=== PATIENT | female | born 1935 | race Hispanic/Latino ===

== ENCOUNTER 2016-12-30 18:22 | Inpatient (IN) | payer MEDICARE, OTHER ==
[2016-12-30 18:22] VITALS: BMI 26.0
--- NOTE | 2016-12-30 19:22 | ED PDOC ---
Arrival/HPI - General Chief Complaint: Psychiatric Evaluation Time Seen by Provider: 12/30/16 19:08 Historian: Patient - History of Present Illness Narrative History of Present Illness (Text): 12/30/16 19:17 81 year old female presents to the emergency department complaining of depression today. Son states that she has not been eating and has not been taking her medications. He states her property supervisor reported she was getting ready to get dressed and go somewhere which she is not supposed to do. He reports she had a similar episode last year where she was later found in the street after falling and is concerned for her safety. Son states Dr. Mcdaniels instructed the patient to come to the emergency room. Patient denies chest pain, shortness of breath, suicidal ideation, homicidal ideation, or hallucinations. Time/Duration: 24 hours Symptom Onset: Gradual Symptom Course: Unchanged Modifying Factors (Text): None Associated Symptoms (Text): None Past Medical History - Provider Review Nursing Documentation Reviewed: Yes - Infectious Disease Hx of Infectious Diseases: None - Tetanus Immunization Tetanus Immunization: Unknown - Reproductive Menopause: Yes - Cardiac Hx Hypertension: Yes - Neurological Hx Transient Ischemic Attacks (TIA): Yes - HEENT Hx Glaucoma: Yes - Renal Other/Comment: Kidney Disease - Hematological/Oncological Hx Anemia: Yes Hx Cancer: Yes (Breast) - Musculoskeletal/Rheumatological Hx Falls: Yes (past) Hx Unsteady Gait: Yes - Gastrointestinal Hx Gastroesophageal Reflux: Yes - Psychiatric Hx Anxiety: Yes Hx Depression: Yes Hx Substance Use: No - Surgical History Hx Cardiac Catheterization: Yes Hx Cholecystectomy: Yes Hx Coronary Stent: Yes (x3) Other/Comment: carotid endarectomy - Anesthesia Hx Anesthesia: Yes Hx Anesthesia Reactions: No Hx Malignant Hyperthermia: No Family/Social History - Physician Review Nursing Documentation Reviewed: Yes Family/Social History: Unknown Family HX Smoking Status: Never Smoked Hx Alcohol Use: No Hx Substance Use: No Allergies/Home Meds Allergies/Adverse Reactions: Allergies No Known Allergies Allergy (Verified 12/31/16 01:16) Home Medications: Home Meds Medication Instructions Recorded Confirmed [place]-3 Acid Ethyl Esters [Lovaza] 2 gm PO BID 02/09/16 12/31/16 Esomeprazole Magnesium [Nexium] 40 mg PO DAILY 07/13/16 12/31/16 Magnesium Oxide [Mag-Ox] 400 mg PO BID 07/13/16 12/31/16 Review of Systems - Physician Review All systems were reviewed & negative as marked: Yes - Review of Systems Respiratory: absent: SOB Cardiovascular: absent: Chest Pain Psychiatric: Depression. absent: Suicidal Ideation Physical Exam - Physical Exam Narrative Physical Exam (Text): Constitutional: No acute distress. Head: Normocephalic. Atraumatic. Eyes: PERRL. ENT: Moist mucous membranes. Neck: Supple. Cardiovascular: Regular rate. Chest: No tenderness. Respiratory: Clear to auscultation bilaterally. GI: Soft. Nontender. Nondistended. Back: No CVA tenderness. Musculoskeletal: No tenderness or swelling of extremities. Skin: No rash. Neurologic: Alert, no focal deficit. No suicidal or homicidal ideation. Vital Signs Reviewed: Yes Vital Signs Temp Pulse Resp BP Pulse Ox 12/30/16 23:36 65 18 188/88 H 96 12/30/16 21:45 76 18 193/81 H 96 12/30/16 19:12 97.4 F L 62 22 180/90 H 100 12/30/16 18:37 98.2 F 78 19 162/64 H 98 Temperature: Afebrile Blood Pressure: Normal Pulse: Regular Respiratory Rate: Normal Appearance: Positive for: Well-Appearing, Non-Toxic, Comfortable Pain Distress: None Mental Status: Positive for: Alert and Oriented X 3 Medical Decision Making ED Course and Treatment: Impression: 81 year old female presents to the emergency department with depression for the past few days. Plan: -- EKG, CXR -- Labs -- Reassess and disposition EKG: Ordered, reviewed, and independently interpreted the EKG. Rate : 69 BPM Rhythm : NSR Interpretation : Approximately [address] elevations in II, III, and AVF. ST depressions in I, AVL, V5, and V6, interpreted by me. Comparison : Previous EKG's from 07/13/16 and 08/29/16 have similar morphologies in all these leads. I reviewed the EKG before seeing the patient which showed the above findings. I compared two previous EKG's which showed similar morphologies as stated above. Patient denies chest pain and shortness of breath in the emergency room. Progress Notes: Medically cleared and accepted for admission by Dr. Mcdaniels. - Lab Interpretations Lab Results: 12/30/16 19:44 12/30/16 19:44 Lab Results 12/30/16 19:55: Urine Color Yellow, Urine Appearance Clear, Urine pH 6.0, Ur Specific [place] >= 1.030, Urine Protein 2+ H, Urine Glucose (UA) Negative, Urine Ketones Negative, Urine Blood Negative, Urine Nitrate Negative, Urine Bilirubin Negative, Urine Urobilinogen 0.2, Ur Leukocyte Esterase Negative, Urine RBC Negative, Urine WBC 2 - 5, Ur Epithelial Cells 3 - 4, Urine Bacteria Few, Urine Opiates Screen Negative, Urine Methadone Screen Negative, Ur Barbiturates Screen Negative, Ur Phencyclidine Scrn Negative, Ur Amphetamines Screen Negative, U Benzodiazepines Scrn Negative, U Oth Cocaine Metabols Negative, U Cannabinoids Screen Negative 12/30/16 19:44: WBC 5.7 D, RBC 4.63, Hgb 14.3, Hct 41.6, MCV 89.8, MCH 30.9, MCHC 34.4, RDW 13.1, Plt Count 192, MPV 9.8, Gran % 64.2, Lymph % (Auto) 24.4, [place] % (Auto) 10.1 H, Eos % (Auto) 1.1 L, Baso % (Auto) 0.2, Gran # 3.63, Lymph # 1.4, [place] # 0.6, Eos # 0.1, Baso # 0.01, Sodium 136, Potassium 3.9, Chloride 101, Carbon Dioxide 32, Anion Gap 7 L, BUN 27 H, Creatinine 0.8, Est GFR ( Amer) > 60, Est GFR (Non-Af Amer) > 60, Random Glucose 82, Calcium 9.5, Total Bilirubin 0.6, AST 27, ALT 26, Alkaline Phosphatase 119, Total Protein 6.2 , Albumin 3.5, Globulin 2.8, Albumin/Globulin Ratio 1.3, Salicylates < 1 L, Acetaminophen < 10.0 L, Alcohol, Quantitative < 10 - RAD Interpretation Radiology Orders: 12/30/16 19:22 CHEST PORTABLE [RAD] Stat - EKG Interpretation Interpreted by ED Physician: Yes Type: 12 lead EKG - Medication Orders Current Medication Orders: Acetaminophen (Tylenol 325mg Tab) 650 mg PO Q4H PRN PRN Reason: Pain, Mild (1-3) Al Hydrox/Mg Hydrox/Simethicone (Maalox Plus 30 Ml) 30 ml PO DAILY PRN PRN Reason: Upset Stomach Anastrozole (Arimidex 1 Mg Tab) 1 mg PO DAILY [facility] Aspirin (Ecotrin) 81 mg PO DAILY [facility] Last Admin: 12/31/16 07:55 Dose: 81 MG Atorvastatin Calcium (Lipitor) 40 mg PO DAILY [facility] Last Admin: 12/31/16 07:55 Dose: 40 MG Carvedilol (Coreg) 25 mg PO BID [facility] Last Admin: 12/31/16 07:55 Dose: 25 MG Clopidogrel Bisulfate (Plavix) 75 mg PO DAILY [facility] Last Admin: 12/31/16 07:55 Dose: 75 MG Furosemide (Lasix) 40 mg PO BID [facility] Last Admin: 12/31/16 07:55 Dose: 40 MG MAR Blood Pressure Document 12/31/16 07:55 TW (Rec: 12/31/16 07:55 [id number] Blood Pressure Blood Pressure (100/60-150/90) 174/103 Lorazepam (Ativan) 0.[address] [facility] PRN Reason: Protocol Last Admin: 12/31/16 00:27 Dose: 0.5 MG Behavioural Document 12/31/16 00:27 DCP (Rec: 12/31/16 00:27 DCP [id number]) Maintenance Maintenance Dose Yes Re-Assess: Reassess Psych Meds Document 12/31/16 01:27 DCP (Rec: 12/31/16 06:59 [id number] Reassess Psych Med Effective Lorazepam (Ativan) 0.5 mg PO DAILY [facility] PRN Reason: Protocol Last Admin: 12/31/16 10:47 Dose: 0.5 MG Behavioural Document 12/31/16 10:47 TW (Rec: 12/31/16 10:47 [id number]) Maintenance Maintenance Dose Yes Magnesium Hydroxide (Milk Of Magnesia) 30 ml PO DAILY PRN PRN Reason: Constipation Magnesium Oxide (Mag-Ox) 400 mg PO BID [facility] Last Admin: 12/31/16 07:55 Dose: 400 MG Pantoprazole Sodium (Protonix Ec Tab) 40 mg PO ACB [facility] Last Admin: 12/31/16 07:55 Dose: 40 MG Quetiapine Fumarate (Seroquel) 50 mg PO HS [facility] PRN Reason: Protocol Last Admin: 12/31/16 00:28 Dose: 50 MG Re-Assess: Reassess Psych Meds Document 12/31/16 01:28 DCP (Rec: 12/31/16 06:59 DCP [id number]) Reassess Psych Med Effective Zaleplon (Sonata) 10 mg PO HS PRN PRN Reason: Insomnia Last Admin: 12/31/16 00:28 Dose: 10 MG - Scribe Statement The provider has reviewed the documentation as recorded by the Leena Kidd Provider Scribe Attestation: All medical record entries made by the Leena were at my direction and personally dictated by me. I have reviewed the chart and agree that the record accurately reflects my personal performance of the history, physical exam, medical decision making, and the department course for this patient. I have also personally directed, reviewed, and agree with the discharge instructions and disposition. Disposition/Present on Arrival - Present on Arrival Any Indicators Present on Arrival: No History of DVT/PE: No History of Uncontrolled Diabetes: No Urinary Catheter: No History of Decub. Ulcer: No History Surgical Site Infection Following: None - Disposition Have Diagnosis and Disposition been Completed?: Yes Diagnosis: Depression Disposition: HOSPITALIZED Disposition Time: 23:00 Patient Plan: Admission Condition: STABLE
[2016-12-30 19:52] LABS: ADD MANUAL DIFF? NO
[2016-12-30 20:06] LABS: BASO # 0.01 K/mm3 (0.0-2.0); BASO % 0.2 % (0.0-3.0); EOS # 0.1 (0.0-0.7); EOS % 1.1 % (1.5-5.0); GRAN # 3.63 (1.4-6.5); GRAN % 64.2 % (50.0-68.0); HEMATOCRIT 41.6 % (36.0-48.0); LYMPH # 1.4 (1.2-3.4); LYMPH % 24.4 % (22.0-35.0); MEAN CELL VOLUME 89.8 fL (80.0-105.0); MEAN CORPUSCULAR HEMOGLOBIN 30.9 pg (25.0-35.0); MEAN CORPUSCULAR HGB CONC 34.4 g/dl (31.0-37.0); MEAN PLATELET VOLUME 9.8 fl (7.0-11.0); MONO # 0.6 (0.1-0.6); MONO % 10.1 % (1.0-6.0); PLATELET COUNT 192 10^3/uL (120.0-450.0); RED CELL DISTRIBUTION WIDTH 13.1 % (11.5-14.5); WHITE BLOOD COUNT 5.7 10^3/ul (4.5-11.0)
[2016-12-30 20:11] LABS: URINE BILIRUBIN NEGATIVE (NEGATIVE); URINE BLOOD NEGATIVE (NEGATIVE); URINE GLUCOSE (UA) NEGATIVE (NEGATIVE); URINE KETONE NEGATIVE (NEGATIVE); URINE LEUKOCYTE ESTERASE NEGATIVE Leu/uL (NEGATIVE); URINE PROTEIN 2+ mg/dL (<30 mg/dL); URINE UROBILINOGEN 0.2 E.U./dL (<1 E.U./dL)
[2016-12-30 20:12] LABS: URINE APPEARANCE CLEAR (CLEAR); URINE COLOR YELLOW (YELLOW)
[2016-12-30 20:17] LABS: ALB/GLOB RATIO 1.3 (1.1-1.8); ALKALINE PHOSPHATASE 119 U/L (38-133); ALT/SGPT 26 U/L (7-56); AST/SGOT 27 U/L (15-39); BILIRUBIN,TOTAL 0.6 mg/dL (0.2-1.3); BLOOD UREA NITROGEN 27 mg/dL (7-21); CALCIUM 9.5 mg/dL (8.4-10.5); CARBON DIOXIDE 32 mmol/L (21-33); CHLORIDE 101 mmol/L (98-107); GFR AFRICAN-AMERICAN > 60; GLUCOSE,RANDOM 82 mg/dL (70-110); POTASSIUM 3.9 mmol/L (3.6-5.0); SODIUM 136 mmol/L (132-148); TOTAL PROTEIN 6.2 g/dL (5.8-8.3)
[2016-12-30 20:42] LABS: URINE BACTERIA FEW (NEG); URINE RBC NEGATIVE /hpf (0-2)
[2016-12-30 21:46] VITALS: O2SAT 96
[2016-12-31] MEDS ORDERED: Alum-Mag Hydrox-Simethicone Susp (30 mL) PO PRN (01:18)
[2016-12-31] MEDS ORDERED: Magnesium Hydroxide Susp 30 ml UD PO PRN (01:18)
[2016-12-31] MEDS: Magnesium Oxide 400 mg Tab UD PO SCH ×2 (07:55→16:04)
[2016-12-31] MEDS: Pantoprazole 40 mg EC Tab PO SCH (07:55)
--- NOTE | 2016-12-31 08:57 | RAD ---
HISTORY: r/o PNA COMPARISON: 10/04/2016 FINDINGS: LUNGS: No active pulmonary disease. PLEURA: No significant pleural effusion identified, no pneumothorax apparent. CARDIOVASCULAR: Normal. OSSEOUS STRUCTURES: No significant abnormalities. VISUALIZED UPPER ABDOMEN: Normal. OTHER FINDINGS: None. IMPRESSION: No active disease.
--- NOTE | 2016-12-31 09:00 | CARD ---
APPROVED REPORT EKG Measurement Heart [id number] <Conclusion> Normal sinus rhythm Left ventricular hypertrophy with repolarization abnormality Inferior infarct, possibly acute Anterior infarct, age undetermined Inferior wall Mi of undetermine age no change from 08/29/2016 Abnormal ECG
[2016-12-31 09:03] LABS: CHOLESTEROL 129 mg/dL (130-200); GLUCOSE,FASTING 101 mg/dL (65-110)
[2016-12-31 09:52] LABS: FREE T4 1.66 ng/dL (0.78-2.19)
[2016-12-31 10:05] LABS: THYROID STIMULATING HORMONE 1.48 mIU/mL (0.46-4.68)
--- NOTE | 2016-12-31 12:15 | PCM.PSYCH ---
Initial Psychiatric Evaluation - Initial Psychiatric Evaluation Type of Admission: Voluntary Legal Status: Capacity (pt has capacity to sign consent for treatment) Chief Complaint (in patient's own words): "I don't want to talk now" Patient's Reaction to Hospitalization: pt was referred by for psychiatric admission for worsening of depression, confusion, inability to function, poor appetite and sleep. History of Present Illness and Precipitating Events: shortly pt is 81yo female with reported bipolar disorder as per h/o, one previous psychiatric admission to the [facility] (long time ago), was referred by her private psychiatrist for evaluation and stabilization of worsening of depression symptoms, inability to function, poor appetite and sleep, as well as some psychomotor retardation. pt presented with fair ADLS, seems to be careless about her appearance. pt was seen and examined, discussed with RNs, pt presented with psychomotor retardation, difficulties to express herself, low volume voice, underproductive speech, pt was guarded did not want to give this communications writer details of the admission , "I don't want to talk right now". Pt also presented with signs of catatonia, slow movements, difficulties to express herself. As per PCP, it took about 15min to fill menu for lunch. pt was giving yes-no answers only. denied v/a/t hallucinations, denied paranoid ideation. Pt reported to feel anxious. pt said she was not able to sleep but slept kind of better last night because "they gave me medications". pt denied using drugs or smoking. Past psychiatric h/o: as pr report by 07/17/2016 pt has h/o bipolar disorder, h/o mood swings, paranoia, agitation, restlessness and insomnia., some memory problems. two psychotic episodes in the past, two admissions into the psychiatric unit (long time ago). Family h/o: unknown Medical h/o: CHF, HTN, high cholesterol, Cardiac stents, CVA, TIA, h/o breast Ca , will be seen by . pt denied being abused 12/30/16 19:44 12/30/16 19:44 Lab Results 12/31/16 08:48: Fasting Glucose 101, Triglycerides 115, Cholesterol 129 L, LDL Cholesterol Direct 59, HDL Cholesterol 43 12/31/16 08:00: Free T4 1.66, Thyroxine (T4) 11.0, TSH 3rd Generation 1.48, Valproic Acid < 10 L 12/30/16 19:55: Urine Color Yellow, Urine Appearance Clear, Urine pH 6.0, Ur Specific [place] >= 1.030, Urine Protein 2+ H, Urine Glucose (UA) Negative, Urine Ketones Negative, Urine Blood Negative, Urine Nitrate Negative, Urine Bilirubin Negative, Urine Urobilinogen 0.2, Ur Leukocyte Esterase Negative, Urine RBC Negative, Urine WBC 2 - 5, Ur Epithelial Cells 3 - 4, Urine Bacteria Few, Urine Opiates Screen Negative, Urine Methadone Screen Negative, Ur Barbiturates Screen Negative, Ur Phencyclidine Scrn Negative, Ur Amphetamines Screen Negative, U Benzodiazepines Scrn Negative, U Oth Cocaine Metabols Negative, U Cannabinoids Screen Negative 12/30/16 19:44: WBC 5.7 D, RBC 4.63, Hgb 14.3, Hct 41.6, MCV 89.8, MCH 30.9, MCHC 34.4, RDW 13.1, Plt Count 192, MPV 9.8, Gran % 64.2, Lymph % (Auto) 24.4, [place] % (Auto) 10.1 H, Eos % (Auto) 1.1 L, Baso % (Auto) 0.2, Gran # 3.63, Lymph # 1.4, [place] # 0.6, Eos # 0.1, Baso # 0.01, Sodium 136, Potassium 3.9, Chloride 101, Carbon Dioxide 32, Anion Gap 7 L, BUN 27 H, Creatinine 0.8, Est GFR ( Amer) > 60, Est GFR (Non-Af Amer) > 60, Random Glucose 82, Calcium 9.5, Total Bilirubin 0.6, AST 27, ALT 26, Alkaline Phosphatase 119, Total Protein 6.2 , Albumin 3.5, Globulin 2.8, Albumin/Globulin Ratio 1.3, Salicylates < 1 L, Acetaminophen < 10.0 L, Alcohol, Quantitative < 10 Vital Signs Temp Pulse Pulse Resp BP Pulse Ox 12/31/16 10:30 112/69 12/31/16 07:55 174/103 H 12/31/16 01:03 62 20 12/30/16 23:36 65 18 188/88 H 96 12/30/16 21:45 76 18 193/81 H 96 12/30/16 19:12 97.4 F L 62 22 180/90 H 100 12/30/16 18:37 98.2 F 78 19 162/64 H 98 Current Medications: Active Medications Generic Name Dose Route Start Last Admin Trade Name Freq PRN Reason Stop Dose Admin Acetaminophen 650 mg 12/31/16 01:18 Tylenol 325mg Tab PO Q4H PRN Pain, Mild (1-3) Al Hydrox/Mg Hydrox/Simethicone 30 ml 12/31/16 01:18 Maalox Plus 30 Ml PO DAILY PRN Upset Stomach Anastrozole 1 mg 12/31/16 08:00 Arimidex 1 Mg Tab PO DAILY [facility] Aspirin 81 mg 12/31/16 08:00 12/31/16 07:55 Ecotrin PO 81 mg DAILY [facility] Administration Atorvastatin Calcium 40 mg 12/31/16 08:00 12/31/16 07:55 Lipitor PO 40 mg DAILY [facility] Administration Carvedilol 25 mg 12/31/16 08:00 12/31/16 07:55 Coreg PO 25 mg BID LOAN Administration Clopidogrel Bisulfate 75 mg 12/31/16 08:00 12/31/16 07:55 Plavix PO 75 mg DAILY [facility] Administration Furosemide 40 mg 12/31/16 08:00 12/31/16 07:55 Lasix PO 40 mg BID LOAN Administration Lorazepam 0.5 mg 12/31/16 00:17 12/31/16 00:27 Ativan PO 0.5 mg HS LOAN Administration Protocol Lorazepam 0.5 mg 12/31/16 10:00 12/31/16 10:47 Ativan PO 0.5 mg DAILY [facility] Administration Protocol Magnesium Hydroxide 30 ml 12/31/16 01:18 Milk Of Magnesia PO DAILY PRN Constipation Magnesium Oxide 400 mg 12/31/16 08:00 12/31/16 07:55 Mag-Ox PO 400 mg BID [facility] Administration Pantoprazole Sodium 40 mg 12/31/16 07:30 12/31/16 07:55 Protonix Ec Tab PO 40 mg ACB LOAN Administration Quetiapine Fumarate 50 mg 12/31/16 00:15 12/31/16 00:28 Seroquel PO 50 mg HS LOAN Administration Protocol Zaleplon 10 mg 12/31/16 00:19 12/31/16 00:28 Sonata PO 10 mg HS PRN Administration Insomnia Past Psychiatric History - Past Psychiatric History Previous Treatment History: Inpatient Prior Professional Help: see HPI Prior Psychiatric Treatment: see HPI At what hospital: see HPI Duration: see HPI Nature of Treatment: see HPI Explanation of prior treatment: see HPI History of Abuse: see HPI History of ETOH/Drug Use: see HPI History of Family Illness: see HPI Pertinent Medical Hx (Current Medical&Sleep Prob, Allergies): Allergies Allergy/AdvReac Type Severity Reaction Status Date / Time No Known Allergies Allergy Verified 12/31/16 01:16 [place]-3 Acid Ethyl Esters [Lovaza] 2 gm PO BID 02/09/16 Esomeprazole Magnesium [Nexium] 40 mg PO DAILY 07/13/16 Magnesium Oxide [Mag-Ox] 400 mg PO BID 07/13/16 Anastrozole [Arimidex 1 mg Tab] 1 mg PO DAILY #0 tab 07/17/16 Aspirin [Ecotrin] 81 mg PO DAILY #0 tabec 07/17/16 Atorvastatin [Lipitor] 40 mg PO DAILY #0 tab 07/17/16 Benztropine [Cogentin] 0.5 mg PO BID #0 tab 07/17/16 Carvedilol [Coreg] 25 mg PO BID #0 tab 07/17/16 Clopidogrel [Plavix] 75 mg PO DAILY #0 tab 07/17/16 Divalproex [Depakote ER(ONCE DAILY)] 500 mg PO HS #0 ter 07/17/16 Isosorbide Mononitrate [Imdur] 120 mg PO DAILY #0 tab 07/17/16 OLANZapine [Zyprexa] 10 mg PO HS #0 tab 07/17/16 Pantoprazole [Protonix EC Tab] 40 mg PO ACB #0 ect 07/17/16 Spironolactone [Aldactone] 50 mg PO BID #0 tab 07/17/16 Review of Systems - Review of Systems Systems not reviewed;Unavailable: Acuity of Condition - EENT Eyes: As Per HPI Ears: As Per HPI Nose/Mouth/Throat: As Per HPI - Breasts Breasts: As Per HPI - Cardiovascular Cardiovascular: As Per HPI - Respiratory Respiratory: As Per HPI - Gastrointestinal Gastrointestinal: As Per HPI - Genitourinary Genitourinary: As Per HPI - Reproductive: Female Reproductive:Female: As Per HPI - Menstruation Menstruation: As Per HPI - Musculoskeletal Musculoskeletal: As Par HPI - Integumentary Integumentary: As Per HPI - Neurological Neurological: As Per HPI - Psychiatric Psychiatric: As Per HPI - Endocrine Endocrine: As Per HPI - Hematologic/Lymphatic Hematologic: As Per HPI Mental Status Examination - Personal Presentation Personal Presentation: Looks stated age - Affect Affect: Constricted, Flat - Motor Activity Motor Activity: Psychomotor Retardation - Reliability in Providing Information Reliability in Providing Information: Poor, due to alteration in thoughts, Poor , due to altered mood, Poor, due to cognitve impairment - Speech Speech: Disorganized - Mood Mood: Depressed, Anxious - Formal Thought Process Formal Thought Process: No Impairment, Other (guarded) - Obsessions/Compulsions Obsessions: None Compulsions: None - Cognitive Functions Orientation: Person, Place Sensorium: Alert Attention/Concentration: Easily distracted Abstract Thinking: Spicer Estimate of Intelligence: Average Judgement: Intact, as evidence by: Insight regarding need for hospitalization - Risk Risk: Suicidal, Self-mutilation, Diminished functioning - Strength & Assets Inventory Strength & Assets Inventory: Cooperative - Limitations Limitations: Other (multiple medical issues, noncompliance with meds) DSM 5 DX - DSM 5 DSM 5 Diagnosis: as per h/o bipolar disorder, most recent episode depressed with catatonia - Recommended/Plan of Treatment Treatment Recommendations and Plan of Treatment: milieu/structure/supportive therapy will increase ativan 0.5mg amsh for catatonia will continue seroquel as it is for mood stabilization medical eval called pt will be seen by tomorrow will monitor closely Projected ELOS: 10days Prognosis: guarded Discharge Plan and Discharge Criteria: Pt will be not depressed or manic, will be more hopeful, will be not psychotic or anxious, will be tolerating medications well, will not have major side effects, will be able to function, will not pose threat to self or others. - Smoking Cessation Smoking Cessation Initiated: No Reason for not providing: pt deneid smoking
[2016-12-31 16:40] LABS: FOLATE 10.4 ng/mL
--- NOTE | 2016-12-31 21:11 | CON ---
DATE: 12/31/2016 The patient is a 81-year-old female seen on psychiatry floor, 508, bed 1. The patient presented to [facility] Emergency Room yesterday. According to the ER notes and the triage note, patient was unhappy, dep ressed, not eating, not taking meds. According to the patient's detailed history taken, patient got upset that the patient's son was diagnosed with a basal cell carcinoma of the face. The patient also reports being depressed because of the son's medical condition. Not been eating, not taking medicat ions. REVIEW OF SYSTEMS: A 13-system review was done. Pertinent positive and negative dictated above. CODE STATUS: Full code. LIVING WILL AND ADVANCED DIRECTIVE: None. ALLERGIES: None. HEIGHT: 5 foot 1 inch. WEIGHT: 130 pounds. BMI: 25.1. HOME MEDICATIONS: Home medications which were listed are incorrect. According to my recollection, glenn mendez is not on Aldactone 50 twice a day. The patient is on Lasix 40 mg twice a day, Arimidex 1 mg daily. The patient is on Coreg 25 twice a day, Depakote 500 at bedtime, Ecotrin 81 daily. Imdur is probably stopped. The patient is on Lipitor 40 mg daily, Welchol 3 grams twice a day probably, magne sium oxide 400 twice a day, Nexium or Protonix 40 mg daily, Plavix 75 mg daily. Psychiatric medicati ons as per Dr. Mcdaniels. SOCIAL HISTORY: The patient denies substance abuse, alcohol use, smoking. MENSTRUAL HISTORY: Postmenopausal. OCCUPATIONAL HISTORY: Disabled female. FAMILY HISTORY: Not available. PAST MEDICAL AND SURGICAL HISTORY: History of breast carcinoma, history of ischemic cardiomyopathy, history of cerebrovascular accident, history of carotid artery stenosis, status post right carotid en darterectomy; history of subdural hematoma, history of congestive heart failure, history of myocardia l infarction, history of syncope, history of coronary artery disease, history of coronary angioplasty , history of cardiomyopathy, history of congestive heart failure, history of systolic congestive hear t failure, history of non-ST elevation myocardial infarction, history of mid right coronary artery an gioplasty and stent placement, history of 80% stenosis of the proximal RCA and ostial RCA and 40% rissa nosis of the mid RCA, history of successful angioplasty of the ostial and proximal RCA lesion with dr licea-eluting stent placement. The patient's past medical history is significant for syncope, history of coronary artery disease, history of dyslipidemia, history of transaminitis, history of acute non-S T elevation myocardial infarction, history of ischemic cardiomyopathy, history of bilateral venous st asis, history of dementia, history of noncompliance, history of hypovitaminosis D, history of carotid stenosis, history of fatty liver, history of cholecystectomy, history of fatty pancreatitis. The kareen dobbins's past medical history is significant for deconditioning, history of dementia, history of nonco mpliance, history of dyslipidemia, history of hypovitaminosis D, history of hypomagnesemia, history o f non-ST elevation myocardial infarction, history of transaminitis, history of iron deficiency, histo ry of iron deficiency anemia, history of non-ST elevation myocardial infarction, history of dyslipide forrest, hypercholesterolemia, history of hypovitaminosis D, history of proteinuria, history of questiona ble urinary tract infection. The patient's past medical history is significant for right carotid end arterectomy with external jugular vein patch angioplasty, history of right hemispheric stroke with bi lateral carotid stenosis, history of right carotid endarterectomy, history of carotid and vertebral a ngiogram. The patient's past medical history is also significant for left ventricular ejection fract ion of 34% with ischemic cardiomyopathy and global hypokinesis, history of trace aortic regurgitation , history of moderate mitral regurgitation, history of cardiomyopathy, history of coronary artery dis ease, history of coronary angioplasty, history of non-ST elevation myocardial infarction, history of hypertensive cardiovascular disease, history of age indeterminate inferior infarct, history of subcen timeter multiple thyroid nodules. The patient's past medical history is significant for bilateral pl eural effusion, history of cardiomegaly, history of cholecystectomy, history of pneumobilia, history of adrenal hypertrophy. The patient's past medical history is significant for history of right parie martin lobe encephalomalacia secondary to acute infarct, history of carotid artery stenosis. The patien t's past medical history is significant for history of osteopenia, early osteoporosis, history of rig ht breast carcinoma status post radiation and chemotherapy. Past medical history is significant for history of pneumobilia, history of cholecystectomy, history of acute right parietal occipital lobe no nhemorrhagic infarct in 01/2016, history of deconditioning, history of kyphosis, history of fatty live r and hepatic steatosis. Past medical history is significant for history of cardiomegaly. The patie nt's past medical history is significant for psychosis. Past medical history is also significant for history of noncompliance. Past medical history significant for [id number] systolic congestive heart failure, history of poor compliance, history of hypoxemia, history of hypomagnesemia, history of subcentimeter bilateral thyroid nodule, history of ____, history of psychosis, depression, cogniti ve impairment, history of probable bipolar disorder. Past medical history is also significant for pr obable bipolar disorder. Past medical history is significant for ischemic cardiomyopathy, history of syncope, history of left carotid 60% to 80% stenosis with post-stenotic dilatation, history of 70% p roximal right internal carotid artery stenosis, history of right carotid endarterectomy, history of d elirium, history of dementia, history of hypertensive cardiovascular disease, history of ____ breast carcinoma. The patient's past medical history is significant for possible Alzheimer's type dementia, hepatic steatosis, history of cholecystectomy, history of severe encephalopathy, delirium. Past med ical history is also significant for ____ angina, gastritis, breast carcinoma. Past medical history is also significant for non-ST elevation myocardial infarction, history of systolic congestive heart failure. The patient seen in room 508. The patient sitting up in the bed. PHYSICAL EXAMINATION: VITAL SIGNS: T-max 98.2. Heart rate 62-78. Blood pressure initially in the ER 162/64, 180/90, 193/ 81, 188/88, 174/101, down to 114/72 after resumption of patient's antihypertensive. Respiration 18-2 0. O2 saturation 96% to 100%. GENERAL: The patient is seen sitting up in the bed. HEENT: Normocephalic, atraumatic. Shows pink conjunctivae, anicteric sclerae, positive right caroti d endarterectomy surgical scar. Positive bilateral carotid bruit. CHEST: Kyphosis. LUNGS: Shows decreased breath sounds at the bases, left more than the right. CARDIOVASCULAR: S1, S2, regular rhythm. Positive systolic murmur left sternal border, right second intercostal space, left second intercostal space. ABDOMEN: Soft. Positive surgical scar of the cholecystectomy. GENITALIA: Female. RECTAL: Deferred. EXTREMITIES: Shows positive swelling of the lower extremity. VASCULAR: Palpable pulses. MUSCULOSKELETAL: Shows a body mass index of 25.1. NEUROLOGIC: The patient is alert, awake, oriented to person, place, oriented x 2. Is able to move u pper and lower extremity without assistance. Follows simple commands. Is able to ambulate independe ntly. PSYCHIATRIC: As per psychiatrist consultation. DIAGNOSTICS: CBC: WBC 5.7, hemoglobin and hematocrit 14.3 and 41.6, platelets 192. Sodium 136, pot assium 3.9, chloride 101, CO2 of 32, anion gap 7, BUN 27, creatinine 0.8, GFR greater than 60, glucos e 82, calcium 9.5. LFTs are normal. Cholesterol 129, LDL 59, HDL 43. Vitamin B12 at 955. Vitamin D 25-hydroxy 43.4. Folate 10.4. TSH 1.48. T4 is high normal at 11.0. Urinalysis shows 2+ protein, bacteria few. Salicylate urine drug screen, acetaminophen level, alcohol level negative, Depakote l evel less than 10. Chest x-ray shows cardiomegaly. EKG done in the Emergency Room shows baseline ar tifact, Q-wave in III and aVF, T-wave inversion in I, aVL, V4-V6. The patient seen and evaluated in the Emergency Room last night. The patient was evaluated and medic ally cleared for admission to psychiatry for depression. The patient was later on evaluated by the p sychiatrist, Dr. Stoner. Her impression and plan was noted. IMPRESSION AND PLAN: 1. Acute exacerbation of possible bipolar disorder with acute exacerbation of depression and anxiety with poor appetite and insomnia. 2. History of anxiety and depression. 3. Hypertension, probably secondary to noncompliance with medication. 4. Mild prerenal kidney injury. 5. High normal thyroxine level. 6. Proteinuria and bacteriuria. 7. Hypertensive cardiovascular disease. 8. Age indeterminate inferior infarct and age indeterminate anterior inferior infarct as per EKG. 9. Anorexia. 10. Noncompliance. 11. History of poor compliance and noncompliance. 12. History of hyperlipidemia, history of hypomagnesemia, history of hypovitaminosis D, history of d yslipidemia, history of breast carcinoma. PLAN: At this time, patient has been ordered resumption of patient's home medications, which are as follows: 1. Arimidex 1 mg daily. The patient is also started on Ativan 0.5 mg at bedtime and Ativan 0.5 mg a t 10:00 a.m. 2. Coreg 25 mg twice a day. 3. Ecotrin 81 mg daily. 4. Lasix 40 mg twice a day. 5. Lipitor 40 mg daily. 6. Magnesium oxide 400 mg twice a day. 7. Plavix 75 mg daily. 8. Protonix 40 mg daily. In addition, patient is started on Seroquel 50 mg at bedtime, Sonata 10 mg at bedtime p.r.n. The pat ient is on heart healthy diet. ABAD stockmaximo ordered. Serial chemistries ordered. The patient will be continued on the psychiatric intervention. The patient will be monitored medically on a regular basis, therapeutic interventions. Diagnostic therapeutic intervention will be ordered depending upon patient's clinical and hemodynamic status and subjective and objective finding. Dictated and electronically signed, not read. Mohan Hidalgo MD cc: [id number] TT: 12/31/2016 21:11:34 Confirmation # [id number] Dictation # [id number] sn
[2017-01-01 08:16] LABS: ALB/GLOB RATIO 1.1 (1.1-1.8); ALKALINE PHOSPHATASE 109 U/L (38-133); ALT/SGPT 22 U/L (7-56); AST/SGOT 28 U/L (15-39); BILIRUBIN,TOTAL 0.8 mg/dL (0.2-1.3); BLOOD UREA NITROGEN 24 mg/dL (7-21); CALCIUM 9.4 mg/dL (8.4-10.5); CARBON DIOXIDE 32 mmol/L (21-33); CHLORIDE 101 mmol/L (98-107); GFR AFRICAN-AMERICAN > 60; GLUCOSE,RANDOM 90 mg/dL (70-110); POTASSIUM 4.1 mmol/L (3.6-5.0); SODIUM 136 mmol/L (132-148); TOTAL PROTEIN 5.8 g/dL (5.8-8.3)
[2017-01-01] MEDS: Pantoprazole 40 mg EC Tab PO SCH (08:25)
[2017-01-01] MEDS: Magnesium Oxide 400 mg Tab UD PO SCH ×2 (08:25→16:43)
[2017-01-01 12:18] LABS: MAGNESIUM 2.1 mg/dL (1.7-2.2); PHOSPHOROUS 4.3 mg/dL (2.5-4.5); URIC ACID 6.1 mg/dL (2.5-6.2)
--- NOTE | 2017-01-01 12:30 | PN ---
DATE: 01/01/2017 HISTORY OF PRESENT ILLNESS: The patient is a 81-year-old female who was brought to the [facility] 2 nights ago on a Sunday night by her daughter at my suggestion. The patient had increased sympt oms of severe confusion, attempting to walk out of her house by herself incoherently. 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 The patient has been seen as an outpatient intermittently on multiple occasions in my office. PAST MEDICAL HISTORY: The patient has a past history of several psychotic episodes as a younger woma n. She has had 2 psychiatric hospitalizations in the distant past at the [facility]. She had an acute CVA in 2015 for which she had a right-sided posterior parietal occipital stroke with lacuna r infarcts. The patient had become psychotic after her stroke. The patient also has history of hyperlipidemia, gastroesophageal reflux, CA of the breast, coronary a rtery disease, mild cognitive impairment, recurrent depression. She was also left with encephalomala naila of the right parietal occipital area of the brain. She also has a history of carotid artery sten osis. She has had a right carotid endarterectomy. She has had coronary angioplasty. She has a hist ory of ischemic cardiomyopathy, hypertension, history of episode of congestive heart failure, history of non-ST wave elevation myocardial infarction. She has a history of hypovitaminosis vitamin D, hyp erlipidemia. The patient has a history of fatty liver. PERSONAL HISTORY: She is , and she is a . She has a son and a daughter. The patient h as no history of alcohol or substance abuse. 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 As noted, s he has had past psychotic episodes, and psychiatric hospitalizations in the past. The patient's daug hter is power of compliance attorney if the patient becomes incompetent. CURRENT LABORATORY DATA: Her CBC is totally within normal range. Her metabolic profile - her sodium , potassium, chloride, CO2 are all within normal range. Anion gap 7. BUN 24, creatinine 0.9. Estim ated GFR is greater than 60. Liver function studies are within normal range as well as thyroid funct ions, vitamin D, folate levels. CURRENT MEDICATIONS: Include Arimidex, Ativan 0.5 mg daily and at bedtime, Coreg, Ecotrin, Lasix, Li pitor, Plavix, Protonix, Seroquel 50 mg at bedtime, Sonata 10 mg at bedtime p.r.n.. REVIEW OF SYSTEMS: Generally noncontributory, although the patient is slightly confused. VITAL SIGNS: Her blood pressure is 180/93, pulse 80, respirations 18 per minute and afebrile. MENTAL STATUS: Psychiatrically, her mental status: She is awake. He is alert. She has depressed f acies, some psychomotor retardation, despondent, had an episode through the night, which is confirmed by nurse's notes. Denies hallucinations or paranoia although she feels very depressed. At times, s he feels life is not worth living. At times, she feels she does not need to be in a psychiatric hosp ital, although after being informed that she did sign against medical advice, she refused to do so, a nd will agree to stay for further treatment. 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 The patient has a history of encep halomalacia from an old cerebrovascular accident in the right parietal occipital lobes of the brain. She has hypertension, history of coronary artery stents. She has a history of ischemic cardiomyopat hy, history of hypertension. PLAN: I discussed the case with her rotary shear worker helper. She is felt to be medically stable. I will discuss with treatment team, and will review psychotropic medications. Luis Mcdaniels MD cc: [id number] TT: 01/01/2017 12:01:10 Confirmation # [id number] Dictation # [id number] jeremy
--- NOTE | 2017-01-01 12:57 | PN ---
DATE: 01/01/2017 The patient is seen in room 508, bed 1. SUBJECTIVE: The patient is sitting up in the bed. The patient appears to be calm and quiet. The patient appears to be depressed. According to the nurses note, patient refusing Arimidex. Overnight, patient slept well. Denied auditory or visual hallucinations. Denied homicidal, suicidal ideation. The patient was found to be alert, awake, oriented x 3. PHYSICAL EXAMINATION: VITAL SIGNS: T-max 97.8, pulse 80, blood pressure ranging from 114/72-180/93, respirations 20, O2 sat is 96%-100%. HEAD: Normocephalic, atraumatic. HEENT: Shows pink conjunctivae, anicteric sclerae. No oropharyngeal lesion. NECK: No neck rigidity. CHEST: Kyphosis. Positive right carotid endarterectomy surgical scar. LUNGS: Shows decreased breath sounds at the bases. CARDIOVASCULAR: Shows S1, S2, regular rhythm, positive systolic murmur left sternal border, right second intercostal space. ABDOMEN: Soft, positive bowel sounds. GENITALIA: Female. RECTAL: Deferred. EXTREMITIES: Shows positive trace swelling of the lower extremity, no pitting edema. VASCULAR: Palpable pulses. MUSCULOSKELETAL: Shows a body mass index of 25.1. NEUROLOGIC: The patient is alert, awake, oriented x 3. Cranial nerves II-XII intact, limited. GAIT: Independent. PSYCHIATRIC: Negative for anxiety, depression. Negative for suicidal or homicidal ideation. Negative for auditory or visual hallucinations. DIAGNOSTICS: Today from 01/01: Sodium 136, potassium 4.1, chloride 101, CO2 32, anion gap 7, BUN 24, creatinine 0.9, GFR greater than 60, glucose 90, calcium 9.4. LFTs are normal. Cholesterol 129, triglycerides 115, LDL 59, HDL 43, vitamin B12 955, vitamin D 43.6. Thyroid panel is within normal limits with TSH 1.48. T4 is high normal 11, which needs to be monitored. IMPRESSION AND PLAN: 1. Acute exacerbation of bipolar disorder with acute exacerbation of depression and anxiety with poor appetite, insomnia. 2. Questionable uncontrolled hypertension. 3. History of anxiety, depression and bipolar disorder. 4. Probable noncompliance with medication. 5. Mild prerenal kidney injury. 6. High normal thyroxine level. 7. Proteinuria and bacteriuria. 8. Hypertensive cardiovascular disease. 9. Age indeterminate inferior infarct and age indeterminate anterior, inferior infarct as per EKG. 10. Anorexia. 11. Noncompliance. 12. History of hyperlipidemia, hypomagnesemia, hypovitaminosis D, history of breast carcinoma. . Acute exacerbation of possible bipolar disorder with acute exacerbation of depression and anxiety with poor appetite and insomnia. 2. History of anxiety and depression. 3. Hypertension, probably secondary to noncompliance with medication. 4. Mild prerenal kidney injury. 5. High normal thyroxine level. 6. Proteinuria and bacteriuria. 7. Hypertensive cardiovascular disease. 8. Age indeterminate inferior infarct and age indeterminate anterior inferior infarct as per EKG. 9. Anorexia. 10. Noncompliance. 11. History of poor compliance and noncompliance. 12. History of hyperlipidemia, history of hypomagnesemia, history of hypovitaminosis D, history of dyslipidemia, history of breast carcinoma. PLAN: At this time, patient has been ordered serial CMP. MEDICATIONS: The patient is currently on: 1. Arimidex 1 mg daily. 2. Ativan 0.5 mg at bedtime and Ativan 0.5 mg daily. 3. Coreg 25 mg twice a day. 4. Ecotrin 81 mg daily. 5. Lasix 40 mg twice a day. 6. Lipitor 40 mg daily. 7. Magnesium oxide 400 mg twice a day. 8. Plavix 75 mg daily. 9. Protonix 40 mg daily. 10. Seroquel 50 mg at bedtime. 11. Sonata 10 mg at bedtime p.r.n. 12. Tylenol 650 q. 6 p.r.n. The patient's magnesium level has to be ordered, which will be monitored and checked today. At present, overall medically, patient is stable and patient is compensated regarding her medical issues. We would recommend continuation of the medications as prescribed. We will update the patient's medications from the office medication list if needed. The patient needs to continue with the above therapeutic intervention and further recommendations to follow as per psychiatry. Dictated and electronically signed, not read. Mohan Hidalgo MD cc: [id number] TT: 01/01/2017 12:56:34 Confirmation # [id number] Dictation # [id number] nilam ISBELL
[2017-01-02 07:41] LABS: ALB/GLOB RATIO 1.2 (1.1-1.8); ALKALINE PHOSPHATASE 129 U/L (38-133); ALT/SGPT 33 U/L (7-56); AST/SGOT 37 U/L (15-39); BILIRUBIN,TOTAL 0.9 mg/dL (0.2-1.3); BLOOD UREA NITROGEN 21 mg/dL (7-21); CALCIUM 9.5 mg/dL (8.4-10.5); CARBON DIOXIDE 35 mmol/L (21-33); CHLORIDE 98 mmol/L (95-110); GFR AFRICAN-AMERICAN > 60; GLUCOSE,RANDOM 89 mg/dL (70-110); POTASSIUM 3.5 mmol/L (3.6-5.0); SODIUM 140 mmol/L (132-148); TOTAL PROTEIN 6.5 g/dL (5.8-8.3)
[2017-01-02] MEDS ORDERED: Potassium Chloride 40 mEq/30 ml LIQ UD PO STA (08:26)
[2017-01-02 11:08] LABS: PHOSPHOROUS 4.4 mg/dL (2.5-4.5)
--- NOTE | 2017-01-02 11:29 | PN ---
DATE: 01/02/2017 The patient is seen in the dayroom. The patient is sitting up at the dining table having breakfast. The patient is alert, awake, responsive. The patient appears to be depressed. The patient was found to be depressed. Refused breakfast earlier this morning. The patient is refusing medications. The patient is refusing potassium supplementation. The patient was found to be depressed. PHYSICAL EXAMINATION: VITAL SIGNS: T-max 98.4, heart rate 68, blood pressure 169/75, 164/85, 1____/93 , respirations 20, O2 sat 96-100%. HEAD: Normocephalic, atraumatic. HEENT: Shows pink conjunctivae, anicteric sclerae. No oropharyngeal lesion. NECK: No neck rigidity. CHEST: Kyphosis. LUNGS: No rales, crackles, or wheezing. CARDIOVASCULAR: S1, S2, regular rhythm. Questionable soft systolic murmur, left sternal border, left second intercostal space, right second intercostal space. ABDOMEN: Soft. Positive bowel sounds. GENITALIA: Female. RECTAL: Deferred. EXTREMITIES: Show trace swelling of the lower extremity. No pitting edema, no calf tenderness, no Homans' signs. VASCULAR: Palpable pulses. MUSCULOSKELETAL: Shows a body mass index of 25.1. NEUROLOGIC: Cranial nerves II-XII limited. GAIT: Independent. NEURO: Grossly without deficit. PSYCHIATRIC: Positive for increasing depression. DIAGNOSTICS: 01/02 - sodium 140, potassium 3.5, chloride 98, CO2 of 35, anion gap 11, BUN 21, creatinine 0.8. GFR greater than 60. Calcium is 9.5. Uric acid is high-normal at 6.1. Magnesium and phosphorus pending. LFTs are normal. Triglyceride is 115. MICROBIOLOGY: No reports. IMPRESSION AND PLAN: 1. Increasing depression with acute exacerbation of anxiety and depression. 2. Acute exacerbation of bipolar disorder with acute exacerbation of depression and anxiety, poor appetite, insomnia. 3. Noncompliance and poor compliance with medication. 4. Hypertension. 5. Hypokalemia. 6. History of dyslipidemia, history of hypovitaminosis D. 7. Proteinuria. 8. Asymptomatic bacteriuria. 9. Ischemic cardiomyopathy. 10. History of dementia, history of noncompliance with medication. 11. History of right cerebral infarct with right internal carotid artery stenosis and right carotid endarterectomy. 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 13. Psychosis and cognitive impairment. 1. Acute exacerbation of bipolar disorder with acute exacerbation of depression and anxiety with poor appetite, insomnia. 2. Questionable uncontrolled hypertension. 3. History of anxiety, depression and bipolar disorder. 4. Probable noncompliance with medication. 5. Mild prerenal kidney injury. 6. High normal thyroxine level. 7. Proteinuria and bacteriuria. 8. Hypertensive cardiovascular disease. 9. Age indeterminate inferior infarct and age indeterminate anterior, inferior infarct as per EKG. 10. Anorexia. 11. Noncompliance. 12. History of hyperlipidemia, hypomagnesemia, hypovitaminosis D, history of breast carcinoma. . Acute exacerbation of possible bipolar disorder with acute exacerbation of depression and anxiety with poor appetite and insomnia. 2. History of anxiety and depression. 3. Hypertension, probably secondary to noncompliance with medication. 4. Mild prerenal kidney injury. 5. High normal thyroxine level. 6. Proteinuria and bacteriuria. 7. Hypertensive cardiovascular disease. 8. Age indeterminate inferior infarct and age indeterminate anterior inferior infarct as per EKG. 9. Anorexia. 10. Noncompliance. 11. History of poor compliance and noncompliance. 12. History of hyperlipidemia, history of hypomagnesemia, history of hypovitaminosis D, history of dyslipidemia, history of breast carcinoma. PLAN: At this time, the patient has been ordered serial labs. The patient has been ordered potassium supplementation 40 mEq stat. The patient's current medication has been revised as mentioned. MEDICATIONS: According to the office medication record, the patient is currently on: 1. Aricept 5 mg daily, Arimidex 1 mg daily, Ativan 0.5 mg at bedtime, and Ativan 0.5 mg at 10:00 a.m. 2. Coreg 25 mg twice a day. 3. Ecotrin 81 mg daily. 4. Imdur 120 mg daily. 5. Lasix 40 mg twice a day. 6. Lexapro 5 mg daily, Lipitor 40 mg daily, magnesium oxide 400 mg twice a day. 7. Plavix 75 mg daily. 8. Potassium 40 mEq ordered stat x 1 dose. 9. Protonix 40 mg daily for GI prophylaxis. 10. Seroquel 50 mg at bedtime. 11. Sonata 10 mg at bedtime p.r.n. 12. Tylenol 650 q. 4 p.r.n. 13. The patient is started on allopurinol 100 mg daily instead of Uloric 40 mg daily, which the patient is supposed to be taking. The patient has been ordered ABAD stockings. At present, the patient's further management is as per the psychiatric recommendation. Overall medically, the patient is stable. The patient's blood pressure is probably fluctuating secondary to the patient's refusal to take medication, which can be addressed with the patient's psychiatrist in psychotherapy groups and group sessions, and acute care nursing assistant. The patient needs to comply with the medication. Dictated and electronically signed, not read. Mohan Hidalgo MD cc: [id number] TT: 01/02/2017 11:29:04 Confirmation # [id number] Dictation # [id number] MTDD
[2017-01-02] MEDS: Pantoprazole 40 mg EC Tab PO SCH (11:52)
[2017-01-02] MEDS: Magnesium Oxide 400 mg Tab UD PO SCH ×2 (11:52→17:22)
--- NOTE | 2017-01-02 12:35 | PN ---
DATE: 01/02/2017 HISTORY OF PRESENT ILLNESS: The patient is a 81-year-old female admitted to the hospital due to diso rganized thinking, depressed mood, failing to take her prescribed psychotropic and medical medication s, attempting to wander out of the house in an incoherent manner. MENTAL STATUS: Today, although she is awake, alert, oriented x 3, her eye contact is poor. Her thin gilma is somewhat disorganized. She is extremely despondent about various personal matters built out of proportion. Claims she has not filed a certain form with her tax return and there is nothing she can do about it. When given a rational solution, she refused to accept it. Today, she refused to ta ke all her medications in the morning. The patient is very hopeless, helpless and feels she is never going to get better. The patient is oriented x 3 as noted above. The patient feels life is not wor th living. CURRENT LABORATORY DATA: Her sodium 140, potassium 3.5, chloride 98, CO2 35, anion gap 11, BUN 21, c reatinine is 0.8. The rest of parameters were all normal. CURRENT MEDICATIONS: Include Aricept 5 mg at bedtime, Arimidex, lorazepam 0.5 mg daily and at bedtim e, Coreg, Ecotrin, Imdur, Lasix, Lexapro 5 mg q.a.m. started today, Lipitor, mag ox, Plavix, p.r.n. Sonata and Seroquel 50 mg p.o. at bedtime. VITAL SIGNS: Her blood pressure is 169/75, pulse 68, respirations 18 per minute and afebrile. 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 PLAN: Will continue the Lexapro, continue lorazepam. Will discontinue Seroquel and start Zyprexa 2. 5 mg b.i.d. and 0.5 mg p.o. at bedtime. Keep under close observation for suicidal ideation and errat ic behavior. I will continue discussing with nursing staff and rest of team. Luis Mcdaniels MD cc: [id number] TT: 01/02/2017 12:34:02 Confirmation # [id number] Dictation # [id number] mn
[2017-01-03 07:33] LABS: ALB/GLOB RATIO 1.2 (1.1-1.8); CALCIUM 9.7 mg/dL (8.4-10.5); PHOSPHOROUS 4.1 mg/dL (2.5-4.5); POTASSIUM 4.1 mmol/L (3.6-5.0); TOTAL PROTEIN 6.6 g/dL (5.8-8.3)
[2017-01-03] MEDS: Pantoprazole 40 mg EC Tab PO SCH (10:00)
[2017-01-03] MEDS: Magnesium Oxide 400 mg Tab UD PO SCH ×2 (10:01→18:04)
--- NOTE | 2017-01-03 15:42 | PN ---
DATE: 01/03/2017 HISTORY OF PRESENT ILLNESS: The patient is a 81-year-old female who was admitted to the psychiatric unit due to severe depression, racing thoughts, suicidal ideation, poor concentration and noncomplian ce with medication at home. The patient today mental status reveals her thought processes are a bit more integrated, somewhat less anxious, reportedly slept well through the night, still very fearful a bout minor matters which she blows up out of proportion, allows herself to get very agitated. The pa shilpi is oriented x 3. She has intermittent impairment in recent memory. Judgment is still impaired , but improving. I spoke with patient at length regarding problem solving, how to cope with stressor s. I also reviewed with the patient each medication that she is taking and the rationale for each Th e patient currently denies any suicidal plan, but at times, feels that life is not worth living. LABORATORY DATA: The patient's metabolic profile: Sodium 136, potassium 4.1, chloride 96, CO2 31, a nion gap 13, BUN is 25, creatinine 1.1, estimated GFR of 58. Rest of the profile is within normal ra nge. CURRENT MEDICATIONS: Include Ecotrin, Aricept 5 mg at bedtime, Coreg, Imdur, Lasix, Lexapro, Lipitor , Mag-Ox, p.r.n. Sonata which she did not have last night, Protonix, Zyloprim, Zyprexa which was star shoaib yesterday at 2.5 mg b.i.d. and 5 mg at bedtime. The patient does not appear to be having any adv erse effects from any of her psychotropic medicines. VITAL SIGNS: Her blood pressure is 170/80, pulse 65, respirations 18 per minute, and afebrile. IMPRESSION: Recurrent major depression with psychotic features. The patient has a history of hypert ension, history of coronary artery disease with stents, history of hyperlipidemia, history of gout, h istory of cancer of the breast, history of mild cognitive impairment. PLAN: Continue above psychotropic medicines and to continue to observe every 15 minutes for suicidal thinking. Also continue to closely monitor her mental status and discuss ongoing with the staff. Luis Mcdaniels MD cc: [id number] TT: 01/03/2017 15:34:03 Confirmation # [id number] Dictation # [id number] tn
--- NOTE | 2017-01-04 00:01 | PN ---
DATE: 01/03/2017 SUBJECTIVE: The patient is seen in day room. The patient is sitting up doing crossword puzzle and activity. The patient up, is alert, awake, responsive. The patient does not appear to be in any distress. The patient has been refusing medication. I had a long talk with the patient today. The patient promises to comply with medication, I have explained to the patient that patient 's stay may be prolonged, if the patient does not comply with the medication, which patient understood and promised to comply. The patient's appetite appears to be okay, according to the nurses' note, the patient was found to be depressed, isolated, withdrawal, refused to attend groups PHYSICAL EXAMINATION: VITAL SIGNS: T-max, patient is afebrile. Heart rate 73-65, blood pressure ranging from 170/80-95/56, asymptomatic. The accuracy of that blood pressure I am unable to verify. HEENT: Head: Normocephalic, atraumatic. Shows pink conjunctivae, anicteric sclerae. No oropharyngeal lesion. No neck rigidity. Head: Normocephalic, atraumatic. Shows pink conjunctivae, anicteric sclerae. No oropharyngeal lesion. NECK: No neck rigidity. Positive right carotid endarterectomy surgical scar. Positive carotid bruit. CHEST: Kyphosis, positive mastectomy. LUNGS: No rales, crackles, or wheezing. CARDIOVASCULAR: S1, S2, regular rhythm, positive systolic murmur right second intercostal space, left sternal border, left second intercostal space. ABDOMEN: Soft, positive bowel sounds. GENITALIA: Female. RECTAL: Deferred. EXTREMITIES: Shows trace swelling of the lower extremity, no calf tenderness, no Homans sign. No Homans sign, no clubbing, no cyanosis. VASCULAR: Palpable pulses. MUSCULOSKELETAL: Plantars are downward. DTRs are 2+. NEUROLOGIC: The patient is alert, awake, oriented x 3. Cranial nerves II-XII intact, and limited. GAIT: Independent. PSYCHIATRIC: As per psychiatrist's evaluation. DIAGNOSTICS: On 01/03, sodium 136, potassium 4.1, chloride 96, CO2 of 31, anion gap 13, BUN 25, creatinine 1.1, GFR greater than 58, glucose 92, calcium 9.7, phosphorus 4.1, magnesium 2.0. LFTs are normal. IMPRESSION AND PLAN: 1. Questionable poor compliance versus noncompliance. 2. Recurrent major depression and psychosis and psychotic features. 3. Cognitive impairment with dementia. 4. Uncontrolled hypertension with episodic hypotension. 5. Acute exacerbation of depression and anxiety and acute exacerbation of bipolar disorder with acute exacerbation of anxiety, depression with poor appetite and insomnia. 6. Hypokalemia. 7. Dyslipidemia. 8. Hypovitaminosis D. 9. Asymptomatic bacteriuria and proteinuria. 10. Dilated ischemic cardiomyopathy. 11. History of dementia. 12. History of right cerebral infarct with right internal carotid artery stenosis and right carotid endarterectomy. 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 14. Psychosis and cognitive impairment. 15. History of right occipital, right parietal nonhemorrhagic acute infarct with right internal carotid artery stenosis, status post right carotid endarterectomy. 1. Increasing depression with acute exacerbation of anxiety and depression. 2. Acute exacerbation of bipolar disorder with acute exacerbation of depression and anxiety, poor appetite, insomnia. 3. Noncompliance and poor compliance with medication. 4. Hypertension. 5. Hypokalemia. 6. History of dyslipidemia, history of hypovitaminosis D. 7. Proteinuria. 8. Asymptomatic bacteriuria. 9. Ischemic cardiomyopathy. 10. History of dementia, history of noncompliance with medication. 11. History of right cerebral infarct with right internal carotid artery stenosis and right carotid endarterectomy. 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 13. Psychosis and cognitive impairment. 1. Acute exacerbation of bipolar disorder with acute exacerbation of depression and anxiety with poor appetite, insomnia. 2. Questionable uncontrolled hypertension. 3. History of anxiety, depression and bipolar disorder. 4. Probable noncompliance with medication. 5. Mild prerenal kidney injury. 6. High normal thyroxine level. 7. Proteinuria and bacteriuria. 8. Hypertensive cardiovascular disease. 9. Age indeterminate inferior infarct and age indeterminate anterior, inferior infarct as per EKG. 10. Anorexia. 11. Noncompliance. 12. History of hyperlipidemia, hypomagnesemia, hypovitaminosis D, history of breast carcinoma. . Acute exacerbation of possible bipolar disorder with acute exacerbation of depression and anxiety with poor appetite and insomnia. 2. History of anxiety and depression. 3. Hypertension, probably secondary to noncompliance with medication. 4. Mild prerenal kidney injury. 5. High normal thyroxine level. 6. Proteinuria and bacteriuria. 7. Hypertensive cardiovascular disease. 8. Age indeterminate inferior infarct and age indeterminate anterior inferior infarct as per EKG. 9. Anorexia. 10. Noncompliance. 11. History of poor compliance and noncompliance. 12. History of hyperlipidemia, history of hypomagnesemia, history of hypovitaminosis D, history of dyslipidemia, history of breast carcinoma. PLAN: At this time, the patient seen by psychiatrist. The patient's psychotropic medications are adjusted by Dr. Mcdaniels. The patient is on continuous observation every 15 minutes for suicidal ideation. The patient's medications has been and are as follows: 1. Aricept 5 mg at bedtime. 2. Arimidex 1 mg daily. 3. Ativan 0.5 mg at bedtime, and Ativan 0.5 mg 10:00 a.m. 4. Coreg 25 mg twice a day. 5. Ecotrin 81 mg daily. 6. Imdur 120 mg daily. 7. Lasix 40 mg twice a day. 8. Lexapro 5 mg daily. 9. Lipitor 40 mg daily. 10. Magnesium oxide 400 twice a day. 11. Plavix 75 mg daily. 12. Protonix 40 mg daily for GI prophylaxis. 13. Sonata 10 mg at bedtime p.r.n. 14. Tylenol 650 q. 4 hours p.r.n. 15. The patient is started on Zyprexa 5 mg at bedtime and Zyprexa 2.5 mg 10:00 a.m. and 4:00 p.m. 16. Allopurinol 100 mg daily. The patient's blood pressure will be monitored very closely. The patient's Imdur, isosorbide will be decreased to 60 mg with close monitoring of blood pressure, as patient is having episodes of asymptomatic hypotension and also intermittently patient's blood pressure is elevated, it is a possibility that the patient's blood pressure fluctuation could be because of patient's compliance and refusal with medication. But will be monitored closely while the patient is on the psychiatry floor. At present, patient has been participating in the treatment plan as per psychiatry. The patient's further management will be dependent upon the patient's clinical condition, hemodynamic status, and as per patient's response to therapeutic intervention, and as per patient's diagnostic test results and as per recommendation by psychiatry. Dictated, and electronically signed, not read. Mohan Hidalgo MD cc: [id number] TT: 01/04/2017 00:01:07 Confirmation # [id number] Dictation # [id number] tn MTDD
[2017-01-04 07:49] LABS: ALB/GLOB RATIO 1.3 (1.1-1.8); BILIRUBIN,TOTAL 0.9 mg/dL (0.2-1.3); CALCIUM 9.5 mg/dL (8.4-10.5); PHOSPHOROUS 3.7 mg/dL (2.5-4.5); POTASSIUM 4.2 mmol/L (3.6-5.0); TOTAL PROTEIN 6.1 g/dL (5.8-8.3)
[2017-01-04] MEDS: Magnesium Oxide 400 mg Tab UD PO SCH ×2 (09:27→17:34)
[2017-01-04] MEDS: Pantoprazole 40 mg EC Tab PO SCH (09:29)
--- NOTE | 2017-01-04 13:36 | PN ---
DATE: 01/04/2017 SUBJECTIVE: A 81-year-old female who was admitted for grossly deteriorating mental status. She was depressed,paranoid, and exhibited disorganized thinking. PHYSICAL EXAMINATION: MENTAL STATUS: The patient is oriented x 3. Recognized me; very anxious; She has difficulty carrying on a rational conversation. She admits not taking medications last night. has thoughts that life is not worth living. Judgement and insight are impaired MEDICATIONS: Include Aricept, Arimidex, Ativan 0.5 mg daily and at bedtime, Coreg, Ecotrin, Imdur, Lasix, Lexapro 5 mg q.a.m., Lipitor, Plavix, Protonix, p.r.n. Sonata, Zyloprim and Zyprexa 2.5 bid and 5 mg at bedtime. VITAL SIGNS: BP is 109/68; pulse is 78; respirations 18 per minute. IMPRESSION: Severe recurrent major depression with psychotic features. She has a history of an occipitoparietal cerebrovascular accident in 2016, hypertension , coronary artery disease with stents. She has history of gout, history of cancer of the breast. PLAN: Continue above psychotropic medicines. Continue to observe q. 15 minutes for suicidal thinking or behavior. Continue to closely monitor mental status and continue discussing with treatment team. Luis Mcdaniels MD cc: [id number] TT: 01/04/2017 12:53:00 Confirmation # [id number] Dictation # [id number] mn 01/04/2017 12:35:11 SUKHI
--- NOTE | 2017-01-04 21:02 | PN ---
DATE: 01/04/2017 The patient is actually seen in group therapy. The patient is involved in group therapy with group therapy session. According to the nurse's notes, the patient is still refusing medications. The patient's case was extensively discussed with the nursing staff. Overnight nurse's notes were reviewed. The patient appeared to be anxious, irritable. The patient does not appear to be compliant with medication. The patient slept overnight without any adverse events. The patient was found to be mostly nonsocializing and seclusive. The patient was seen in psychiatry floor. The patient was seen during the participation of the group therapy. The patient appears to be alert, awake, responsive. Overnight nurse's notes were reviewed. According to the nurse's notes and according to the nurses' direct communication, the patient is still noncompliant with medications and refusing to take certain medicines, refuses to interact socially and tries to be seclusive. The patient's appetite appears to be intact. PHYSICAL EXAMINATION: VITAL SIGNS: T-max afebrile, heart rate 64, blood pressure 164/74, 167/74, 101/ 54. HEAD: Normocephalic, atraumatic. HEENT: Shows pink conjunctivae, anicteric sclerae. No oropharyngeal lesion. NECK: Positive right carotid endarterectomy surgical scar, positive soft carotid bruit. CHEST: Positive kyphosis, positive mastectomy. CARDIOVASCULAR: Shows S1, S2, regular rhythm, positive systolic murmur left sternal border, right second intercostal space. ABDOMEN: Soft. Positive bowel sounds. GENITALIA: Female. RECTAL: Deferred. EXTREMITIES: Shows trace swelling of the lower extremity. VASCULAR: Palpable pulses of the lower extremity, motor strength is 5/5 in upper and lower extremity. Positive kyphoscoliosis noted. GAIT: Independent. VASCULAR: Palpable pulses. Body mass index is 25. PSYCHIATRIC: As per psychiatrist evaluation. DIAGNOSTIC STUDIES: Sodium 136, potassium 4.2, chloride 95, CO2 35, anion gap 10, BUN 36, creatinine 1.3, GFR 48, glucose 114, calcium 9.5, phosphorus 3.7, magnesium 2.0. IMPRESSION AND PLAN: 1. Acute exacerbation of depression and anxiety and acute exacerbation of bipolar disorder with poor appetite and insomnia. 2. Poor compliance and noncompliance. 3. Recurrent major depression with psychotic features. 4. Cognitive impairment, dementia. 5. Episodic hypertension and hypotension, probably secondary to noncompliance with medication. 6. Hypokalemia. 7. Mild prerenal kidney injury. 8. Mild metabolic alkalosis. 9. Dyslipidemia. 10. Hypovitaminosis D. 11. Asymptomatic bacteriuria, proteinuria. 12. Dilated ischemic cardiomyopathy. 13. History of dementia. 14. History of right parietooccipital nonhemorrhagic acute infarct with right internal carotid artery stenosis and status post right carotid endarterectomy. 15. Multi-infarct dementia. 16. Psychosis with cognitive impairment. 1. Questionable poor compliance versus noncompliance. 2. Recurrent major depression and psychosis and psychotic features. 3. Cognitive impairment with dementia. 4. Uncontrolled hypertension with episodic hypotension. 5. Acute exacerbation of depression and anxiety and acute exacerbation of bipolar disorder with acute exacerbation of anxiety, depression with poor appetite and insomnia. 6. Hypokalemia. 7. Dyslipidemia. 8. Hypovitaminosis D. 9. Asymptomatic bacteriuria and proteinuria. 10. Dilated ischemic cardiomyopathy. 11. History of dementia. 12. History of right cerebral infarct with right internal carotid artery stenosis and right carotid endarterectomy. 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 14. Psychosis and cognitive impairment. 15. History of right occipital, right parietal nonhemorrhagic acute infarct with right internal carotid artery stenosis, status post right carotid endarterectomy. 1. Increasing depression with acute exacerbation of anxiety and depression. 2. Acute exacerbation of bipolar disorder with acute exacerbation of depression and anxiety, poor appetite, insomnia. 3. Noncompliance and poor compliance with medication. 4. Hypertension. 5. Hypokalemia. 6. History of dyslipidemia, history of hypovitaminosis D. 7. Proteinuria. 8. Asymptomatic bacteriuria. 9. Ischemic cardiomyopathy. 10. History of dementia, history of noncompliance with medication. 11. History of right cerebral infarct with right internal carotid artery stenosis and right carotid endarterectomy. 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 13. Psychosis and cognitive impairment. 1. Acute exacerbation of bipolar disorder with acute exacerbation of depression and anxiety with poor appetite, insomnia. 2. Questionable uncontrolled hypertension. 3. History of anxiety, depression and bipolar disorder. 4. Probable noncompliance with medication. 5. Mild prerenal kidney injury. 6. High normal thyroxine level. 7. Proteinuria and bacteriuria. 8. Hypertensive cardiovascular disease. 9. Age indeterminate inferior infarct and age indeterminate anterior, inferior infarct as per EKG. 10. Anorexia. 11. Noncompliance. 12. History of hyperlipidemia, hypomagnesemia, hypovitaminosis D, history of breast carcinoma. . Acute exacerbation of possible bipolar disorder with acute exacerbation of depression and anxiety with poor appetite and insomnia. 2. History of anxiety and depression. 3. Hypertension, probably secondary to noncompliance with medication. 4. Mild prerenal kidney injury. 5. High normal thyroxine level. 6. Proteinuria and bacteriuria. 7. Hypertensive cardiovascular disease. 8. Age indeterminate inferior infarct and age indeterminate anterior inferior infarct as per EKG. 9. Anorexia. 10. Noncompliance. 11. History of poor compliance and noncompliance. 12. History of hyperlipidemia, history of hypomagnesemia, history of hypovitaminosis D, history of dyslipidemia, history of breast carcinoma. PLAN: At this time, the patient is to be continued on therapeutic interventions as per MAR today. The patient is to be followed by psychiatry. The patient's repeat lab work will be ordered for the morning. If patient's lab work still shows some prerenal kidney injury, the patient's furosemide will be decreased to once a day. The patient's discharge planning as per psychiatry clearance. Dictated and electronically singed, not read. Mohan Hidalgo MD cc: [id number] TT: 01/04/2017 21:01:54 Confirmation # [id number] Dictation # [id number] hn MTDD
[2017-01-05 08:07] LABS: ALB/GLOB RATIO 1.2 (1.1-1.8); ALKALINE PHOSPHATASE 116 U/L (38-133); ALT/SGPT 25 U/L (7-56); AST/SGOT 35 U/L (15-39); BILIRUBIN,TOTAL 0.5 mg/dL (0.2-1.3); BLOOD UREA NITROGEN 33 mg/dL (7-21); CALCIUM 9.5 mg/dL (8.4-10.5); CARBON DIOXIDE 39 mmol/L (21-33); CHLORIDE 95 mmol/L (95-110); GFR AFRICAN-AMERICAN > 60; GLUCOSE,RANDOM 100 mg/dL (70-110); PHOSPHOROUS 3.5 mg/dL (2.5-4.5); POTASSIUM 3.7 mmol/L (3.6-5.0); SODIUM 138 mmol/L (132-148); TOTAL PROTEIN 5.9 g/dL (5.8-8.3)
--- NOTE | 2017-01-05 08:14 | PN ---
DATE: 01/04/2017 The patient is actually seen in group therapy. The patient is involved in group therapy with group t herapy session. According to the nurse's notes, the patient is still refusing medications. The patient's case was ex tensively discussed with the nursing staff. Overnight nurse's notes were reviewed. The patient appe ared to be anxious, irritable. The patient does not appear to be compliant with medication. The pat ient slept overnight without any adverse events. The patient was found to be mostly nonsocializing a nd seclusive. Mohan Hidalgo MD cc: [id number] TT: 01/04/2017 21:07:07 Confirmation # [id number] Dictation # [id number]
[2017-01-05] MEDS: Magnesium Oxide 400 mg Tab UD PO SCH ×2 (10:30→16:22)
[2017-01-05] MEDS: Pantoprazole 40 mg EC Tab PO SCH (10:31)
--- NOTE | 2017-01-05 10:48 | PN ---
DATE: 01/05/2017 The patient is seen in room 508, bed 1. The patient is seen sitting up in the bed. The patient refuses to come out of the bed. The patient is alert, awake, responsive. The patient's overnight nurse's notes were reviewed. The patient stayed depressed, seclusive, anxious, flat affect, hesitant taking medications, needed encouragement, felt depressed. The patient seen by psychiatrist. The patient again this morning was found to be withdrawn and seclusive. The patient refuses to socialize with peers. Mood was depressed. The patient is delusional and grandiose with some visual hallucinations. The patient is having visual hallucinations, which were documented in the nurse's notes. PHYSICAL EXAMINATION: VITAL SIGNS: T-max 97.8, heart rate 64-66, blood pressure ranging from 169/84- 109/68, respirations 16, O2 sat is 96%. HEAD: Normocephalic, atraumatic. HEENT: Shows pinkish conjunctivae, anicteric sclerae, no oropharyngeal lesion. NECK: Positive carotid bruit. Positive right carotid endarterectomy surgical scar. CHEST: Kyphosis. LUNGS: Shows no rales, crackles, or wheezing. Questionable decreased breath sounds at the bases. CARDIOVASCULAR: Shows S1, S2. Regular rhythm. Positive systolic murmur left sternal border, right second intercostal space, left second intercostal space. ABDOMEN: Soft, positive bowel sounds. GENITALIA: Female. RECTAL: Deferred. EXTREMITIES: Shows positive trace swelling of the lower extremities. The patient refuses to put ABAD stockings on. MUSCULOSKELETAL: Shows a body mass index of 25. NEUROLOGIC: Cranial nerves II-XII limited. Gait examination is independent. VASCULAR: Palpable pulses. PSYCHIATRIC: As per the psychiatrist's note as per nurse's notes. DIAGNOSTICS: 01/05, sodium 138, potassium 3.7, chloride 95, CO2 39, anion gap 8 , BUN going up to 36 and 33, creatinine 0.9. GFR greater than 60, glucose 100, calcium 9.5, phosphorus 3.5, magnesium 2.0. LFTs are normal. IMPRESSION AND PLAN: 1. Acute exacerbation of anxiety and depression and acute exacerbation of bipolar disorder with poor appetite and insomnia. 2. Episodic hyper and hypotension, probably secondary to noncompliance with medication. 3. Hypokalemia. 4. Mild metabolic alkalosis and prerenal kidney injury. 5. Deconditioning. 6. Hypertensive cardiovascular disease. 7. 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 8. Poor compliance and noncompliance. 9. Depressed mood disorder. 10. Withdrawn and seclusive behavior with grandiosities. 11. Visual hallucinations. 1. Acute exacerbation of depression and anxiety and acute exacerbation of bipolar disorder with poor appetite and insomnia. 2. Poor compliance and noncompliance. 3. Recurrent major depression with psychotic features. 4. Cognitive impairment, dementia. 5. Episodic hypertension and hypotension, probably secondary to noncompliance with medication. 6. Hypokalemia. 7. Mild prerenal kidney injury. 8. Mild metabolic alkalosis. 9. Dyslipidemia. 10. Hypovitaminosis D. 11. Asymptomatic bacteriuria, proteinuria. 12. Dilated ischemic cardiomyopathy. 13. History of dementia. 14. History of right parietooccipital nonhemorrhagic acute infarct with right internal carotid artery stenosis and status post right carotid endarterectomy. 15. Multi-infarct dementia. 16. Psychosis with cognitive impairment. 1. Questionable poor compliance versus noncompliance. 2. Recurrent major depression and psychosis and psychotic features. 3. Cognitive impairment with dementia. 4. Uncontrolled hypertension with episodic hypotension. 5. Acute exacerbation of depression and anxiety and acute exacerbation of bipolar disorder with acute exacerbation of anxiety, depression with poor appetite and insomnia. 6. Hypokalemia. 7. Dyslipidemia. 8. Hypovitaminosis D. 9. Asymptomatic bacteriuria and proteinuria. 10. Dilated ischemic cardiomyopathy. 11. History of dementia. 12. History of right cerebral infarct with right internal carotid artery stenosis and right carotid endarterectomy. 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 14. Psychosis and cognitive impairment. 15. History of right occipital, right parietal nonhemorrhagic acute infarct with right internal carotid artery stenosis, status post right carotid endarterectomy. 1. Increasing depression with acute exacerbation of anxiety and depression. 2. Acute exacerbation of bipolar disorder with acute exacerbation of depression and anxiety, poor appetite, insomnia. 3. Noncompliance and poor compliance with medication. 4. Hypertension. 5. Hypokalemia. 6. History of dyslipidemia, history of hypovitaminosis D. 7. Proteinuria. 8. Asymptomatic bacteriuria. 9. Ischemic cardiomyopathy. 10. History of dementia, history of noncompliance with medication. 11. History of right cerebral infarct with right internal carotid artery stenosis and right carotid endarterectomy. 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 13. Psychosis and cognitive impairment. 1. Acute exacerbation of bipolar disorder with acute exacerbation of depression and anxiety with poor appetite, insomnia. 2. Questionable uncontrolled hypertension. 3. History of anxiety, depression and bipolar disorder. 4. Probable noncompliance with medication. 5. Mild prerenal kidney injury. 6. High normal thyroxine level. 7. Proteinuria and bacteriuria. 8. Hypertensive cardiovascular disease. 9. Age indeterminate inferior infarct and age indeterminate anterior, inferior infarct as per EKG. 10. Anorexia. 11. Noncompliance. 12. History of hyperlipidemia, hypomagnesemia, hypovitaminosis D, history of breast carcinoma. . Acute exacerbation of possible bipolar disorder with acute exacerbation of depression and anxiety with poor appetite and insomnia. 2. History of anxiety and depression. 3. Hypertension, probably secondary to noncompliance with medication. 4. Mild prerenal kidney injury. 5. High normal thyroxine level. 6. Proteinuria and bacteriuria. 7. Hypertensive cardiovascular disease. 8. Age indeterminate inferior infarct and age indeterminate anterior inferior infarct as per EKG. 9. Anorexia. 10. Noncompliance. 11. History of poor compliance and noncompliance. 12. History of hyperlipidemia, history of hypomagnesemia, history of hypovitaminosis D, history of dyslipidemia, history of breast carcinoma. PLAN: At this time, patient is to be continued on psychiatry floor. CURRENT MEDICATIONS: 1. Aricept 5 mg at bedtime. 2. Arimidex 1 mg daily. 3. Ativan 0.5 mg at bedtime. 4. Ativan 0.5 mg daily. 5. Coreg 25 mg twice a day. 6. Ecotrin 81 mg daily. 7. Imdur 60 mg daily. 8. Lasix decreased to 40 mg p.o. once day. 9. Lexapro 5 mg daily. 10. Lipitor 40 mg daily. 11. Magnesium oxide 400 mg twice a day. 12. Plavix 75 mg daily. 13. Protonix 40 mg daily. 14. Sonata 10 mg at bedtime p.r.n. 15. Tylenol 650 q. 4 p.r.n. 16. Zyprexa 5 mg at bedtime and Zyprexa 2.5 mg 10 a.m. and 4 p.m. 17. Allopurinol 100 mg daily. Heart healthy diet. ABAD stockings continuous. The patient is to be continued on the above therapeutic intervention as discussed. At present, patient was re- encouraged, reinforced about compliance with diet, medications, compliance with participation of the treatment plan on the psychiatric floor, which was extensively explained to the patient in layman's language. All questions and concerns answered. Dictated and electronically signed, not read. Mohan Hidalgo MD cc: [id number] TT: 01/05/2017 10:48:16 Confirmation # [id number] Dictation # [id number] en MTDD
--- NOTE | 2017-01-05 18:53 | PN ---
DATE: 01/05/2017 HISTORY OF PRESENT ILLNESS: The patient is a 81-year-old white female who was originally admitted to the psychiatric unit due to radical change in mental status. Her thinking became very disorganized, became very paranoid, vague and evasive. She had refused to cooperate with outpatient psychiatric c are including taking prescribed medication. Today, I met with the patient. I also spoke with her duyen leon and I also met with her son. The patient has been refusing intermittently doses of psychotrop ic and other medication. Today, her mental status reveals that although she is awake, she has poor e ye contact. She has trouble carrying on a rational conversation. She seems to be internally preoccu pied. Her reality awareness is poor. She has thought blocking and she refuses to answer many questi ons in a formal mental status examination. CURRENT LABORATORY DATA: Her metabolic profile reveals sodium of 138, potassium 3.7, chloride 95, CO 2 of 39, anion gap 8, BUN 33, creatinine 0.1. The rest of parameters were all within normal range. CURRENT MEDICATIONS: Have included Aricept 5 mg at bedtime, Arimidex, lorazepam 0.5 mg in a.m. and a t bedtime, Coreg 25 mg twice a day, Ecotrin 81 mg daily, Imdur 60 mg daily, Lexapro 5 mg q.a.m., Lipi tor, mag ox, Plavix and Protonix. She has an order for p.r.n. Sonata, which she had last night for s donny. She also is taking Zyloprim and Zyprexa 2.5 mg b.i.d. and 5 mg at bedtime. CURRENT VITAL SIGNS: Her blood pressure is 167/92, pulse 64, respirations 18 per minute and she is a febrile. IMPRESSION: She has a major depressive disorder with psychotic features, recurrent type, severe. Wen ames has a history of a right parietal lobe infarct with encephalomalacia from in 01/2016. She has a his tory of coronary artery disease with stents. She has a history of a myocardial infarction. She has a history of hypertension. She has a history of hyperlipidemia. She has a history of cancer of the breast. She has history of gout. She has a history of poor compliance. PLAN: I will increase Zyprexa to 5 mg daily and 10 mg at bedtime. Continue Lexapro at 5 mg q.a.m. Continue lorazepam 0.5 mg daily and at bedtime and will continue to closely monitor her mental status . I will be away on vacation. Dr. Wan and Dr. Renee will be covering for me while I am away; I w ill return on Monday 01/15. I discussed this with both the patient's son and daughter. Luis Mcdaniels MD cc: [id number] TT: 01/05/2017 18:52:56 Confirmation # [id number] Dictation # [id number] dn
[2017-01-06 08:11] LABS: ALB/GLOB RATIO 1.2 (1.1-1.8); ALKALINE PHOSPHATASE 120 U/L (38-133); ALT/SGPT 30 U/L (7-56); AST/SGOT 33 U/L (15-39); BILIRUBIN,TOTAL 0.7 mg/dL (0.2-1.3); BLOOD UREA NITROGEN 32 mg/dL (7-21); CALCIUM 9.6 mg/dL (8.4-10.5); CARBON DIOXIDE 38 mmol/L (21-33); CHLORIDE 94 mmol/L (95-110); GFR AFRICAN-AMERICAN > 60; GLUCOSE,RANDOM 99 mg/dL (70-110); MAGNESIUM 2.3 mg/dL (1.7-2.2); PHOSPHOROUS 4.3 mg/dL (2.5-4.5); POTASSIUM 3.9 mmol/L (3.6-5.0); SODIUM 137 mmol/L (132-148)
--- NOTE | 2017-01-06 08:57 | PCM.PYCHPN ---
Psychiatric Progress Note - Psychiatric Progress Note Patient seen today, length of contact: 25 min Problems Identified/Issues Discussed: I reviewed assessment and recent notes. I met with patient at bedside. Patient is calm with a notably flat and withdrawn affect during our interview. She barely opens her eyes however she is responsive to questioning. Appears disengaged and disoriented nonetheless her responses are relevant to questioning and she is aware of location and current date. Patient's thought process is demonstrating notable blocking and latency. She reports depression and denies SI. She cannot reliably respond to questions about hallucinations. She does report that she feels safe and that she is hopeful. Presently patient denies any new concerns, discomfort or pain. Thus far tolerating medications. There were no behavioral issues overnight. Diagnostic Results: Major Depression, Severe, recurrent with psychotic features Medication Change: No Medical Record Reviewed: Yes (reports, labs, vitals, notes) Mental Status Examination - Cognitive Function Orientation: Person, Place - Mood Mood: Depressed, Anxious - Affect Affect: Constricted, Flat - Formal Thought Process Formal Thought Process: No Impairment, Other (guarded) - Homicidal Ideation Homicidal Ideation: No Goal/Treatment Plan - Goal/Treatment Plan Need for Continued Stay: Remain at risks for inpatient hospitalization Progress Toward Problem(s) and Goals/Treatment Plan: * c/w current tx and plan * Vitals reviewed and noted below: Selected Entries 01/05/17 01/05/17 01/05/17 06:00 10:28 16:00 Temperature 97.8 F Pulse Rate 66 66 59 L Respiratory 16 Rate Blood Pressure 169/84 H 169/84 H 166/81 H 01/05/17 16:21 Temperature Pulse Rate 64 Respiratory Rate Blood Pressure 167/92 H * New weekend labs noted below: Laboratory Results - last 24 hr 01/06/17 07:30 Sodium 137 Potassium 3.9 Chloride 94 L Carbon Dioxide 38 H Anion Gap 9 L BUN 32 H Creatinine 0.8 Est GFR ( Amer) > 60 Est GFR (Non-Af Amer) > 60 Random Glucose 99 Calcium 9.6 Phosphorus 4.3 Magnesium 2.3 H Total Bilirubin 0.7 AST 33 ALT 30 Alkaline Phosphatase 120 Total Protein 6.0 Albumin 3.3 Globulin 2.8 Albumin/Globulin Ratio 1.2
[2017-01-06] MEDS: Pantoprazole 40 mg EC Tab PO SCH (09:21)
[2017-01-06] MEDS: Magnesium Oxide 400 mg Tab UD PO SCH ×2 (09:24→17:14)
--- NOTE | 2017-01-06 11:50 | MRI ---
PROCEDURE: MRI BRAIN WITHOUT CONTRAST HISTORY: R/O infarct; infarct Jun 2016. COMPARISON: Comparison made with CT scan brain 08/29/2016. TECHNIQUE: Multiplanar, multisequence MR images of the brain were obtained without intravenous contrast enhancement. Note the examination is limited by motion artifact. FINDINGS: HEMORRHAGE: No acute parenchymal, subarachnoid or extra-axial hemorrhage. No definitive evidence of hemosiderin deposition identified on gradient echo weighted sequence. DWI: No evidence of an acute or early subacute infarction. BRAIN PARENCHYMA: Chronic appearing right parietal infarct with mild chronic periventricular white matter ischemic changes. In addition, there are multiple tiny chronic appearing lacunar type infarcts scattered about the deep and subcortical white matter and basal nuclei both cerebral hemispheres. VENTRICLES: Moderate central volume loss evidenced by slight disproportionate enlargement of the ventricles as compared the sulci CRANIUM: Calvarium appears unremarkable so far as can be seen ORBITS: Bilateral cataract surgery. . PARANASAL SINUSES/MASTOIDS: Clear VASCULAR SYSTEM: Visualized major vascular flow voids at skull base are patent. OTHER FINDINGS: None. IMPRESSION: Limited motion degraded study. Chronic right parietal infarct with scattered small chronic infarcts within the deep and subcortical white matter and basal nuclei both cerebral hemispheres. Moderate central volume loss. Status post bilateral cataract surgery.
[2017-01-07 07:49] LABS: ALB/GLOB RATIO 1.2 (1.1-1.8); BILIRUBIN,TOTAL 0.7 mg/dL (0.2-1.3); CALCIUM 9.3 mg/dL (8.4-10.5); MAGNESIUM 2.4 mg/dL (1.7-2.2); PHOSPHOROUS 4.1 mg/dL (2.5-4.5)
--- NOTE | 2017-01-07 08:37 | PCM.PYCHPN ---
Psychiatric Progress Note - Psychiatric Progress Note Patient seen today, length of contact: 25 min Problems Identified/Issues Discussed: I reviewed recent notes and met with patient at bedside. Patient continues to present as calm with a notably flat and withdrawn affect. She barely opens her eyes however she is responsive to questioning. Appears disengaged and disoriented nonetheless her responses are relevant to questioning and she is aware of location and current date. Patient's thought process is demonstrating notable blocking and latency. I agree with staff notes which have reported psychomotor retardation. Today patient denies depression and indicates she feels "okay". Denies hopelessness, SI or hallucinations. Presently patient denies any new concerns, discomfort or pain. Thus far tolerating medications though staff notes patient has demonstrated inconsistent compliance. There were no behavioral issues over the weekend. Diagnostic Results: Major Depression, Severe, recurrent with psychotic features Medication Change: No Medical Record Reviewed: Yes (reports, labs, vitals, notes) Mental Status Examination - Cognitive Function Orientation: Person, Place - Mood Mood: Depressed, Anxious - Affect Affect: Constricted, Flat - Formal Thought Process Formal Thought Process: No Impairment, Other (guarded) - Homicidal Ideation Homicidal Ideation: No Goal/Treatment Plan - Goal/Treatment Plan Need for Continued Stay: Remain at risks for inpatient hospitalization Progress Toward Problem(s) and Goals/Treatment Plan: * c/w current tx and plan * Vitals reviewed and noted below: Selected Entries 01/06/17 10:02 Temperature 98.3 F Pulse Rate 60 Respiratory 20 Rate Blood Pressure 186/78 H * New weekend labs noted below: Laboratory Results - last 24 hr 01/07/17 07:29 Sodium 137 Potassium 4.0 Chloride 93 L Carbon Dioxide 38 H Anion Gap 10 BUN 39 H Creatinine 1.1 Est GFR ( Amer) 58 Est GFR (Non-Af Amer) 48 Random Glucose 95 Calcium 9.3 Phosphorus 4.1 Magnesium 2.4 H Total Bilirubin 0.7 AST 32 ALT 28 Alkaline Phosphatase 124 Total Protein 6.0 Albumin 3.3 Globulin 2.8 Albumin/Globulin Ratio 1.2 Laboratory Results - last 24 hr 01/06/17 07:30 Sodium 137 Potassium 3.9 Chloride 94 L Carbon Dioxide 38 H Anion Gap 9 L BUN 32 H Creatinine 0.8 Est GFR ( Amer) > 60 Est GFR (Non-Af Amer) > 60 Random Glucose 99 Calcium 9.6 Phosphorus 4.3 Magnesium 2.3 H Total Bilirubin 0.7 AST 33 ALT 30 Alkaline Phosphatase 120 Total Protein 6.0 Albumin 3.3 Globulin 2.8 Albumin/Globulin Ratio 1.2
[2017-01-07] MEDS: Pantoprazole 40 mg EC Tab PO SCH (09:03)
[2017-01-07] MEDS: Magnesium Oxide 400 mg Tab UD PO SCH ×2 (09:04→17:02)
--- NOTE | 2017-01-07 16:53 | PN ---
DATE: 01/07/2017 The patient is seen in the day room with the patient's daughter sitting next to her. The patient is alert, awake, responsive. According to the patient's nurses, the patient has been relatively more compliant with medications. The patient's overnight nurse's notes were reviewed. The patient slept well. Yesterday, patient showed some psychomotor retardation. Was reluctant to take medications initially, but later patient took the medications. Affect was flat. The patient slept well without any overnight. PHYSICAL EXAMINATION: VITAL SIGNS: T-max 98.6, heart rate 70, blood pressure today 118/60, yesterday 186/78, 167/92, respirations 16, O2 sat 100%. HEAD: Normocephalic, atraumatic. HEENT: Shows pink conjunctivae, anicteric sclerae. No oropharyngeal lesion. NECK: Positive right carotid endarterectomy surgical scar. Positive carotid bruit bilaterally. CHEST: Kyphosis. LUNGS: Shows decreased breath sounds at the bases. CARDIOVASCULAR: S1, S2, regular rhythm, positive systolic murmur right second intercostal space, left sternal border, left second intercostal space. ABDOMEN: Soft, positive bowel sounds. GENITALIA: Female. RECTAL: Deferred. EXTREMITIES: Shows no pitting edema, no calf tenderness, no Homans signs. Positive trace swelling of the lower extremity noted. GAIT: Independent. VASCULAR: Palpable pulses. Plantars are downward. DTRs are 2+. NEUROLOGIC: Cranial nerves II-XII intact. GAIT: Independent. PSYCHIATRIC: As per psychiatrist's notes. DIAGNOSTICS: 01/07: Sodium 137, potassium 4.0, chloride 93, CO2 38, anion gap 10, BUN 39, creatinine 1.1, GFR 58, glucose 48, glucose 95, GFR 58, magnesium 2.4. LFTs are normal. IMPRESSION AND PLAN: 1. Acute exacerbation of anxiety, depression and bipolar disorder with poor appetite and insomnia. 2. Poor compliance, noncompliance. 3. Episodic hyper and hypotension, probably secondary to noncompliance with medication. 4. Dementia. 5. Metabolic alkalosis with prerenal kidney injury. 6. Trace proteinuria. 7. Trace bacteriuria. 8. Chronic right parietal infarct with chronic white matter ischemic disease of the brain with chronic lacunar infarcts in the deep and subcortical white matter and basal nuclei in bilateral cerebral hemisphere. 9. Moderate central volume loss with disproportionate ventricular dilatation. 10. Bilateral cataract surgery. 11. Noncompliance and poor compliance. 12. Psychosis. 13. Hypertensive cardiovascular disease with left ventricular hypertrophy. 14. 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 15. 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 1. Acute exacerbation of anxiety and depression and acute exacerbation of bipolar disorder with poor appetite and insomnia. 2. Episodic hyper and hypotension, probably secondary to noncompliance with medication. 3. Hypokalemia. 4. Mild metabolic alkalosis and prerenal kidney injury. 5. Deconditioning. 6. Hypertensive cardiovascular disease. 7. 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 8. Poor compliance and noncompliance. 9. Depressed mood disorder. 10. Withdrawn and seclusive behavior with grandiosities. 11. Visual hallucinations. 1. Acute exacerbation of depression and anxiety and acute exacerbation of bipolar disorder with poor appetite and insomnia. 2. Poor compliance and noncompliance. 3. Recurrent major depression with psychotic features. 4. Cognitive impairment, dementia. 5. Episodic hypertension and hypotension, probably secondary to noncompliance with medication. 6. Hypokalemia. 7. Mild prerenal kidney injury. 8. Mild metabolic alkalosis. 9. Dyslipidemia. 10. Hypovitaminosis D. 11. Asymptomatic bacteriuria, proteinuria. 12. Dilated ischemic cardiomyopathy. 13. History of dementia. 14. History of right parietooccipital nonhemorrhagic acute infarct with right internal carotid artery stenosis and status post right carotid endarterectomy. 15. Multi-infarct dementia. 16. Psychosis with cognitive impairment. 1. Questionable poor compliance versus noncompliance. 2. Recurrent major depression and psychosis and psychotic features. 3. Cognitive impairment with dementia. 4. Uncontrolled hypertension with episodic hypotension. 5. Acute exacerbation of depression and anxiety and acute exacerbation of bipolar disorder with acute exacerbation of anxiety, depression with poor appetite and insomnia. 6. Hypokalemia. 7. Dyslipidemia. 8. Hypovitaminosis D. 9. Asymptomatic bacteriuria and proteinuria. 10. Dilated ischemic cardiomyopathy. 11. History of dementia. 12. History of right cerebral infarct with right internal carotid artery stenosis and right carotid endarterectomy. 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 14. Psychosis and cognitive impairment. 15. History of right occipital, right parietal nonhemorrhagic acute infarct with right internal carotid artery stenosis, status post right carotid endarterectomy. 1. Increasing depression with acute exacerbation of anxiety and depression. 2. Acute exacerbation of bipolar disorder with acute exacerbation of depression and anxiety, poor appetite, insomnia. 3. Noncompliance and poor compliance with medication. 4. Hypertension. 5. Hypokalemia. 6. History of dyslipidemia, history of hypovitaminosis D. 7. Proteinuria. 8. Asymptomatic bacteriuria. 9. Ischemic cardiomyopathy. 10. History of dementia, history of noncompliance with medication. 11. History of right cerebral infarct with right internal carotid artery stenosis and right carotid endarterectomy. 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 13. Psychosis and cognitive impairment. 1. Acute exacerbation of bipolar disorder with acute exacerbation of depression and anxiety with poor appetite, insomnia. 2. Questionable uncontrolled hypertension. 3. History of anxiety, depression and bipolar disorder. 4. Probable noncompliance with medication. 5. Mild prerenal kidney injury. 6. High normal thyroxine level. 7. Proteinuria and bacteriuria. 8. Hypertensive cardiovascular disease. 9. Age indeterminate inferior infarct and age indeterminate anterior, inferior infarct as per EKG. 10. Anorexia. 11. Noncompliance. 12. History of hyperlipidemia, hypomagnesemia, hypovitaminosis D, history of breast carcinoma. . Acute exacerbation of possible bipolar disorder with acute exacerbation of depression and anxiety with poor appetite and insomnia. 2. History of anxiety and depression. 3. Hypertension, probably secondary to noncompliance with medication. 4. Mild prerenal kidney injury. 5. High normal thyroxine level. 6. Proteinuria and bacteriuria. 7. Hypertensive cardiovascular disease. 8. Age indeterminate inferior infarct and age indeterminate anterior inferior infarct as per EKG. 9. Anorexia. 10. Noncompliance. 11. History of poor compliance and noncompliance. 12. History of hyperlipidemia, history of hypomagnesemia, history of hypovitaminosis D, history of dyslipidemia, history of breast carcinoma. PLAN: At this time, patient is to be continued on psychiatry floor. I have met with the patient and the patient's daughter together. Above plan was explained in length to the patient and the patient's daughter. CURRENT MEDICATIONS: 1. Aricept 5 mg at bedtime. 2. Arimidex 1 mg daily. 3. Ativan 0.5 mg at bedtime. 4. Ativan 0.5 mg 10 a.m. 5. Coreg 25 mg twice a day. 6. Ecotrin 81 mg daily. 7. Geodon 10 mg IM q. 6 p.r.n. 8. Imdur 60 mg daily. 9. Lasix 40 mg p.o. once a day. 10. Lexapro 5 mg in a.m. 11. Lipitor 40 mg daily. 12. Magnesium oxide 400 mg twice a day. 13. Plavix 75 mg daily. 14. Protonix 40 mg daily. 15. Sonata 10 mg at bedtime p.r.n. 16. Tylenol 650 q. 4 p.r.n. 17. The patient's Zyprexa is changed to 10 mg p.o. at bedtime and Zyprexa 5 mg at 1 p.m. 18. Allopurinol 100 mg daily. Heart healthy diet ordered. ABAD stockings ordered. At present, patient is to be continued on above therapeutic intervention. The patient's daughter was extensively explained. The patient is overall and medically stable from medical perspective, but needs close psychiatry followup and strict compliance with diet and medications. Dictated and electronically signed, not read. Mohan Hidalgo MD cc: [id number] TT: 01/07/2017 16:52:49 Confirmation # [id number] Dictation # [id number] en MTDD
--- NOTE | 2017-01-07 17:20 | PN ---
DATE: 01/06/2017 The patient is seen in room 508, bed 1. The patient is seen between the hours of 8:30 and 9 a.m. The patient was seen lying in the bed. According to the nurse's notes, the patient has been again noted to be seclusive and staying in room and intermittently refusing medication. The patient slept well in the last 24 hours. The patient was reluctant to take medications, refused to eat intermittently. Dr. Mcdaniels spoke to the patient and the patient's son about patient's compliance. PHYSICAL EXAMINATION: VITAL SIGNS: T-max 98.6, pulse 60, blood pressure 167/92, 186/78, respirations 20, O2 sat is 96%-100%. HEAD: Normocephalic, atraumatic. HEENT: Shows pink conjunctivae, anicteric sclerae. No oropharyngeal lesion. NECK: No neck rigidity. Soft positive carotid bruit, positive right carotid endarterectomy surgical scar. BACK: Positive kyphosis. LUNGS: Decreased breath sounds at the bases. CARDIOVASCULAR: Shows S1, S2, regular rhythm, positive systolic murmur right second intercostal space, left sternal border. ABDOMEN: Soft, positive bowel sounds. GENITALIA: Female. RECTAL: Deferred. EXTREMITIES: Shows trace swelling of the lower extremities. No pitting edema, no calf tenderness, no Homans' sign. NEUROLOGIC: The patient is alert, awake, oriented x 3. Cranial nerves II-XII intact and limited. GAIT: Independent. VASCULAR: Palpable pulses. DIAGNOSTICS: 01/06/2017, sodium 137, potassium 3.9, chloride 94, CO2 38, anion gap 9, BUN 32, creatinine 0.8, GFR greater than 60, glucose 99, calcium 9.6, phosphorus 4.3, magnesium 2.3. LFTs are normal. The patient was ordered an MRI of the brain by Dr. Mcdaniels yesterday for patient' s history of multiple cerebral infarcts. MRI of the brain shows chronic right parietal infarct and chronic periventricular small ischemic changes with chronic lacunar infarct in the deep subcortical white matter and basal nuclei bilaterally with moderate volume loss with disproportional enlargement of the ventricle. Status post bilateral cataract surgery. IMPRESSION AND PLAN: 1. Poor compliance and noncompliance. 2. Paranoid disorder with poor compliance and noncompliance. 3. Acute exacerbation of major depressive disorder with psychosis and psychotic features, recurrent type, severe. 4. Transient intermittent hypertension, secondary to poor compliance and noncompliance with medication. 5. Mild metabolic alkalosis and prerenal kidney injury. 6. Kyphosis. 7. Chronic right parietal infarct with chronic microvascular white matter ischemic changes of the brain. 8. Chronic lacunar infarct involving deep subcortical white matter and basal nuclei and bilateral cerebral hemisphere. 9. Moderate central volume loss with disproportionate ventricular enlargement. 10. History of bilateral cataract surgery. 11. Deconditioning. 1. Acute exacerbation of anxiety, depression and bipolar disorder with poor appetite and insomnia. 2. Poor compliance, noncompliance. 3. Episodic hyper and hypotension, probably secondary to noncompliance with medication. 4. Dementia. 5. Metabolic alkalosis with prerenal kidney injury. 6. Trace proteinuria. 7. Trace bacteriuria. 8. Chronic right parietal infarct with chronic white matter ischemic disease of the brain with chronic lacunar infarcts in the deep and subcortical white matter and basal nuclei in bilateral cerebral hemisphere. 9. Moderate central volume loss with disproportionate ventricular dilatation. 10. Bilateral cataract surgery. 11. Noncompliance and poor compliance. 12. Psychosis. 13. Hypertensive cardiovascular disease with left ventricular hypertrophy. 14. 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 15. 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 1. Acute exacerbation of anxiety and depression and acute exacerbation of bipolar disorder with poor appetite and insomnia. 2. Episodic hyper and hypotension, probably secondary to noncompliance with medication. 3. Hypokalemia. 4. Mild metabolic alkalosis and prerenal kidney injury. 5. Deconditioning. 6. Hypertensive cardiovascular disease. 7. 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 8. Poor compliance and noncompliance. 9. Depressed mood disorder. 10. Withdrawn and seclusive behavior with grandiosities. 11. Visual hallucinations. 1. Acute exacerbation of depression and anxiety and acute exacerbation of bipolar disorder with poor appetite and insomnia. 2. Poor compliance and noncompliance. 3. Recurrent major depression with psychotic features. 4. Cognitive impairment, dementia. 5. Episodic hypertension and hypotension, probably secondary to noncompliance with medication. 6. Hypokalemia. 7. Mild prerenal kidney injury. 8. Mild metabolic alkalosis. 9. Dyslipidemia. 10. Hypovitaminosis D. 11. Asymptomatic bacteriuria, proteinuria. 12. Dilated ischemic cardiomyopathy. 13. History of dementia. 14. History of right parietooccipital nonhemorrhagic acute infarct with right internal carotid artery stenosis and status post right carotid endarterectomy. 15. Multi-infarct dementia. 16. Psychosis with cognitive impairment. 1. Questionable poor compliance versus noncompliance. 2. Recurrent major depression and psychosis and psychotic features. 3. Cognitive impairment with dementia. 4. Uncontrolled hypertension with episodic hypotension. 5. Acute exacerbation of depression and anxiety and acute exacerbation of bipolar disorder with acute exacerbation of anxiety, depression with poor appetite and insomnia. 6. Hypokalemia. 7. Dyslipidemia. 8. Hypovitaminosis D. 9. Asymptomatic bacteriuria and proteinuria. 10. Dilated ischemic cardiomyopathy. 11. History of dementia. 12. History of right cerebral infarct with right internal carotid artery stenosis and right carotid endarterectomy. 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 14. Psychosis and cognitive impairment. 15. History of right occipital, right parietal nonhemorrhagic acute infarct with right internal carotid artery stenosis, status post right carotid endarterectomy. 1. Increasing depression with acute exacerbation of anxiety and depression. 2. Acute exacerbation of bipolar disorder with acute exacerbation of depression and anxiety, poor appetite, insomnia. 3. Noncompliance and poor compliance with medication. 4. Hypertension. 5. Hypokalemia. 6. History of dyslipidemia, history of hypovitaminosis D. 7. Proteinuria. 8. Asymptomatic bacteriuria. 9. Ischemic cardiomyopathy. 10. History of dementia, history of noncompliance with medication. 11. History of right cerebral infarct with right internal carotid artery stenosis and right carotid endarterectomy. 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 13. Psychosis and cognitive impairment. 1. Acute exacerbation of bipolar disorder with acute exacerbation of depression and anxiety with poor appetite, insomnia. 2. Questionable uncontrolled hypertension. 3. History of anxiety, depression and bipolar disorder. 4. Probable noncompliance with medication. 5. Mild prerenal kidney injury. 6. High normal thyroxine level. 7. Proteinuria and bacteriuria. 8. Hypertensive cardiovascular disease. 9. Age indeterminate inferior infarct and age indeterminate anterior, inferior infarct as per EKG. 10. Anorexia. 11. Noncompliance. 12. History of hyperlipidemia, hypomagnesemia, hypovitaminosis D, history of breast carcinoma. . Acute exacerbation of possible bipolar disorder with acute exacerbation of depression and anxiety with poor appetite and insomnia. 2. History of anxiety and depression. 3. Hypertension, probably secondary to noncompliance with medication. 4. Mild prerenal kidney injury. 5. High normal thyroxine level. 6. Proteinuria and bacteriuria. 7. Hypertensive cardiovascular disease. 8. Age indeterminate inferior infarct and age indeterminate anterior inferior infarct as per EKG. 9. Anorexia. 10. Noncompliance. 11. History of poor compliance and noncompliance. 12. History of hyperlipidemia, history of hypomagnesemia, history of hypovitaminosis D, history of dyslipidemia, history of breast carcinoma. PLAN: At this time, patient seen by Dr. Mcdaniels. CURRENT MEDICATIONS: 1. The patient is on Aricept 5 mg at bedtime. 2. Arimidex 1 mg daily. 3. Ativan 0.5 mg at bedtime. 4. Ativan 0.5 mg at 10 a.m. 5. Coreg 25 mg twice a day. 6. Ecotrin 81 mg daily. 7. The patient is started on Geodon 10 mg IM q. 6 hours p.r.n. 8. Imdur 60 mg daily. 9. Lasix decreased to 40 mg p.o. daily. 10. Lexapro 5 mg p.o. a.m. 11. Magnesium oxide 400 mg twice a day. 12. Plavix 75 mg daily. 13. Protonix 40 mg daily. 14. Sonata 10 mg at bedtime p.r.n. 15. Tylenol 650 q. 4 p.r.n. 16. Zyprexa 10 mg at bedtime. 17. Zyprexa 5 mg started at 1 p.m. 18. Allopurinol 100 mg daily. In addition, the patient is to be continued on the above therapeutic intervention. As per psychiatry. The patient's family, including the son and the daughter, were contacted by Dr. Mcdaniels and they were updated about the patient's condition, diagnosis, test results and all details. Dictated and electronically signed, not read. Mohan Hidalgo MD cc: [id number] TT: 01/06/2017 17:19:51 Confirmation # [id number] Dictation # [id number] en MTDD
[2017-01-08 07:22] LABS: ALB/GLOB RATIO 1.2 (1.1-1.8); ALKALINE PHOSPHATASE 126 U/L (38-133); ALT/SGPT 23 U/L (7-56); AST/SGOT 32 U/L (15-39); BILIRUBIN,TOTAL 0.8 mg/dL (0.2-1.3); BLOOD UREA NITROGEN 33 mg/dL (7-21); CALCIUM 9.7 mg/dL (8.4-10.5); CHLORIDE 92 mmol/L (95-110); GFR AFRICAN-AMERICAN > 60; GLUCOSE,RANDOM 109 mg/dL (70-110); MAGNESIUM 2.2 mg/dL (1.7-2.2); PHOSPHOROUS 3.6 mg/dL (2.5-4.5); POTASSIUM 3.5 mmol/L (3.6-5.0); SODIUM 140 mmol/L (132-148); TOTAL PROTEIN 6.4 g/dL (5.8-8.3)
[2017-01-08 07:37] LABS: CARBON DIOXIDE 42 mmol/L (21-33)
[2017-01-08] MEDS ORDERED: Potassium Chloride 40 mEq/30 ml LIQ UD PO STA (08:41)
[2017-01-08] MEDS: Magnesium Oxide 400 mg Tab UD PO SCH ×2 (09:15→17:30)
[2017-01-08] MEDS: Pantoprazole 40 mg EC Tab PO SCH (09:17)
--- NOTE | 2017-01-08 20:00 | PCM.PYCHPN ---
Psychiatric Progress Note - Psychiatric Progress Note Patient seen today, length of contact: 25 min Patient Chief Complaint: D depression Problems Identified/Issues Discussed: Chart reviewed and case reviewed with patient as well Patient reports some improvement in her mood but still complains of severe depression. Looks depressed. Of concern over her son's recurrence of what appears to be a basal cell carcinoma on his right cheek/scientologist area Patient spoke of the financial concerns Medical Problems: History of hyper and hypotension, anterior and inferior myocardial infarction. Has history of noncompliance. DSM 5 Symptoms Update: Patient's affect, while still constricted that appears improved from descriptions of yesterday. She is more interactive although she is still depressed and anxious. She is not suicidal nor is she psychotic at this juncture. Medication Change: No Medical Record Reviewed: Yes (reports, labs, vitals, notes) Consults ordered or reviewed: Chart reviewed. Covering for Dr. SHELTON. Mental Status Examination - Cognitive Function Orientation: Person, Place, Situation, Time Memory: Intact Attention: Poor Concentration: Poor Association: WNL Fund of Knowledge: WNL Decription of patient's judgement and insights: Patient aware that she is depressed. Is able to identify some specific psychosocial stressors contributing to her present state of depression. - Mood Mood: Depressed, Anxious - Affect Affect: Constricted, Flat - Speech Speech: Soft - Formal Thought Process Formal Thought Process: No Impairment, Other (guarded) - Suicidal Ideation Suicidal Ideation: No - Homicidal Ideation Homicidal Ideation: No Goal/Treatment Plan - Goal/Treatment Plan Need for Continued Stay: Remain at risks for inpatient hospitalization Progress Toward Problem(s) and Goals/Treatment Plan: Mood and affect appear improved compared to over this past weekend. Still however constricted, with a sense of a anergia and with a lack of motivation.
[2017-01-09 06:52] LABS: ALB/GLOB RATIO 1.3 (1.1-1.8); BILIRUBIN,TOTAL 0.8 mg/dL (0.2-1.3); CALCIUM 9.4 mg/dL (8.4-10.5); MAGNESIUM 2.2 mg/dL (1.7-2.2); PHOSPHOROUS 4.2 mg/dL (2.5-4.5); POTASSIUM 3.8 mmol/L (3.6-5.0); TOTAL PROTEIN 5.3 g/dL (5.8-8.3)
--- NOTE | 2017-01-09 09:37 | PN ---
DATE: 01/09/[address] Mohan Hidalgo. The patient is in the behavioral care unit, room 517, bed 1. The patient is seen this morning. I am covering for Dr. Hidalgo as mentioned. She is comfortable, confused, but sitting down eating her breakfast. She was admitted with depression. She also had clinical medical diagnoses of ischemic heart disease, congestive heart failure, hypertension. The patient has a history of hallucination. PHYSICAL EXAMINATION: VITAL SIGNS: This morning, pulse is 62, blood pressure 102/55. HEAD: Normocephalic. NECK: Thyroid is not enlarged clinically. Carotid pulses are present. HEART: Normal sinus rhythm. S1, S2 present. LUNGS: Trachea central. Breath sounds vesicular. No adventitious sounds are heard. ABDOMEN: Soft. Liver, spleen not palpable clinically. CENTRAL NERVOUS SYSTEM: She has no focal deficits. She is able to ambulate. MEDICATION LIST: She takes Aricept 5 mg at night. The patient is on Arimidex which is a hormonal treatment for prevention of breast cancer. The patient is on Ativan 0.5 mg at nighttime and 0.5 mg in the morning, Coreg 25 mg b.i.d. The patient is on Diamox 250 mg b.i.d., aspirin 81 mg daily. The patient is on Geodon p.r.n. for agitation. The patient is on isosorbide mononitrate 60 mg daily, Lasix 40 mg daily, Lexapro 5 mg daily, Lipitor 40 mg daily. The patient is on Maalox and magnesium oxide. The other medications the patient takes at this time are Plavix 75 mg daily, pantoprazole 40 mg daily, Sonata for sleep 10 mg daily, allopurinol 100 mg daily, and Zyprexa 10 mg at bedtime and 5 mg in the morning. LABORATORY DATA: Evaluated. The hemoglobin is 14.3, white count is normal. The patient's chemistry: The patient's BUN is 35, creatinine is 1.5. Liver enzymes are within normal limits. Total protein is 5.3. The patient appears to be improving, clinically stable. Will follow up. Dr. Hidalgo will see the patient tomorrow. Kem Vang MD cc: [id number] TT: 01/09/2017 09:36:11 Confirmation # [id number] Dictation # [id number] shellie ISBELL
[2017-01-09] MEDS: Magnesium Oxide 400 mg Tab UD PO SCH ×2 (09:41→17:34)
[2017-01-09] MEDS: Pantoprazole 40 mg EC Tab PO SCH (09:43)
[2017-01-09 10:09] VITALS: RESP 20
--- NOTE | 2017-01-09 13:34 | PN ---
DATE: 01/08/2017 The patient is seen lying in the room in 517. The patient overnight nurse's notes were reviewed. The patient found to have depressed and flat affect, withdrawn, isolated, not attending group, not socializing with peers. The patient was found to be depressed with flat affect. PHYSICAL EXAMINATION: VITAL SIGNS: T-max is 98.6. Pulse 62, blood pressure is 166/59-102/55, respirations 20, O2 sat is 96-100%. HEAD: Normocephalic, atraumatic. HEENT: Shows pink conjunctivae. Anicteric sclerae. No oropharyngeal lesion. NECK: Positive soft carotid bruit, positive right carotid endarterectomy surgical scar. CHEST: Kyphosis. LUNGS: Show decreased breath sounds at the bases. CARDIOVASCULAR: S1, S2, regular rhythm, positive systolic murmur right second intercostal space, left sternal border, left second intercostal space. ABDOMEN: Soft. Positive bowel sounds. GENITALIA: Female. RECTAL: Deferred. EXTREMITIES: Show trace swelling of the lower extremity, no pitting edema, no calf tenderness, no Homans' sign. NEUROLOGIC: The patient is alert, awake, responsive, oriented to person, place and time. Gait examination is not tested as patient is seen lying in the bed. Cranial nerves II-XII limited. PSYCHIATRIC: As per psychiatrist evaluation. DIAGNOSTICS: 01/08, sodium 140, potassium is down to 3.5, chloride 92, CO2 42 which has gone up, anion gap 10, BUN 33, creatinine 1.0, GFR greater than 60, glucose 109. LFTs are normal. Phosphorus 3.6, magnesium 2.2. IMPRESSION AND PLAN: 1. Acute exacerbation of anxiety, depression, and bipolar disorder with poor appetite, insomnia and depression. 2. Poor compliance and noncompliance. 3. Intermittent hyper and hypotension. 4. Hypokalemia. 5. Metabolic alkalosis. 6. Prerenal kidney injury. 7. Trace proteinuria. 8. Bacteriuria. 9. 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 10. Moderate cerebral central volume loss with disproportionate ventriculomegaly. 11. Bilateral cataract surgery. 12. Major depressive disorder with psychotic features, recurrent type, severe. 13. Poor compliance. 1. Poor compliance and noncompliance. 2. Paranoid disorder with poor compliance and noncompliance. 3. Acute exacerbation of major depressive disorder with psychosis and psychotic features, recurrent type, severe. 4. Transient intermittent hypertension, secondary to poor compliance and noncompliance with medication. 5. Mild metabolic alkalosis and prerenal kidney injury. 6. Kyphosis. 7. Chronic right parietal infarct with chronic microvascular white matter ischemic changes of the brain. 8. Chronic lacunar infarct involving deep subcortical white matter and basal nuclei and bilateral cerebral hemisphere. 9. Moderate central volume loss with disproportionate ventricular enlargement. 10. History of bilateral cataract surgery. 11. Deconditioning. 1. Acute exacerbation of anxiety, depression and bipolar disorder with poor appetite and insomnia. 2. Poor compliance, noncompliance. 3. Episodic hyper and hypotension, probably secondary to noncompliance with medication. 4. Dementia. 5. Metabolic alkalosis with prerenal kidney injury. 6. Trace proteinuria. 7. Trace bacteriuria. 8. Chronic right parietal infarct with chronic white matter ischemic disease of the brain with chronic lacunar infarcts in the deep and subcortical white matter and basal nuclei in bilateral cerebral hemisphere. 9. Moderate central volume loss with disproportionate ventricular dilatation. 10. Bilateral cataract surgery. 11. Noncompliance and poor compliance. 12. Psychosis. 13. Hypertensive cardiovascular disease with left ventricular hypertrophy. 14. 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 15. 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 1. Acute exacerbation of anxiety and depression and acute exacerbation of bipolar disorder with poor appetite and insomnia. 2. Episodic hyper and hypotension, probably secondary to noncompliance with medication. 3. Hypokalemia. 4. Mild metabolic alkalosis and prerenal kidney injury. 5. Deconditioning. 6. Hypertensive cardiovascular disease. 7. 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 8. Poor compliance and noncompliance. 9. Depressed mood disorder. 10. Withdrawn and seclusive behavior with grandiosities. 11. Visual hallucinations. 1. Acute exacerbation of depression and anxiety and acute exacerbation of bipolar disorder with poor appetite and insomnia. 2. Poor compliance and noncompliance. 3. Recurrent major depression with psychotic features. 4. Cognitive impairment, dementia. 5. Episodic hypertension and hypotension, probably secondary to noncompliance with medication. 6. Hypokalemia. 7. Mild prerenal kidney injury. 8. Mild metabolic alkalosis. 9. Dyslipidemia. 10. Hypovitaminosis D. 11. Asymptomatic bacteriuria, proteinuria. 12. Dilated ischemic cardiomyopathy. 13. History of dementia. 14. History of right parietooccipital nonhemorrhagic acute infarct with right internal carotid artery stenosis and status post right carotid endarterectomy. 15. Multi-infarct dementia. 16. Psychosis with cognitive impairment. 1. Questionable poor compliance versus noncompliance. 2. Recurrent major depression and psychosis and psychotic features. 3. Cognitive impairment with dementia. 4. Uncontrolled hypertension with episodic hypotension. 5. Acute exacerbation of depression and anxiety and acute exacerbation of bipolar disorder with acute exacerbation of anxiety, depression with poor appetite and insomnia. 6. Hypokalemia. 7. Dyslipidemia. 8. Hypovitaminosis D. 9. Asymptomatic bacteriuria and proteinuria. 10. Dilated ischemic cardiomyopathy. 11. History of dementia. 12. History of right cerebral infarct with right internal carotid artery stenosis and right carotid endarterectomy. 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 14. Psychosis and cognitive impairment. 15. History of right occipital, right parietal nonhemorrhagic acute infarct with right internal carotid artery stenosis, status post right carotid endarterectomy. 1. Increasing depression with acute exacerbation of anxiety and depression. 2. Acute exacerbation of bipolar disorder with acute exacerbation of depression and anxiety, poor appetite, insomnia. 3. Noncompliance and poor compliance with medication. 4. Hypertension. 5. Hypokalemia. 6. History of dyslipidemia, history of hypovitaminosis D. 7. Proteinuria. 8. Asymptomatic bacteriuria. 9. Ischemic cardiomyopathy. 10. History of dementia, history of noncompliance with medication. 11. History of right cerebral infarct with right internal carotid artery stenosis and right carotid endarterectomy. 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 13. Psychosis and cognitive impairment. 1. Acute exacerbation of bipolar disorder with acute exacerbation of depression and anxiety with poor appetite, insomnia. 2. Questionable uncontrolled hypertension. 3. History of anxiety, depression and bipolar disorder. 4. Probable noncompliance with medication. 5. Mild prerenal kidney injury. 6. High normal thyroxine level. 7. Proteinuria and bacteriuria. 8. Hypertensive cardiovascular disease. 9. Age indeterminate inferior infarct and age indeterminate anterior, inferior infarct as per EKG. 10. Anorexia. 11. Noncompliance. 12. History of hyperlipidemia, hypomagnesemia, hypovitaminosis D, history of breast carcinoma. . Acute exacerbation of possible bipolar disorder with acute exacerbation of depression and anxiety with poor appetite and insomnia. 2. History of anxiety and depression. 3. Hypertension, probably secondary to noncompliance with medication. 4. Mild prerenal kidney injury. 5. High normal thyroxine level. 6. Proteinuria and bacteriuria. 7. Hypertensive cardiovascular disease. 8. Age indeterminate inferior infarct and age indeterminate anterior inferior infarct as per EKG. 9. Anorexia. 10. Noncompliance. 11. History of poor compliance and noncompliance. 12. History of hyperlipidemia, history of hypomagnesemia, history of hypovitaminosis D, history of dyslipidemia, history of breast carcinoma. PLAN: At this time, potassium supplementation is ordered. The patient's Lasix has been decreased. Diamox has been ordered 250 twice a day. The patient has been ordered serial labs. CURRENT MEDICATIONS: 1. Aricept 5 mg at bedtime. 2. Arimidex 1 mg daily. 3. Ativan 0.5 mg at bedtime and Ativan 0.5 mg at 10:00 a.m. 4. Lasix decreased to 40 mg p.o. daily. 5. The patient started on Diamox 250 twice a day. 6. The patient is on Coreg 25 mg twice a day. 7. Ecotrin 81 mg daily. 8. Geodon 10 mg IM q. 6 hours p.r.n. 9. Imdur 60 mg daily. 10. Lexapro 5 mg a.m. 11. Lipitor 40 mg daily. 12. Magnesium oxide 400 mg twice a day. 13. Plavix 75 mg daily. 14. Protonix 40 mg daily. 15. Sonata 10 mg at bedtime p.r.n. 16. Tylenol 650 q. 4 p.r.n. 17. Zyprexa 10 mg at bedtime and Zyprexa 5 mg at 1:00 p.m. 18. Allopurinol 100 mg daily. ABAD stockings ordered. Heart healthy diet ordered. At present, patient's further management is dependent upon the patient's clinical condition, hemodynamic status, and as per patient's response to therapeutic intervention, as per patient's diagnostic test results. Dictated and electronically signed, not read. Mohan Hidalgo MD cc: [id number] TT: 01/08/2017 13:32:49 Confirmation # [id number] Dictation # [id number] tn SUKHI
[2017-01-10 07:38] LABS: ALB/GLOB RATIO 1.1 (1.1-1.8); ALKALINE PHOSPHATASE 107 U/L (38-133); ALT/SGPT 24 U/L (7-56); AST/SGOT 31 U/L (15-39); BILIRUBIN,TOTAL 0.6 mg/dL (0.2-1.3); BLOOD UREA NITROGEN 31 mg/dL (7-21); CALCIUM 9.4 mg/dL (8.4-10.5); CARBON DIOXIDE 35 mmol/L (21-33); CHLORIDE 98 mmol/L (98-107); GFR AFRICAN-AMERICAN > 60; GLUCOSE,RANDOM 97 mg/dL (70-110); MAGNESIUM 2.3 mg/dL (1.7-2.2); PHOSPHOROUS 4.1 mg/dL (2.5-4.5); POTASSIUM 3.2 mmol/L (3.6-5.0); SODIUM 138 mmol/L (132-148); TOTAL PROTEIN 5.9 g/dL (5.8-8.3)
[2017-01-10] MEDS: Magnesium Oxide 400 mg Tab UD PO SCH ×2 (09:33→17:35)
[2017-01-10] MEDS: Pantoprazole 40 mg EC Tab PO SCH (09:33)
[2017-01-10] MEDS: Potassium Chloride 40 mEq/30 ml LIQ UD PO SCH ×2 (09:36→12:18)
--- NOTE | 2017-01-10 14:22 | PN ---
DATE: 01/10/2017 SUBJECTIVE: The patient is seen in room 517, bed 1. The patient is seen lying in the bed. According to the nurse's notes, overnight patient slept well. The patient's affect was flat. The patient was also found to be withdrawn relatively compliant with medication. PHYSICAL EXAMINATION: VITAL SIGNS: T-max 98.6, heart rate 63-64, blood pressure 149/60, 157/64, 131/ 58, 149/60, respirations 20, O2 sat not documented. HEAD: Normocephalic, atraumatic. HEENT: Shows pink conjunctivae, anicteric sclerae. No oropharyngeal lesion. NECK: No neck rigidity. Positive right carotid endarterectomy surgical scar. Soft carotid bruit. CHEST: Kyphosis. LUNGS: Shows questionable decreased breath sounds at the bases. CARDIOVASCULAR: S1, S2, regular rhythm, positive systolic murmur right second intercostal space, left sternal border, left second intercostal space. ABDOMEN: Soft, positive bowel sounds. GENITALIA: Female. RECTAL: Deferred. EXTREMITIES: Shows no pitting edema, no calf tenderness, no Ricardo sign. NEUROLOGIC: The patient is alert, awake, oriented x 3, is able to move upper and lower extremities without assistance. GAIT: Independent. VASCULAR: Palpable pulses. PSYCHIATRIC: As per psychiatrist notes. DIAGNOSTICS: Sodium 138, potassium 3.2, chloride 98, CO2 35, down from 42, anion gap 8, BUN down to 31 from 39, creatinine 0.9, GFR greater than 60, glucose 97. LFTs are normal. IMPRESSION AND PLAN: 1. Acute exacerbation of anxiety, depression and bipolar disorder with poor appetite, insomnia, depression and noncompliance and poor compliance. 2. Intermittent hyper and hypotension. 3. Hypokalemia. 4. Metabolic alkalosis. 5. Prerenal kidney injury (resolving). 6. Trace proteinuria and bacteriuria. 7. Chronic right parietal infarct and chronic periventricular white matter ischemic disease of the brain with chronic lacunar infarcts of the deep and subcortical white matter and basal nuclei and bilateral cerebral hemisphere. 8. Moderate cerebral central volume loss with disproportionate ventriculomegaly. 9. Bilateral cataract surgery. 10. Major depressive disorder with psychotic features, recurrent type, severe. 11. Poor compliance. 12. Hypokalemia. 13. Resolving metabolic alkalosis. 14. Resolving prerenal kidney injury and acute kidney injury. 15. Trace proteinuria, trace bacteriuria. 16. History of dementia. 1. Acute exacerbation of anxiety, depression, and bipolar disorder with poor appetite, insomnia and depression. 2. Poor compliance and noncompliance. 3. Intermittent hyper and hypotension. 4. Hypokalemia. 5. Metabolic alkalosis. 6. Prerenal kidney injury. 7. Trace proteinuria. 8. Bacteriuria. 9. 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 10. Moderate cerebral central volume loss with disproportionate ventriculomegaly. 11. Bilateral cataract surgery. 12. Major depressive disorder with psychotic features, recurrent type, severe. 13. Poor compliance. 1. Poor compliance and noncompliance. 2. Paranoid disorder with poor compliance and noncompliance. 3. Acute exacerbation of major depressive disorder with psychosis and psychotic features, recurrent type, severe. 4. Transient intermittent hypertension, secondary to poor compliance and noncompliance with medication. 5. Mild metabolic alkalosis and prerenal kidney injury. 6. Kyphosis. 7. Chronic right parietal infarct with chronic microvascular white matter ischemic changes of the brain. 8. Chronic lacunar infarct involving deep subcortical white matter and basal nuclei and bilateral cerebral hemisphere. 9. Moderate central volume loss with disproportionate ventricular enlargement. 10. History of bilateral cataract surgery. 11. Deconditioning. 1. Acute exacerbation of anxiety, depression and bipolar disorder with poor appetite and insomnia. 2. Poor compliance, noncompliance. 3. Episodic hyper and hypotension, probably secondary to noncompliance with medication. 4. Dementia. 5. Metabolic alkalosis with prerenal kidney injury. 6. Trace proteinuria. 7. Trace bacteriuria. 8. Chronic right parietal infarct with chronic white matter ischemic disease of the brain with chronic lacunar infarcts in the deep and subcortical white matter and basal nuclei in bilateral cerebral hemisphere. 9. Moderate central volume loss with disproportionate ventricular dilatation. 10. Bilateral cataract surgery. 11. Noncompliance and poor compliance. 12. Psychosis. 13. Hypertensive cardiovascular disease with left ventricular hypertrophy. 14. 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 15. 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 1. Acute exacerbation of anxiety and depression and acute exacerbation of bipolar disorder with poor appetite and insomnia. 2. Episodic hyper and hypotension, probably secondary to noncompliance with medication. 3. Hypokalemia. 4. Mild metabolic alkalosis and prerenal kidney injury. 5. Deconditioning. 6. Hypertensive cardiovascular disease. 7. 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 8. Poor compliance and noncompliance. 9. Depressed mood disorder. 10. Withdrawn and seclusive behavior with grandiosities. 11. Visual hallucinations. 1. Acute exacerbation of depression and anxiety and acute exacerbation of bipolar disorder with poor appetite and insomnia. 2. Poor compliance and noncompliance. 3. Recurrent major depression with psychotic features. 4. Cognitive impairment, dementia. 5. Episodic hypertension and hypotension, probably secondary to noncompliance with medication. 6. Hypokalemia. 7. Mild prerenal kidney injury. 8. Mild metabolic alkalosis. 9. Dyslipidemia. 10. Hypovitaminosis D. 11. Asymptomatic bacteriuria, proteinuria. 12. Dilated ischemic cardiomyopathy. 13. History of dementia. 14. History of right parietooccipital nonhemorrhagic acute infarct with right internal carotid artery stenosis and status post right carotid endarterectomy. 15. Multi-infarct dementia. 16. Psychosis with cognitive impairment. 1. Questionable poor compliance versus noncompliance. 2. Recurrent major depression and psychosis and psychotic features. 3. Cognitive impairment with dementia. 4. Uncontrolled hypertension with episodic hypotension. 5. Acute exacerbation of depression and anxiety and acute exacerbation of bipolar disorder with acute exacerbation of anxiety, depression with poor appetite and insomnia. 6. Hypokalemia. 7. Dyslipidemia. 8. Hypovitaminosis D. 9. Asymptomatic bacteriuria and proteinuria. 10. Dilated ischemic cardiomyopathy. 11. History of dementia. 12. History of right cerebral infarct with right internal carotid artery stenosis and right carotid endarterectomy. 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 14. Psychosis and cognitive impairment. 15. History of right occipital, right parietal nonhemorrhagic acute infarct with right internal carotid artery stenosis, status post right carotid endarterectomy. 1. Increasing depression with acute exacerbation of anxiety and depression. 2. Acute exacerbation of bipolar disorder with acute exacerbation of depression and anxiety, poor appetite, insomnia. 3. Noncompliance and poor compliance with medication. 4. Hypertension. 5. Hypokalemia. 6. History of dyslipidemia, history of hypovitaminosis D. 7. Proteinuria. 8. Asymptomatic bacteriuria. 9. Ischemic cardiomyopathy. 10. History of dementia, history of noncompliance with medication. 11. History of right cerebral infarct with right internal carotid artery stenosis and right carotid endarterectomy. 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 13. Psychosis and cognitive impairment. 1. Acute exacerbation of bipolar disorder with acute exacerbation of depression and anxiety with poor appetite, insomnia. 2. Questionable uncontrolled hypertension. 3. History of anxiety, depression and bipolar disorder. 4. Probable noncompliance with medication. 5. Mild prerenal kidney injury. 6. High normal thyroxine level. 7. Proteinuria and bacteriuria. 8. Hypertensive cardiovascular disease. 9. Age indeterminate inferior infarct and age indeterminate anterior, inferior infarct as per EKG. 10. Anorexia. 11. Noncompliance. 12. History of hyperlipidemia, hypomagnesemia, hypovitaminosis D, history of breast carcinoma. . Acute exacerbation of possible bipolar disorder with acute exacerbation of depression and anxiety with poor appetite and insomnia. 2. History of anxiety and depression. 3. Hypertension, probably secondary to noncompliance with medication. 4. Mild prerenal kidney injury. 5. High normal thyroxine level. 6. Proteinuria and bacteriuria. 7. Hypertensive cardiovascular disease. 8. Age indeterminate inferior infarct and age indeterminate anterior inferior infarct as per EKG. 9. Anorexia. 10. Noncompliance. 11. History of poor compliance and noncompliance. 12. History of hyperlipidemia, history of hypomagnesemia, history of hypovitaminosis D, history of dyslipidemia, history of breast carcinoma. PLAN: At this time, the patient has been ordered serial labs. CURRENT MEDICATIONS: 1. Aricept 5 mg at bedtime. 2. Arimidex 1 mg daily. 3. Ativan 0.5 mg at bedtime. 4. Ativan 0.5 mg 10:00 a.m. 5. Coreg 25 mg twice a day. 6. Ecotrin 81 mg daily. 7. Geodon 10 mg IM q. 6 hours p.r.n. 8. Imdur 60 mg daily. 9. Lasix is to be resumed at 20 mg twice a day. 10. Lexapro 5 mg daily. 11. Lipitor 40 mg daily. 12. Magnesium oxide 400 mg twice a day. 13. Plavix 75 mg daily. 14. Protonix 40 mg daily. 15. Sonata 10 mg at bedtime p.r.n. 16. Tylenol 650 q. 4 p.r.n. 17. Zyprexa 10 mg at bedtime and Zyprexa 5 mg at 1:00 p.m. 18. Allopurinol 100 mg daily. Heart healthy diet. ABAD stockings. At present, the patient is to be continued on the above therapeutic intervention with close followup by psychiatry. The patient's discharge disposition is as per psychiatry. The patient will be followed closely from a medical perspective and diagnostic and therapeutic intervention will be modified depending upon the patient's needs and indications. Dictated and electronically signed, not read. Mohan Hidalgo MD cc: [id number] TT: 01/10/2017 14:21:45 Confirmation # [id number] Dictation # [id number] nilam ISBELL
--- NOTE | 2017-01-10 19:41 | PCM.PYCHPN ---
Psychiatric Progress Note - Psychiatric Progress Note Patient seen today, length of contact: 25 min Patient Chief Complaint: D depression Problems Identified/Issues Discussed: Chart reviewed and case reviewed with patient as well Patient reports some improvement in her mood but still complains of severe depression. Looks depressed. Of concern over her son's recurrence of what appears to be a basal cell carcinoma on his right cheek/rastafarian area Patient spoke of the financial concerns Medical Problems: History of hyper and hypotension, anterior and inferior myocardial infarction. Has history of noncompliance. Diagnostic Results: lowered potassium 3.2 DSM 5 Symptoms Update: remains withdrawn. intermittent disorientation Medication Change: No Medical Record Reviewed: Yes (reports, labs, vitals, notes) Consults ordered or reviewed: Chart reviewed. Covering for Dr. SHELTON. shane Major note reviewed 01/10 Mental Status Examination - Cognitive Function Orientation: Person, Place, Time Memory: Intact, Impaired Attention: Poor Concentration: Poor Association: WNL (orientation reportedly fluctuates) - Mood Mood: Depressed, Anxious - Affect Affect: Constricted, Flat - Speech Speech: Soft - Formal Thought Process Formal Thought Process: No Impairment, Other (guarded) - Suicidal Ideation Suicidal Ideation: No - Homicidal Ideation Homicidal Ideation: No Goal/Treatment Plan - Goal/Treatment Plan Need for Continued Stay: Remain at risks for inpatient hospitalization Progress Toward Problem(s) and Goals/Treatment Plan: Mood and affect appear improved compared to over this past weekend. Still however constricted, with a sense of a anergia and with a lack of motivation.
[2017-01-11 07:01] LABS: ADD MANUAL DIFF? NO
[2017-01-11 07:16] LABS: ALB/GLOB RATIO 1.2 (1.1-1.8); ALKALINE PHOSPHATASE 110 U/L (38-133); ALT/SGPT 24 U/L (7-56); AST/SGOT 21 U/L (15-39); BASO # 0.01 K/mm3 (0.0-2.0); BASO % 0.2 % (0.0-3.0); BILIRUBIN,TOTAL 0.5 mg/dL (0.2-1.3); BLOOD UREA NITROGEN 27 mg/dL (7-21); CALCIUM 9.2 mg/dL (8.4-10.5); CARBON DIOXIDE 32 mmol/L (21-33); CHLORIDE 99 mmol/L (95-110); EOS # 0.1 (0.0-0.7); EOS % 1.9 % (1.5-5.0); GFR AFRICAN-AMERICAN > 60; GLUCOSE,RANDOM 94 mg/dL (70-110); GRAN # 4.14 (1.4-6.5); GRAN % 63.8 % (50.0-68.0); HEMATOCRIT 38.9 % (36.0-48.0); LYMPH # 1.6 (1.2-3.4); LYMPH % 24.8 % (22.0-35.0); MAGNESIUM 2.2 mg/dL (1.7-2.2); MEAN CELL VOLUME 92.4 fL (80.0-105.0); MEAN CORPUSCULAR HEMOGLOBIN 30.6 pg (25.0-35.0); MEAN CORPUSCULAR HGB CONC 33.2 g/dl (31.0-37.0); MEAN PLATELET VOLUME 9.9 fl (7.0-11.0); MONO # 0.6 (0.1-0.6); MONO % 9.3 % (1.0-6.0); PHOSPHOROUS 3.7 mg/dL (2.5-4.5); PLATELET COUNT 179 10^3/uL (120.0-450.0); RED CELL DISTRIBUTION WIDTH 13.4 % (11.5-14.5); SODIUM 135 mmol/L (132-148); TOTAL PROTEIN 5.7 g/dL (5.8-8.3); WHITE BLOOD COUNT 6.5 10^3/ul (4.5-11.0)
[2017-01-11] MEDS: Magnesium Oxide 400 mg Tab UD PO SCH ×2 (09:49→17:44)
[2017-01-11] MEDS: Pantoprazole 40 mg EC Tab PO SCH (09:50)
--- NOTE | 2017-01-11 11:34 | PN ---
DATE: 01/11/2017 The patient is seen again lying in room 517, bed 1. The patient was made to sit up, stand up and walk in the room and come out of the room. Overnight nurse 's notes were reviewed. The patient was found to be episodically forgetful, confused and oriented x 1. Observation was done over the nurses' shift overnight. Overnight, patient also slept well. PHYSICAL EXAMINATION: VITAL SIGNS: T-max 97.7, pulse 69-64, blood pressure 121/71, 128/51, respirations 20, last documented O2 sat was 3/4 96%. HEAD: Normocephalic, atraumatic. HEENT: Shows pinkish conjunctivae, anicteric sclerae. No oropharyngeal lesion. NECK: No neck rigidity. Positive right carotid endarterectomy surgical scar. Positive soft carotid bruit. CHEST: Kyphosis. LUNGS: Show decreased breath sounds at the left base. No rales, crackles, or wheezing. CARDIOVASCULAR: S1, S2, regular rhythm, positive systolic murmur right second intercostal space, left sternal border, left second intercostal space. ABDOMEN: Soft, positive bowel sounds. GENITALIA: Female. RECTAL: Deferred. EXTREMITIES: Show complete resolution of the pitting edema and swelling of the lower extremity, no calf tenderness, no Homans signs. VASCULAR: Palpable pulses. MUSCULOSKELETAL: Shows a body mass index of 25.1. NEUROLOGIC: Cranial nerves II-XII limited. GAIT: Independent. PSYCHIATRIC: As per psychiatry evaluation. DIAGNOSTICS: 01/11/2017, WBC 6.5, hemoglobin/hematocrit 12.9 and 38.9, platelets 179. Sodium 135, potassium 4.0, chloride 99, CO2 32, anion gap 8, BUN 27, creatinine 0.9, GFR greater than 60, glucose 94, calcium 9.2, phosphorus 3.7, magnesium 2.2. LFTs are normal. IMPRESSION AND PLAN: 1. Acute exacerbation of anxiety, depression, and bipolar disorder with symptoms of poor appetite, insomnia, depression and noncompliance and poor compliance. 2. Intermittent hyper and hypotension. 3. Hypokalemia. 4. Metabolic alkalosis. 5. History of dementia. 6. Hypokalemia. 7. Metabolic alkalosis. 8. Acute kidney injury (resolved). 9. Mild prerenal kidney injury. 10. Trace proteinuria and trace bacteriuria 11. Dementia. 12. History of breast carcinoma. 13. Anxiety disorder. 14. History of ischemic dilated cardiomyopathy. 15. Dyslipidemia. 16. Hypomagnesemia. 17. 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 18. Hyperuricemia. 1. Acute exacerbation of anxiety, depression and bipolar disorder with poor appetite, insomnia, depression and noncompliance and poor compliance. 2. Intermittent hyper and hypotension. 3. Hypokalemia. 4. Metabolic alkalosis. 5. Prerenal kidney injury (resolving). 6. Trace proteinuria and bacteriuria. 7. Chronic right parietal infarct and chronic periventricular white matter ischemic disease of the brain with chronic lacunar infarcts of the deep and subcortical white matter and basal nuclei and bilateral cerebral hemisphere. 8. Moderate cerebral central volume loss with disproportionate ventriculomegaly. 9. Bilateral cataract surgery. 10. Major depressive disorder with psychotic features, recurrent type, severe. 11. Poor compliance. 12. Hypokalemia. 13. Resolving metabolic alkalosis. 14. Resolving prerenal kidney injury and acute kidney injury. 15. Trace proteinuria, trace bacteriuria. 16. History of dementia. 1. Acute exacerbation of anxiety, depression, and bipolar disorder with poor appetite, insomnia and depression. 2. Poor compliance and noncompliance. 3. Intermittent hyper and hypotension. 4. Hypokalemia. 5. Metabolic alkalosis. 6. Prerenal kidney injury. 7. Trace proteinuria. 8. Bacteriuria. 9. 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 10. Moderate cerebral central volume loss with disproportionate ventriculomegaly. 11. Bilateral cataract surgery. 12. Major depressive disorder with psychotic features, recurrent type, severe. 13. Poor compliance. 1. Poor compliance and noncompliance. 2. Paranoid disorder with poor compliance and noncompliance. 3. Acute exacerbation of major depressive disorder with psychosis and psychotic features, recurrent type, severe. 4. Transient intermittent hypertension, secondary to poor compliance and noncompliance with medication. 5. Mild metabolic alkalosis and prerenal kidney injury. 6. Kyphosis. 7. Chronic right parietal infarct with chronic microvascular white matter ischemic changes of the brain. 8. Chronic lacunar infarct involving deep subcortical white matter and basal nuclei and bilateral cerebral hemisphere. 9. Moderate central volume loss with disproportionate ventricular enlargement. 10. History of bilateral cataract surgery. 11. Deconditioning. 1. Acute exacerbation of anxiety, depression and bipolar disorder with poor appetite and insomnia. 2. Poor compliance, noncompliance. 3. Episodic hyper and hypotension, probably secondary to noncompliance with medication. 4. Dementia. 5. Metabolic alkalosis with prerenal kidney injury. 6. Trace proteinuria. 7. Trace bacteriuria. 8. Chronic right parietal infarct with chronic white matter ischemic disease of the brain with chronic lacunar infarcts in the deep and subcortical white matter and basal nuclei in bilateral cerebral hemisphere. 9. Moderate central volume loss with disproportionate ventricular dilatation. 10. Bilateral cataract surgery. 11. Noncompliance and poor compliance. 12. Psychosis. 13. Hypertensive cardiovascular disease with left ventricular hypertrophy. 14. 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 15. 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 1. Acute exacerbation of anxiety and depression and acute exacerbation of bipolar disorder with poor appetite and insomnia. 2. Episodic hyper and hypotension, probably secondary to noncompliance with medication. 3. Hypokalemia. 4. Mild metabolic alkalosis and prerenal kidney injury. 5. Deconditioning. 6. Hypertensive cardiovascular disease. 7. 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 8. Poor compliance and noncompliance. 9. Depressed mood disorder. 10. Withdrawn and seclusive behavior with grandiosities. 11. Visual hallucinations. 1. Acute exacerbation of depression and anxiety and acute exacerbation of bipolar disorder with poor appetite and insomnia. 2. Poor compliance and noncompliance. 3. Recurrent major depression with psychotic features. 4. Cognitive impairment, dementia. 5. Episodic hypertension and hypotension, probably secondary to noncompliance with medication. 6. Hypokalemia. 7. Mild prerenal kidney injury. 8. Mild metabolic alkalosis. 9. Dyslipidemia. 10. Hypovitaminosis D. 11. Asymptomatic bacteriuria, proteinuria. 12. Dilated ischemic cardiomyopathy. 13. History of dementia. 14. History of right parietooccipital nonhemorrhagic acute infarct with right internal carotid artery stenosis and status post right carotid endarterectomy. 15. Multi-infarct dementia. 16. Psychosis with cognitive impairment. 1. Questionable poor compliance versus noncompliance. 2. Recurrent major depression and psychosis and psychotic features. 3. Cognitive impairment with dementia. 4. Uncontrolled hypertension with episodic hypotension. 5. Acute exacerbation of depression and anxiety and acute exacerbation of bipolar disorder with acute exacerbation of anxiety, depression with poor appetite and insomnia. 6. Hypokalemia. 7. Dyslipidemia. 8. Hypovitaminosis D. 9. Asymptomatic bacteriuria and proteinuria. 10. Dilated ischemic cardiomyopathy. 11. History of dementia. 12. History of right cerebral infarct with right internal carotid artery stenosis and right carotid endarterectomy. 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 14. Psychosis and cognitive impairment. 15. History of right occipital, right parietal nonhemorrhagic acute infarct with right internal carotid artery stenosis, status post right carotid endarterectomy. 1. Increasing depression with acute exacerbation of anxiety and depression. 2. Acute exacerbation of bipolar disorder with acute exacerbation of depression and anxiety, poor appetite, insomnia. 3. Noncompliance and poor compliance with medication. 4. Hypertension. 5. Hypokalemia. 6. History of dyslipidemia, history of hypovitaminosis D. 7. Proteinuria. 8. Asymptomatic bacteriuria. 9. Ischemic cardiomyopathy. 10. History of dementia, history of noncompliance with medication. 11. History of right cerebral infarct with right internal carotid artery stenosis and right carotid endarterectomy. 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 13. Psychosis and cognitive impairment. 1. Acute exacerbation of bipolar disorder with acute exacerbation of depression and anxiety with poor appetite, insomnia. 2. Questionable uncontrolled hypertension. 3. History of anxiety, depression and bipolar disorder. 4. Probable noncompliance with medication. 5. Mild prerenal kidney injury. 6. High normal thyroxine level. 7. Proteinuria and bacteriuria. 8. Hypertensive cardiovascular disease. 9. Age indeterminate inferior infarct and age indeterminate anterior, inferior infarct as per EKG. 10. Anorexia. 11. Noncompliance. 12. History of hyperlipidemia, hypomagnesemia, hypovitaminosis D, history of breast carcinoma. . Acute exacerbation of possible bipolar disorder with acute exacerbation of depression and anxiety with poor appetite and insomnia. 2. History of anxiety and depression. 3. Hypertension, probably secondary to noncompliance with medication. 4. Mild prerenal kidney injury. 5. High normal thyroxine level. 6. Proteinuria and bacteriuria. 7. Hypertensive cardiovascular disease. 8. Age indeterminate inferior infarct and age indeterminate anterior inferior infarct as per EKG. 9. Anorexia. 10. Noncompliance. 11. History of poor compliance and noncompliance. 12. History of hyperlipidemia, history of hypomagnesemia, history of hypovitaminosis D, history of dyslipidemia, history of breast carcinoma. PLAN: At this time, the patient has been followed by the psychiatrist. CURRENT MEDICATIONS: 1. Aricept 5 mg at bedtime. 2. Arimidex 1 mg daily. 3. Ativan 0.5 mg at bedtime. 4. Ativan 0.5 mg at 10:00 a.m. 5. Coreg 25 mg twice a day. 6. Ecotrin 81 mg daily. 7. Geodon 10 mg IM q. 6 hours p.r.n. 8. Imdur 60 mg daily. 9. Lasix 20 mg twice a day. 10. Lexapro 5 mg a.m. 11. Lipitor 40 mg daily. 12. Magnesium oxide 400 mg twice a day. 13. Plavix 75 mg daily. 14. Protonix 40 mg daily. 15. Sonata 10 mg at bedtime p.r.n. 16. Tylenol 650 p.o. q. 4 hours p.r.n. 17. Zyprexa 10 mg at bedtime and Zyprexa 5 mg at 1:00 p.m. 18. Allopurinol 100 mg daily. ABAD tian. Heart healthy diet ordered. The patient's serial labs ordered. At present, the patient is to be continued on the above therapeutic intervention as per psychiatrist management. Overall medically, the patient is relatively stable. The patient will be closely followed while patient is on the psychiatric floor. Dictated and electronically signed, not read. Mohan Hidalgo MD cc: [id number] TT: 01/11/2017 11:33:56 Confirmation # [id number] Dictation # [id number] tn MTDD
--- NOTE | 2017-01-11 22:27 | PCM.PYCHPN ---
Psychiatric Progress Note - Psychiatric Progress Note Patient seen today, length of contact: 25 min Patient Chief Complaint: D depression Problems Identified/Issues Discussed: Chart reviewed and case reviewed with patient as well Patient reports some improvement in her mood but still complains of severe depression. Looks depressed. Of concern over her son's recurrence of what appears to be a basal cell carcinoma on his right cheek/jehovah's witness area Patient spoke of the financial concerns Medical Problems: History of hyper and hypotension, anterior and inferior myocardial infarction. Has history of noncompliance. Diagnostic Results: lowered potassium 3.2 DSM 5 Symptoms Update: Remains withdrawn and with a depressed affect. Rates himself as a 5 out of 10 out as opposed to 2 out of 10 previously needs encouragement with socialization. Does intermittently demonstrate cognitive impairment of some confusion Not psychotic Medication Change: No Medical Record Reviewed: Yes (reports, labs, vitals, notes) Consults ordered or reviewed: Dr. Barry's note reviewed Mental Status Examination - Cognitive Function Orientation: Person, Place, Time Memory: Intact, Impaired Attention: Poor Concentration: Poor Association: WNL (orientation reportedly fluctuates) Fund of Knowledge: Poor Decription of patient's judgement and insights: Marginal but does have some insight - Mood Mood: Depressed, Anxious - Affect Affect: Constricted, Flat - Speech Speech: Soft - Formal Thought Process Formal Thought Process: No Impairment, Other (guarded) - Suicidal Ideation Suicidal Ideation: No - Homicidal Ideation Homicidal Ideation: No Goal/Treatment Plan - Goal/Treatment Plan Need for Continued Stay: Remain at risks for inpatient hospitalization, Discharge may exacerbated symptoms Progress Toward Problem(s) and Goals/Treatment Plan: Mood and affect appear improved compared to over this past weekend. Still however constricted, with a sense of a anergia and with a lack of motivation.
[2017-01-12 07:35] LABS: ALB/GLOB RATIO 1.1 (1.1-1.8); ALKALINE PHOSPHATASE 110 U/L (38-133); ALT/SGPT 18 U/L (7-56); AST/SGOT 24 U/L (15-39); BILIRUBIN,DIRECT 0.3 mg/dL (0.0-0.4); BILIRUBIN,TOTAL 0.6 mg/dL (0.2-1.3); BLOOD UREA NITROGEN 24 mg/dL (7-21); CALCIUM 9.3 mg/dL (8.4-10.5); CARBON DIOXIDE 32 mmol/L (21-33); CHLORIDE 102 mmol/L (98-107); GFR AFRICAN-AMERICAN > 60; GLUCOSE,RANDOM 96 mg/dL (70-110); MAGNESIUM 2.2 mg/dL (1.7-2.2); SODIUM 139 mmol/L (132-148); TOTAL PROTEIN 5.7 g/dL (5.8-8.3)
[2017-01-12] MEDS: Magnesium Oxide 400 mg Tab UD PO SCH ×2 (09:16→18:14)
[2017-01-12] MEDS: Pantoprazole 40 mg EC Tab PO SCH (09:17)
--- NOTE | 2017-01-12 10:58 | PN ---
DATE: 01/12/2017 The patient is seen in the breakfast room on the psychiatry floor. The patient is sitting up in the chair having breakfast. The patient appears to be calm, appears to be cooperative. Overnight nurse's notes were reviewed. The patient was compliant with medications overnight, slept well. The patient was alert, awake, oriented x 2. The patient has episodic confusion, but patient was found to be calm. No suicidal or homicidal ideation. No auditory or visual hallucination was noted. The patient was overall compliant. The patient slept well. PHYSICAL EXAMINATION: VITAL SIGNS: T-max 98.2, heart rate 63-64, blood pressure 183/90 to 99/60 which appears to be confusing because the patient's average blood pressure in the last 24 hours has a systolic around 120s and 130s, diastolic around 50s. Respirations 20, O2 sat not documented. HEAD: Normocephalic, atraumatic. EENT: Shows positive right carotid endarterectomy surgical scar. Positive soft carotid bruit. Pinkish, pale conjunctivae. CHEST: Kyphosis. LUNGS: Show no rales, crackles, or wheezing. CARDIOVASCULAR: Shows S1, S2, regular rhythm. Questionable soft systolic murmur left sternal border, right second intercostal space. ABDOMEN: Soft, positive bowel sounds. GENITALIA: Female. RECTAL: Deferred. EXTREMITIES: Shows complete resolution of the pitting edema. No calf tenderness, no Homans signs. No swelling of the lower extremity. MUSCULOSKELETAL: Shows a body mass index of 25.1. NEUROLOGIC: The patient is alert, awake; oriented to person, place, year and date of . The patient follows commands. The patient is able to ambulate independently. DIAGNOSTICS: Hematology: None from today. Chemistry: Sodium 139, potassium 4.0, chloride 102, CO2 32, anion gap 9, BUN 24, creatinine 0.8, GFR greater than 60, glucose 96, calcium 9.3, magnesium 2.2. LFTs are normal. IMPRESSION AND PLAN: 1. Acute exacerbation of anxiety, depression and bipolar disorders, symptomatic with symptoms of poor appetite, insomnia, depression and noncompliance and poor compliance. 2. Questionable episodic hypotension with history of hypertension. 3. Dementia. 4. Episodic confusion secondary to dementia. 5. Hypokalemia. 6. Status post acute kidney injury with prerenal kidney injury. 7. Metabolic alkalosis. 8. Noncompliance and poor compliance. 9. Right parietal chronic infarct with chronic periventricular small vessel ischemic disease of the brain with chronic lacunar infarcts in bilateral cerebral hemispheres, into the deep and subcortical white matter. 10. Moderate central volume loss with disproportionate ventriculomegaly. 11. Status post bilateral cataract surgery. 12. Dementia. 13. Acute on chronic right systolic congestive heart failure. 14. Dyslipidemia. 15. Hypomagnesemia. 16. History of cerebral infarct. 1. Acute exacerbation of anxiety, depression, and bipolar disorder with symptoms of poor appetite, insomnia, depression and noncompliance and poor compliance. 2. Intermittent hyper and hypotension. 3. Hypokalemia. 4. Metabolic alkalosis. 5. History of dementia. 6. Hypokalemia. 7. Metabolic alkalosis. 8. Acute kidney injury (resolved). 9. Mild prerenal kidney injury. 10. Trace proteinuria and trace bacteriuria 11. Dementia. 12. History of breast carcinoma. 13. Anxiety disorder. 14. History of ischemic dilated cardiomyopathy. 15. Dyslipidemia. 16. Hypomagnesemia. 17. 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 18. Hyperuricemia. 1. Acute exacerbation of anxiety, depression and bipolar disorder with poor appetite, insomnia, depression and noncompliance and poor compliance. 2. Intermittent hyper and hypotension. 3. Hypokalemia. 4. Metabolic alkalosis. 5. Prerenal kidney injury (resolving). 6. Trace proteinuria and bacteriuria. 7. Chronic right parietal infarct and chronic periventricular white matter ischemic disease of the brain with chronic lacunar infarcts of the deep and subcortical white matter and basal nuclei and bilateral cerebral hemisphere. 8. Moderate cerebral central volume loss with disproportionate ventriculomegaly. 9. Bilateral cataract surgery. 10. Major depressive disorder with psychotic features, recurrent type, severe. 11. Poor compliance. 12. Hypokalemia. 13. Resolving metabolic alkalosis. 14. Resolving prerenal kidney injury and acute kidney injury. 15. Trace proteinuria, trace bacteriuria. 16. History of dementia. 1. Acute exacerbation of anxiety, depression, and bipolar disorder with poor appetite, insomnia and depression. 2. Poor compliance and noncompliance. 3. Intermittent hyper and hypotension. 4. Hypokalemia. 5. Metabolic alkalosis. 6. Prerenal kidney injury. 7. Trace proteinuria. 8. Bacteriuria. 9. 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 10. Moderate cerebral central volume loss with disproportionate ventriculomegaly. 11. Bilateral cataract surgery. 12. Major depressive disorder with psychotic features, recurrent type, severe. 13. Poor compliance. 1. Poor compliance and noncompliance. 2. Paranoid disorder with poor compliance and noncompliance. 3. Acute exacerbation of major depressive disorder with psychosis and psychotic features, recurrent type, severe. 4. Transient intermittent hypertension, secondary to poor compliance and noncompliance with medication. 5. Mild metabolic alkalosis and prerenal kidney injury. 6. Kyphosis. 7. Chronic right parietal infarct with chronic microvascular white matter ischemic changes of the brain. 8. Chronic lacunar infarct involving deep subcortical white matter and basal nuclei and bilateral cerebral hemisphere. 9. Moderate central volume loss with disproportionate ventricular enlargement. 10. History of bilateral cataract surgery. 11. Deconditioning. 1. Acute exacerbation of anxiety, depression and bipolar disorder with poor appetite and insomnia. 2. Poor compliance, noncompliance. 3. Episodic hyper and hypotension, probably secondary to noncompliance with medication. 4. Dementia. 5. Metabolic alkalosis with prerenal kidney injury. 6. Trace proteinuria. 7. Trace bacteriuria. 8. Chronic right parietal infarct with chronic white matter ischemic disease of the brain with chronic lacunar infarcts in the deep and subcortical white matter and basal nuclei in bilateral cerebral hemisphere. 9. Moderate central volume loss with disproportionate ventricular dilatation. 10. Bilateral cataract surgery. 11. Noncompliance and poor compliance. 12. Psychosis. 13. Hypertensive cardiovascular disease with left ventricular hypertrophy. 14. 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 15. 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 1. Acute exacerbation of anxiety and depression and acute exacerbation of bipolar disorder with poor appetite and insomnia. 2. Episodic hyper and hypotension, probably secondary to noncompliance with medication. 3. Hypokalemia. 4. Mild metabolic alkalosis and prerenal kidney injury. 5. Deconditioning. 6. Hypertensive cardiovascular disease. 7. 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 8. Poor compliance and noncompliance. 9. Depressed mood disorder. 10. Withdrawn and seclusive behavior with grandiosities. 11. Visual hallucinations. 1. Acute exacerbation of depression and anxiety and acute exacerbation of bipolar disorder with poor appetite and insomnia. 2. Poor compliance and noncompliance. 3. Recurrent major depression with psychotic features. 4. Cognitive impairment, dementia. 5. Episodic hypertension and hypotension, probably secondary to noncompliance with medication. 6. Hypokalemia. 7. Mild prerenal kidney injury. 8. Mild metabolic alkalosis. 9. Dyslipidemia. 10. Hypovitaminosis D. 11. Asymptomatic bacteriuria, proteinuria. 12. Dilated ischemic cardiomyopathy. 13. History of dementia. 14. History of right parietooccipital nonhemorrhagic acute infarct with right internal carotid artery stenosis and status post right carotid endarterectomy. 15. Multi-infarct dementia. 16. Psychosis with cognitive impairment. 1. Questionable poor compliance versus noncompliance. 2. Recurrent major depression and psychosis and psychotic features. 3. Cognitive impairment with dementia. 4. Uncontrolled hypertension with episodic hypotension. 5. Acute exacerbation of depression and anxiety and acute exacerbation of bipolar disorder with acute exacerbation of anxiety, depression with poor appetite and insomnia. 6. Hypokalemia. 7. Dyslipidemia. 8. Hypovitaminosis D. 9. Asymptomatic bacteriuria and proteinuria. 10. Dilated ischemic cardiomyopathy. 11. History of dementia. 12. History of right cerebral infarct with right internal carotid artery stenosis and right carotid endarterectomy. 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 14. Psychosis and cognitive impairment. 15. History of right occipital, right parietal nonhemorrhagic acute infarct with right internal carotid artery stenosis, status post right carotid endarterectomy. 1. Increasing depression with acute exacerbation of anxiety and depression. 2. Acute exacerbation of bipolar disorder with acute exacerbation of depression and anxiety, poor appetite, insomnia. 3. Noncompliance and poor compliance with medication. 4. Hypertension. 5. Hypokalemia. 6. History of dyslipidemia, history of hypovitaminosis D. 7. Proteinuria. 8. Asymptomatic bacteriuria. 9. Ischemic cardiomyopathy. 10. History of dementia, history of noncompliance with medication. 11. History of right cerebral infarct with right internal carotid artery stenosis and right carotid endarterectomy. 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 13. Psychosis and cognitive impairment. 1. Acute exacerbation of bipolar disorder with acute exacerbation of depression and anxiety with poor appetite, insomnia. 2. Questionable uncontrolled hypertension. 3. History of anxiety, depression and bipolar disorder. 4. Probable noncompliance with medication. 5. Mild prerenal kidney injury. 6. High normal thyroxine level. 7. Proteinuria and bacteriuria. 8. Hypertensive cardiovascular disease. 9. Age indeterminate inferior infarct and age indeterminate anterior, inferior infarct as per EKG. 10. Anorexia. 11. Noncompliance. 12. History of hyperlipidemia, hypomagnesemia, hypovitaminosis D, history of breast carcinoma. . Acute exacerbation of possible bipolar disorder with acute exacerbation of depression and anxiety with poor appetite and insomnia. 2. History of anxiety and depression. 3. Hypertension, probably secondary to noncompliance with medication. 4. Mild prerenal kidney injury. 5. High normal thyroxine level. 6. Proteinuria and bacteriuria. 7. Hypertensive cardiovascular disease. 8. Age indeterminate inferior infarct and age indeterminate anterior inferior infarct as per EKG. 9. Anorexia. 10. Noncompliance. 11. History of poor compliance and noncompliance. 12. History of hyperlipidemia, history of hypomagnesemia, history of hypovitaminosis D, history of dyslipidemia, history of breast carcinoma. PLAN: At this time, patient has been ordered serial labs 3 times a week. MEDICATIONS: The patient will be continued on therapeutic intervention, as per DEC, includin. Aricept 5 mg at bedtime. 2. Arimidex 1 mg daily. 3. Ativan 0.5 mg at bedtime. 4. Ativan 0.5 mg daily. 5. Coreg 25 mg twice a day. 6. Ecotrin 81 mg daily. 7. Geodon 10 mg IM q. 6 hours p.r.n. 8. Imdur 60 mg daily. 9. Lasix 20 mg twice a day. 10. Lexapro 5 mg a.m. 11. Lipitor 40 mg daily. 12. Magnesium oxide 400 mg twice a day. 13. Plavix 75 mg daily. 14. Protonix 40 mg daily. 15. Sonata 10 mg at bedtime p.r.n. 16. Tylenol 650 p.o. q. 4 p.r.n. 17. Zyprexa 10 mg at bedtime. 18. Zyprexa 5 mg a 1 p.m. 19. Allopurinol 100 mg daily. At present, patient will be continued on the above therapeutic intervention. The patient was seen by older adult social work specialist today. crisis worker has contacted the patient's family. At present, patient is otherwise medically stable. From medical point of view, the patient will need to be followed up in the office on a regular basis immediately after discharge from the psychiatric floor. Dictated and electronically signed; not read. Mohan Hidalgo MD cc: [id number] TT: 01/12/2017 10:58:00 Confirmation # [id number] Dictation # [id number] shellie ISBELL
--- NOTE | 2017-01-12 16:40 | PCM.PYCHPN ---
Psychiatric Progress Note - Psychiatric Progress Note Patient seen today, length of contact: 25 min Patient Chief Complaint: D depression Problems Identified/Issues Discussed: Chart reviewed and case reviewed with patient as well Patient reports some improvement in her mood but still complains of severe depression. Looks depressed. Of concern over her son's recurrence of what appears to be a basal cell carcinoma on his right cheek/hoahaoism area Patient spoke of the financial concerns Medical Problems: History of hyper and hypotension, anterior and inferior myocardial infarction. Has history of noncompliance. Diagnostic Results: lowered potassium 3.2 DSM 5 Symptoms Update: Maintenance constricted and withdrawn and quiet spoken. Not overtly psychotic. Rates himself as a 5 out of 10 (the same as yesterday) Medication Change: No Medical Record Reviewed: Yes (reports, labs, vitals, notes) Mental Status Examination - Cognitive Function Orientation: Person, Place, Situation, Time Memory: Impaired Attention: Poor Concentration: Poor Association: WNL (orientation reportedly fluctuates) Fund of Knowledge: Poor - Mood Mood: Depressed, Anxious - Affect Affect: Constricted, Flat - Speech Speech: Soft - Formal Thought Process Formal Thought Process: No Impairment, Other (guarded) Psychotic Thoughts and Behaviors: not now - Suicidal Ideation Suicidal Ideation: No - Homicidal Ideation Homicidal Ideation: No Goal/Treatment Plan - Goal/Treatment Plan Need for Continued Stay: Remain at risks for inpatient hospitalization, Discharge may exacerbated symptoms Progress Toward Problem(s) and Goals/Treatment Plan: Mood and affect appear improved compared to over this past weekend. Still however constricted, with a sense of a anergia and with a lack of motivation. Spoke with son. [place] patient not yet at baseline. He is less disorganized and less depressed but still withdrawn and poorly communicative
--- NOTE | 2017-01-13 09:06 | PCM.PYCHPN ---
Psychiatric Progress Note - Psychiatric Progress Note Patient seen today, length of contact: 25 min Patient Chief Complaint: "used to be depressed but not really depressed anymore". Problems Identified/Issues Discussed: I reviewed recent notes, patient is known to me from prior interviews during this admission. I interviewed patient at bedside Patient is calm and oriented x3 during my visit. Focus is improved and her speech is notably more spontaneous than last weekend. Latency is much improved. Thought process is coherent and responses are relevant to questioning. Patient reports that she used to be depressed but she is "not really depressed anymore" . Affect is still constricted and apathetic but reactivity is improved since last weekend consistent with her report of some improvement in her mood. Patient indicated that she is hopeful and that she does not have any wishes suicidal thoughts or thoughts of harm others. In general she feels "okay ". Patient denies having any new issues and she denies having any hallucinations. Overt delusions were not elicited during this interview. Regarding her medications, she feels that they "seem to be working" and denies having any side effects. Staff notes indicate that patient mostly stays in her room but does sometimes venture into the community. Appear shy and not very interactive, forgetful but not confused. There were no behavioral issues overnight Diagnostic Results: Major Depression, Severe, recurrent with psychotic features Medication Change: No Medical Record Reviewed: Yes (reports, labs, vitals, notes) Mental Status Examination - Cognitive Function Orientation: Person, Place, Situation, Time Memory: Impaired Attention: Poor Concentration: Poor Association: WNL (orientation reportedly fluctuates) Fund of Knowledge: Poor - Mood Mood: Depressed ("used to be depressed but not really depressed anymore"), Anxious - Affect Affect: Constricted (improvement in spontaneity and latency), Flat - Speech Speech: Soft - Formal Thought Process Formal Thought Process: No Impairment, Other ( ) - Suicidal Ideation Suicidal Ideation: No - Homicidal Ideation Homicidal Ideation: No Goal/Treatment Plan - Goal/Treatment Plan Need for Continued Stay: Remain at risks for inpatient hospitalization, Discharge may exacerbated symptoms Progress Toward Problem(s) and Goals/Treatment Plan: * c/w current tx and plan * Vitals reviewed and noted below {will watch carefully} Selected Entries 01/12/17 01/12/17 01/12/17 07:41 09:18 18:13 Temperature 98.2 F Pulse Rate 64 63 Respiratory 20 Rate Blood Pressure 183/90 H 183/90 H 114/60 01/12/17 18:14 Temperature Pulse Rate 60 Respiratory Rate Blood Pressure 114/60 * Prior weekend labs noted below: Laboratory Results - last 24 hr 01/07/17 07:29 Sodium 137 Potassium 4.0 Chloride 93 L Carbon Dioxide 38 H Anion Gap 10 BUN 39 H Creatinine 1.1 Est GFR ( Amer) 58 Est GFR (Non-Af Amer) 48 Random Glucose 95 Calcium 9.3 Phosphorus 4.1 Magnesium 2.4 H Total Bilirubin 0.7 AST 32 ALT 28 Alkaline Phosphatase 124 Total Protein 6.0 Albumin 3.3 Globulin 2.8 Albumin/Globulin Ratio 1.2 Laboratory Results - last 24 hr 01/06/17 07:30 Sodium 137 Potassium 3.9 Chloride 94 L Carbon Dioxide 38 H Anion Gap 9 L BUN 32 H Creatinine 0.8 Est GFR ( Amer) > 60 Est GFR (Non-Af Amer) > 60 Random Glucose 99 Calcium 9.6 Phosphorus 4.3 Magnesium 2.3 H Total Bilirubin 0.7 AST 33 ALT 30 Alkaline Phosphatase 120 Total Protein 6.0 Albumin 3.3 Globulin 2.8 Albumin/Globulin Ratio 1.2
[2017-01-13] MEDS: Magnesium Oxide 400 mg Tab UD PO SCH ×2 (09:49→16:32)
[2017-01-13] MEDS: Pantoprazole 40 mg EC Tab PO SCH (09:50)
--- NOTE | 2017-01-13 15:31 | PN ---
DATE: 01/13/2017 The patient is seen again lying in room 517, bed 1. The patient states that she is feeling tired so she went back to the bed after having breakfast. Overnight nurses' notes were reviewed. The patient has had no auditory or visual hallucinations, no suicidal or homicidal ideation. No auditory or vis ual hallucinations, no suicidal or homicidal ideation. No anxiety or depression noted at present. T he patient was seen more in the interaction with the other residents. The patient slept well without any adverse events. PHYSICAL EXAMINATION: VITAL SIGNS: T-max 97.9, heart rate 63-58, blood pressure 164/63, 114/60, 183/90, respirations 20, O 2 sat within normal limits. HEAD: Normocephalic, atraumatic. HEENT: Shows pink conjunctivae, anicteric sclerae. No oropharyngeal lesion. NECK: No neck rigidity. Positive right carotid endarterectomy surgical scar noted. Positive caroti d bruit bilaterally. CHEST: Kyphosis. Decreased breath sound at the bases. CARDIOVASCULAR: Shows S1, S2, rhythm, positive systolic murmur right second intercostal space, left sternal border, left second intercostal space. ABDOMEN: Soft, positive bowel sounds. GENITALIA: Female. RECTAL: Deferred. EXTREMITIES: Shows no pitting edema, no calf tenderness, no Ricardo' sign. Slight swelling of the low er extremity. No calf tenderness. MUSCULOSKELETAL: Shows a body mass index of 24. The patient was seen by the psychiatrist. IMPRESSION AND PLAN: 1. Acute exacerbation of anxiety, depression, bipolar disorder with symptoms of poor appetite, insom chuck, depression and noncompliance and poor compliance. 2. Episodic hypotension and hypertension. 3. Hypokalemia. 4. Metabolic alkalosis. 5. Acute kidney injury with prerenal kidney injury. 6. Trace proteinuria, trace bacteriuria. 7. History of dementia, history of breast carcinoma. 8. History of anxiety, depression. 9. History of congestive heart failure. 10. History of depression. 11. Dyslipidemia. 12. History of hypomagnesemia. 13. History of insomnia. 14. History of hyperuricemia. PLAN: At this time, the patient has been ordered serial labs. CURRENT MEDICATIONS: 1. Aricept 5 mg at bedtime. 2. 1 mg daily. 3. Ativan 0.5 mg at bedtime. 4. Ativan 0.5 mg at 10:00 a.m. 5. Coreg 25 mg twice a day. 6. Ecotrin 81 mg daily. 7. Geodon 10 mg IM q.6 p.r.n. 8. Imdur 60 mg daily. 9. Lasix decreased to 20 mg twice a day. 10. Lexapro 5 mg daily. 11. Lipitor 40 mg daily. 12. Magnesium oxide 400 mg p.o. twice a day. 13. Plavix 75 mg daily. 14. Protonix 40 mg daily. 15. Sonata 10 mg at bedtime p.r.n. 16. Tylenol 650 q.4 p.r.n. 17. Zyprexa 10 mg at bedtime. 18. Zyprexa 5 mg at 1:00 p.m. 19. Allopurinol 100 mg daily. At present, the patient is to be continued on the above therapeutic intervention. The patient's disc harge disposition and clearance is as per the psychiatrist. The patient otherwise medically is in pr chavo much compensated state. The patient will need to be followed up immediately within a week upon discharge for titration and adjustment of medications if needed and for therapeutic intervention or d iagnostic testing. Dictated and electronically signed, not read. Mohan Hidalgo MD cc: [id number] TT: 01/13/2017 15:30:54 Confirmation # [id number] Dictation # [id number] dn
[2017-01-14 07:50] LABS: ALB/GLOB RATIO 1.1 (1.1-1.8); ALKALINE PHOSPHATASE 109 U/L (38-133); ALT/SGPT 19 U/L (7-56); AST/SGOT 25 U/L (15-39); BILIRUBIN,DIRECT 0.3 mg/dL (0.0-0.4); BILIRUBIN,TOTAL 0.5 mg/dL (0.2-1.3); BLOOD UREA NITROGEN 32 mg/dL (7-21); CALCIUM 9.6 mg/dL (8.4-10.5); CARBON DIOXIDE 30 mmol/L (21-33); CHLORIDE 102 mmol/L (98-107); GFR AFRICAN-AMERICAN > 60; GLUCOSE,RANDOM 111 mg/dL (70-110); MAGNESIUM 1.9 mg/dL (1.7-2.2); POTASSIUM 3.7 mmol/L (3.6-5.0); SODIUM 139 mmol/L (132-148)
[2017-01-14] MEDS: Magnesium Oxide 400 mg Tab UD PO SCH ×2 (08:57→17:57)
[2017-01-14] MEDS: Pantoprazole 40 mg EC Tab PO SCH (08:58)
--- NOTE | 2017-01-14 09:34 | PCM.PYCHPN ---
Psychiatric Progress Note - Psychiatric Progress Note Patient seen today, length of contact: 25 min Patient Chief Complaint: "okay" Problems Identified/Issues Discussed: I reviewed recent notes and patient was interviewed at bedside. Patient remains calm and oriented x3. Focus is fair and her speech is notably more spontaneous than last weekend. Latency is improved. Patient reports that she is depressed but these symptoms are improving. Affect remains flat and constructed but reactivity is increasing. Patient indicated that she is hopeful and that she does not have any wishes suicidal thoughts or thoughts to harm others. In general she feels "okay". Patient denies having any new issues and she denies having any hallucinations. Overt delusions were not elicited during this interview. Regarding her medications, she still feels that they "seem to be working" and denies having any side effects. Staff notes indicate that patient mostly stays in her room but does sometimes venture into the community. She has been pleasant and appears shy and not very interactive. At times forgetful but not confused. There have been no wandering behaviors and there were no behavioral issues over the weekend. Diagnostic Results: Major Depression, Severe, recurrent with psychotic features Medication Change: No Medical Record Reviewed: Yes (reports, labs, vitals, notes) Mental Status Examination - Cognitive Function Orientation: Person, Place, Situation, Time Memory: Impaired Attention: Poor Concentration: Poor Association: WNL (orientation reportedly fluctuates) Fund of Knowledge: Poor - Mood Mood: Depressed ("okay"), Anxious - Affect Affect: Constricted (improvement in spontaneity and latency), Flat - Speech Speech: Soft - Formal Thought Process Formal Thought Process: No Impairment, Other ( ) - Suicidal Ideation Suicidal Ideation: No - Homicidal Ideation Homicidal Ideation: No Goal/Treatment Plan - Goal/Treatment Plan Need for Continued Stay: Remain at risks for inpatient hospitalization, Discharge may exacerbated symptoms Progress Toward Problem(s) and Goals/Treatment Plan: * c/w current tx and plan * Appreciate f/u by Dr. Hidalgo on 01/13/17 * Vitals reviewed and noted below {will watch carefully} Selected Entries 01/12/17 01/12/17 01/12/17 07:41 09:15 09:18 Temperature 98.2 F Pulse Rate 64 63 Respiratory 20 Rate Blood Pressure 183/90 H 183/90 H 183/90 H 01/12/17 01/12/17 01/13/17 18:13 18:14 07:00 Temperature 97.9 F Pulse Rate 60 58 L Respiratory 20 Rate Blood Pressure 114/60 114/60 164/61 H 01/13/17 01/13/17 01/13/17 09:50 16:00 16:32 Temperature Pulse Rate 63 Respiratory Rate Blood Pressure 164/63 H 158/81 H 158/81 H 01/14/17 01/14/17 07:00 08:58 Temperature 98.2 F Pulse Rate 62 62 Respiratory 20 Rate Blood Pressure 141/73 141/73 * Recent and prior weekend labs noted below: Laboratory Results - last 24 hr 01/14/17 07:19 Sodium 139 Potassium 3.7 Chloride 102 Carbon Dioxide 30 Anion Gap 11 BUN 32 H Creatinine 0.8 Est GFR ( Amer) > 60 Est GFR (Non-Af Amer) > 60 Random Glucose 111 H Calcium 9.6 Magnesium 1.9 Total Bilirubin 0.5 Direct Bilirubin 0.3 AST 25 ALT 19 Alkaline Phosphatase 109 Total Protein 6.0 Albumin 3.1 Globulin 2.9 Albumin/Globulin Ratio 1.1 Laboratory Results - last 24 hr 01/07/17 07:29 Sodium 137 Potassium 4.0 Chloride 93 L Carbon Dioxide 38 H Anion Gap 10 BUN 39 H Creatinine 1.1 Est GFR ( Amer) 58 Est GFR (Non-Af Amer) 48 Random Glucose 95 Calcium 9.3 Phosphorus 4.1 Magnesium 2.4 H Total Bilirubin 0.7 AST 32 ALT 28 Alkaline Phosphatase 124 Total Protein 6.0 Albumin 3.3 Globulin 2.8 Albumin/Globulin Ratio 1.2 Laboratory Results - last 24 hr 01/06/17 07:30 Sodium 137 Potassium 3.9 Chloride 94 L Carbon Dioxide 38 H Anion Gap 9 L BUN 32 H Creatinine 0.8 Est GFR ( Amer) > 60 Est GFR (Non-Af Amer) > 60 Random Glucose 99 Calcium 9.6 Phosphorus 4.3 Magnesium 2.3 H Total Bilirubin 0.7 AST 33 ALT 30 Alkaline Phosphatase 120 Total Protein 6.0 Albumin 3.3 Globulin 2.8 Albumin/Globulin Ratio 1.2
--- NOTE | 2017-01-14 09:50 | PN ---
DATE: 01/14/2017 The patient is a 81-year-old white female who is in the behavioral care unit. She was admitted with depression disorder, poor motivation and mood. The patient has a past medical history of breast canc er. She has history of coronary artery disease, also mild renal insufficiency and hypokalemia. The patient is seen this morning lying in bed in her room. She woke up when I went to talk to her, a nd she answered all the questions. She seems to be responding, but does not show mood of interest in activity. PHYSICAL EXAMINATION: VITAL SIGNS: The pulse is 63, blood pressure 158/81. Respirations are 20 per minute. HEART: Normal sinus rhythm. S1, S2 present. The EKG shows ischemic changes chronic. LUNGS: Trachea is central. Breath sounds are vesicular. No adventitious sounds are heard clinicall y. ABDOMEN: Soft. Liver and spleen not palpable. No ascites. No tenderness, no masses. CENTRAL NERVOUS SYSTEM: The patient is conscious, seems to be able to answer questions rational. No focal neurologic deficit. Cranial nerves are intact, II-XII. The patient's motor, sensory function s seem to be reasonably good. She is able to ambulate. LABORATORY DATA: The blood work does not show any changes. MEDICATIONS: The patient is on Aricept 5 mg daily. The patient is on Arimidex for prevention of dequan ast cancer. The patient is on Ativan 0.5 mg at night. The patient is on Coreg 25 mg twice a day, as pirin 81 mg daily. The patient is on Geodon p.r.n. for agitation. The patient is on Imdur 60 mg red ly, Lasix 20 mg b.i.d., Lexapro 5 mg daily, Lipitor 40 mg daily. The patient is on magnesium oxide 4 00 mg p.o. b.i.d. The patient's psychiatrist is Dr. Renee. He has seen the patient and feels that the patient's condi tion is still not stable enough for her to be discharged. The current management will continue. We will follow up. Kem Vang MD cc: [id number] TT: 01/14/2017 09:50:23 Confirmation # [id number] Dictation # [id number] jn
[2017-01-15] MEDS: Pantoprazole 40 mg EC Tab PO SCH (08:45)
[2017-01-15] MEDS: Magnesium Oxide 400 mg Tab UD PO SCH ×2 (08:46→16:22)
--- NOTE | 2017-01-15 12:00 | PN ---
DATE: 01/15/2017 The patient is a 81-year-old white female currently being treated on the psychiatric unit for major d epression with psychotic features and recent history of poor compliance and inability to care for her self. CURRENT MENTAL STATUS: Reveals that her thinking is somewhat more organized. Her thought processes are somewhat slow, but reasonably rational and coherent. She is oriented x 3. Her recent memory is mildly impaired. Able to understand the nature of her medical and psychiatric problems, however. Debi e patient is anxious to return home. I needed again to explain to patient need to have an aide at [facility] as it was felt the patient is not currently able to live independently. The patient did not know why that is so and I again explained it to her. The patient denies suicidal ideation or hallucinatio ns. The patient appears slightly guarded and reserved. RECENT LABORATORY DATA: She had a metabolic profile yesterday. All her electrolytes were within nor mal range. Her BUN was 32, creatinine 0.8, random glucose 111. Rest of all parameters are all withi n normal range. CURRENT MEDICATIONS: Include Ecotrin 81 mg daily, Imdur, Lasix, Lexapro 5 mg daily, Lipitor, mag ox, Plavix, Protonix, Zyloprim, Zyprexa 5 mg daily and 10 mg at bedtime. The patient denies any adverse effects from psychotropic medication. VITAL SIGNS: Her blood pressure is 176/70. Yesterday, it was 135/65. Pulse is 62, respirations 20 per minute and afebrile. REVIEW OF SYSTEMS: Noncontributory. IMPRESSION: Major depressive disorder with recent psychotic features which seem to be resolving. Debi e patient has a history of hypertension, coronary artery disease, past myocardial infarction. She la st year had a cerebrovascular accident with right parietal infarct. She also has chronic microvascul ar disease and slight cerebral atrophy. The patient has a history of gout. The patient has history of cancer of the breast and mild cognitive impairment. PLAN: We will decrease Zyprexa to 10 mg at bedtime, increase Lexapro to 10 mg q.a.m. Will give tria l of Ritalin 5 mg b.i.d. to improve mood and alertness. Will also order an electrocardiogram to [facility] QTc interval. Continue close observation q. 15 minutes. Will return call from patient's son, lamar o called me this morning, with patient's permission. Luis Mcdaniels MD cc: [id number] TT: 01/15/2017 11:59:48 Confirmation # [id number] Dictation # [id number] en
--- NOTE | 2017-01-15 12:38 | CARD ---
APPROVED REPORT EKG Measurement Heart [id number] ND [id number] <Conclusion> Sinus bradycardia Left ventricular hypertrophy with repolarization abnormality Inferior infarct, age undetermined Anterior infarct, age undetermined Abnormal ECG
--- NOTE | 2017-01-15 12:56 | PN ---
DATE: 01/15/2017 The patient is seen in room 572, bed 1, in the process of getting an EKG done. The patient states th at she has been compliant with medications. Overnight nurse's notes were reviewed. The patient's af fect was constricted. The patient slept well. The patient denies any auditory or visual hallucinati ons. Denies any suicidal or homicidal ideation. The patient was noted by the nurses to be depressed . The patient was found by the nurses to be isolative with blunted affect. PHYSICAL EXAMINATION: VITAL SIGNS: T-max ____. Heart rate 62-63-58-60. Blood pressure 176/70, 135/65, 141/73, 158/81. R espirations 20, O2 sat is not documented. HEAD: Normocephalic, atraumatic. HEENT: Shows pink conjunctivae, anicteric sclerae. No oropharyngeal lesion. NECK: No neck rigidity. Soft carotid bruit. Positive right carotid endarterectomy surgical scar. CHEST: Positive kyphosis. LUNGS: Questionable decreased breath sounds at the bases. CARDIOVASCULAR: Shows S1, S2, regular rhythm. Questionable soft systolic murmur right second interc ostal space, left sternal border, left second intercostal space. ABDOMEN: Soft, positive bowel sounds, no protuberance. No distention noted. GENITALIA: Female. RECTAL: Deferred. EXTREMITIES: Shows positive trace swelling of the lower extremity and trace pitting edema of the low er extremity. VASCULAR: Palpable pulses. MUSCULOSKELETAL: Shows a body mass index of 25. NEUROLOGIC: Cranial nerves II-XII limited. GAIT: Not tested. VASCULAR: Palpable pulses. LYMPHATICS: Negative for any lymphadenopathy. DIAGNOSTICS: From 01/14/2017 were reviewed. Sodium 139, potassium 3.7, chloride 102, CO2 30, anion gap 11, BUN 32, creatinine 0.8, GFR greater than 60, glucose 111, calcium 9.6. LFTs are normal. EKG from today shows sinus bradycardia, hypertensive cardiovascular disease, old inferior wall myocardia l infarction with Q-wave in II, III, aVF; and T-wave inversion in I, II, aVL and V4-V6, and left vent ricular hypertrophy. IMPRESSION AND PLAN: 1. Sinus bradycardia with left ventricular hypertrophy, age indeterminate inferior and anterior infa rct with electrocardiogram changes. 2. Acute exacerbation of major ____ disorder with psychotic feature (resolving). 3. Hypertension. 4. Bradycardia. 5. History of noncompliance and poor compliance. 6. Hypokalemia. 7. Status post acute kidney injury with prerenal kidney injury. 8. Dilated systolic congestive heart failure with dilated ischemic cardiomyopathy. 9. Proteinuria, trace bacteriuria. 10. Bilateral venous stasis of the lower extremity. 11. History of dementia. 12. History of breast carcinoma. 13. Anxiety disorder. 14. Recurrent systolic congestive heart failure. 15. Depression. 16. Dyslipidemia. 17. Hypomagnesemia. PLAN: At this time, patient has been ordered serial labs. CURRENT MEDICATIONS: 1. Aricept 5 mg at bedtime. 2. Arimidex 1 mg daily. 3. Ativan 0.5 mg daily. 4. Coreg is decreased to 3.125 mg twice a day. 5. Ecotrin 81 mg daily. 6. Imdur 60 mg daily. 7. Lasix 20 mg twice a day. 8. Lexapro 10 mg daily. 9. Lipitor 40 mg daily. 10. Magnesium oxide 400 mg twice a day. 11. Plavix 75 mg daily. 12. Protonix 40 mg daily. 13. The patient is started on Ritalin 5 mg 8 a.m. and 2 p.m. from tomorrow 01/16/2017. 14. The patient's Zyprexa is at 10 mg at bedtime now only. 15. Allopurinol 100 mg daily. The patient is on heart healthy diet. ABAD stockings have been ordered regularly, but the patient krueger s not have ABAD stockings on. Reinforced to the patient and the nursing staff. Dictated and electronically signed; not read. Mohan Hidalgo MD cc: [id number] TT: 01/15/2017 12:55:59 Confirmation # [id number] Dictation # [id number] shellie
[2017-01-16] MEDS: Magnesium Oxide 400 mg Tab UD PO SCH ×2 (08:52→17:51)
[2017-01-16] MEDS: Pantoprazole 40 mg EC Tab PO SCH (08:54)
[2017-01-16 09:00] LABS: ALB/GLOB RATIO 1.1 (1.1-1.8); ALKALINE PHOSPHATASE 103 U/L (38-133); ALT/SGPT 19 U/L (7-56); AST/SGOT 28 U/L (15-39); BILIRUBIN,DIRECT 0.4 mg/dL (0.0-0.4); BILIRUBIN,TOTAL 0.6 mg/dL (0.2-1.3); BLOOD UREA NITROGEN 32 mg/dL (7-21); CALCIUM 9.3 mg/dL (8.4-10.5); CARBON DIOXIDE 32 mmol/L (21-33); CHLORIDE 100 mmol/L (98-107); GFR AFRICAN-AMERICAN > 60; GLUCOSE,RANDOM 108 mg/dL (70-110); MAGNESIUM 2.1 mg/dL (1.7-2.2); POTASSIUM 3.9 mmol/L (3.6-5.0); SODIUM 139 mmol/L (132-148); TOTAL PROTEIN 5.6 g/dL (5.8-8.3)
--- NOTE | 2017-01-16 12:50 | PN ---
DATE: 01/16/2017 The patient is a 81-year-old female admitted originally to the hospital for severe psychosis, paranoi a, disorganized thinking and severe depression. MENTAL STATUS EXAMINATION: The patient's current mental status reveals that she is awake, she is donovan rt. She is lying in bed in late morning. She has depressed face. She has some psychomotor retardat ion. She is eager for discharge. She questions all her medications, is reticent about taking them b ut has been taking them ____ difficulty. Some difficulty sleeping last night. She is oriented x 3. Her recent and intermediate memory is mildly impaired. She has no suicidal plan, but occasionally f eels life is not worth living. She occasionally has thought blocking during conversation. I spoke at length with nursing staff. I also spoke at length with patient's permission to her son, kirsten limon is arranging for a safe discharge, i.e. 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 CURRENT MEDICATIONS: Include Aricept 5 mg at bedtime, Arimidex, lorazepam 0.5 mg daily, Coreg 3.125 mg b.i.d., aspirin 81 mg daily, Imdur, Lasix, dose of Lexapro was increased to 10 mg p.o. q. a.m., Li jonathanor, mag ox, Plavix, methylphenidate was started today 5 mg in a.m. and 2:00 p.m. Her dose of emile zapine is 10 mg at bedtime, it was lowered to that starting last night. Zyloprim. The patient is on a heart healthy diet. REVIEW OF SYSTEMS: Ten point review noncontributory. I spoke at length with patient's primary care physician who has evaluated patient almost a daily basis. LABORATORY DATA: The patient's metabolic profile is all within normal limits except for a BUN of 32 and an albumin of 2.9. The patient had electrocardiogram yesterday to monitor QTC interval, which wa s 440 milliseconds. She has a history of an old inferior anterior infarct, which is noted in her his tory. VITAL SIGNS: Her blood pressure is registered at 190/65; however, that was electronically. Manually , it was 141/73, 135/65, 158/81 recently. She is afebrile. Respirations 18 per minute. IMPRESSION: Recurrent major depressive disorder with psychotic features, mild cognitive impairment, history of old parietal lobe infarct and multiple lacunar infarcts and microvascular disease in the b rain by MRI. She has a history of coronary artery disease with stents. She has history of non-ST wa ve myocardial infarctions. She has a history of hyperlipidemia, hypertension. The patient has a his tory of cancer of the breast. PLAN: Continue above psychotropic medications. I am speaking on a daily basis with son to arrange f or a safe discharge when patient is stable. Luis Mcdaniels MD cc: [id number] TT: 01/16/2017 12:49:27 Confirmation # [id number] Dictation # [id number] sn
--- NOTE | 2017-01-16 18:36 | PN ---
DATE: 01/16/2017 The patient is seen room...The patient is seen in the day room and activity room. The patient is sit ting up. The patient is alert, awake, responsive. The patient stated that she slept well. Libby chelsea nurse's notes were reviewed. The patient was seen participating in the group treatment. The patie nt slept well. VITAL SIGNS: T-max 98.1, pulse 60-68, blood pressure 134/62, respirations 20, O2 sat is not document ed. HEAD EXAMINATION: Normocephalic, atraumatic. HENT EXAMINATION: Shows pink conjunctivae, anicteric sclerae. No oropharyngeal lesion. No neck rigidity. Positive carotid endarterectomy extremities surgical scar on the right side. Posi tive carotid bruit, soft carotid bruit bilaterally. CHEST EXAMINATION: Kyphosis. LUNG EXAMINATION: Shows questionable decreased breath sounds at the bases, left more than the right. CARDIOVASCULAR EXAMINATION: S1, S2, regular rhythm. ABDOMEN: Soft, positive bowel sounds. GENITALIA: Female. RECTAL EXAMINATION: Deferred. EXTREMITIES: Shows trace swelling of the lower extremity and trace pitting edema of the lower extrem ity. The patient is still not wearing ABAD stockings. MUSCULOSKELETAL EXAMINATION: Shows a body mass index of 24.4. Cranial nerves II-XII limited. GAIT EXAMINATION: Independent. VASCULAR EXAMINATION: Palpable pulses. PSYCHIATRIC EXAMINATION: As per psychiatrist evaluation. DIAGNOSTICS: On 01/16: Sodium 139, potassium 3.9, chloride 100, CO2 of 32, anion gap 11, BUN 32, cr eatinine 0.7. GFR greater than 60. Glucose 108, calcium 9.3, magnesium 2.1. LFTs are normal. Tota l protein 5.6, albumin 2.9. The patient seen by psychiatrist today. Their recommendation and evaluation noted. The patient is a waiting a safe discharge with the patient's family. IMPRESSION AND PLAN: IMPRESSION AND PLAN: 1. Recurrent acute exacerbation of major depressive disorder with psychotic features, with marked co gnitive impairment. 2. History of right parietal lobe infarct. 3. History of breast carcinoma. 4. History of hypertension. 5. History of poor compliance. 6. Status post acute kidney injury with prerenal kidney injury. 7. Mild protein malnutrition, mild hypoalbuminemia. 8. Proteinuria, trace bacteriuria. 9. Dementia. 10. Bilateral lower extremity venous stasis. 11. History of dilated ischemic cardiomyopathy. 12. History of anxiety disorder. 13. History of breast carcinoma. PLAN: At this time, the patient has been ordered serial labs. The patient has been followed by the nursing home social worker. The patient is awaiting for safe discharge. CURRENT MEDICATIONS: 1. Aricept 5 mg at bedtime. 2. Arimidex 1 mg daily. 3. Ativan 0.5 mg daily. 4. Ativan 0.5 mg at bedtime. 5. Coreg 3.125 twice a day. 6. Ecotrin 81 mg daily. 7. Imdur 60 mg daily. 8. Lasix 20 mg twice a day. 9. Lexapro 10 mg in the morning, which was started today. 10. Lipitor 40 mg daily. 11. Magnesium oxide 400 mg twice a day. 12. Plavix 75 mg daily. 13. Protonix 40 mg daily. 14. Ritalin is started at 5 mg 8 a.m., 2 p.m. 15. Zyprexa 10 mg at bedtime. 16. Allopurinol 100 mg daily. The patient is on heart-healthy diet. ABAD stockings have been ordered on at least 3 occasions, and I have reinforced this to the patient's PCP that the patient needs to have the ABAD stockings. At present, as per psychiatrist notes, the patient is awaiting safe discharge. Dictated and electronically signed, not read. Mohan Hidalgo MD cc: [id number] TT: 01/16/2017 18:35:28 Confirmation # [id number] Dictation # [id number] jn
[2017-01-17 07:09] VITALS: BP 184/91; PULSE 77; TEMP 98.5
[2017-01-17 08:35] LABS: ALKALINE PHOSPHATASE 109 U/L (38-133); ALT/SGPT 21 U/L (7-56); AST/SGOT 27 U/L (15-39); BILIRUBIN,DIRECT 0.4 mg/dL (0.0-0.4); BILIRUBIN,TOTAL 0.7 mg/dL (0.2-1.3); BLOOD UREA NITROGEN 30 mg/dL (7-21); CALCIUM 9.2 mg/dL (8.4-10.5); CARBON DIOXIDE 31 mmol/L (21-33); CHLORIDE 102 mmol/L (98-107); GFR AFRICAN-AMERICAN > 60; GLUCOSE,RANDOM 104 mg/dL (70-110); POTASSIUM 3.8 mmol/L (3.6-5.0); SODIUM 139 mmol/L (132-148); TOTAL PROTEIN 5.8 g/dL (5.8-8.3)
[2017-01-17] MEDS: Pantoprazole 40 mg EC Tab PO SCH (08:47)
[2017-01-17] MEDS: Magnesium Oxide 400 mg Tab UD PO SCH (08:47)
--- NOTE | 2017-01-17 14:31 | PN ---
DATE: 01/17/2017 The patient is seen while patient is getting discharged. The patient's overnight nurse's notes were reviewed. The patient, in the last 24 hours, was found to be more interactive with other patients. The patient's social services aide contacted the patient's son. The patient is to be discharged today. The patient was found to be alert, awake, oriented x 3, cooperative. The patient denied any anxiety, de pression. Denied suicidal or homicidal ideation. PHYSICAL EXAMINATION: VITAL SIGNS: T-max 98.5, heart rate 68, blood pressure 132/62, respirations 20, O2 sat was 96%-100%. HEAD: Normocephalic, atraumatic. HEENT: Shows pink conjunctivae, anicteric sclerae. No oropharyngeal lesion. NECK: No neck rigidity. Positive right carotid endarterectomy surgical scar. Positive carotid brui t. CHEST: Kyphosis. CARDIOVASCULAR: Shows S1, S2, regular rhythm. Questionable systolic murmur right second intercostal space, left sternal border, left second intercostal space. ABDOMEN: Soft, positive bowel sounds. GENITALIA: Female. RECTAL: Deferred. EXTREMITIES: Shows trace swelling and trace pitting edema of the lower extremity. VASCULAR: Palpable pulses. MUSCULOSKELETAL: Shows a body mass index of 25. NEUROLOGIC: Cranial nerves II-XII limited. GAIT: Independent. VASCULAR: Palpable pulses. PSYCHIATRIC: As per psychiatrist's evaluation. DIAGNOSTICS: 01/17: Sodium 139, potassium 3.8, chloride 102, CO2 31, anion gap 10, BUN 30, creatinin e 0.8, GFR greater than 60, glucose 104, calcium 9.2. LFTs are normal. IMPRESSION AND PLAN: 1. Acute exacerbation of recurrent major depressive disorder and psychotic features with mild cognit julio impairment. 2. Intermittent hypertension with episodic hypotension. 3. History of poor compliance and noncompliance. 4. Transient hypokalemia. 5. Acute kidney injury (resolved). 6. Prerenal kidney injury. 7. Dementia. 8. History of dyslipidemia. 9. Trace proteinuria and trace bacteriuria. 10. Dementia. 11. Dilated ischemic cardiomyopathy with systolic congestive heart failure. 12. Recurrent depression. The patient is to be discharged today. The patient is discharged by Dr. Mcdaniels. The patient is discharged to the family. The patient's son , Zach Perdomo, will be picking up the patient. DISCHARGE MEDICATIONS: From the medical perspective: 1. The patient is to resume either Uloric 40 mg daily or allopurinol 100 mg daily. 2. Arimidex 1 mg daily. 3. Ecotrin 81 mg daily. 4. Imdur 60 mg twice a day or 120 mg daily. 5. Lasix decreased to 20 mg twice a day. 6. Lexapro [address] Mcdaniels. 7. Lipitor 40 mg daily. 8. Magnesium oxide 400 mg twice a day. 9. Plavix 75 mg daily. 10. Coreg 3.125 mg twice a day. 11. Plavix 75 mg daily. 12. Magnesium oxide 400 mg twice a day. 13. Protonix 40 mg daily. 14. Ritalin 5 mg at 8 a.m. and [address] Mcdaniels. 15. Zyprexa 10 mg at bedtime. 16. Coreg 3.125 twice a day, which is decreased from 25 mg twice a day due to bradycardia. 17. Aricept 5 mg at bedtime. 18. Lexapro 10 mg a.m. 19. Lasix decreased to 20 mg twice a day. 20. Imdur 60 mg twice a day or 120 mg daily. 21. Magnesium oxide 400 mg twice a day. 22. Ritalin 5 mg 8 a.m. and 2 p.m. 23. Zyprexa 10 mg daily. 24. Aricept 5 mg at bedtime. 25. Plavix 75 mg daily. 26. Lipitor 40 mg daily. The patient's medications from the medical perspective [place] [facility] [facility] order was entered to follow up with Dr. Hidalgo within 1 week with all medication and to stop old doses of Coreg and Lasix at home and start with the new doses of Coreg and Lasix. The patient's pharmacy, [facility], was contacted and updated about the patient's medication changes. Dictated and electronically signed, not read. Mohan Hidalgo MD cc: [id number] TT: 01/17/2017 14:31:15 Confirmation # [id number] Dictation # [id number] en
--- NOTE | 2017-01-18 12:42 | DS ---
ADMITTING DIAGNOSIS: Depression. FINAL DIAGNOSES: 1. Recurrent major depressive disorder, severe with psychotic features. 2. Mild cognitive impairment. 3. History of parietal brain infarct, history of multiple lacunar infarcts and microvascular disease of the brain, history of coronary artery disease with stent, history of non-ST wave myocardial infar ctions, history of hyperlipidemia, hypertension, history of carcinoma of the breast. HISTORY OF PRESENT ILLNESS: The patient is a 81-year-old female who was admitted to the psychiatric unit after being brought to the Emergency Room at my advice. She had become very disorganized, paran oid, depressed and feeling life is not worth living. She was also totally noncompliant with both psy chiatric and medical medications. PAST MEDICAL HISTORY: As noted above. She had a stroke in 2016. She has had multiple psychotic epi sodes in the past with multiple psychiatric admissions as a younger woman. PERSONAL HISTORY: She has a son and a daughter who are within close contact. She lives with a [employer] [facility] vocational trainer in senior citizen housing. She is . PHYSICAL EXAMINATION: On admission, revealed that: VITAL SIGNS: She had a blood pressure of 162/64, heart rate of 62, O2 saturation 96%. HEENT: Head was normocephalic. CHEST: Kyphotic. LUNGS: Reveal decreased breath sounds at bases. EXTREMITIES: Revealed positive swelling of the lower extremities. She had a body mass index of 25.1 . NEUROLOGICAL: The patient had no focal neurological findings. She was able to ambulate independentl y. Mental status revealed that she was very depressed. She has thought blocking, poverty of thought , felt life was not worth living. Her recent memory was somewhat impaired. She was able to give inf ormed consent, however. Her judgment and insight were all impaired. HOSPITAL COURSE: As follows: She was put under close observation q.15 minutes, treated with pharmac o and milieu therapy, seen in consultation by an supervisor bridges and buildings. She initially was quite noncompliant wit h various medications. This, in part, was due to extreme psychosis. The patient's case was discusse d with treatment team at length in addition to her daughter and son. Gradually and very slowly, her mental status improved to a point where she was compliant with medication. She became more rational. She was better able to carry on a rational conversation. Arrangements were made finally for discha rge. Her son arranged for her vocational trainer to be with her from morning until bedtime. She agreed to see me in my office within 1 week for outpatient psychiatric treatment and to see her supervisor bridges and buildings paramjit vazquez 1 week for outpatient evaluation. The patient was a nonsmoker. She needed no smoking direction. DISCHARGE MEDICATIONS: As follows: Aricept 5 mg at bedtime for mild cognitive impairments, Arimidex 1 mg daily for history of cancer of the breast, lorazepam 0.5 mg daily and 0.5 mg at bedtime, Coreg 3.125 mg b.i.d. for history of hypertension and coronary artery disease, Ecotrin 81 mg for cardiac pr ophylaxis, Imdur 60 mg daily for atherosclerotic heart disease, Lasix 20 mg b.i.d. for history of hyp ertension, Lexapro 10 mg q.a.m. for depression, Lipitor 40 mg daily for hyperlipidemia, mag ox 400 mg b.i.d. for magnesium replacement, Plavix 75 mg daily for cerebrovascular disease and anticoagulation , Protonix 40 mg before breakfast for gastroesophageal reflux, methylphenidate 5 mg in a.m. and 2:00 p.m. for depression ____ treatment, Zyloprim 100 mg daily for gout, Zyprexa 10 mg at bedtime for psyc hosis. The patient and her family were instructed if her mental status deteriorates to either call m e or go to Emergency Room. She was instructed not to use any alcohol or any other medicines without first consulting with her physicians. Her prognosis is fair to guarded. Luis Mcdaniels MD cc: [id number] TT: 01/18/2017 12:41:41 sn
== END 2017-01-17 13:36 | disposition home or self-care (01) | DRG 885 ==
LOC: ED 18:22 → ERH 22:56 → PSYC 23:55
PROVIDERS: ADMIT Psychiatry & Neurology Psychiatry; ATTEND Psychiatry & Neurology Psychiatry
DX: F33.3 Major depressive disorder, recurrent, severe with psychotic symptoms (principal); N17.9 Acute kidney failure, unspecified; E87.3 Alkalosis; I42.0 Dilated cardiomyopathy; I11.0 Hypertensive heart disease with heart failure; I50.22 Chronic systolic (congestive) heart failure; G93.89 Other specified disorders of brain; E44.1 Mild protein-calorie malnutrition; R45.851 Suicidal ideations; Z86.73 Personal history of transient ischemic attack (TIA), and cerebral infarction without residual deficits; I25.10 Atherosclerotic heart disease of native coronary artery without angina pectoris; I25.2 Old myocardial infarction; E78.5 Hyperlipidemia, unspecified; I25.5 Ischemic cardiomyopathy; H40.9 Unspecified glaucoma; E55.9 Vitamin D deficiency, unspecified; E78.00 Pure hypercholesterolemia, unspecified; E83.42 Hypomagnesemia; E87.6 Hypokalemia; F01.50 Vascular dementia, unspecified severity, without behavioral disturbance, psychotic disturbance, mood disturbance, and anxiety; F31.9 Bipolar disorder, unspecified; F41.9 Anxiety disorder, unspecified; G47.00 Insomnia, unspecified; I87.8 Other specified disorders of veins; K21.9 Gastro-esophageal reflux disease without esophagitis; K76.0 Fatty (change of) liver, not elsewhere classified; M10.9 Gout, unspecified; M40.209 Unspecified kyphosis, site unspecified; M81.0 Age-related osteoporosis without current pathological fracture; Z79.02 Long term (current) use of antithrombotics/antiplatelets; Z79.811 Long term (current) use of aromatase inhibitors; Z79.899 Other long term (current) drug therapy; Z85.3 Personal history of malignant neoplasm of breast; Z90.49 Acquired absence of other specified parts of digestive tract; Z91.14 Patient's other noncompliance with medication regimen; Z91.19 Patient's noncompliance with other medical treatment and regimen; Z92.21 Personal history of antineoplastic chemotherapy; Z92.3 Personal history of irradiation; Z95.5 Presence of coronary angioplasty implant and graft; R80.9 Proteinuria, unspecified; R82.71 Bacteriuria

== ENCOUNTER 2017-04-01 16:13 | Inpatient (IN) | payer MEDICARE, OTHER ==
[2017-04-01 16:21] VITALS: BMI 24.9
[2017-04-01] MEDS ORDERED: Nitroglycerin 50mg in D5W 50 MG/250 ML BOTTLE IV PRN (16:28)
--- NOTE | 2017-04-01 16:40 | ED PDOC ---
Arrival/HPI - General Historian: Patient, EMS <Hawk Wen - Last Filed: 04/01/17 21:01> - History of Present Illness Symptom Onset: Sudden Symptom Course: Unchanged Activities at Onset: Rest Context: Home <Dex Porter - Last Filed: 04/01/17 21:20> - General Chief Complaint: Shortness Of Breath Time Seen by Provider: 04/01/17 16:17 - History of Present Illness Narrative History of Present Illness (Text): 04/01/17 16:33 This is a 81 yo F with hx of CHF, CAD with stents on Plavix, HTN and breast cancer that was BIBA for sob. Per pt, the sob began yesterday and has progressively gotten worse. She denies any associate coughing, fevers, chills, chest pain, palpitations, nausea or vomiting. She has had no recent change in her medications and she was feeling well prior to yesterday. PMD: Rocky (Hawk Wen) Past Medical History - Provider Review Nursing Documentation Reviewed: Yes - Infectious Disease Hx of Infectious Diseases: None - Tetanus Immunization Tetanus Immunization: Unknown - Cardiac Hx Cardiac Disorders: Yes Hx Hypertension: Yes - Pulmonary Hx Respiratory Disorders: No Hx Tuberculosis: No - Neurological Hx Neurological Disorder: Yes Hx Transient Ischemic Attacks (TIA): Yes - HEENT Hx HEENT Disorder: Yes Hx Glaucoma: Yes - Renal Hx Renal Disorder: Yes Other/Comment: Kidney Disease - Endocrine/Metabolic Hx Endocrine Disorders: No - Hematological/Oncological Hx Blood Disorders: Yes Hx Anemia: Yes Hx Cancer: Yes (Breast) - Integumentary Hx Dermatological Disorder: No - Musculoskeletal/Rheumatological Hx Musculoskeletal Disorders: Yes Hx Falls: Yes (past) Hx Unsteady Gait: Yes - Gastrointestinal Hx Gastrointestinal Disorders: Yes Hx Gastroesophageal Reflux: Yes - Genitourinary/Gynecological Hx Genitourinary Disorders: No Hx Sexually Transmitted Diseases: No - Psychiatric Hx Psychophysiologic Disorder: Yes Hx Anxiety: Yes Hx Depression: Yes Hx Substance Use: No - Surgical History Hx Cardiac Catheterization: Yes Hx Cholecystectomy: Yes Hx Coronary Stent: Yes (x3) Other/Comment: carotid endarectomy - Anesthesia Hx Anesthesia: Yes Hx Anesthesia Reactions: No Hx Malignant Hyperthermia: No <Hawk Wen - Last Filed: 04/01/17 21:01> Family/Social History - Physician Review Nursing Documentation Reviewed: Yes Family/Social History: Unknown Family HX Smoking Status: Never Smoked Hx Alcohol Use: No Hx Substance Use: No <Hawk Wen - Last Filed: 04/01/17 21:01> Allergies/Home Meds <Hawk Wen - Last Filed: 04/01/17 21:01> <Dex Porter - Last Filed: 04/01/17 21:20> Allergies/Adverse Reactions: Allergies No Known Allergies Allergy (Verified 04/01/17 16:18) Home Medications: Home Meds Medication Instructions Recorded Confirmed Colesevelam HCl [Welchol] 3 tab PO BID 04/01/17 04/01/17 Febuxostat [Uloric] 40 mg PO HS 04/01/17 04/01/17 Furosemide [Lasix] 20 mg PO TID 04/01/17 04/01/17 Review of Systems - Review of Systems Constitutional: Fatigue. absent: Fevers Eyes: Normal. absent: Vision Changes, Eye Pain ENT: Normal Respiratory: SOB. absent: Cough, Sputum, Wheezing Cardiovascular: Normal. absent: Chest Pain, Palpitations Gastrointestinal: Normal. absent: Abdominal Pain, Nausea, Vomiting Genitourinary Female: Normal. absent: Dysuria, Frequency Musculoskeletal: Normal. absent: Arthralgias, Back Pain Skin: Normal. absent: Rash, Pruritis Neurological: Normal. absent: Headache, Dizziness Endocrine: Normal. absent: Diaphoresis, Polyuria Hemo/Lymphatic: Normal Psychiatric: Normal <Hawk Wen - Last Filed: 04/01/17 21:01> Physical Exam Temperature: Afebrile Blood Pressure: Hypertensive Pulse: Tachycardic Respiratory Rate: Tachypneic Appearance: Positive for: Uncomfortable Pain Distress: None Mental Status: Positive for: Alert and Oriented X 3 - Systems Exam Head: Present: Atraumatic, Normocephalic Pupils: Present: PERRL Respiratory/Chest: Present: Respiratory Distress, Accessory Muscle Use, Rales Cardiovascular: Present: Normal S1, S2, Tachycardic Abdomen: Present: Normal Bowel Sounds. No: Tenderness, Distention Back: Present: Normal Inspection Upper Extremity: Present: NORMAL PULSES Lower Extremity: Present: NORMAL PULSES Neurological: Present: CN II-XII Intact, Speech Normal Skin: Present: Warm, Dry. No: Rashes Psychiatric: Present: Alert, Oriented x 3 <Hawk Wen - Last Filed: 04/01/17 21:01> Vital Signs Reviewed: Yes <Dex Porter - Last Filed: 04/01/17 21:20> Vital Signs Pulse Resp BP Pulse Ox 04/01/17 18:50 86 31 H 159/74 H 98 04/01/17 17:58 84 35 H 150/79 100 04/01/17 16:57 167/83 H 04/01/17 16:40 100 04/01/17 16:39 108 H 39 H 202/106 H 100 Medical Decision Making <Hawk Wen - Last Filed: 04/01/17 21:01> - Lab Interpretations I have reviewed the lab results: Yes - EKG Interpretation Interpreted by ED Physician: Yes Type: 12 lead EKG <Dex Porter - Last Filed: 04/01/17 21:20> ED Course and Treatment: 04/01/17 16:43 This is a 81 yo F with hx of CHF, CAD with stents on Plavix, HTN and breast cancer that was BIBA for sob. Saturating well but also hypertensive with systolic at 200 Plan: Labs CXR, EKG Lasix Nitro drip Reassess and disposition 04/01/17 16:57 CXR - venous congestion and cephalization. No obvious infiltrates as read by ER physician EKG - Sinus tachy at 98, left ventricular hypertrophy, old ant and inf infarct 04/01/17 18:25 Dimer elevated, will order LE dopplers and CTA of the chest PE protocol 04/01/17 21:[address] Hidalgo who agrees with admission to telemetry. (Hawk Wen) Patient Seen With Resident: In agreement with resident note which contains more details about the patient. Patient was seen and evaluated with resident. Came up with plan and treatment together. Lower extremity US: Negative bilateral for DVT. CT Angiography Chest With Intravenous Contrast FINDINGS: Pulmonary arteries: No central pulmonary embolism. No gross evidence of proximal branch embolism. However limited evaluation due to motion artifact. Aorta: No acute findings. No thoracic aortic aneurysm. Lungs: Pleural space: Bilateral small pleural effusion with underlying atelectatic changes. No pneumothorax. Heart: Unremarkable. No cardiomegaly. No significant pericardial effusion. No evidence of RV dysfunction. Thyroid: Thyroid nodule, unchanged. Bones/joints: No acute fracture. No dislocation. Soft tissues: Unremarkable. Lymph nodes: Borderline enlarged lymph nodes in the mediastinum. Gallbladder and bile ducts: large amount of pneumobilia, unchanged. Pancreas: Nodular thickening of the bilateral adrenal glands. pancreatic head is slightly prominent. Kidneys and ureters: Subcentimeter low-density lesion in the left kidney is too small to characterize. IMPRESSION: Bilateral small pleural effusion with underlying atelectatic changes. Dictated and Authenticated by: Qing Galeana MD 04/01/2017 7:55 PM Eastern Time ([place] & [place]) Patient with noted history presenting in acute respiratory distress with a known history of CHF. Patient with BP significantly elevated at 202/106. She was placed on bipap in the field and continued here. There were rales on exam half way up the lungs but no JVD on exam. BP improved just with bipap and further with lasix. Nitro was held. Consideration of Hypertension emergency vs. CHF. No history of COPD. CXR with cephalization with focal infiltrate. Patient improved significantly with lasix and was able to wean off the Bipap to NRB at first and now at 4L NC with minimal tachypnea and speaking full sentences and asking for food. CTA of the chest was done additionally after elevated d-dimer and showed no PE. LE dopplers negative for DVT. Case discussed with Dr. Hidalgo for placement on his service. (Dex Porter) - Lab Interpretations Lab Results: 04/01/17 16:45 04/01/17 16:45 Lab Results 04/01/17 18:11: PT 11.0, INR 1.02, APTT 25.9, D-Dimer, Quantitative 2.30 H 04/01/17 17:20: Urine Color Yellow, Urine Appearance Clear, Urine pH 6.0, Ur Specific [place] 1.015, Urine Protein Trace H, Urine Glucose (UA) Negative, Urine Ketones Negative, Urine Blood Small H, Urine Nitrate Negative, Urine Bilirubin Negative, Urine Urobilinogen 0.2, Ur Leukocyte Esterase Negative, Urine RBC 0 - 2, Urine WBC 0 - 2, Ur Epithelial Cells 0 - 2, Urine Bacteria Small 04/01/17 16:50: pCO2 51 H, pO2 347.0 H, HCO3 28.2 H, ABG pH 7.35, ABG Total CO2 29.8 H, ABG O2 Saturation 99.7 H, ABG Base Excess 1.7, ABG Potassium 3.7, Glucose 125 H, Lactate 1.1, FiO2 100.0, Inspiratory BiPAP 10, Sodium 136.0, Chloride 105.0, Arterial Blood Potassium 3.7 04/01/17 16:45: Sodium 135, Potassium 4.3, Chloride 100, Carbon Dioxide 28, Anion Gap 11, BUN 31 H, Creatinine 0.7, Est GFR ( Amer) > 60, Est GFR ( Non-Af Amer) > 60, Random Glucose 147 H, Calcium 9.3, Magnesium 1.8, Total Bilirubin 0.6, AST 35, ALT 31, Alkaline Phosphatase 161 H, Lactate Dehydrogenase 753 H, Total Creatine Kinase 63, Troponin I 0.03 D, NT-Pro-B Natriuret Pep 2760 H, Total Protein 6.4, Albumin 3.8, Globulin 2.6, Albumin/ Globulin Ratio 1.5, Lipase 331 H 04/01/17 16:45: PT Cancelled, INR Cancelled, APTT Cancelled, D-Dimer, Quantitative Cancelled 04/01/17 16:45: WBC 10.5 D, RBC 4.29, Hgb 12.8, Hct 38.6, MCV 90.0, MCH 29.8, MCHC 33.2, RDW 13.4, Plt Count 207, MPV 10.4, Gran % 81.6 H, Lymph % (Auto) 8.4 L, Starke % (Auto) 8.2 H, Eos % (Auto) 1.6, Baso % (Auto) 0.2, Gran # 8.57 H, Lymph # 0.9 L, Starke # 0.9 H, Eos # 0.2, Baso # 0.02 - RAD Interpretation Radiology Orders: 04/01/17 16:21 CHEST PORTABLE [RAD] Stat 04/01/17 17:33 ANGIO CHEST PE PROTOCOL [CT] Stat DUPLEX LOWER EXTRM VEIN BILAT [US] Stat - Medication Orders Current Medication Orders: Anastrozole (Arimidex 1 Mg Tab) 1 mg PO DAILY LOAN Aspirin (Ecotrin) 81 mg PO DAILY LOAN Atorvastatin Calcium (Lipitor) 40 mg PO DAILY LOAN Carvedilol (Coreg) 3.125 mg PO BID LOAN Clopidogrel Bisulfate (Plavix) 75 mg PO DAILY LOAN Donepezil HCl (Aricept) 5 mg PO HS LOAN Escitalopram Oxalate (Lexapro) 10 mg PO QAM LOAN Furosemide (Lasix) 40 mg IVP Q12H LOAN Isosorbide Mononitrate (Imdur) 60 mg PO DAILY LOAN Magnesium Oxide (Mag-Ox) 400 mg PO BID LOAN Methylphenidate HCl (Ritalin) 5 mg PO 0800,1400 LOAN Non-Formulary Medication (Colesevelam Hcl [Welchol]) 3 tab PO BID LOAN Non-Formulary Medication (Febuxostat [Uloric]) 40 mg PO HS LOAN Olanzapine (Zyprexa) 10 mg PO HS LOAN PRN Reason: Protocol Pantoprazole Sodium (Protonix Ec Tab) 40 mg PO 0630 LOAN Potassium Chloride (Klor-Con 10) 10 meq PO BID LOAN Discontinued Medications Furosemide (Lasix) 60 mg IVP STAT STA Stop: 04/01/17 16:26 Last Admin: 04/01/17 16:57 Dose: 60 mg Iodixanol (Visipaque 320 Mg/Ml 100 Ml) Confirm Administered Dose 100 ml IV .STK- MED ONE Stop: 04/01/17 17:38 <Hawk Wen - Last Filed: 04/01/17 21:01> - PA / COMMODITY DIRECTOR / Resident Statement MD/ has reviewed & agrees with the documentation as recorded. MD/DO has examined the patient and agrees with the treatment plan. - Scribe Statement The provider has reviewed the documentation as recorded by the Scribe <Dex Porter - Last Filed: 04/01/17 21:20> - Scribe Statement Anthony Salazar Provider Scribe Attestation: All medical record entries made by the Scribe were at my direction and personally dictated by me. I have reviewed the chart and agree that the record accurately reflects my personal performance of the history, physical exam, medical decision making, and the department course for this patient. I have also personally directed, reviewed, and agree with the discharge instructions and disposition. (Dex Porter) Disposition/Present on Arrival - Present on Arrival Any Indicators Present on Arrival: No History of DVT/PE: No History of Uncontrolled Diabetes: No Urinary Catheter: No History of Decub. Ulcer: No History Surgical Site Infection Following: None - Disposition Have Diagnosis and Disposition been Completed?: Yes Disposition Time: 21:02 Patient Plan: Admission, Telemetry <Hawk Wen - Last Filed: 04/01/17 21:01> <Dex Porter - Last Filed: 04/01/17 21:20> - Disposition Diagnosis: CHF exacerbation Patient Problems: Current Active Problems Problem Status Onset CHF exacerbation Acute Condition: IMPROVED
[2017-04-01 16:51] LABS: ADD MANUAL DIFF? NO
[2017-04-01 16:57] LABS: ARTERIAL BLOOD GAS HCO3 28.2 mmol/L (21-28); ARTERIAL BLOOD GAS PH 7.35 (7.35-7.45)
[2017-04-01 17:07] LABS: ALB/GLOB RATIO 1.5 (1.1-1.8); ALKALINE PHOSPHATASE 161 U/L (38-133); ALT/SGPT 31 U/L (7-56); AST/SGOT 35 U/L (15-39); BILIRUBIN,TOTAL 0.6 mg/dL (0.2-1.3); BLOOD UREA NITROGEN 31 mg/dL (7-21); CALCIUM 9.3 mg/dL (8.4-10.5); CARBON DIOXIDE 28 mmol/L (21-33); CHLORIDE 100 mmol/L (98-107); GFR AFRICAN-AMERICAN > 60; GLUCOSE,RANDOM 147 mg/dL (70-110); POTASSIUM 4.3 mmol/L (3.6-5.0); SODIUM 135 mmol/L (132-148); TOTAL PROTEIN 6.4 g/dL (5.8-8.3)
[2017-04-01 17:10] LABS: BASO # 0.02 K/mm3 (0.0-2.0); BASO % 0.2 % (0.0-3.0); EOS # 0.2 (0.0-0.7); EOS % 1.6 % (1.5-5.0); GRAN # 8.57 (1.4-6.5); GRAN % 81.6 % (50.0-68.0); HEMATOCRIT 38.6 % (36.0-48.0); LYMPH # 0.9 (1.2-3.4); LYMPH % 8.4 % (22.0-35.0); MEAN CORPUSCULAR HEMOGLOBIN 29.8 pg (25.0-35.0); MEAN CORPUSCULAR HGB CONC 33.2 g/dl (31.0-37.0); MEAN PLATELET VOLUME 10.4 fl (7.0-11.0); MONO # 0.9 (0.1-0.6); MONO % 8.2 % (1.0-6.0); PLATELET COUNT 207 10^3/uL (120.0-450.0); RED CELL DISTRIBUTION WIDTH 13.4 % (11.5-14.5); WHITE BLOOD COUNT 10.5 10^3/ul (4.5-11.0)
[2017-04-01 17:19] LABS: TROPONIN I 0.03 ng/mL
[2017-04-01 17:34] LABS: MAGNESIUM 1.8 mg/dL (1.7-2.2)
[2017-04-01 17:35] LABS: LIPASE 331 U/L (23-300)
[2017-04-01] MEDS ORDERED: Iodixanol 320 MG/ML 100 ML BOTTLE IV ONE (17:37)
[2017-04-01 17:40] LABS: URINE BILIRUBIN NEGATIVE (NEGATIVE); URINE BLOOD SMALL (NEGATIVE); URINE GLUCOSE (UA) NEGATIVE (NEGATIVE); URINE KETONE NEGATIVE (NEGATIVE); URINE LEUKOCYTE ESTERASE NEGATIVE Leu/uL (NEGATIVE); URINE PROTEIN TRACE mg/dL (<30 mg/dL); URINE UROBILINOGEN 0.2 E.U./dL (<1 E.U./dL)
[2017-04-01 17:41] LABS: URINE APPEARANCE CLEAR (CLEAR); URINE COLOR YELLOW (YELLOW)
[2017-04-01 18:00] LABS: URINE BACTERIA SMALL (NEG); URINE EPITHELIAL CELLS 0 - 2 /hpf (0-5); URINE RBC 0 - 2 /hpf (0-2); URINE WBC 0 - 2 /hpf (0-6)
[2017-04-01 19:01] LABS: D DIMER 2.3 mg/L FEU (0-0.50); INR 1.02 (0.93-1.08); PARTIAL THROMBOPLASTIN TIME 25.9 Seconds (23.7-30.8)
[2017-04-01] MEDS ORDERED: Enoxaparin 40 mg Syringe SC STA ×2 (21:11→23:31)
[2017-04-01] MEDS ORDERED: Aspirin 325 mg EC Tablets PO STA (23:05)
--- NOTE | 2017-04-01 23:07 | CP.PCM.PN ---
Subjective - Date & Time of Evaluation Date of Evaluation: 04/01/17 Time of Evaluation: 23:02 - Subjective Subjective: Nurse calls with troponin level which is 0.36 up from 0.03. Patient has no complaints. Denies chest pain , sob, nausea, palpitation, sweating. Medical record was reviewed. ASA,Plavix and EKG were ordered and asked nurse to notify PMD. EKG -NSR ischemic changes in inferior , anterolatearl wall, same as preivious EKG. This 81 year old woman was admitted with sob/CHF exacerbation. Has PMH of HTN,CHF,CAD,S/P stent, TIA, breast cancer, glaucoma. Later on , nurse calls for an order for sleeping pill .Spoke to patient and ordered benadryl. Objective - Vital Signs/Intake and Output Vital Signs (last 24 hours): Temp Pulse Resp BP Pulse Ox 86 22 139/58 L 99 04/01/17 21:29 04/01/17 21:29 04/01/17 21:37 04/01/17 21:29 - Medications Medications: Current Medications Anastrozole (Arimidex 1 Mg Tab) 1 mg PO DAILY LOAN Aspirin (Ecotrin) 81 mg PO DAILY LOAN Atorvastatin Calcium (Lipitor) 40 mg PO DAILY LOAN Carvedilol (Coreg) 3.125 mg PO BID LOAN Clopidogrel Bisulfate (Plavix) 75 mg PO DAILY LOAN Donepezil HCl (Aricept) 5 mg PO HS LOAN Last Admin: 04/01/17 22:37 Dose: 5 mg Enoxaparin Sodium (Lovenox) 40 mg SC DAILY LOAN PRN Reason: Protocol Escitalopram Oxalate (Lexapro) 10 mg PO QAM LOAN Furosemide (Lasix) 40 mg IVP Q12H LOAN Isosorbide Mononitrate (Imdur) 60 mg PO DAILY LOAN Magnesium Oxide (Mag-Ox) 400 mg PO BID LOAN Methylphenidate HCl (Ritalin) 5 mg PO 0800,1400 LOAN Non-Formulary Medication (Colesevelam Hcl [Welchol]) 3 tab PO BID LOAN Non-Formulary Medication (Febuxostat [Uloric]) 40 mg PO HS LOAN Olanzapine (Zyprexa) 10 mg PO HS LOAN PRN Reason: Protocol Last Admin: 04/01/17 22:36 Dose: 10 mg Pantoprazole Sodium (Protonix Ec Tab) 40 mg PO 0630 LOAN Potassium Chloride (Klor-Con 10) 10 meq PO BID LOAN - Labs Labs: PT 11.0 Seconds (9.9-11.8) 04/01/17 18:11 INR 1.02 (0.93-1.08) 04/01/17 18:11 APTT 25.9 Seconds (23.7-30.8) 04/01/17 18:11 - Constitutional Appears: Well, No Acute Distress - Head Exam Head Exam: ATRAUMATIC, NORMAL INSPECTION, NORMOCEPHALIC - Eye Exam Eye Exam: Normal appearance Pupil Exam: NORMAL ACCOMODATION - ENT Exam ENT Exam: Normal External Ear Exam - Neck Exam Neck Exam: Normal Inspection - Respiratory Exam Respiratory Exam: NORMAL BREATHING PATTERN - Cardiovascular Exam Cardiovascular Exam: absent: JVD - GI/Abdominal Exam GI & Abdominal Exam: absent: Distended - Rectal Exam Rectal Exam: Deferred - Extremities Exam Extremities Exam: Normal Inspection - Back Exam Back Exam: NORMAL INSPECTION - Neurological Exam Neurological Exam: Alert, Oriented x3 - Psychiatric Exam Psychiatric exam: Normal Affect, Normal Mood - Skin Skin Exam: Normal Color Assessment and Plan - Assessment and Plan (Free Text) Assessment: Elevated troponin. Adjustment insomnia. Dyspnea. Inf, anterolateral ischemia. CHF. HTN. CAD. History of breast cancer. Plan: ASA Plavix. Already on beta luis. Referred to Dr.Haque. Mccloud 25 mg PO now. Awaiting eval by cardiology.
[2017-04-02 07:29] LABS: ADD MANUAL DIFF? NO
[2017-04-02 07:40] LABS: BASO # 0.01 K/mm3 (0.0-2.0); BASO % 0.1 % (0.0-3.0); EOS # 0.1 (0.0-0.7); GRAN # 5.73 (1.4-6.5); GRAN % 69.2 % (50.0-68.0); HEMATOCRIT 34.3 % (36.0-48.0); LYMPH # 1.3 (1.2-3.4); LYMPH % 15.2 % (22.0-35.0); MEAN CELL VOLUME 88.6 fL (80.0-105.0); MEAN CORPUSCULAR HEMOGLOBIN 29.7 pg (25.0-35.0); MEAN CORPUSCULAR HGB CONC 33.5 g/dl (31.0-37.0); MEAN PLATELET VOLUME 9.8 fl (7.0-11.0); MONO # 1.2 (0.1-0.6); MONO % 14.5 % (1.0-6.0); PLATELET COUNT 200 10^3/uL (120.0-450.0); RED CELL DISTRIBUTION WIDTH 13.6 % (11.5-14.5); WHITE BLOOD COUNT 8.3 10^3/ul (4.5-11.0)
[2017-04-02 07:59] LABS: ALB/GLOB RATIO 1.1 (1.1-1.8); ALKALINE PHOSPHATASE 141 U/L (38-133); ALT/SGPT 34 U/L (7-56); AST/SGOT 38 U/L (15-39); BILIRUBIN,TOTAL 0.8 mg/dL (0.2-1.3); BLOOD UREA NITROGEN 24 mg/dL (7-21); CALCIUM 8.9 mg/dL (8.4-10.5); CARBON DIOXIDE 34 mmol/L (21-33); CHLORIDE 100 mmol/L (98-107); GFR AFRICAN-AMERICAN > 60; GLUCOSE,RANDOM 100 mg/dL (70-110); POTASSIUM 3.4 mmol/L (3.6-5.0); SODIUM 137 mmol/L (132-148)
[2017-04-02 08:22] LABS: TROPONIN I 0.38 ng/mL
--- NOTE | 2017-04-02 08:44 | US ---
HISTORY: Leg pain and swelling. Evaluate for DVT PHYSICIAN(S): Dmitriy Joshua MD. TECHNIQUE: Duplex sonography and color-flow Doppler with graded compression were used to evaluate the deep venous systems of both lower extremities. FINDINGS: The visualized deep venous systems of both lower extremities are sonographically normal and compressible. Normal wave forms and augmentation are seen. There is no sonographic evidence for deep venous thrombosis in the visualized segments of both lower extremities. IMPRESSION: No sonographic evidence for deep venous thrombosis in the visualized segments of both lower extremities.
--- NOTE | 2017-04-02 08:45 | CT ---
PROCEDURE: CT Chest with contrast (Pulmonary Angiogram) HISTORY: shortness of breath - r/o PE COMPARISON: None available. TECHNIQUE: Axial computed tomography images were obtained of the chest in the pulmonary arterial phase of enhancement. Coronal and sagittal reformatted images were created and reviewed. Intravenous contrast dose: 100 mL Visipaque Radiation dose: Total exam DLP = 473.04 mGy-cm. This CT exam was performed using one or more of the following dose reduction techniques: Automated exposure control, adjustment of the mA and/or kV according to patient size, and/or use of iterative reconstruction technique. FINDINGS: PULMONARY ARTERIES: There are no central filling defects in the pulmonary arteries. AORTA: The aorta is normal in caliber. No thoracic aortic aneurysm. LUNGS: There is compressive atelectasis in both lower lobes. No nodule, mass or pulmonary consolidation. PLEURAL SPACES: There are moderate bilateral pleural effusions. No pneumothorax. HEART: The heart is normal in size. No pericardial effusion. LYMPH NODES: No pathologic lymphadenopathy. BONES, CHEST WALL: Unremarkable. No fracture or destructive lesion OTHER FINDINGS: Unremarkable. IMPRESSION: No evidence of acute pulmonary embolism. Moderate bilateral pleural effusions and compressive atelectasis in the lower lobes.
--- NOTE | 2017-04-02 08:51 | RAD ---
HISTORY: Shortness of breath COMPARISON: 12/30/2016. FINDINGS: LUNGS: There is pulmonary venous congestion and chronic changes in both lungs. There is linear atelectasis/ scarring in the right middle and lower lobes. PLEURA: No significant pleural effusion identified, no pneumothorax apparent. CARDIOVASCULAR: The heart is normal in size. Atherosclerotic aortic arch calcifications are present. . OSSEOUS STRUCTURES: No significant abnormalities. VISUALIZED UPPER ABDOMEN: Normal. OTHER FINDINGS: None. IMPRESSION: Pulmonary venous congestion. Chronic changes in both lungs. No acute findings.
[2017-04-02] MEDS ORDERED: Potassium Chloride 20 mEq ER Tab PO ONE (09:37)
[2017-04-02] MEDS ORDERED: Potassium Chloride 10 mEq ER Tab PO SCH (10:00)
[2017-04-02] MEDS: Magnesium Oxide 400 mg Tab UD PO SCH ×2 (10:00→17:22)
[2017-04-02] MEDS ORDERED: Enoxaparin 40 mg Syringe SC SCH (10:00)
[2017-04-02] MEDS: Non Formulary Medication (Colesevelam Hcl [Welchol] 3 TAB) PO SCH (10:02)
[2017-04-02 10:09] LABS: CHOLESTEROL 123 mg/dL (130-200)
[2017-04-02] MEDS: Enoxaparin 60 mg Syringe SC SCH (10:18)
[2017-04-02] MEDS: Pantoprazole 40 mg EC Tab PO SCH (10:19)
[2017-04-02 10:28] LABS: FREE T4 0.96 ng/dL (0.78-2.19)
[2017-04-02 10:41] LABS: THYROID STIMULATING HORMONE 0.6 mIU/mL (0.46-4.68)
[2017-04-02] MEDS ORDERED: Lidocaine 2% Inj (20ml) ONE (11:47)
[2017-04-02] MEDS ORDERED: Midazolam 2 MG/2 ML VIAL ONE ×2 (12:23→12:39)
--- NOTE | 2017-04-02 12:23 | PN ---
DATE: 04/02/2017 The patient is seen in the holding area in the cardiac catheterization lab. The patient is lying in the bed. The patient is comfortable. The patient is not in any distress at present. The patient's overnight nurse's notes were reviewed. No adverse events documented. PHYSICAL EXAMINATION: VITAL SIGNS: T-max telemetry, T-max is 99 to 98.3. Heart rate is down to 90s and 80s overnight. Telemetry shows sinus rhythm. Blood pressure 164/79, 130/61 , 139/58, 159/74. Respirations 20. O2 sat 95%. Intake/output not documented. HEAD: Normocephalic, atraumatic. HEENT: Shows pinkish, pale conjunctivae, anicteric sclerae, no oropharyngeal lesion. Positive right carotid endarterectomy surgical scar. Soft carotid bruit. CHEST: Positive kyphosis. LUNGS: Positive crackles, rales, decreased since yesterday. Decreased rhonchi. No wheezing. CARDIOVASCULAR: Shows S1, S2, regular rhythm, positive tachycardia. Positive systolic murmur left sternal border, right second intercostal space. Positive gallop noted. ABDOMEN: Soft, positive bowel sounds. GENITALIA: Female. RECTAL: Deferred. EXTREMITIES: Shows 1+ pitting edema of the lower extremity. Positive for chronic varicose veins noted. No calf tenderness, no Homans signs. MUSCULOSKELETAL: Shows a body mass index of 26. NEUROLOGIC: Cranial nerves II-XII limited. Gait examination could not be tested as patient is lying in the bed. VASCULAR: Palpable pulses. PSYCHIATRIC: Not applicable at present. GAIT: Could not be tested. DIAGNOSTICS: 04/02: WBC 8.3, hemoglobin/hematocrit 11.5 and 34.3, platelet 200, granulocytes 69% segs. Sodium 137, potassium is down to 3.4, chloride 100, CO2 of 34, anion gap 6, BUN 24, creatinine 0.7, GFR greater than 60, glucose 100, calcium 8.9. Alk phos 141. The patient's troponin bumped overnight to 0.36, 0.41, 0.38. Cholesterol is 123, LDL 52, HDL 51. TSH is 0.60. T4 is 7.0. Repeat EKG from today shows sinus rhythm, ST depressions in I, aVL and T-wave inversion in II, III, aVF and Q-wave in III and aVF. NST T-wave inversion in V4 , V5, V6 with questionable mild ST elevation in V3. PACs. IMPRESSION AND PLAN: 1. Acute non-ST elevation myocardial infarction with elevated troponin and EKG changes. 2. Acute ____ inferolateral wall non-ST elevation myocardial infarction with ST changes and T-wave inversion in I and aVL, II, III, aVF and V3-V6. 3. Acute systolic congestive heart failure with elevated BNP. 4. Acute systolic congestive heart failure with acute pulmonary edema. 5. Status post bilevel positive airway pressure dependent respiratory failure. 6. Uncontrolled hypertension versus hypertensive emergency and urgency. 7. Tachycardia. 8. History of poor compliance. 9. Granulocytosis. 10. Normocytic anemia. 11. Elevated D-dimer, etiology undetermined. 12. Mild hypercarbia. 13. Hypokalemia. 14. Acute non-ST elevation myocardial infarction with elevated troponin. 15. Hypokalemia. 16. Prerenal kidney injury. 17. Acute systolic congestive heart failure and pulmonary edema with elevated BNP. 18. Trace proteinuria, microscopic hematuria, bacteriuria. 19. Bibasilar compressive atelectasis with moderate bilateral pleural effusion. 20. Pulmonary vascular congestion and bilateral pleural effusions with bilateral atelectasis. 21. History of poor compliance. 22. History of poor compliance and noncompliance. 23. History of anxiety, depression. 24. History of dementia. 25. History of breast carcinoma. 26. History of unstable angina. 27. History of coronary artery disease, non-ST elevation myocardial infarction and angioplasty. 28. History of depression. 29. History of dyslipidemia, hypomagnesemia, history of hyperuricemia. 1. Transient BiPAP dependent respiratory failure. 2. Acute systolic congestive heart failure and pulmonary edema with elevated BNP of greater than 2700. 3. Uncontrolled accelerated hypertension versus hypertensive emergency. 4. History of poor compliance. 5. Granulocytosis. 6. Elevated D-dimer of 2.3. 7. Mild respiratory . 8. Hypercarbia. 9. Mild prerenal kidney injury. 10. Indeterminate troponin of 0.03. 11. History of dilated ischemic cardiomyopathy with left ventricular ejection fraction of 34% and global hypokinesis and moderately impaired left ventricular systolic function. 12. Moderate mitral regurgitation. 13. Acute systolic congestive heart failure with elevated BNP and pulmonary vascular congestion. 14. Bibasilar atelectasis. 15. Bibasilar atelectasis. 16. Moderate bilateral pleural effusion, secondary to congestive heart failure. 17. Inferior wall myocardial infarction with Q-wave in III and aVF. 18. Questionable lateral ischemic changes with EKG changes. 19. Questionable inferolateral coronary ischemia with indeterminate troponin. 20. Proteinuria. 21. Microscopic hematuria. 22. Bacteriuria. 23. Questionable anteroinferior coronary infarct, acute versus chronic, with anteroinferior coronary ischemia. 24. History of anxiety, depression, history of dementia, history of breast carcinoma, history of angina, history of dyslipidemia, history of hypomagnesemia , history of poor compliance. PLAN: At this time, patient was given Plavix 300 mg stat by the house physician. The patient was given Lovenox full loading dose on weight base. The patient has been ordered serial labs. The patient is awaiting cardiology, psychiatric evaluation. CURRENT MEDICATIONS: Aricept 5 mg at bedtime, Arimidex 1 mg daily, Welchol 3 tablets twice a day, Coreg 3.125 twice a day, aspirin 81 mg p.o. daily, Uloric 40 mg daily, Imdur 60 mg daily, K-Dur is supplement potassium supplemented with 40 mEq stat dose. The patient is already on K-Dur 10 mEq twice a day, Lasix 40 mg IV q.12. The patient's daily maintenance dose of potassium 10 mEq twice a day will be increased to K-Dur 20 mEq twice a day because of the hypokalemia. The patient is on Lasix 40 IV q.12, Lexapro 10 mg daily, Lipitor 40 mg daily, Lovenox 60 mg subQ daily, magnesium oxide 400 twice a day, Plavix 75 daily, Protonix 40 mg daily, Ritalin 5 mg twice a day, Zyprexa 10 mg daily. Oxygen 2 liters. Repeat EKG has been ordered. Echo with Doppler pending. Heart healthy diet. Out of bed. ABAD stockings, SCDs ordered. At present, patient is awaiting for a cardiac catheterization, which has been recommended by Dr. Zambrano from cardiology. The patient's further management will be dependent upon the patient's clinical condition, hemodynamic status, and as per patient response to therapeutic intervention, as per patient's diagnostic test results, and as per recommendation by all the physicians involved in the care of the patient. The patient updated accordingly in layman's language. All questions and concerns answered. Dictated and electronically signed, not read. Mohan Hidalgo MD cc: [id number] TT: 04/02/2017 12:23:10 Confirmation # [id number] Dictation # [id number] sn ISBELL
[2017-04-02] MEDS ORDERED: Iohexol 350 MG/100 ML VIAL ONE (12:42)
[2017-04-02] MEDS ORDERED: Sodium Chloride 0.45% 1,000 ML IV SCH (13:00)
--- NOTE | 2017-04-02 13:46 | CARD ---
APPROVED REPORT EKG Measurement Heart [id number] RI [id number] <Conclusion> Normal sinus rhythm Left ventricular hypertrophy with repolarization abnormality Inferior infarct, age undetermined Anterior infarct, age undetermined Abnormal ECG
--- NOTE | 2017-04-02 13:56 | CARD ---
APPROVED REPORT EKG Measurement Heart [id number] CA 160P48 [id number] <Conclusion> Normal sinus rhythm Possible Left atrial enlargement Left ventricular hypertrophy with repolarization abnormality Inferior infarct, age undetermined Anterior infarct, age undetermined Abnormal ECG
--- NOTE | 2017-04-02 14:13 | CON ---
DATE: 04/02/2017 The patient is a 81-year-old white female. I reviewed the chart, spoke with staff. The patient was brought to the Emergency Room due to a 2-day history of severe shortness of breath. The patient was found to have elevated troponin levels. The patient has a long history of psychiatric problems. PAST MEDICAL HISTORY: The patient has been under psychiatric care, followed in my office for several years. She has had multiple psychiatric hospitalizations. She had past history of several psychoti c episodes as a younger woman. She had 2 psychiatric hospitalizations in the distant past at [facility]. She had acute CVA in 01/2016, for which she had a right-sided posterior parietooccipital str madeleine with lacunar infarcts. 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 The patient also has a history of hyperlipidemia, gastroesophageal reflux disease, CA of the breast, coronary artery disease, mild cog nitive impairment, recurrent depression. 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 She has a history of carotid artery stenosis. She has had a right car otid endarterectomy. She has had coronary angioplasties. She has ischemic cardiomyopathy, hypertens ion, episodes of congestive heart failure, history of non-ST wave elevated myocardial infarction. Sh hui has had hypovitaminosis of vitamin D, hyperlipidemia, also has a history of fatty liver. PERSONAL HISTORY: She is . She is a . She has a son and a daughter, with whom I have had ongoing contact. She has no history of alcohol or substance abuse. 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 The patient's daughter is her power of personal injury attorney if the patient becomes incompetent. CURRENT MEDICATIONS: At home include Zyprexa 10 mg p.o. at bedtime. She is on lorazepam 0.5 mg archana y and 1 mg at bedtime. She is receiving Lexapro and Wellbutrin. The patient's other current medicat ions here include Coreg, Ecotrin, Uloric, Imdur, Klor-Con, Lasix, Lexapro 10 mg daily, Lasix IV 40 mg IV push q. 12 hours, Lipitor, Lovenox, mag ox, Plavix, Ritalin 5 mg in a.m. and 2 p.m., Zyprexa 10 m g at bedtime. CURRENT LABORATORY DATA: White count is 8300, hemoglobin 11.5, platelet count 200,000. Metabolic pr ofile: Sodium 137, potassium 3.4, chloride 100, CO2 34, anion gap 6, BUN 24, creatinine 0.7, estimat ed GFR greater than 60. Rest of profile is all normal except for an alk phos of 141. Troponin level ranging from 0.36-0.41 yesterday, 0.38 today. The patient's thyroid functions were all normal as is all the liver functions and rest of metabolic profile. The patient had a urinalysis with a trace of protein and small amount of blood. REVIEW OF SYSTEMS: She has some shortness of breath, vague chest pain. Other 12-point noncontributo ry. PHYSICAL EXAMINATION: VITAL SIGNS: Blood pressure this morning was 164/79, pulse 93, afebrile, respirations 20 per minute, O2 saturation on room air 95%. NEUROLOGIC: No gross focal neurological findings. Speech is fluent. PSYCHIATRIC: Mental status: Awake, alert, coherent, oriented x 3. Recognizes me. Remote and inter mediate memory is good as is recent memory. The patient has no psychotic symptomatology. Denies dep ression, denies suicidal ideation. Judgment and insight satisfactory. 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 PLAN: We will review psychotropic medications and monitor mental status. Thank you for the consultation. Luis Mcdaniels MD cc: [id number] TT: 04/02/2017 14:12:34 Confirmation # [id number] Dictation # [id number] en
--- NOTE | 2017-04-02 15:01 | CARD ---
APPROVED REPORT EKG Measurement Heart [id number] RI 160P52 [id number] <Conclusion> Normal sinus rhythm Left ventricular hypertrophy Inferior infarct, age undetermined Prolonged QT STTW changes c/w ischemia and/or strain pattern
--- NOTE | 2017-04-02 16:23 | CARDCATH ---
PROCEDURE DATE: 04/02/2017 HISTORY OF PRESENT ILLNESS: The patient is a 81-year-old woman with multiple cardiac risk factors wh o presents with progressive shortness of breath. She denies chest pain. PAST MEDICAL HISTORY: Notable for PTCA and stent in the past. Because of her elevated troponins, cardiac catheterization was recommended. PROCEDURE: Left heart catheterization with coronary angiography and left ventriculogram. The right femoral artery was cannulated with a 6-Persian sheath. There were no complications. The findings on catheterization revealed a left main artery that was unremarkable. The LAD revealed diffuse atherosclerosis and calcification without critical lesions. Diagonal vessels were diffusely diseased with no discrete critical lesions. The circumflex artery and obtuse marginal branches revealed diffuse atherosclerosis and calcification without critical lesions. The RCA was occluded in its ostium and extending to the mid portion of the artery. In the mid portion of the artery, there was a previously placed stent noted. Retrograde filling of the RCA was noted from the left circulation. LV gram was performed in the ALMAGUER projection. In the ALMAGUER projection, the inferior wall was extensivel y damaged and was akinetic. The anterior and apex moved well. Estimated ejection fraction is 40%. Manual compression was used to obtain hemostasis due to severe peripheral vascular disease. The patient tolerated the procedure well. SUMMARY: The procedure revealed: 1. A completed inferior wall myocardial infarction. 2. The right coronary artery was occluded. 3. The left anterior descending and diagonal vessels as well as the circumflex artery revealed diffu se atherosclerosis without critical lesions. Given these findings, the patient's treatment will be medical with aspirin, beta blockers, DARLEEN inhibi tor as well as statin therapy. Dmtiriy Zambrano MD cc: [id number] TT: 04/02/2017 16:22:38 en
--- NOTE | 2017-04-02 16:53 | HP ---
The patient is a 81-year-old female, came to the Emergency Room, was brought into the Emergency Room by the [facility] ambulance EMS services. The patient complained of increasing shortness of breath for the last 24-48 hours. The patient was treated in the field with CPAP and BiPAP with sublingual nitroglycerin because patient's blood pressure was extremely elevated. The patient was seen and evaluated in the Emergency Room by the ER physician and the resident. The patient presented with increasing shortness of breath for the last 24 hours. REVIEW OF SYSTEMS: A 13-system review was done. Pertinent positives and negatives dictated above. CODE STATUS: Full code. LIVING WILL AND ADVANCED DIRECTIVE: None. ALLERGIES: None. Height is 5 feet 1 inch. Weight is 136. BMI is 26. HOME MEDICATIONS: May have been different. The patient's home medications as per [facility]: Aricept 5 mg at bedtime, Arimidex 1 mg daily, Coreg 3.125 twice a day, Ecotrin 81 mg daily, Imdur 60 mg daily, Lasix has been changed to 40 mg twice a day rather than 20 mg 3 times a day, Lexapro 10 mg daily, Lipitor 40 mg daily, magnesium oxide 400 mg twice a day, Plavix 75 mg daily, Ritalin 5 mg at 8 a.m. and 2 p.m., Uloric 40 mg at bedtime, Welchol 3 tablets twice a day, Zyprexa 10 mg at bedtime. The patient's last discharge from 01/17/2017 from the psychiatry floor, at that time, patient was discharged on Arimidex 1 mg daily, Uloric 40 mg daily or allopurinol 100 mg daily, Ecotrin 81 mg daily, Imdur 60 mg once or twice a day or 120 mg daily, Lasix was changed, Lipitor 40 mg daily, Lexapro 10 mg daily, magnesium oxide 400 mg b.i.d., Plavix 75 daily, Coreg 3.125 twice a day, magnesium oxide 400 twice a day, Protonix 40 mg daily, Ritalin 5 mg at 8 a.m. and 2 p.m., Zyprexa 10 mg at bedtime. MENSTRUAL HISTORY: Postmenopausal. SOCIAL HISTORY: Denies smoking, denies alcohol, denies substance use, denies drug use, denies communicable transmissible disease. PAST MEDICAL HISTORY: Significant for right parietooccipital lobe acute infarct in 01/2016 with nonhemorrhagic acute infarct involving the right occipital and right parietal lobe, history of poor compliance and noncompliance , history of bilateral cataract surgery, history of multiple chronic cerebral infarcts. Also significant for history of carotid stenosis, history of left carotid stenosis 60%-80% with post-stenotic dilatation of the proximal left internal carotid artery, history of carotid endarterectomy. Also significant for right-sided stroke, history of bilateral carotid stenosis, history of carotid vertebral angiogram. Significant for history of right carotid endarterectomy. Significant for hypertension, history of dyslipidemia, hypertriglyceridemia, history of schizophrenia, history of depression and anxiety, history of angina, history of probable ischemic cardiomyopathy, history of depression, history of hypomagnesemia, history of dementia, history of hyperuricemia, history of dyslipidemia. Also significant for history of coronary artery disease, history of ischemic cardiomyopathy, history of hypertension, history of cerebral infarct, history of glaucoma, history of breast carcinoma, history of gait dysfunction, history of gastroesophageal reflux, history of anxiety, depression, history of cholecystectomy, history of coronary artery disease, coronary angioplasty, history of carotid endarterectomy. Significant for coronary artery disease, history of breast carcinoma, history of chronic kidney disease. Significant for non-ST elevation myocardial infarction, history of congestive heart failure, history of depression. Also significant for mild normocytic anemia. Significant for history of non-ST elevation myocardial infarction. Also significant for acute kidney injury with underlying chronic kidney disease. Also significant for iron deficiency. Also significant for hyperuricemia, history of dyslipidemia, history of systolic congestive heart failure with elevated BNP, history of hypovitaminosis D, history of proteinuria. Significant for history of osteopenia. Significant for history of multiple subcentimeter thyroid nodules, history of recent carotid ultrasound done by Dr. Cortez on 03/29 which is 40%-59% proximal left internal carotid artery stenosis and 20%-39% right internal carotid artery stenosis. Also significant for history of chronic right parietal infarct, history of carotid surgery, carotid endarterectomy. Significant for history of gait dysfunction, history of negative mammogram. Also significant for history of right carotid atheromatous plaque. Significant for last ejection fraction of 35% on last echocardiogram, history of global hypokinesis with moderately impaired left ventricular systolic function, history of moderate mitral regurgitation, history of moderate mitral regurgitation, history of right carotid endarterectomy, history of acute non-ST elevation myocardial infarction, history of inferior wall myocardial infarction. Also significant for history of inferolateral coronary ischemia with inferior wall myocardial infarction. Significant for severe noncompliance and extremely poor compliance, history of refusing to accept 24-hour care and supervision, which has been explained to the patient's daughter and son that patient needs 24-hour care and supervision, but not being provided by the patient's family. History of recurrent major depression with severe psychosis, history of cognitive impairment, history of dementia. Significant for acute exacerbation of depression with psychosis, cognitive impairment, history of poor compliance, history of hypokalemia, history of underlying chronic kidney disease, history of dyslipidemia, history of dilated ischemic cardiomyopathy with systolic congestive heart failure, history of recurrent depression, history of right parietal lobe and right occipital lobe infarct, history of breast carcinoma, history of proteinuria, history of bilateral lower extremity venous stasis, history of bradycardia, history of age indeterminate inferior anterior infarct with EKG changes, history of bradycardia, history of dilated ischemic cardiomyopathy with systolic congestive heart failure, history of acute exacerbation of anxiety, depression, bipolar disorders with symptoms of poor appetite, insomnia, depression with noncompliance with medication, history of bipolar disorder, history of contraction alkalosis, history of chronic microvascular ischemic disease of the brain with ventriculomegaly and central volume loss, history of hypokalemia, history of poor compliance and noncompliance, history of kyphosis, history of metabolic alkalosis, history of withdraws and seclusive behavior with grandiosities, history of hallucination, history of multi-infarct dementia, history of cognitive impairment with dementia , history of poor compliance. PHYSICAL EXAMINATION: VITAL SIGNS: In the Emergency Room, T-max 99. Heart rate initially 108, then down to 84-86-91. Blood pressure 202/106, 167/83, 150/79, 159/74. Respirations 35-39-21-22. O2 sat on BiPAP was 100%. HEAD: Normocephalic, atraumatic. GENERAL: The patient was initially on BiPAP and then later on patient was weaned off to Ventimask, nonrebreather to Ventimask to nasal cannula, during which patient received nitroglycerin. The patient received almost 60 mg of IV Lasix. HEAD: Normocephalic, atraumatic. HEENT: Shows pinkish conjunctivae, no oropharyngeal lesion, no facial asymmetry. NECK: Positive right carotid endarterectomy surgical scar. Soft carotid bruit bilaterally. CHEST: Kyphosis. LUNGS: Shows positive crackles, rales, rhonchi and questionable wheezing. All of the above was heard up to midway in the posterior lung field. CARDIOVASCULAR: Shows S1, S2. Tachycardic rhythm, positive systolic murmur right second intercostal space, left sternal border, left second intercostal space. Positive S3, S4 gallop. ABDOMEN: Soft, nontender, nondistended. GENITALIA: Female. RECTAL: Deferred. EXTREMITIES: Shows 2+ pitting edema of the lower extremity. VASCULAR: Palpable pulses. MUSCULOSKELETAL: Shows a body mass index of 26. NEUROLOGIC: Cranial nerves II-XII limited. The patient is alert, awake, responsive, is able to move upper and lower extremities without assistance. GAIT: Could not be tested. VASCULAR: Palpable pulses. PSYCHIATRIC: At present is negative. The patient was treated in the Emergency Room with Lasix 60 mg. The patient was given aspirin 325. The patient was weaned off from BiPAP to a nonrebreather to Ventimask to nasal cannula with stabilization of the vital signs. DIAGNOSTICS: WBC 10.5, hemoglobin/hematocrit 12.8/38.6, platelet 207, granulocytes 82. PT, PTT was normal, 11 and 25.9. D-dimer 2.30. ABG on 100% FiO2, pH of 7.35, pCO2 51, pO2 347, bicarb 28, saturation 99.7, lactate was 1.1. Sodium 135, potassium 4.3, chloride 100, CO2 28, anion gap 11, BUN 31, creatinine 0.7, GFR greater than 60, glucose 147, calcium 9.3, magnesium 1.8, alk phos 161. LDH 753. Troponin 0.03. BNP 2760. Urine pH 6.0, specific gravity 1.015, trace protein, small blood, small bacteria. The patient's chest x-ray shows right pleural effusion, increased vascular markings. No obvious cardiomegaly was noted with atelectasis noted. CT of the chest was done, CTA was done in the Emergency Room because of elevated D-dimer, which shows bibasilar atelectasis, bilateral moderate pleural effusion. The patient had a venous Doppler of the lower extremity done, which was negative for DVT of both lower extremities. EKG was done in the Emergency Room, which shows sinus rhythm , Q-wave in III and aVF, T-wave inversion II, III, aVF and ST depressions in V4 , V5, V6. The patient was seen and evaluated in the Emergency Room by the ER physician. IMPRESSION AND PLAN: 1. Transient BiPAP dependent respiratory failure. 2. Acute systolic congestive heart failure and pulmonary edema with elevated BNP of greater than 2700. 3. Uncontrolled accelerated hypertension versus hypertensive emergency. 4. History of poor compliance. 5. Granulocytosis. 6. Elevated D-dimer of 2.3. 7. Mild respiratory . 8. Hypercarbia. 9. Mild prerenal kidney injury. 10. Indeterminate troponin of 0.03. 11. History of dilated ischemic cardiomyopathy with left ventricular ejection fraction of 34% and global hypokinesis and moderately impaired left ventricular systolic function. 12. Moderate mitral regurgitation. 13. Acute systolic congestive heart failure with elevated BNP and pulmonary vascular congestion. 14. Bibasilar atelectasis. 15. Bibasilar atelectasis. 16. Moderate bilateral pleural effusion, secondary to congestive heart failure. 17. Inferior wall myocardial infarction with Q-wave in III and aVF. 18. Questionable lateral ischemic changes with EKG changes. 19. Questionable inferolateral coronary ischemia with indeterminate troponin. 20. Proteinuria. 21. Microscopic hematuria. 22. Bacteriuria. 23. Questionable anteroinferior coronary infarct, acute versus chronic, with anteroinferior coronary ischemia. 24. History of anxiety, depression, history of dementia, history of breast carcinoma, history of angina, history of dyslipidemia, history of hypomagnesemia , history of poor compliance. 1. Acute non-ST elevation myocardial infarction with elevated troponin and EKG changes. 2. Acute ____ inferolateral wall non-ST elevation myocardial infarction with ST changes and T-wave inversion in I and aVL, II, III, aVF and V3-V6. 3. Acute systolic congestive heart failure with elevated BNP. 4. Acute systolic congestive heart failure with acute pulmonary edema. 5. Status post bilevel positive airway pressure dependent respiratory failure. 6. Uncontrolled hypertension versus hypertensive emergency and urgency. 7. Tachycardia. 8. History of poor compliance. 9. Granulocytosis. 10. Normocytic anemia. 11. Elevated D-dimer, etiology undetermined. 12. Mild hypercarbia. 13. Hypokalemia. 14. Acute non-ST elevation myocardial infarction with elevated troponin. 15. Hypokalemia. 16. Prerenal kidney injury. 17. Acute systolic congestive heart failure and pulmonary edema with elevated BNP. 18. Trace proteinuria, microscopic hematuria, bacteriuria. 19. Bibasilar compressive atelectasis with moderate bilateral pleural effusion. 20. Pulmonary vascular congestion and bilateral pleural effusions with bilateral atelectasis. 21. History of poor compliance. 22. History of poor compliance and noncompliance. 23. History of anxiety, depression. 24. History of dementia. 25. History of breast carcinoma. 26. History of unstable angina. 27. History of coronary artery disease, non-ST elevation myocardial infarction and angioplasty. 28. History of depression. 29. History of dyslipidemia, hypomagnesemia, history of hyperuricemia. 1. Transient BiPAP dependent respiratory failure. 2. Acute systolic congestive heart failure and pulmonary edema with elevated BNP of greater than 2700. 3. Uncontrolled accelerated hypertension versus hypertensive emergency. 4. History of poor compliance. 5. Granulocytosis. 6. Elevated D-dimer of 2.3. 7. Mild respiratory . 8. Hypercarbia. 9. Mild prerenal kidney injury. 10. Indeterminate troponin of 0.03. 11. History of dilated ischemic cardiomyopathy with left ventricular ejection fraction of 34% and global hypokinesis and moderately impaired left ventricular systolic function. 12. Moderate mitral regurgitation. 13. Acute systolic congestive heart failure with elevated BNP and pulmonary vascular congestion. 14. Bibasilar atelectasis. 15. Bibasilar atelectasis. 16. Moderate bilateral pleural effusion, secondary to congestive heart failure. 17. Inferior wall myocardial infarction with Q-wave in III and aVF. 18. Questionable lateral ischemic changes with EKG changes. 19. Questionable inferolateral coronary ischemia with indeterminate troponin. 20. Proteinuria. 21. Microscopic hematuria. 22. Bacteriuria. 23. Questionable anteroinferior coronary infarct, acute versus chronic, with anteroinferior coronary ischemia. 24. History of anxiety, depression, history of dementia, history of breast carcinoma, history of angina, history of dyslipidemia, history of hypomagnesemia , history of poor compliance. PLAN: At this time, patient is admitted to telemetry. Serial cardiac enzymes, serial EKGs, serial labs ordered. CONSULTATIONS: Cardiology and psychiatry. CURRENT MEDICATIONS TO BE RESUMED: Aricept 5 mg at bedtime, Arimidex 1 mg daily , Welchol 3 tablets twice a day, Coreg 3.125 twice a day, aspirin 81 mg daily, Uloric 40 mg daily, Imdur 60 mg daily, K-Dur 10 mEq twice a day, Lasix 40 mg IV q. 12, Lexapro 10 mg daily, Lipitor 40 mg daily, Lovenox 40 mg subQ daily which will be adjusted depending upon the cardiac enzymes and patient's EKG changes, magnesium oxide 400 mg daily, Plavix 75 daily, Protonix 40 mg daily, Ritalin 5 mg at 8 a.m. and 2 p.m., Zyprexa 10 mg at bedtime. Repeat EKG ordered, serial EKG ordered, echo with Doppler ordered, heart healthy diet ordered. ABAD stockings, SCDs ordered. At present, patient is to be admitted to telemetry. The patient's further management will be dependent upon the patient's clinical condition, hemodynamic status, and as per patient's response to therapeutic intervention, as per patient's diagnostic test results and as per recommendation by cardiology and psychiatry. The patient is again updated about her condition, diagnosis, test results. Need for hospitalization was discussed and explained to the patient in layman's language. All questions and concerns answered to the patient's satisfaction, which she acknowledges and understands. The patient was again advised about need for 24-hour care and supervision, which she acknowledges and understands. At present, patient's further management will be dependent upon the above, patient's clinical condition, hemodynamic status, and as per patient's response to therapeutic intervention, as per patient's diagnostic test results and as per recommendation by all the physicians involved in the care of the patient. Dictated and electronically signed, not read. Mohan Hidalgo MD cc: [id number] TT: 04/01/2017 23:52:07 en MTDD
[2017-04-03] MEDS: Pantoprazole 40 mg EC Tab PO SCH (06:19)
[2017-04-03 07:10] LABS: ADD MANUAL DIFF? NO
[2017-04-03 07:14] LABS: BASO # 0.01 K/mm3 (0.0-2.0); BASO % 0.2 % (0.0-3.0); EOS # 0.2 (0.0-0.7); EOS % 2.4 % (1.5-5.0); GRAN # 4.27 (1.4-6.5); GRAN % 67.2 % (50.0-68.0); LYMPH # 1.1 (1.2-3.4); MEAN CELL VOLUME 91.4 fL (80.0-105.0); MEAN CORPUSCULAR HEMOGLOBIN 29.2 pg (25.0-35.0); MEAN CORPUSCULAR HGB CONC 31.9 g/dl (31.0-37.0); MEAN PLATELET VOLUME 9.7 fl (7.0-11.0); MONO # 0.8 (0.1-0.6); MONO % 13.2 % (1.0-6.0); PLATELET COUNT 197 10^3/uL (120.0-450.0); WHITE BLOOD COUNT 6.4 10^3/ul (4.5-11.0)
[2017-04-03 07:38] LABS: ALB/GLOB RATIO 1.1 (1.1-1.8); ALKALINE PHOSPHATASE 129 U/L (38-133); ALT/SGPT 32 U/L (7-56); AST/SGOT 28 U/L (15-39); BILIRUBIN,DIRECT 0.2 mg/dL (0.0-0.4); BILIRUBIN,TOTAL 0.9 mg/dL (0.2-1.3); BLOOD UREA NITROGEN 24 mg/dL (7-21); CALCIUM 9.1 mg/dL (8.4-10.5); CARBON DIOXIDE 31 mmol/L (21-33); CHLORIDE 102 mmol/L (98-107); GFR AFRICAN-AMERICAN > 60; GLUCOSE,RANDOM 107 mg/dL (70-110); MAGNESIUM 1.9 mg/dL (1.7-2.2); POTASSIUM 4.1 mmol/L (3.6-5.0); SODIUM 135 mmol/L (132-148); TOTAL PROTEIN 5.7 g/dL (5.8-8.3)
[2017-04-03] MEDS: Magnesium Oxide 400 mg Tab UD PO SCH ×2 (09:49→17:16)
[2017-04-03] MEDS: Non Formulary Medication (Colesevelam Hcl [Welchol] 3 TAB) PO SCH ×2 (09:52→17:19)
[2017-04-03] MEDS: Enoxaparin 60 mg Syringe SC SCH (09:57)
[2017-04-03] MEDS ORDERED: Potassium Chloride 10 mEq ER Tab PO SCH (10:00)
--- NOTE | 2017-04-03 10:12 | CARD ---
APPROVED REPORT EKG Measurement Heart [id number] <Conclusion> Normal sinus rhythm Left ventricular hypertrophy with repolarization abnormality Inferior infarct, age undetermined Prolonged QT STTW changes No change
--- NOTE | 2017-04-03 12:25 | PN ---
DATE: 04/03/2017 HISTORY OF PRESENT ILLNESS: The patient is a 81-year-old white female who is currently convalescing from an acute inferior wall myocardial infarction. Yesterday she had a cardiac catheterization. I s poke at length with the patient. The patient's mental status reveals that she is awake, alert, coher ent, aware of her medical problems, understands the nature of those problems. The patient states she slept only to approximately 6 a.m. this morning; requesting stronger sleep medication. She is orien shoaib x 3. Recent and remote memory intact. No evidence of depression, suicidal ideation or psychotic symptomatology. CURRENT MEDICATIONS: Include Aricept, Arimidex, lorazepam 0.5 mg daily and 1 mg at bedtime, Welchol, Coreg, Ecotrin, Uloric, Imdur, Klor-Con and furosemide, Lexapro 10 mg daily, Lipitor, Lovenox, mag o x, Plavix, Ritalin 5 mg twice a day, vitamin D, lisinopril, and Zyprexa 10 mg at bedtime. LABORATORY DATA: Her white count is 6400, hemoglobin is 11.5, platelet count 197,000. Her metabolic profile: All her electrolytes are normal. BUN 24, creatinine 0.8, estimated GFR greater than 60. Rest of profile was all within normal range except for a vitamin D level of 20.8. Her thyroid functi on tests are all normal. VITAL SIGNS: Her blood pressure is 148/70, pulse 92, respirations 18 per minute and she is afebrile. IMPRESSION: She is status post acute inferior wall myocardial infarction, coronary artery disease; s he has a history of probable bipolar disorder, in remission at this point; history of depression, his tory of psychotic episodes in the past, history of vitamin D deficiency, she has a history of cancer of the breast, she has a history of congestive heart failure, she has hypertension, the patient has c oronary artery disease obviously, however, and perhaps mild cognitive impairment. PLAN: Will increase lorazepam to 0.5 mg daily and 1.5 mg at bedtime. Continue Zyprexa 10 mg at bedt evie. Continue Ritalin 5 mg a.m. and afternoon. Continue Lexapro 10 mg q.a.m. Will continue to olinda tor her mental status. Luis Mcdaniels MD cc: [id number] TT: 04/03/2017 12:24:33 Confirmation # [id number] Dictation # [id number] mn
--- NOTE | 2017-04-03 13:33 | PN ---
DATE: 04/03/2017 SUBJECTIVE: The patient is without chest pain. PHYSICAL EXAMINATION: VITAL SIGNS: Breathing is better. Blood pressure is 132/69, heart rate in the 80s. NECK: Negative JVD. LUNGS: Without rales. HEART: Reveals S1, S2. EXTREMITIES: Without edema. LABORATORIES: Revealed BUN and creatinine are unremarkable. Hemoglobin is 11. IMPRESSION: 1. Status post recent inferior wall myocardial infarction. 2. Ischemic dilated cardiomyopathy. 3. Status post congestive heart failure. 4. Anemia. Given these findings, we will change her medications to include beta blockers, aspirin, statin therap y and DARLEEN inhibitors for better blood pressure control. We will discontinue telemetry today. The kareen dobbins would benefit from CCU. Dmitriy Zambrano MD cc: [id number] TT: 04/03/2017 13:33:02 Confirmation # [id number] Dictation # [id number] dn
--- NOTE | 2017-04-03 14:58 | IP.NPCORE ---
Acute PR Core Measure PNote - LVF prior to this hospilization,if known LVF prior to this hospilization: Election Fraction greater than 40% - Source Source: Cath Report - Medications Aspirin Name/Dose/Frequency:: 81mg daily Beta Clark prescribed: Name/dose/frequency: coeg 6.25 bid DARLEEN or ARB: Name/dose/frequency: zestril 5 daily Lipid Lowering Agent: Name/Dose/Frequency: lipitor LDL:: 52 LDL within normal limits (<=100): Yes
--- NOTE | 2017-04-03 15:05 | CON ---
DATE: 04/03/2017 REASON FOR CONSULTATION: Left carotid stenosis. HISTORY OF PRESENT ILLNESS: The patient is a 81-year-old woman who was admitted for acute shortness of breath. She had a long cardiac history. Because of persistent elevated troponin, she underwent a cardiac catheterization. Result of that showed diffusely stenotic coronary artery disease. No inte rvention was undertaken. Her ejection fraction is 40%. She also had an acute parietooccipital strok e on the right side in 01/2016. She underwent a right carotid endarterectomy at that point. The lef t carotid showed a 60-79% stenosis at that time. The left carotid stenosis has remained asymptomatic . Currently, she denies any neurological symptoms. She had a repeat carotid duplex showing a 40-50% stenosis in the left internal carotid artery. PAST MEDICAL HISTORY: Significant for psychiatric and cardiac history. She also had a long history of hyperlipidemia. SOCIAL HISTORY: She had no history of alcohol or substance abuse. LABORATORY: Within normal limits. REVIEW OF SYSTEMS: Other than what is stated in the present illness was unremarkable. PHYSICAL EXAMINATION: GENERAL: Showed an elderly woman in no distress. Her mental status is alert. HEENT: Within normal limits. CARDIAC: She has regular rhythm, no murmur. ABDOMEN: Soft. EXTREMITIES: Show 2+ femoral pulses and 2+ brachial pulses. NEUROLOGIC: Within normal limits. IMPRESSION: Asymptomatic left carotid stenosis. I will continue to follow her in my office. No peewee gical intervention is indicated at this point. This was also discussed with the patient. Zaira Cortez MD cc: [id number] TT: 04/03/2017 15:04:07 Confirmation # [id number] Dictation # [id number] mn
[2017-04-03 17:19] VITALS: PULSE 75
[2017-04-03 18:57] VITALS: TEMP 97.5
--- NOTE | 2017-04-03 19:02 | PN ---
DATE: 04/03/2017 SUBJECTIVE: The patient is seen in room 277, bed 1, with physical therapist. The patient is alert, awake, responsive. The patient is questioning every test which was ordered and done on her. The patient was explained extensively about her diagnosis and test results. The patient was explained in very clear layman' s language that patient had a heart attack and needed a cardiac catheterization which shows narrowing of the artery and her heart muscle is weak, which was explained to the patient in layman's language. Overnight nurse's notes were reviewed. PHYSICAL EXAMINATION: VITAL SIGNS: T-max 99.5. Telemetry shows sinus rhythm, heart rate in 70s, 80s and 90s. Blood pressure is 132/69, 148/70, 111/54, 110/66. Respirations are 18 -20. O2 sat is 95%-100%. HEAD: Normocephalic, atraumatic. HEENT: Shows pinkish, pale conjunctivae, anicteric sclerae. No oropharyngeal lesion. NECK: Positive right carotid endarterectomy surgical scar noted. Positive soft carotid bruit noted. Positive kyphosis noted. LUNGS: Shows significantly decreased rhonchi, crackles and rales. No wheezing noted. CARDIOVASCULAR: Shows S1, S2, regular rhythm, positive systolic murmur left sternal border, right second intercostal space, left second intercostal space. ABDOMEN: Soft, positive bowel sounds. GENITALIA: Female. RECTAL: Deferred. EXTREMITIES: Shows decreasing pitting edema and swelling of the lower extremity. MUSCULOSKELETAL: Shows a body mass index of 26. NEUROLOGIC: Cranial nerves II-XII limited. GAIT: Examination is assisted with physical therapy. PSYCHIATRIC: As per psychiatry evaluation. DIAGNOSTICS: On 04/03, WBC 6.4, hemoglobin/hematocrit 11.5 and 36, platelets 197. Sodium 135, potassium 4.1, chloride 102, CO2 31, anion gap 6, BUN 24, creatinine 0.8, GFR greater than 60, glucose 107, calcium 9.1, magnesium 1.9. LFTs are normal. Total protein 5.7, albumin 3.0. Vitamin D is 21, cholesterol 123, LDL 52, HDL 51. Thyroid panel is within normal limits. Blood cultures no growth. The patient had a cardiac catheterization done yesterday, which was noted and explained to the patient in layman's language. The patient's cardiac catheterization shows diffuse atherosclerosis and calcification of the left anterior descending without critical stenosis. Diffusely diseased diagonal vessel. Left circumflex and obtuse marginal, diffuse atherosclerosis and calcification without critical lesion. RCA was occluded at its ostium and extending into the mid portion of the artery. In the mid portion of the RCA, previously placed stent noted. Extensively damaged and akinesis inferior wall. Ejection fraction 40%. EKG from 04/03 was noted. Shows sinus rhythm, Q-wave in III and aVF, left ventricular hypertrophy, age-indeterminate inferior anterolateral infarct. The patient seen by computer hardware designer, patient seen by psychiatry, and patient seen by vascular surgery for carotid stenosis. IMPRESSION AND PLAN: 1. Status post acute non-ST elevation anterolateral inferior wall myocardial infarction. 2. Ischemic dilated cardiomyopathy. 3. Acute systolic congestive heart failure and pulmonary edema. 4. Status post cardiac catheterization. 5. Hypertensive cardiovascular disease. 6. Inferior anterolateral coronary ischemia and acute non-ST elevation myocardial infarction. 7. Status post cardiac catheterization. 8. Diffuse atherosclerosis and calcification of the left anterior descending artery, diagonal vessel, left circumflex and obtuse marginal vessel without critical stenosis. 9. Ostial right coronary artery occlusion with extension of the occlusion to the mid portion of the artery with in-stent restenosis. 10. Left ventricular ejection fraction of 40% with inferior wall akinesis. 11. Transient tachycardia. 12. Transient hypotension (resolved). 13. Dementia. 14. Normocytic anemia with granulocytosis. 15. Elevated D-dimer. 16. Mild hypercarbia. 17. Hypokalemia. 18. Acute non-ST elevation anterior inferolateral myocardial infarction with elevated troponin. 19. Hypokalemia. 20. Acute systolic congestive heart failure and pulmonary edema with elevated BNP. 21. Hypovitaminosis D. 22. Proteinuria, microscopic hematuria, bacteriuria. 23. History of poor compliance. 24. History of right carotid endarterectomy. 25. Carotid artery stenosis. 26. History of dementia. 27. Probable bipolar disorder, history of depression, history of psychosis, history of breast carcinoma, history of noncompliance, history of cognitive impairment. 28. Psychosis. 29. History of right parietooccipital infarct in 2016. 30. History of breast carcinoma. 31. History of major depressive disorder with anxiety disorder and psychosis and cognitive impairment. 1. Acute non-ST elevation myocardial infarction with elevated troponin and EKG changes. 2. Acute ____ inferolateral wall non-ST elevation myocardial infarction with ST changes and T-wave inversion in I and aVL, II, III, aVF and V3-V6. 3. Acute systolic congestive heart failure with elevated BNP. 4. Acute systolic congestive heart failure with acute pulmonary edema. 5. Status post bilevel positive airway pressure dependent respiratory failure. 6. Uncontrolled hypertension versus hypertensive emergency and urgency. 7. Tachycardia. 8. History of poor compliance. 9. Granulocytosis. 10. Normocytic anemia. 11. Elevated D-dimer, etiology undetermined. 12. Mild hypercarbia. 13. Hypokalemia. 14. Acute non-ST elevation myocardial infarction with elevated troponin. 15. Hypokalemia. 16. Prerenal kidney injury. 17. Acute systolic congestive heart failure and pulmonary edema with elevated BNP. 18. Trace proteinuria, microscopic hematuria, bacteriuria. 19. Bibasilar compressive atelectasis with moderate bilateral pleural effusion. 20. Pulmonary vascular congestion and bilateral pleural effusions with bilateral atelectasis. 21. History of poor compliance. 22. History of poor compliance and noncompliance. 23. History of anxiety, depression. 24. History of dementia. 25. History of breast carcinoma. 26. History of unstable angina. 27. History of coronary artery disease, non-ST elevation myocardial infarction and angioplasty. 28. History of depression. 29. History of dyslipidemia, hypomagnesemia, history of hyperuricemia. 1. Transient BiPAP dependent respiratory failure. 2. Acute systolic congestive heart failure and pulmonary edema with elevated BNP of greater than 2700. 3. Uncontrolled accelerated hypertension versus hypertensive emergency. 4. History of poor compliance. 5. Granulocytosis. 6. Elevated D-dimer of 2.3. 7. Mild respiratory . 8. Hypercarbia. 9. Mild prerenal kidney injury. 10. Indeterminate troponin of 0.03. 11. History of dilated ischemic cardiomyopathy with left ventricular ejection fraction of 34% and global hypokinesis and moderately impaired left ventricular systolic function. 12. Moderate mitral regurgitation. 13. Acute systolic congestive heart failure with elevated BNP and pulmonary vascular congestion. 14. Bibasilar atelectasis. 15. Bibasilar atelectasis. 16. Moderate bilateral pleural effusion, secondary to congestive heart failure. 17. Inferior wall myocardial infarction with Q-wave in III and aVF. 18. Questionable lateral ischemic changes with EKG changes. 19. Questionable inferolateral coronary ischemia with indeterminate troponin. 20. Proteinuria. 21. Microscopic hematuria. 22. Bacteriuria. 23. Questionable anteroinferior coronary infarct, acute versus chronic, with anteroinferior coronary ischemia. 24. History of anxiety, depression, history of dementia, history of breast carcinoma, history of angina, history of dyslipidemia, history of hypomagnesemia , history of poor compliance. The patient at this time is seen by computer hardware designer. The patient's case was referred for TCU evaluation. The patient has been ordered serial labs. The patient is ordered TCU evaluation. CURRENT MEDICATIONS: 1. Aricept 5 mg at bedtime. 2. Arimidex 1 mg daily. 3. Ativan 0.5 mg 10:00 a.m. and Ativan 1.5 mg at bedtime. 4. Welchol 3 tablets twice a day. 5. Coreg 6.25 twice a day. 6. Aspirin 81 mg daily. 7. Uloric 40 mg daily. 8. Imdur 60 mg daily. 9. The patient's Lasix is decreased to 20 mg daily. 10. The patient is on Lexapro 10 mg daily. 11. Lipitor 40 mg daily. 12. Magnesium oxide 400 twice a day. 13. Protonix 40 mg daily. 14. Ritalin 5 mg 8 a.m. and 2:00 p.m. 15. Vitamin D 2000 units daily. 16. Zestril 5 mg daily. 17. Zyprexa 10 mg at bedtime. The patient is seen by physical therapist. Their evaluation is noted. At present, the patient is to be continued on the above therapeutic intervention. TCU evaluation will be a beneficial option for patient, which has been advised. Dictated and electronically signed, not read. Mohan Hidalgo MD cc: [id number] TT: 04/03/2017 19:02:24 Confirmation # [id number] Dictation # [id number] nilam ISBELL
[2017-04-04] MEDS: Pantoprazole 40 mg EC Tab PO SCH (05:38)
[2017-04-04 07:39] LABS: ADD MANUAL DIFF? NO
[2017-04-04 07:49] LABS: EOS # 0.3 (0.0-0.7); EOS % 4.4 % (1.5-5.0); GRAN % 58.4 % (50.0-68.0); HEMATOCRIT 37.1 % (36.0-48.0); LYMPH # 1.4 (1.2-3.4); LYMPH % 21.6 % (22.0-35.0); MEAN CELL VOLUME 92.3 fL (80.0-105.0); MEAN CORPUSCULAR HEMOGLOBIN 29.1 pg (25.0-35.0); MEAN CORPUSCULAR HGB CONC 31.5 g/dl (31.0-37.0); MEAN PLATELET VOLUME 9.9 fl (7.0-11.0); MONO % 15.6 % (1.0-6.0); PLATELET COUNT 207 10^3/uL (120.0-450.0); RED CELL DISTRIBUTION WIDTH 13.9 % (11.5-14.5); WHITE BLOOD COUNT 6.3 10^3/ul (4.5-11.0)
[2017-04-04 08:33] LABS: ALB/GLOB RATIO 1.1 (1.1-1.8); ALKALINE PHOSPHATASE 134 U/L (38-133); ALT/SGPT 31 U/L (7-56); AST/SGOT 30 U/L (15-39); BILIRUBIN,DIRECT 0.2 mg/dL (0.0-0.4); BILIRUBIN,TOTAL 0.5 mg/dL (0.2-1.3); BLOOD UREA NITROGEN 29 mg/dL (7-21); CALCIUM 9.2 mg/dL (8.4-10.5); CARBON DIOXIDE 31 mmol/L (21-33); CHLORIDE 101 mmol/L (98-107); GFR AFRICAN-AMERICAN > 60; GLUCOSE,RANDOM 103 mg/dL (70-110); POTASSIUM 4.4 mmol/L (3.6-5.0); SODIUM 135 mmol/L (132-148); TOTAL PROTEIN 6.2 g/dL (5.8-8.3)
[2017-04-04 08:44] VITALS: BP 165/82; RESP 18; O2SAT 94
--- NOTE | 2017-04-04 09:44 | PN ---
DATE: 04/04/2017 SUBJECTIVE: The patient is chest pain free. VITAL SIGNS: Blood pressure is 165/82. The heart rate is in the 70s. NECK: Negative JVD. LUNGS: Without rales. HEART: S1, S2. EXTREMITIES: Without edema. LABORATORY DATA: The hemoglobin is 11.7. Chemistries unremarkable. IMPRESSION: 1. Status post inferior wall myocardial infarction. 2. Status post congestive heart failure. 3. Hypercholesterolemia. 4. Resolution of dyspnea. Given these findings, will increase her Coreg for better beta luis control. Discussed with the patient about her need for a cardiac risk reduction program. The patient is for the TCU for physical therapy. Dmitriy Zambrano MD cc: [id number] TT: 04/04/2017 09:43:30 Confirmation # [id number] Dictation # [id number] shellie
[2017-04-04 10:08] LABS: TROPONIN I 0.1 ng/mL
--- NOTE | 2017-04-04 10:41 | PN ---
DATE: 04/04/2017 CARDIOLOGY FOLLOWUP SUBJECTIVE: The patient is chest pain free. VITAL SIGNS: Blood pressure is 165/82. The heart rate is in the 70s, sinus rhythm. NECK: Negative JVD. LUNGS: Without rales. HEART: Revealed S1, S2. EXTREMITIES: Without edema. LABORATORIES: Chemistries are unremarkable. Hemoglobin is 11.7. IMPRESSION: 1. Recent inferior wall myocardial infarction. 2. Congestive heart failure, which is improved. 3. Anemia. 4. Hypercholesterolemia. 5. Hypertension. PLAN: Given these findings, we will increase her Coreg to improve beta blocking. The patient is scheduled for TCU. Dmitriy Zambrano MD cc: [id number] TT: 04/04/2017 09:11:46 Confirmation # [id number] Dictation # [id number] 04/04/2017 09:40:43
[2017-04-04] MEDS: Magnesium Oxide 400 mg Tab UD PO SCH (11:05)
[2017-04-04] MEDS: Non Formulary Medication (Colesevelam Hcl [Welchol] 3 TAB) PO SCH (11:08)
--- NOTE | 2017-04-04 11:58 | DS ---
FINAL PROGRESS NOTE & DISCHARGE SUMMARY 04/04/2017 The patient is seen in room 377, bed 1. The patient is lying in the bed. The patient is comfortable. The patient slept well. Overnight nurse's notes were reviewed. No adverse event documented. The patient at times becomes very argumentative, which was yesterday evening, and does not want to accept the fact of her medical condition. The patient was again re-explained about her diagnosis since admission from this hospitalization, and the patient was explained extensively about her medical history from the last year or so. PHYSICAL EXAMINATION: VITAL SIGNS: T-max 97.5, pulse 75, blood pressure 165/82, 130/55, respirations 18, O2 sat 13-11-80-100%. Intake/output not documented. HEAD: Normocephalic, atraumatic. HEENT: Shows pinkish conjunctivae, anicteric sclerae. No oropharyngeal lesion. NECK: Soft carotid bruit bilaterally. Positive right carotid endarterectomy. CHEST: Kyphosis. LUNGS: Show decreased rales, crackles, and wheezing. Improved aeration of bilateral lung mcknight. CARDIOVASCULAR: Shows S1, S2, regular rhythm. ABDOMEN: Soft, positive bowel sounds. GENITALIA: Female. RECTAL: Deferred. EXTREMITIES: Show decreasing edema, decreasing swelling, positive varicose veins. MUSCULOSKELETAL: Shows a body mass index of 26. NEUROLOGIC: Cranial nerves II-XII intact. DIAGNOSTICS: CBC from 04/04, WBC 6.3, hemoglobin and hematocrit 11.7 and 37.1, platelets 207. Sodium 135, potassium 4.4, chloride 101, CO2 of 31, anion gap 7 , BUN 29, creatinine 0.7. GFR greater than 60. Glucose 103, calcium 9.3, magnesium 2.0. LFTs are normal. Alk phos 134. Troponin is down to 0.10 from a peak troponin 0.41. BNP is down to 1120 from 2760. LFTs are normal. Blood cultures - no growth. The patient's echocardiogram is still not read, done yesterday. FINAL IMPRESSION AND PLAN & DISCHARGE DIAGNOSES: 1. Acute non-ST elevation anterior inferolateral myocardial infarction. 2. Status post acute systolic congestive heart failure and pulmonary edema. 3. Hypertension. 4. History of poor compliance. 5. Transient hypoxemia. 6. Bilateral carotid stenosis. 7. Status post right carotid endarterectomy. 8. Normocytic anemia. 9. Granulocytosis. 10. Elevated D-dimer, etiology undetermined. 11. Mild hypercarbia. 12. Acute non-ST elevation myocardial infarction with elevated troponin. 13. Acute systolic congestive heart failure and pulmonary edema with elevated BNP. 14. Hypovitaminosis D. 15. Hypokalemia. 16. Proteinuria, microscopic hematuria, bacteriuria. 17. Old inferior wall myocardial infarction with acute non-ST elevation, anterior inferolateral myocardial infarction. 18. Ischemic dilated cardiomyopathy. 19. Hypertensive cardiovascular disease. 20. Psychosis. 1. Status post acute non-ST elevation anterolateral inferior wall myocardial infarction. 2. Ischemic dilated cardiomyopathy. 3. Acute systolic congestive heart failure and pulmonary edema. 4. Status post cardiac catheterization. 5. Hypertensive cardiovascular disease. 6. Inferior anterolateral coronary ischemia and acute non-ST elevation myocardial infarction. 7. Status post cardiac catheterization. 8. Diffuse atherosclerosis and calcification of the left anterior descending artery, diagonal vessel, left circumflex and obtuse marginal vessel without critical stenosis. 9. Ostial right coronary artery occlusion with extension of the occlusion to the mid portion of the artery with in-stent restenosis. 10. Left ventricular ejection fraction of 40% with inferior wall akinesis. 11. Transient tachycardia. 12. Transient hypotension (resolved). 13. Dementia. 14. Normocytic anemia with granulocytosis. 15. Elevated D-dimer. 16. Mild hypercarbia. 17. Hypokalemia. 18. Acute non-ST elevation anterior inferolateral myocardial infarction with elevated troponin. 19. Hypokalemia. 20. Acute systolic congestive heart failure and pulmonary edema with elevated BNP. 21. Hypovitaminosis D. 22. Proteinuria, microscopic hematuria, bacteriuria. 23. History of poor compliance. 24. History of right carotid endarterectomy. 25. Carotid artery stenosis. 26. History of dementia. 27. Probable bipolar disorder, history of depression, history of psychosis, history of breast carcinoma, history of noncompliance, history of cognitive impairment. 28. Psychosis. 29. History of right parietooccipital infarct in 2016. 30. History of breast carcinoma. 31. History of major depressive disorder with anxiety disorder and psychosis and cognitive impairment. 1. Acute non-ST elevation myocardial infarction with elevated troponin and EKG changes. 2. Acute ____ inferolateral wall non-ST elevation myocardial infarction with ST changes and T-wave inversion in I and aVL, II, III, aVF and V3-V6. 3. Acute systolic congestive heart failure with elevated BNP. 4. Acute systolic congestive heart failure with acute pulmonary edema. 5. Status post bilevel positive airway pressure dependent respiratory failure. 6. Uncontrolled hypertension versus hypertensive emergency and urgency. 7. Tachycardia. 8. History of poor compliance. 9. Granulocytosis. 10. Normocytic anemia. 11. Elevated D-dimer, etiology undetermined. 12. Mild hypercarbia. 13. Hypokalemia. 14. Acute non-ST elevation myocardial infarction with elevated troponin. 15. Hypokalemia. 16. Prerenal kidney injury. 17. Acute systolic congestive heart failure and pulmonary edema with elevated BNP. 18. Trace proteinuria, microscopic hematuria, bacteriuria. 19. Bibasilar compressive atelectasis with moderate bilateral pleural effusion. 20. Pulmonary vascular congestion and bilateral pleural effusions with bilateral atelectasis. 21. History of poor compliance. 22. History of poor compliance and noncompliance. 23. History of anxiety, depression. 24. History of dementia. 25. History of breast carcinoma. 26. History of unstable angina. 27. History of coronary artery disease, non-ST elevation myocardial infarction and angioplasty. 28. History of depression. 29. History of dyslipidemia, hypomagnesemia, history of hyperuricemia. 1. Transient BiPAP dependent respiratory failure. 2. Acute systolic congestive heart failure and pulmonary edema with elevated BNP of greater than 2700. 3. Uncontrolled accelerated hypertension versus hypertensive emergency. 4. History of poor compliance. 5. Granulocytosis. 6. Elevated D-dimer of 2.3. 7. Mild respiratory . 8. Hypercarbia. 9. Mild prerenal kidney injury. 10. Indeterminate troponin of 0.03. 11. History of dilated ischemic cardiomyopathy with left ventricular ejection fraction of 34% and global hypokinesis and moderately impaired left ventricular systolic function. 12. Moderate mitral regurgitation. 13. Acute systolic congestive heart failure with elevated BNP and pulmonary vascular congestion. 14. Bibasilar atelectasis. 15. Bibasilar atelectasis. 16. Moderate bilateral pleural effusion, secondary to congestive heart failure. 17. Inferior wall myocardial infarction with Q-wave in III and aVF. 18. Questionable lateral ischemic changes with EKG changes. 19. Questionable inferolateral coronary ischemia with indeterminate troponin. 20. Proteinuria. 21. Microscopic hematuria. 22. Bacteriuria. 23. Questionable anteroinferior coronary infarct, acute versus chronic, with anteroinferior coronary ischemia. 24. History of anxiety, depression, history of dementia, history of breast carcinoma, history of angina, history of dyslipidemia, history of hypomagnesemia , history of poor compliance. PLAN: At this time, the patient is seen by physical therapy, recommending cardiac rehab. The patient is still to be evaluated by TCU for transitional care unit acceptance. CURRENT MEDICATIONS: Aricept 5 mg at bedtime, Arimidex 1 mg daily, Ativan 0.5 mg 10:00 a.m. and Ativan 1.5 mg at bedtime, Welchol 3 tablets twice a day, Coreg 12.5 twice a day, Ecotrin 81 mg daily, Uloric 40 mg daily, Imdur 60 mg daily, K-Dur 20 mEq p.o. daily. Lasix changed to 40 mg twice a day because of poor urine output. Lexapro 10 mg daily, Lipitor 40 mg daily, magnesium oxide 400 twice a day, Protonix 40 mg daily, Ritalin 5 mg 8 a.m. and 2 p.m., vitamin D 2000 units daily, Zestril 5 mg daily, Zyprexa 10 mg at bedtime, oxygen 2 liters nasal cannula. Out of bed, ABAD stockings, SCDs, occupational therapy, physical therapy ordered. PATIENT CLEARED FOR DISCHARGE BY CARDIOLOGY PATIENT DECLINED BY TCU. DISCHARGE HOME REFER VNA, CHAINSTITCH HEMMER, HOME PT DISCHARGE MEDS PER AMBULATORY ORDERS FOLLOW UP WITHIN 1 WEEK. TIME SPENT IN THE ENTIRE DISCHARGE PROCESS >45 MINUTES. Dictated and electronically signed, not read. Mohan Hidalgo MD cc: [id number] TT: 04/04/2017 11:57:57 Confirmation # [id number] Dictation # [id number] jn MTDD
[2017-04-05] MEDS ORDERED: Potassium Chloride 20 mEq ER Tab PO SCH (08:00)
--- NOTE | 2017-04-05 09:43 | CARD ---
APPROVED REPORT EXAM: Two-dimensional and M-mode echocardiogram with Doppler and color Doppler. Other Information Quality : FairRhythm : INDICATION Congestive Heart Failure 2D DIMENSIONS IVSd1.2 (0.7-1.1cm)LVDd5.1 (3.9-5.9cm) PWd1.1 (0.7-1.1cm)LVDs4.4 (2.5-4.0cm) FS (%) 12.8 %LVEF (%)27.0 (>50%) M-Mode DIMENSIONS Left Atrium (MM)3.40 (2.5-4.0cm)Aortic Root3.30 (2.2-3.7cm) Aortic Cusp Exc.1.80 (1.5-2.0cm) Aortic Valve AoV Peak Ioomqwpz079.0cm/sAoV VTI30.0cmAO Peak GR.8mmHg LVOT Peak Dtgrhjjh96.2cm/sLVOT VTI17.40cmAO Mean GR.5mmHg Mitral Valve MV E Fosavpix68.2cm/sMV A Qdsmsxsm08.2cm/sE/A ratio0.7 TDI Lateral E' Peak V5.56cm/sMedial E' Peak V3.22cm/sE/Lateral E'11.5 E/Medial E'19.9 Tricuspid Valve TR Peak Zqykclci341cr/sRAP [id number] Peak Gr.9mmHg [id number] LEFT VENTRICLE The left ventricle is normal size. There is normal left ventricular wall thickness. Left ventricle systolic function is moderately to severely impaired. The Ejection Fraction is 25-30%. There is moderate to severe global hypokinesis. RIGHT VENTRICLE The right ventricle is normal size. ATRIA The left atrium size is normal. The right atrium size is normal. The interatrial septum is intact with no evidence for an atrial septal defect. AORTIC VALVE The aortic valve is mildly calcified. MITRAL VALVE The mitral valve is normal in structure. Mitral regurgitation is trace. TRICUSPID VALVE The tricuspid valve is normal in structure. There is trace tricuspid regurgitation. PULMONIC VALVE The pulmonary valve is normal in structure. There is trace pulmonic valvular regurgitation. <Conclusion> The left ventricle is normal size. There is normal left ventricular wall thickness. Left ventricle systolic function is moderately to severely impaired. The Ejection Fraction is 25-30%. There is moderate to severe global hypokinesis.
== END 2017-04-04 16:23 | disposition home or self-care (01) | DRG 280 ==
LOC: ED 16:13 → ERH 20:07 → 2RSO 21:51 → OBSVTOIN 04-02 16:31 → 2RSO 04-02 19:04 → 3RSO 04-03 21:57
PROVIDERS: ADMIT Internal Medicine; ATTEND Internal Medicine
PROC: 4A023N7 Measurement of Cardiac Sampling and Pressure, Left Heart, Percutaneous Approach (ICD-10-PCS; principal; 2017-04-02)
PROC: B2111ZZ Fluoroscopy of Multiple Coronary Arteries using Low Osmolar Contrast (ICD-10-PCS; 2017-04-02)
PROC: B2151ZZ Fluoroscopy of Left Heart using Low Osmolar Contrast (ICD-10-PCS; 2017-04-02)
DX: I21.19 ST elevation (STEMI) myocardial infarction involving other coronary artery of inferior wall (principal); I50.21 Acute systolic (congestive) heart failure; R06.00 Dyspnea, unspecified; I42.0 Dilated cardiomyopathy; T82.858A Stenosis of other vascular prosthetic devices, implants and grafts, initial encounter; I13.0 Hypertensive heart and chronic kidney disease with heart failure and stage 1 through stage 4 chronic kidney disease, or unspecified chronic kidney disease; J98.11 Atelectasis; F03.90 Unspecified dementia, unspecified severity, without behavioral disturbance, psychotic disturbance, mood disturbance, and anxiety; I65.23 Occlusion and stenosis of bilateral carotid arteries; D64.9 Anemia, unspecified; F20.9 Schizophrenia, unspecified; I21.4 Non-ST elevation (NSTEMI) myocardial infarction; R09.02 Hypoxemia; Z85.3 Personal history of malignant neoplasm of breast; E55.9 Vitamin D deficiency, unspecified; E78.00 Pure hypercholesterolemia, unspecified; E78.1 Pure hyperglyceridemia; E78.5 Hyperlipidemia, unspecified; E87.6 Hypokalemia; F31.70 Bipolar disorder, currently in remission, most recent episode unspecified; Z86.59 Personal history of other mental and behavioral disorders; F51.02 Adjustment insomnia; Z86.73 Personal history of transient ischemic attack (TIA), and cerebral infarction without residual deficits; H40.9 Unspecified glaucoma; I25.5 Ischemic cardiomyopathy; N18.9 Chronic kidney disease, unspecified; I25.10 Atherosclerotic heart disease of native coronary artery without angina pectoris; I34.0 Nonrheumatic mitral (valve) insufficiency; I25.2 Old myocardial infarction; I73.9 Peripheral vascular disease, unspecified; I87.8 Other specified disorders of veins; K21.9 Gastro-esophageal reflux disease without esophagitis; K76.0 Fatty (change of) liver, not elsewhere classified; M85.80 Other specified disorders of bone density and structure, unspecified site; R31.29 Other microscopic hematuria; Z79.02 Long term (current) use of antithrombotics/antiplatelets; Z79.811 Long term (current) use of aromatase inhibitors; Z79.899 Other long term (current) drug therapy; Z90.49 Acquired absence of other specified parts of digestive tract; Z91.19 Patient's noncompliance with other medical treatment and regimen; Z95.5 Presence of coronary angioplasty implant and graft; R26.81 Unsteadiness on feet; F41.9 Anxiety disorder, unspecified; I51.7 Cardiomegaly; Z98.42 Cataract extraction status, left eye; Z98.41 Cataract extraction status, right eye; Z91.14 Patient's other noncompliance with medication regimen; R80.9 Proteinuria, unspecified; R82.71 Bacteriuria; F41.1 Generalized anxiety disorder; M40.204 Unspecified kyphosis, thoracic region; R00.0 Tachycardia, unspecified; G31.84 Mild cognitive impairment of uncertain or unknown etiology; I83.90 Asymptomatic varicose veins of unspecified lower extremity

== ENCOUNTER 2017-04-05 05:32 | Inpatient (IN) | payer MEDICARE, OTHER ==
[2017-04-05 05:32] VITALS: BMI 24.9
--- NOTE | 2017-04-05 05:49 | ED PDOC ---
Arrival/HPI - General Time Seen by Provider: 04/05/17 05:33 Historian: Patient - History of Present Illness Narrative History of Present Illness (Text): 04/05/17 05:48 Colette Perdomo is a 81 year old female, whose past medical history includes CHF , CAD with stents, hypertension, and breast cancer, who presents to the Emergency department brought in by EMS for shortness of breath. Patient states she woke up today with progressively worsening shortness of breath. Patient states she was recently discharged from the hospital yesterday following treatment of similat symptoms. Patient denies any fever, chills, nausea, vomiting, diarrhea, urinary symptoms, back pain, neck pain, headache, dizziness , or any other complaints. Symptom Onset: Gradual Symptom Course: Unchanged Activities at Onset: Rest, Light Context: Home Past Medical History - Provider Review Nursing Documentation Reviewed: Yes - Infectious Disease Hx of Infectious Diseases: None - Tetanus Immunization Tetanus Immunization: Unknown - Cardiac Hx Cardiac Disorders: Yes Hx Hypertension: Yes - Pulmonary Hx Respiratory Disorders: No Hx Tuberculosis: No - Neurological Hx Neurological Disorder: Yes Hx Transient Ischemic Attacks (TIA): Yes - HEENT Hx HEENT Disorder: Yes Hx Glaucoma: Yes - Renal Hx Renal Disorder: Yes Other/Comment: Kidney Disease - Endocrine/Metabolic Hx Endocrine Disorders: No - Hematological/Oncological Hx Blood Disorders: Yes Hx Anemia: Yes Hx Cancer: Yes (Breast) - Integumentary Hx Dermatological Disorder: No - Musculoskeletal/Rheumatological Hx Musculoskeletal Disorders: Yes Hx Falls: Yes (past) Hx Unsteady Gait: Yes - Gastrointestinal Hx Gastrointestinal Disorders: Yes Hx Gastroesophageal Reflux: Yes - Genitourinary/Gynecological Hx Genitourinary Disorders: No Hx Sexually Transmitted Diseases: No - Psychiatric Hx Psychophysiologic Disorder: Yes Hx Anxiety: Yes Hx Depression: Yes Hx Substance Use: No - Surgical History Hx Cardiac Catheterization: Yes Hx Cholecystectomy: Yes Hx Coronary Stent: Yes (x3) Other/Comment: carotid endarectomy - Anesthesia Hx Anesthesia: Yes Hx Anesthesia Reactions: No Hx Malignant Hyperthermia: No Family/Social History - Physician Review Nursing Documentation Reviewed: Yes Family/Social History: No Known Family HX Smoking Status: Never Smoked Hx Alcohol Use: No Hx Substance Use: No Allergies/Home Meds Allergies/Adverse Reactions: Allergies No Known Allergies Allergy (Verified 04/01/17 16:18) Home Medications: Home Meds Medication Instructions Recorded Confirmed Colesevelam HCl [Welchol] 3 tab PO BID 04/01/17 04/05/17 Febuxostat [Uloric] 40 mg PO HS 04/01/17 04/05/17 Furosemide [Lasix] 20 mg PO TID 04/01/17 04/05/17 Review of Systems - Physician Review All systems were reviewed & negative as marked: Yes - Review of Systems Constitutional: Normal. absent: Fevers Eyes: Normal ENT: Normal Respiratory: SOB Gastrointestinal: Normal. absent: Diarrhea, Nausea, Vomiting, Appetite Changes Genitourinary Female: Normal. absent: Dysuria, Frequency, Hematuria, Urine Output Changes Musculoskeletal: Normal. absent: Back Pain, Neck Pain Skin: Normal. absent: Rash Neurological: Normal. absent: Headache, Dizziness Endocrine: Normal Hemo/Lymphatic: Normal Psychiatric: Normal Physical Exam Vital Signs Reviewed: Yes Vital Signs Temp Pulse Resp BP Pulse Ox 04/05/17 15:08 98 F 72 20 118/52 L 96 04/05/17 12:30 76 18 109/71 96 04/05/17 11:00 132/102 H 04/05/17 10:00 98.8 F 74 18 119/76 96 04/05/17 09:00 77 18 134/88 97 04/05/17 07:25 101.9 F H 90 18 137/76 95 04/05/17 07:22 20 96 04/05/17 07:20 136/61 04/05/17 06:38 165/75 H 04/05/17 06:10 99 H 20 165/75 H 93 L 04/05/17 06:05 87 L 04/05/17 05:56 98.9 F 97 H 24 175/80 H 97 Temperature: Afebrile Blood Pressure: Normal Pulse: Regular Respiratory Rate: Normal Appearance: Positive for: Non-Toxic Pain Distress: None Mental Status: Positive for: Alert and Oriented X 3 - Systems Exam Head: Present: Atraumatic, Normocephalic Pupils: Present: PERRL Extroacular Muscles: Present: EOMI Conjunctiva: Present: Normal Mouth: Present: Moist Mucous Membranes Neck: Present: Normal Range of Motion Respiratory/Chest: Present: Rales. No: Respiratory Distress, Accessory Muscle Use Cardiovascular: Present: Regular Rate and Rhythm, Normal S1, S2. No: Murmurs Abdomen: Present: Normal Bowel Sounds. No: Tenderness, Distention, Peritoneal Signs Back: Present: Normal Inspection Upper Extremity: Present: Normal Inspection. No: Cyanosis, Edema Lower Extremity: Present: Normal Inspection. No: Edema Neurological: Present: GCS=15, CN II-XII Intact, Speech Normal Skin: Present: Warm, Dry, Normal Color. No: Rashes Psychiatric: Present: Alert, Oriented x 3, Normal Insight, Normal Concentration Medical Decision Making ED Course and Treatment: 04/05/17 05:48 Impression: 81 year old female brought in for progressively worsening shortness of breath. Plan: -- EKG -- Chest X-ray -- Labs, cardiac enzymes, BNP, VBG, blood cultures -- UA -- Reassess and disposition Prior Visits: Notes and results from previous visits were reviewed. Progress Notes: Reviewed EKG, sinus tachycardia at [address] bpm[address] Non-specific ST/T wave changes. 04/05/17 06:18 Reviewed radiology, Chest X-ray shows right-sided pneumonia. - Lab Interpretations Microbiology Results: Microbiology Results 04/05/17 23:00 Urine,Clean Catch Urine Culture - Final No Growth (<1,000 CFU/ML) 04/05/17 06:30 Blood-Venous Blood Culture - Preliminary NO GROWTH AFTER 48 HOURS 04/05/17 06:00 Blood-Venous Blood Culture - Preliminary NO GROWTH AFTER 48 HOURS Lab Results: 04/06/17 05:30 04/06/17 05:30 Lab Results 04/06/17 05:30: Sodium 134, Chloride 100, Potassium 3.7, Carbon Dioxide 32, Anion Gap 6 L, BUN 35 H, Creatinine 0.8, Est GFR ( Amer) > 60, Est GFR ( Non-Af Amer) > 60, Random Glucose 98, Calcium 8.7, Magnesium 1.8, Total Bilirubin 0.6, Direct Bilirubin 0.3, AST 37, ALT 50, Alkaline Phosphatase 109, NT-Pro-B Natriuret Pep 1690 H, Total Protein 5.3 L, Albumin 2.8 L, Globulin 2.5 , Albumin/Globulin Ratio 1.1 04/06/17 05:30: WBC 7.5 D, RBC 3.44 L, Hgb 10.2 L, Hct 32.1 L, MCV 93.3, MCH 29.7, MCHC 31.8, RDW 14.2, Plt Count 170, MPV 9.6, Gran % 68.1 H, Lymph % (Auto ) 16.2 L, [place] % (Auto) 10.8 H, Eos % (Auto) 4.8, Baso % (Auto) 0.1, Gran # 5.13 , Lymph # 1.2, [place] # 0.8 H, Eos # 0.4, Baso # 0.01 04/06/17 00:30: Sodium 132, Chloride 98, Potassium 3.7, Carbon Dioxide 32, Anion Gap 6 L, BUN 37 H, Creatinine 0.9, Est GFR ( Amer) > 60, Est GFR ( Non-Af Amer) > 60, Random Glucose 108, Calcium 8.4, Phosphorus 4.2, Magnesium 1.8, Troponin I 0.11 D 04/05/17 21:29: Urine Color Yellow, Urine Appearance Slight-cloudy, Urine pH 6.0 , Ur Specific [place] 1.020, Urine Protein Trace H, Urine Glucose (UA) Negative , Urine Ketones Negative, Urine Blood Negative, Urine Nitrate Negative, Urine Bilirubin Negative, Urine Urobilinogen 0.2, Ur Leukocyte Esterase Small H, Urine RBC 0 - 2, Urine WBC 20 - 25, Ur Epithelial Cells 1 - 3, Urine Bacteria Few 04/05/17 09:30: Lactic Acid 0.9 04/05/17 09:18: Procalcitonin 0.10 L 04/05/17 05:50: Sodium 138, Chloride 101, Potassium 4.5, Carbon Dioxide 31, Anion Gap 11, BUN 40 H, Creatinine 1.0, Est GFR ( Amer) > 60, Est GFR ( Non-Af Amer) 53, Random Glucose 147 H, Calcium 9.1, Total Bilirubin 0.5, AST 45 H, ALT 38, Alkaline Phosphatase 147 H, Lactate Dehydrogenase 561, Total Creatine Kinase 94, Troponin I 0.08, NT-Pro-B Natriuret Pep 1250 H, Total Protein 6.4, Albumin 3.6, Globulin 2.8, Albumin/Globulin Ratio 1.3 04/05/17 05:50: pO2 49, VBG pH 7.28 L, VBG pCO2 68.0 H*, VBG HCO3 32.0 H, VBG Total CO2 34.1 H, VBG O2 Sat (Calc) 85.8 H, VBG Base Excess 3.2 H, VBG Potassium 4.5, Sodium 136.0, Chloride 104.0, Glucose 139 H, Lactate 1.4, FiO2 21.0, Venous Blood Potassium 4.5 04/05/17 05:50: PT 10.7, INR 0.99, APTT 24.4 04/05/17 05:50: WBC 10.4 D, RBC 4.18, Hgb 12.5, Hct 38.7, MCV 92.6, MCH 29.9, MCHC 32.3, RDW 13.9, Plt Count 214, MPV 9.7, Gran % 85.7 H, Lymph % (Auto) 5.8 L , [place] % (Auto) 6.8 H, Eos % (Auto) 1.6, Baso % (Auto) 0.1, Gran # 8.91 H, Lymph # 0.6 L, [place] # 0.7 H, Eos # 0.2, Baso # 0.01 - RAD Interpretation Radiology Orders: 04/05/17 05:51 CHEST PORTABLE [RAD] Stat 04/05/17 09:18 CHEST W/O CONTRAST [CT] Stat 04/05/17 21:44 ABDOMEN COMPLETE [US] Routine Psychology Intern: Radiologist - EKG Interpretation Interpreted by ED Physician: Yes Comparison: Com.w/previous EKG - Medication Orders Current Medication Orders: Acetaminophen (Tylenol 325mg Tab) 650 mg PO Q4 PRN PRN Reason: Fever >100.4 F Last Admin: 04/05/17 08:00 Dose: 650 mg Re-Assess: MAR Pain/Vitals Document 04/05/17 09:00 ELIZA (Rec: 04/05/17 16:01 [id number]) Pain Reassessment Is This A Pain ReAssessment? No Sleep Is patient sleeping during reassessment? No Presence of Pain Presence of Pain No Acetylcysteine (Acetylcysteine 20%) 4 ml IH [id number] [facility] Last Admin: 04/07/17 14:08 Dose: 4 ml Anastrozole (Arimidex 1 Mg Tab) 1 mg PO DAILY [facility] Last Admin: 04/07/17 11:26 Dose: 1 mg Aspirin (Ecotrin) 81 mg PO DAILY [facility] Last Admin: 04/07/17 09:47 Dose: 81 mg Atorvastatin Calcium (Lipitor) 40 mg PO DIN [facility] Last Admin: 04/07/17 18:01 Dose: 40 mg Cholecalciferol (Vitamin D) 2,000 iu PO DAILY [facility] Last Admin: 04/07/17 09:47 Dose: 2,000 iu Clopidogrel Bisulfate (Plavix) 75 mg PO DAILY [facility] Last Admin: 04/07/17 09:47 Dose: 75 mg Donepezil HCl (Aricept) 5 mg PO HS [facility] Last Admin: 04/06/17 23:02 Dose: 5 mg Doxycycline Hyclate (Doryx) 100 mg PO Q12 [facility] PRN Reason: Protocol Stop: 04/12/17 22:01 Escitalopram Oxalate (Lexapro) 10 mg PO QAM [facility] Last Admin: 04/07/17 09:48 Dose: 10 mg Furosemide (Lasix) 40 mg PO BID [facility] Last Admin: 04/07/17 18:01 Dose: 40 mg Cefepime HCl (Maxipime 1gm) 1 gm in 100 mls @ 100 mls/hr IVPB Q12 [facility] PRN Reason: Protocol Stop: 04/13/17 22:01 Last Admin: 04/07/17 09:50 Dose: 100 mls/hr Isosorbide Mononitrate (Imdur) 60 mg PO DAILY [facility] Last Admin: 04/07/17 09:47 Dose: 60 mg Levalbuterol HCl (Xopenex) 0.63 mg IH [id number] [facility] Last Admin: 04/07/17 14:08 Dose: 0.63 mg Lisinopril (Zestril) 5 mg PO DAILY [facility] Last Admin: 04/07/17 09:48 Dose: 5 mg Lorazepam (Ativan) 0.5 mg PO 1000 [facility] PRN Reason: Protocol Last Admin: 04/07/17 09:47 Dose: 0.5 mg Re-Assess: Reassess Psych Meds Document 04/07/17 10:47 RKO (Rec: 04/07/17 11:35 RKO [id number]) Reassess Psych Med Effective Lorazepam (Ativan) 1.5 mg PO HS [facility] PRN Reason: Protocol Last Admin: 04/06/17 23:02 Dose: 1.5 mg Re-Assess: Reassess Psych Meds Document 04/07/17 00:02 DS (Rec: 04/07/17 04:26 DS [id number]) Reassess Psych Med Effective Magnesium Oxide (Mag-Ox) 400 mg PO BID [facility] Last Admin: 04/07/17 18:01 Dose: 400 mg Methylphenidate HCl (Ritalin) 5 mg PO 0800,1400 [facility] Last Admin: 04/07/17 14:19 Dose: Not Given Non-Admin Reason: Patient Refused Metoprolol Tartrate (Lopressor) 25 mg PO BID [facility] Last Admin: 04/07/17 18:01 Dose: 25 mg Non-Formulary Medication (Colesevelam Hcl [Welchol]) 3 tab PO BID [facility] Last Admin: 04/07/17 18:02 Dose: Non-Formulary Medication (Febuxostat [Uloric]) 40 mg PO HS [facility] Last Admin: 04/06/17 23:00 Dose: Not Given Non-Admin Reason: Patient Refused Olanzapine (Zyprexa) [address] [facility] PRN Reason: Protocol Last Admin: 04/06/17 23:01 Dose: 10 mg Pantoprazole Sodium (Protonix Ec Tab) 40 mg PO 0630 [facility] Last Admin: 04/07/17 05:54 Dose: 40 mg Potassium Chloride (K-Dur 20 Meq Er Tab) 20 meq PO ACBD [facility] Last Admin: 04/07/17 18:01 Dose: 20 meq Zaleplon (Sonata) [address] [facility] Last Admin: 04/06/17 23:21 Dose: 10 mg Comments: Pt complains of insomnia. Discontinued Medications Carvedilol (Coreg) 3.125 mg PO BRKDIN [facility] Last Admin: 04/06/17 09:19 Dose: 3.125 mg Furosemide (Lasix) 20 mg IVP ONCE ONE Stop: 04/05/17 06:21 Last Admin: 04/05/17 06:38 Dose: 20 mg Furosemide (Lasix) 40 mg IVP ONCE ONE Stop: 04/05/17 06:56 Last Admin: 04/05/17 07:20 Dose: 40 mg Furosemide (Lasix) 40 mg IVP Q12H [facility] Last Admin: 04/07/17 09:48 Dose: 40 mg Vancomycin HCl (Vancomycin 1gm) 1 gm in 250 mls @ 167 mls/hr IVPB STAT [facility] PRN Reason: Protocol Stop: 04/05/17 09:20 Last Admin: 04/05/17 08:00 Dose: 167 mls/hr Piperacillin Sod/Tazobactam Sod (Zosyn 3.375 In Ns 100ml) 100 mls @ 200 mls/hr IVPB STAT [facility] PRN Reason: Protocol Stop: 04/05/17 08:20 Last Admin: 04/05/17 10:00 Dose: 200 mls/hr Doxycycline Hyclate 100 mg/ (Sodium Chloride) 100 mls @ 100 mls/hr IVPB Q12 [facility] PRN Reason: Protocol Stop: 04/12/17 10:01 Last Admin: 04/07/17 09:49 Dose: 100 mls/hr Ceftriaxone Sodium (Rocephin 1 Gram Ivpb) 1 gm in 100 mls @ 100 mls/hr IVPB DAILY [facility] PRN Reason: Protocol Stop: 04/14/17 10:59 Last Admin: 04/05/17 12:30 Dose: 100 mls/hr Magnesium Sulfate 2 gm/ Sodium (Chloride) 104 mls @ 102 mls/hr IVPB ONCE ONE Stop: 04/06/17 13:34 Last Admin: 04/06/17 13:36 Dose: 102 mls/hr - PA / HOSPITAL ADMINISTRATIVE ASSISTANT / Resident Statement MD/DO has reviewed & agrees with the documentation as recorded. - Scribe Statement The provider has reviewed the documentation as recorded by the Scribe Tish Juarez All medical record entries made by the Scribe were at my direction and personally dictated by me. I have reviewed the chart and agree that the record accurately reflects my personal performance of the history, physical exam, medical decision making, and the department course for this patient. I have also personally directed, reviewed, and agree with the discharge instructions and disposition. Disposition/Present on Arrival - Present on Arrival Any Indicators Present on Arrival: No History of DVT/PE: Yes History of Uncontrolled Diabetes: No Urinary Catheter: No History Surgical Site Infection Following: None - Disposition Have Diagnosis and Disposition been Completed?: Yes Diagnosis: CHF exacerbation, Pneumonia Disposition: HOSPITALIZED Disposition Time: 07:00 Condition: FAIR
[2017-04-05 05:57] LABS: ADD MANUAL DIFF? NO
[2017-04-05 06:04] LABS: BASO # 0.01 K/mm3 (0.0-2.0); BASO % 0.1 % (0.0-3.0); EOS # 0.2 (0.0-0.7); EOS % 1.6 % (1.5-5.0); GRAN # 8.91 (1.4-6.5); GRAN % 85.7 % (50.0-68.0); HEMATOCRIT 38.7 % (36.0-48.0); LYMPH # 0.6 (1.2-3.4); LYMPH % 5.8 % (22.0-35.0); MEAN CELL VOLUME 92.6 fL (80.0-105.0); MEAN CORPUSCULAR HEMOGLOBIN 29.9 pg (25.0-35.0); MEAN CORPUSCULAR HGB CONC 32.3 g/dl (31.0-37.0); MEAN PLATELET VOLUME 9.7 fl (7.0-11.0); MONO # 0.7 (0.1-0.6); MONO % 6.8 % (1.0-6.0); PLATELET COUNT 214 10^3/uL (120.0-450.0); RED CELL DISTRIBUTION WIDTH 13.9 % (11.5-14.5); WHITE BLOOD COUNT 10.4 10^3/ul (4.5-11.0)
[2017-04-05 06:08] LABS: VENOUS BLOOD GAS BASE EXCESS 3.2 mmol/L (0.0-2.0); VENOUS BLOOD PH 7.28 (7.32-7.43)
[2017-04-05 06:14] LABS: ALB/GLOB RATIO 1.3 (1.1-1.8); ALKALINE PHOSPHATASE 147 U/L (38-133); ALT/SGPT 38 U/L (7-56); AST/SGOT 45 U/L (15-39); BILIRUBIN,TOTAL 0.5 mg/dL (0.2-1.3); BLOOD UREA NITROGEN 40 mg/dL (7-21); CALCIUM 9.1 mg/dL (8.4-10.5); CARBON DIOXIDE 31 mmol/L (21-33); CHLORIDE 101 mmol/L (98-107); GFR AFRICAN-AMERICAN > 60; GLUCOSE,RANDOM 147 mg/dL (70-110); INR 0.99 (0.93-1.08); PARTIAL THROMBOPLASTIN TIME 24.4 Seconds (23.7-30.8); POTASSIUM 4.5 mmol/L (3.6-5.0); SODIUM 138 mmol/L (132-148); TOTAL PROTEIN 6.4 g/dL (5.8-8.3)
[2017-04-05 06:25] LABS: TROPONIN I 0.08 ng/mL
[2017-04-05] MEDS ORDERED: Vancomycin 1gm in NS 250ml 1 GM/250 ML BAG IVPB STA (07:51)
[2017-04-05] MEDS ORDERED: Piperacillin/Tazobact 3.375 gm 100 ML IVPB STA (07:51)
--- NOTE | 2017-04-05 08:28 | RAD ---
HISTORY: sob COMPARISON: 04/01/2017 FINDINGS: LUNGS: There is a new infiltrate in the right lower lobe. The left lung remains clear PLEURA: No significant pleural effusion identified, no pneumothorax apparent. CARDIOVASCULAR: Normal. OSSEOUS STRUCTURES: No significant abnormalities. VISUALIZED UPPER ABDOMEN: Normal. OTHER FINDINGS: None. IMPRESSION: New right lower lobe infiltrate
[2017-04-05] MEDS ORDERED: cefTRIAXone 1 gm 1 GM/100 ML BAG IVPB SCH (10:00)
--- NOTE | 2017-04-05 10:12 | CT ---
PROCEDURE: CT Chest without contrast HISTORY: ??RLL PNEUMONIA COMPARISON: None. TECHNIQUE: Contiguous axial images were obtained through the chest without intravenous contrast enhancement. Sagittal and coronal reconstructions were performed. Radiation dose (DLP): 308 mGy-cm. This CT exam was performed using one or more of the following dose reduction techniques: Automated exposure control, adjustment of the mA and/or kV according to patient size, and/or use of iterative reconstruction technique. FINDINGS: LUNGS: Patchy nodular infiltrates are seen in the right lower lobe and to a lesser extent the right upper lobe. The left lung is clear. There is a decrease in the pleural effusion seen previously MEDIASTINUM: Unremarkable thoracic aorta. No aneurysm. Normal sized heart. Main pulmonary artery unremarkable. No vascular congestion. No lymphadenopathy. PLEURA: Small pleural effusions decreased from recent exam BONES: No fracture. No destructive lesion. UPPER ABDOMEN: Grossly unremarkable. OTHER FINDINGS: None. IMPRESSION: Multiple patchy nodular infiltrates in the right lung consistent with pneumonia
[2017-04-05] MEDS: Acetylcysteine 20% Inhal Soln (4ml) IH SCH ×3 (10:22→19:31)
[2017-04-05] MEDS: Magnesium Oxide 400 mg Tab UD PO SCH ×2 (10:24→17:38)
--- NOTE | 2017-04-05 10:57 | CARD ---
APPROVED REPORT EKG Measurement Heart [id number] <Conclusion> Sinus Tachycardia, new IVCD LVH STTW changes c/w ischemia IMI, age unknown
[2017-04-05] MEDS: Levalbuterol 0.63 MG/3 ML Inhal Soln UD IH SCH ×3 (11:15→19:31)
--- NOTE | 2017-04-05 14:28 | CON ---
DATE: 04/05/2017 The patient is a 81-year-old female. I reviewed the chart, spoke with patient at length, reviewed e nurses and physicians reports. The patient is well known to me. 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 this morning. She called the ambulance. The patient was rec ently hospitalized for a myocardial infarction. The patient is a good historian. PAST MEDICAL HISTORY: She has a history of recurrent psychotic episodes in the distant past, has had psychiatric hospitalizations in the recent past. She is under regular psychiatric treatment with [facility] psychotropic medicines. She has a history of previous coronary artery disease with stents and myocardial infarctions. She has had past psychiatric hospitalizations when she was a younger woman at the [facility]. She has had psychotic symptomatology off and on throughout her life with also periods of delusion in the past. The patient also has a history of acute CVA in 01/2016, which she h as had right-sided posterior parietooccipital stroke with lacunar infarcts. She became psychotic aft er that stroke. She also has a history of hyperlipidemia, gastroesophageal reflux disease, CA of the breast, coronary artery disease, mild cognitive impairment. 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 She has a history of carotid artery stenosis. She has had a right carotid endarterectomy. She has had coronary angioplasties. She has ischemic cardi omyopathy, hypertension, episodes of congestive heart failure and non-ST wave elevated myocardial inf arctions. She has also had a past hypovitaminosis of vitamin D in addition to a fatty liver. PERSONAL HISTORY: She is . She is a . She has a son. She has a daughter, with whom I have had ongoing contact. She has no history of alcohol or substance abuse. 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 The patient's daughter is her power of defense attorney. CURRENT MEDICATIONS: Include Zyprexa 10 mg at bedtime, lorazepam 0.5 mg daily and 1.5 mg at bedtime. She is receiving Lexapro 10 mg daily and Wellbutrin-XL. The patient's other medicines have recentl y been Coreg, Ecotrin, Uloric, Imdur, Klor-Con, Lasix IV, Lovenox and Plavix, Ritalin 5 mg in a.m. an d 2 p.m. and Zyprexa 10 mg, which is at bedtime. CURRENT LABORATORY DATA: Her white count is 10,400, hemoglobin 12.5, platelet count 214,000. Her me tabolic profile, her electrolytes are all normal. BUN is 40, creatinine 1.0. Her estimated GFR is 5 3, random glucose 147, AST of 45, ALT 38, alk phos 147. NT-pro B-natriuretic peptide is 1250. The r est of these parameters are within normal range. She had venous and arterial blood gases. Her pO2 i s 49, her pH is 7.28, venous pCO2 68.0. This is on an FiO2 of 21. PHYSICAL EXAMINATION: VITAL SIGNS: Blood pressure 132/102, pulse 77, respirations 18 per minute, O2 saturation most recent ly is 97% now on nasal cannula. NEUROLOGIC: She has no obvious focal neurological findings. PSYCHIATRIC: Mental status: She is awake, alert, slightly anxious. Recognizes me. Lying on a gurn ey in ER holding, is oriented x 3, aware of her surroundings. Denies being anxious this morning. Co mplains of shortness of breath. Her recent and remote memory are now intact. Her judgment is satisf actory. Her thought processes are well integrated. REVIEW OF SYSTEMS: Complains of shortness of breath. Other 12-point review noncontributory. 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 T he patient also has a history of hypertension. She has a history of cancer of the breast. She has e pisodes of recurrent congestive heart failure, hyperlipidemia. She has some renal insufficiency. He r mental status is relatively stable. PLAN: We will review psychotropic medicines and continue to monitor her mental status. Luis Mcdaniels MD cc: [id number] TT: 04/05/2017 14:28:19 Confirmation # [id number] Dictation # [id number]
[2017-04-05] MEDS: Non Formulary Medication (Colesevelam Hcl [Welchol] 3 TAB) PO SCH ×2 (15:52→18:43)
--- NOTE | 2017-04-05 21:18 | HP ---
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 The patient came to the Emergency Room by the [facility] ambulance. The patient was discharged yesterday after her persistent request to be discharged, after patient was recently admitted for non-ST elevation myocardial infarction and acute systolic congestive heart failure. The patient was cleared by physical therapy, cardiology for discharge and patient refused to stay further in the hospital so the patient was discharged after her persistent request to be discharged home. The patient states that she returned home in her usual state of health and took her current medications regularly, but patient woke up at 4 a.m. this morning extremely short of breath and called 911. The patient was brought to the Emergency Room for evaluation. CODE STATUS: Full code. LIVING WILL AND ADVANCED DIRECTIVE: None. HEIGHT: 5 feet 1 inch. WEIGHT: 132. BMI: 25. REVIEW OF SYSTEMS: A 13-system review was done. Pertinent positives and negatives dictated above. CODE STATUS: Full code. LIVING WILL AND ADVANCED DIRECTIVE: None. ALLERGIES: None. Height is 5 feet 1 inch. Weight is 136. BMI is 26. HOME MEDICATIONS: May have been different. The patient's home medications as per [facility]: Aricept 5 mg at bedtime, Arimidex 1 mg daily, Coreg 3.125 twice a day, Ecotrin 81 mg daily, Imdur 60 mg daily, Lasix has been changed to 40 mg twice a day rather than 20 mg 3 times a day, Lexapro 10 mg daily, Lipitor 40 mg daily, magnesium oxide 400 mg twice a day, Plavix 75 mg daily, Ritalin 5 mg at 8 a.m. and 2 p.m., Uloric 40 mg at bedtime, Welchol 3 tablets twice a day, Zyprexa 10 mg at bedtime. The patient's last discharge from 01/17/2017 from the psychiatry floor, at that time, patient was discharged on Arimidex 1 mg daily, Uloric 40 mg daily or allopurinol 100 mg daily, Ecotrin 81 mg daily, Imdur 60 mg once or twice a day or 120 mg daily, Lasix was changed, Lipitor 40 mg daily, Lexapro 10 mg daily, magnesium oxide 400 mg b.i.d., Plavix 75 daily, Coreg 3.125 twice a day, magnesium oxide 400 twice a day, Protonix 40 mg daily, Ritalin 5 mg at 8 a.m. and 2 p.m., Zyprexa 10 mg at bedtime. MENSTRUAL HISTORY: Postmenopausal. SOCIAL HISTORY: Denies smoking, denies alcohol, denies substance use, denies drug use, denies communicable transmissible disease. PAST MEDICAL HISTORY: Significant for right parietooccipital lobe acute infarct in 01/2016 with nonhemorrhagic acute infarct involving the right occipital and right parietal lobe, history of poor compliance and noncompliance , history of bilateral cataract surgery, history of multiple chronic cerebral infarcts. Also significant for history of carotid stenosis, history of left carotid stenosis 60%-80% with post-stenotic dilatation of the proximal left internal carotid artery, history of carotid endarterectomy. Also significant for right-sided stroke, history of bilateral carotid stenosis, history of carotid vertebral angiogram. Significant for history of right carotid endarterectomy. Significant for hypertension, history of dyslipidemia, hypertriglyceridemia, history of schizophrenia, history of depression and anxiety, history of angina, history of probable ischemic cardiomyopathy, history of depression, history of hypomagnesemia, history of dementia, history of hyperuricemia, history of dyslipidemia. Also significant for history of coronary artery disease, history of ischemic cardiomyopathy, history of hypertension, history of cerebral infarct, history of glaucoma, history of breast carcinoma, history of gait dysfunction, history of gastroesophageal reflux, history of anxiety, depression, history of cholecystectomy, history of coronary artery disease, coronary angioplasty, history of carotid endarterectomy. Significant for coronary artery disease, history of breast carcinoma, history of chronic kidney disease. Significant for non-ST elevation myocardial infarction, history of congestive heart failure, history of depression. Also significant for mild normocytic anemia. Significant for history of non-ST elevation myocardial infarction. Also significant for acute kidney injury with underlying chronic kidney disease. Also significant for iron deficiency. Also significant for hyperuricemia, history of dyslipidemia, history of systolic congestive heart failure with elevated BNP, history of hypovitaminosis D, history of proteinuria. Significant for history of osteopenia. Significant for history of multiple subcentimeter thyroid nodules, history of recent carotid ultrasound done by Dr. Cortez on 03/29 which is 40%-59% proximal left internal carotid artery stenosis and 20%-39% right internal carotid artery stenosis. Also significant for history of chronic right parietal infarct, history of carotid surgery, carotid endarterectomy. Significant for history of gait dysfunction, history of negative mammogram. Also significant for history of right carotid atheromatous plaque. Significant for last ejection fraction of 35% on last echocardiogram, history of global hypokinesis with moderately impaired left ventricular systolic function, history of moderate mitral regurgitation, history of moderate mitral regurgitation, history of right carotid endarterectomy, history of acute non-ST elevation myocardial infarction, history of inferior wall myocardial infarction. Also significant for history of inferolateral coronary ischemia with inferior wall myocardial infarction. Significant for severe noncompliance and extremely poor compliance, history of refusing to accept 24-hour care and supervision, which has been explained to the patient's daughter and son that patient needs 24-hour care and supervision, but not being provided by the patient's family. History of recurrent major depression with severe psychosis, history of cognitive impairment, history of dementia. Significant for acute exacerbation of depression with psychosis, cognitive impairment, history of poor compliance, history of hypokalemia, history of underlying chronic kidney disease, history of dyslipidemia, history of dilated ischemic cardiomyopathy with systolic congestive heart failure, history of recurrent depression, history of right parietal lobe and right occipital lobe infarct, history of breast carcinoma, history of proteinuria, history of bilateral lower extremity venous stasis, history of bradycardia, history of age indeterminate inferior anterior infarct with EKG changes, history of bradycardia, history of dilated ischemic cardiomyopathy with systolic congestive heart failure, history of acute exacerbation of anxiety, depression, bipolar disorders with symptoms of poor appetite, insomnia, depression with noncompliance with medication, history of bipolar disorder, history of contraction alkalosis, history of chronic microvascular ischemic disease of the brain with ventriculomegaly and central volume loss, history of hypokalemia, history of poor compliance and noncompliance, history of kyphosis, history of metabolic alkalosis, history of withdraws and seclusive behavior with grandiosities, history of hallucination, history of multi-infarct dementia, history of cognitive impairment with dementia , history of poor compliance. 1. Acute non-ST elevation anterior inferolateral myocardial infarction. 2. Status post acute systolic congestive heart failure and pulmonary edema. 3. Hypertension. 4. History of poor compliance. 5. Transient hypoxemia. 6. Bilateral carotid stenosis. 7. Status post right carotid endarterectomy. 8. Normocytic anemia. 9. Granulocytosis. 10. Elevated D-dimer, etiology undetermined. 11. Mild hypercarbia. 12. Acute non-ST elevation myocardial infarction with elevated troponin. 13. Acute systolic congestive heart failure and pulmonary edema with elevated BNP. 14. Hypovitaminosis D. 15. Hypokalemia. 16. Proteinuria, microscopic hematuria, bacteriuria. 17. Old inferior wall myocardial infarction with acute non-ST elevation, anterior inferolateral myocardial infarction. 18. Ischemic dilated cardiomyopathy. 19. Hypertensive cardiovascular disease. 20. Psychosis. 1. Status post acute non-ST elevation anterolateral inferior wall myocardial infarction. 2. Ischemic dilated cardiomyopathy. 3. Acute systolic congestive heart failure and pulmonary edema. 4. Status post cardiac catheterization. 5. Hypertensive cardiovascular disease. 6. Inferior anterolateral coronary ischemia and acute non-ST elevation myocardial infarction. 7. Status post cardiac catheterization. 8. Diffuse atherosclerosis and calcification of the left anterior descending artery, diagonal vessel, left circumflex and obtuse marginal vessel without critical stenosis. 9. Ostial right coronary artery occlusion with extension of the occlusion to the mid portion of the artery with in-stent restenosis. 10. Left ventricular ejection fraction of 40% with inferior wall akinesis. 11. Transient tachycardia. 12. Transient hypotension (resolved). 13. Dementia. 14. Normocytic anemia with granulocytosis. 15. Elevated D-dimer. 16. Mild hypercarbia. 17. Hypokalemia. 18. Acute non-ST elevation anterior inferolateral myocardial infarction with elevated troponin. 19. Hypokalemia. 20. Acute systolic congestive heart failure and pulmonary edema with elevated BNP. 21. Hypovitaminosis D. 22. Proteinuria, microscopic hematuria, bacteriuria. 23. History of poor compliance. 24. History of right carotid endarterectomy. 25. Carotid artery stenosis. 26. History of dementia. 27. Probable bipolar disorder, history of depression, history of psychosis, history of breast carcinoma, history of noncompliance, history of cognitive impairment. 28. Psychosis. 29. History of right parietooccipital infarct in 2016. 30. History of breast carcinoma. 31. History of major depressive disorder with anxiety disorder and psychosis and cognitive impairment. 1. Acute non-ST elevation myocardial infarction with elevated troponin and EKG changes. 2. Acute ____ inferolateral wall non-ST elevation myocardial infarction with ST changes and T-wave inversion in I and aVL, II, III, aVF and V3-V6. 3. Acute systolic congestive heart failure with elevated BNP. 4. Acute systolic congestive heart failure with acute pulmonary edema. 5. Status post bilevel positive airway pressure dependent respiratory failure. 6. Uncontrolled hypertension versus hypertensive emergency and urgency. 7. Tachycardia. 8. History of poor compliance. 9. Granulocytosis. 10. Normocytic anemia. 11. Elevated D-dimer, etiology undetermined. 12. Mild hypercarbia. 13. Hypokalemia. 14. Acute non-ST elevation myocardial infarction with elevated troponin. 15. Hypokalemia. 16. Prerenal kidney injury. 17. Acute systolic congestive heart failure and pulmonary edema with elevated BNP. 18. Trace proteinuria, microscopic hematuria, bacteriuria. 19. Bibasilar compressive atelectasis with moderate bilateral pleural effusion. 20. Pulmonary vascular congestion and bilateral pleural effusions with bilateral atelectasis. 21. History of poor compliance. 22. History of poor compliance and noncompliance. 23. History of anxiety, depression. 24. History of dementia. 25. History of breast carcinoma. 26. History of unstable angina. 27. History of coronary artery disease, non-ST elevation myocardial infarction and angioplasty. 28. History of depression. 29. History of dyslipidemia, hypomagnesemia, history of hyperuricemia. 1. Transient BiPAP dependent respiratory failure. 2. Acute systolic congestive heart failure and pulmonary edema with elevated BNP of greater than 2700. 3. Uncontrolled accelerated hypertension versus hypertensive emergency. 4. History of poor compliance. 5. Granulocytosis. 6. Elevated D-dimer of 2.3. 7. Mild respiratory . 8. Hypercarbia. 9. Mild prerenal kidney injury. 10. Indeterminate troponin of 0.03. 11. History of dilated ischemic cardiomyopathy with left ventricular ejection fraction of 34% and global hypokinesis and moderately impaired left ventricular systolic function. 12. Moderate mitral regurgitation. 13. Acute systolic congestive heart failure with elevated BNP and pulmonary vascular congestion. 14. Bibasilar atelectasis. 15. Bibasilar atelectasis. 16. Moderate bilateral pleural effusion, secondary to congestive heart failure. 17. Inferior wall myocardial infarction with Q-wave in III and aVF. 18. Questionable lateral ischemic changes with EKG changes. 19. Questionable inferolateral coronary ischemia with indeterminate troponin. 20. Proteinuria. 21. Microscopic hematuria. 22. Bacteriuria. 23. Questionable anteroinferior coronary infarct, acute versus chronic, with anteroinferior coronary ischemia. 24. History of anxiety, depression, history of dementia, history of breast carcinoma, history of angina, history of dyslipidemia, history of hypomagnesemia , history of poor compliance. PHYSICAL EXAMINATION: GENERAL: The patient is seen in stretcher #3 in the Emergency Room. VITAL SIGNS: T-max is 101.9. Heart rate 97, 96, 97, 72, 75, 89, 95. Blood pressure ranging from 175/80, 165/75, 136/76, 134/88, 132/102, 109/71, 118/52. Respirations 18, O2 sat initially 97, 87, 93, 96, 95 and 97. GENERAL: The patient is seen in stretcher #3. The patient is lying in the bed. HEAD: Normocephalic, atraumatic. HEENT: Shows pinkish, pale conjunctivae, anicteric sclerae, no oropharyngeal lesion. NECK: Positive soft carotid bruit, positive right carotid endarterectomy surgical scar. CHEST: Positive kyphosis. LUNGS: Shows positive rhonchi, positive creps, positive crackles, right more than the left. CARDIOVASCULAR: Shows S1, S2, tachycardic rhythm. Positive systolic murmur left sternal border, right second intercostal space, left second intercostal space. ABDOMEN: Soft, positive bowel sounds. GENITALIA: Female. RECTAL: Deferred. EXTREMITIES: Shows 1+ pitting edema. MUSCULOSKELETAL: Shows a body mass index of 25. NEUROLOGIC: Cranial nerves II-XII limited. GAIT: Not tested. VASCULAR: Palpable pulses. PSYCHIATRIC: At present negative for anxiety, depression. Negative for auditory and visual hallucination. Negative for suicidal or homicidal ideation. DIAGNOSTICS: WBC 10.4, hemoglobin and hematocrit 12.5 and 38.7, platelet 214. granulocytes 86%, PT/PTT 10.7 and 24.4. VBG shows a lactate of 1.4. Sodium 138 , potassium 4.5, chloride 101, CO2 31, anion gap 11, BUN ____, creatinine 1.0, GFR greater than 60, glucose 147, lactic acid 0.9, AST 45, alk phos 147, troponin 0.08. BNP 1250, procalcitonin level 0.10. The patient had a chest x- ray done which was suggestive of pneumonia. The patient had a CT of the chest was done without contrast, which shows right-sided multilobar pneumonia. EKG done in the Emergency Room shows sinus tachycardia, Q-wave in III and aVF, ST depression 1, 2, AVL, V4-V6. The patient was seen and treated in the Emergency Room by Dr. Wellington. The patient was given IV Lasix. The patient was given Zosyn 3.375, patient was given vancomycin 1 gram IV. The patient was advised to be placed on telemetry. The patient was seen also by Dr. Mcdaniels in the interim. IMPRESSION AND PLAN: 1. Acute recurrent systolic congestive heart failure and pulmonary edema with elevated BNP. 2. Right-sided multilobar nodular infiltrate and multilobar community-acquired versus healthcare-associated pneumonia. 3. Pleural effusion. 4. High grade fever of 102. 5. Tachycardia. 6. Transient hypotension. 7. Transient hypoxemia. 8. Granulocytosis. 9. Mild prerenal kidney injury. 10. Hyperglycemia. 11. Transaminitis. 12. Right-sided multilobar community-acquired versus healthcare-associated pneumonia. 13. History of coronary artery disease, history of recent non-ST elevation myocardial infarction. 14. Enteral inferolateral coronary ischemic changes. 15. Old inferior wall myocardial infarction. 16. Sinus tachycardia. 17. Coronary ischemia. 18. Age indeterminate inferior wall myocardial infarction. 19. History of ischemic dilated cardiomyopathy. 20. History of poor compliance. 21. Recurrent major depression. 22. Psychosis. 23. Poor compliance. 24. Major depression with psychosis. 25. Recurrent acute on chronic recurrent systolic congestive heart failure. 26. History of breast carcinoma. 27. History of dementia. 28. History of anxiety. 29. History of dyslipidemia. 30. History of hyperuricemia. 31. History of depression. 32. History of hypomagnesemia. 33. History of hypovitaminosis D. 34. History of depression. 35. History of anxiety disorder. PLAN: At this time, patient is to be admitted to telemetry. Serial labs have been ordered. Blood cultures ordered. Infectious disease, psychiatry evaluation ordered. The patient is started on: 1. Xopenex plus Mucomyst nebulizer treatment every 6 hours. 2. Aricept 5 mg at bedtime. 3. Arimidex 1 mg daily, Ativan 0.5 mg 10 a.m. and Ativan 1.5 mg at bedtime. 4. Welchol 3 tablets twice a day. 5. Coreg 3.125 twice a day. 6. Vibramycin 100 mg IV q. 12. 7. Ecotrin 81 mg daily. 8. Uloric 40 mg daily. 9. Imdur 60 mg daily. 10. The patient is started on Lasix 40 IV q. 12. 11. Lexapro 10 mg daily 12. Lipitor 40 mg daily. 13. Magnesium oxide 400 mg twice a day. 14. Plavix 75 mg daily. 15. Protonix 40 mg daily. 16. Ritalin 5 mg at 8 a.m., 2 p.m. 17. Rocephin 1 gram IV daily. 18. Sonata has been started by Dr. Mcdaniels at 10 mg at bedtime. 19. Tylenol 650 mg q. 4 p.r.n. 20. Vancomycin 1 gram was given in the Emergency Room. 21. The patient was placed on vitamin D3 2000 units daily. 22. Zestril 5 mg daily. The patient received Zosyn 3.375 grams in the ER. Zyprexa 10 mg at bedtime. Chest PT ordered. Repeat EKG ordered. Heart healthy diet ordered. Out of bed , ABAD stockings, SCDs ordered. At present, patient will be monitored closely on the telemetry. The patient's clinical condition will be monitored very closely. The patient's further management will be dependent upon the patient's clinical condition, hemodynamic status, and as per patient response to therapeutic intervention, as per patient's diagnostic test results and as per recommendation by all the specialists involved in the care of the patient. At present, the patient was seen in the Emergency Room in bed 3. Dictated and electronically signed, not read. Mohan Hidalgo MD cc: [id number] TT: 04/05/2017 21:18:16 jn MTDD
[2017-04-05 21:45] LABS: URINE BILIRUBIN NEGATIVE (NEGATIVE); URINE BLOOD NEGATIVE (NEGATIVE); URINE COLOR YELLOW (YELLOW); URINE GLUCOSE (UA) NEGATIVE (NEGATIVE); URINE KETONE NEGATIVE (NEGATIVE); URINE LEUKOCYTE ESTERASE SMALL Leu/uL (NEGATIVE); URINE PROTEIN TRACE mg/dL (<30 mg/dL); URINE UROBILINOGEN 0.2 E.U./dL (<1 E.U./dL)
[2017-04-05 21:46] LABS: URINE APPEARANCE SLIGHT-CLOUDY (CLEAR)
[2017-04-05 22:19] LABS: URINE BACTERIA FEW (NEG); URINE RBC 0 - 2 /hpf (0-2); URINE WBC 20 - 25 /hpf (0-6)
[2017-04-05] MEDS: Cefepime 1gm in NS 100ml 1 GM/100 ML BAG IVPB SCH (22:32)
--- NOTE | 2017-04-06 00:28 | CP.PCM.PN ---
Subjective - Date & Time of Evaluation Date of Evaluation: 04/06/17 Time of Evaluation: 00:28 - Subjective Subjective: Patient was seen at bedside because she had 15 beats of run of VTACH. 15 beat run of VTACH. Patient has no complaints. This 81 year old patient was admitted with with sob. Has PMH of recent NSTEMI, CHF. HTN,CPAP-right , pleural effusion, transamintis, CAD , inf wall mi ,depression, psychosis, breast cancer, dementia. Objective - Vital Signs/Intake and Output Vital Signs (last 24 hours): Temp Pulse Resp BP Pulse Ox 99 F 95 H 18 115/54 L 98 04/05/17 20:02 04/05/17 20:02 04/05/17 20:02 04/05/17 22:26 04/05/17 20:02 Intake and Output: 04/05/17 04/06/17 18:59 06:59 Intake Total 300 Output Total 2 Balance 298 - Medications Medications: Current Medications Acetaminophen (Tylenol 325mg Tab) 650 mg PO Q4 PRN PRN Reason: Fever >100.4 F Last Admin: 04/05/17 08:00 Dose: 650 mg Acetylcysteine (Acetylcysteine 20%) 4 ml IH [id number] [facility] Last Admin: 04/05/17 19:31 Dose: 4 ml Anastrozole (Arimidex 1 Mg Tab) 1 mg PO DAILY [facility] Last Admin: 04/05/17 11:01 Dose: 1 mg Aspirin (Ecotrin) 81 mg PO DAILY [facility] Last Admin: 04/05/17 11:03 Dose: 81 mg Atorvastatin Calcium (Lipitor) 40 mg PO DIN [facility] Last Admin: 04/05/17 17:37 Dose: 40 mg Carvedilol (Coreg) 3.125 mg PO BRKDIN [facility] Last Admin: 04/05/17 17:37 Dose: 3.125 mg Cholecalciferol (Vitamin D) 2,000 iu PO DAILY [facility] Last Admin: 04/05/17 14:19 Dose: 2,000 iu Clopidogrel Bisulfate (Plavix) 75 mg PO DAILY [facility] Last Admin: 04/05/17 11:03 Dose: 75 mg Donepezil HCl (Aricept) 5 mg PO HS [facility] Last Admin: 04/05/17 22:12 Dose: 5 mg Escitalopram Oxalate (Lexapro) 10 mg PO QAM [facility] Last Admin: 04/05/17 11:02 Dose: 10 mg Furosemide (Lasix) 40 mg IVP Q12H [facility] Last Admin: 04/05/17 22:26 Dose: 40 mg Doxycycline Hyclate 100 mg/ (Sodium Chloride) 100 mls @ 100 mls/hr IVPB Q12 LOAN PRN Reason: Protocol Stop: 04/14/17 22:59 Last Admin: 04/05/17 23:53 Dose: 100 mls/hr Cefepime HCl (Maxipime 1gm) 1 gm in 100 mls @ 100 mls/hr IVPB Q12 LOAN PRN Reason: Protocol Stop: 04/13/17 22:01 Last Admin: 04/05/17 22:32 Dose: 100 mls/hr Isosorbide Mononitrate (Imdur) 60 mg PO DAILY [facility] Last Admin: 04/05/17 10:23 Dose: 60 mg Levalbuterol HCl (Xopenex) 0.63 mg IH [id number] [facility] Last Admin: 04/05/17 19:31 Dose: 0.63 mg Lisinopril (Zestril) 5 mg PO DAILY [facility] Last Admin: 04/05/17 10:24 Dose: 5 mg Lorazepam (Ativan) 0.5 mg PO 1000 LOAN PRN Reason: Protocol Last Admin: 04/05/17 10:22 Dose: 0.5 mg Lorazepam (Ativan) 1.5 mg PO HS [facility] PRN Reason: Protocol Last Admin: 04/05/17 22:12 Dose: 1.5 mg Magnesium Oxide (Mag-Ox) 400 mg PO BID [facility] Last Admin: 04/05/17 17:38 Dose: 400 mg Methylphenidate HCl (Ritalin) 5 mg PO 0800,1400 [facility] Last Admin: 04/05/17 14:19 Dose: 5 mg Non-Formulary Medication (Colesevelam Hcl [Welchol]) 3 tab PO BID [facility] Last Admin: 04/05/17 18:43 Dose: Not Given Non-Formulary Medication (Febuxostat [Uloric]) 40 mg PO HS [facility] Last Admin: 04/05/17 22:12 Dose: Not Given Olanzapine (Zyprexa) 10 mg PO HS [facility] PRN Reason: Protocol Last Admin: 04/05/17 22:25 Dose: 10 mg Pantoprazole Sodium (Protonix Ec Tab) 40 mg PO 0630 LOAN Zaleplon (Sonata) 10 mg PO HS LOAN Last Admin: 04/05/17 22:33 Dose: 10 mg - Labs Labs: PT 10.7 Seconds (9.9-11.8) 04/05/17 05:50 INR 0.99 (0.93-1.08) 04/05/17 05:50 APTT 24.4 Seconds (23.7-30.8) 04/05/17 05:50 - Constitutional Appears: Well, No Acute Distress - Head Exam Head Exam: ATRAUMATIC, NORMAL INSPECTION, NORMOCEPHALIC - Eye Exam Eye Exam: Normal appearance - ENT Exam ENT Exam: Normal External Ear Exam - Neck Exam Neck Exam: Normal Inspection - Respiratory Exam Respiratory Exam: NORMAL BREATHING PATTERN - Cardiovascular Exam Cardiovascular Exam: absent: JVD - GI/Abdominal Exam GI & Abdominal Exam: absent: Distended - Rectal Exam Rectal Exam: Deferred - Extremities Exam Extremities Exam: Normal Inspection - Back Exam Back Exam: NORMAL INSPECTION - Neurological Exam Neurological Exam: Alert, Awake - Psychiatric Exam Psychiatric exam: Normal Affect, Normal Mood - Skin Skin Exam: Normal Color Assessment and Plan - Assessment and Plan (Free Text) Assessment: Non sustained ventricular tachycardia. EKG Changes.(New inverted T in V3,V4.) NSTEMI. CHF. HTN. Hx breast cancer. Dementia. Plan: BMP ,Mag, PHOS Trponin (0.11) ordered. EKG-NSR,PVC, New flipped t waves in lead V3,V4. Continue present medications.
[2017-04-06 01:13] LABS: BLOOD UREA NITROGEN 37 mg/dL (7-21); CALCIUM 8.4 mg/dL (8.4-10.5); CARBON DIOXIDE 32 mmol/L (21-33); CHLORIDE 98 mmol/L (98-107); GFR AFRICAN-AMERICAN > 60; GLUCOSE,RANDOM 108 mg/dL (70-110); MAGNESIUM 1.8 mg/dL (1.7-2.2); PHOSPHOROUS 4.2 mg/dL (2.5-4.5); POTASSIUM 3.7 mmol/L (3.6-5.0); SODIUM 132 mmol/L (132-148)
[2017-04-06 01:24] LABS: TROPONIN I 0.11 ng/mL
[2017-04-06] MEDS: Acetylcysteine 20% Inhal Soln (4ml) IH SCH ×4 (01:24→19:52)
[2017-04-06] MEDS: Levalbuterol 0.63 MG/3 ML Inhal Soln UD IH SCH ×4 (01:27→19:52)
[2017-04-06] MEDS: Pantoprazole 40 mg EC Tab PO SCH (05:49)
[2017-04-06 06:01] LABS: ADD MANUAL DIFF? NO
[2017-04-06 06:16] LABS: BASO # 0.01 K/mm3 (0.0-2.0); BASO % 0.1 % (0.0-3.0); EOS # 0.4 (0.0-0.7); EOS % 4.8 % (1.5-5.0); GRAN # 5.13 (1.4-6.5); GRAN % 68.1 % (50.0-68.0); HEMATOCRIT 32.1 % (36.0-48.0); LYMPH # 1.2 (1.2-3.4); LYMPH % 16.2 % (22.0-35.0); MEAN CELL VOLUME 93.3 fL (80.0-105.0); MEAN CORPUSCULAR HEMOGLOBIN 29.7 pg (25.0-35.0); MEAN CORPUSCULAR HGB CONC 31.8 g/dl (31.0-37.0); MEAN PLATELET VOLUME 9.6 fl (7.0-11.0); MONO # 0.8 (0.1-0.6); MONO % 10.8 % (1.0-6.0); PLATELET COUNT 170 10^3/uL (120.0-450.0); RED CELL DISTRIBUTION WIDTH 14.2 % (11.5-14.5); WHITE BLOOD COUNT 7.5 10^3/ul (4.5-11.0)
[2017-04-06 06:19] LABS: ALB/GLOB RATIO 1.1 (1.1-1.8); ALKALINE PHOSPHATASE 109 U/L (38-133); ALT/SGPT 50 U/L (7-56); AST/SGOT 37 U/L (15-39); BILIRUBIN,DIRECT 0.3 mg/dL (0.0-0.4); BILIRUBIN,TOTAL 0.6 mg/dL (0.2-1.3); BLOOD UREA NITROGEN 35 mg/dL (7-21); CALCIUM 8.7 mg/dL (8.4-10.5); CARBON DIOXIDE 32 mmol/L (21-33); CHLORIDE 100 mmol/L (98-107); GFR AFRICAN-AMERICAN > 60; GLUCOSE,RANDOM 98 mg/dL (70-110); MAGNESIUM 1.8 mg/dL (1.7-2.2); POTASSIUM 3.7 mmol/L (3.6-5.0); SODIUM 134 mmol/L (132-148); TOTAL PROTEIN 5.3 g/dL (5.8-8.3)
[2017-04-06] MEDS: Potassium Chloride 20 mEq ER Tab PO SCH ×2 (09:20→18:29)
[2017-04-06] MEDS: Non Formulary Medication (Colesevelam Hcl [Welchol] 3 TAB) PO SCH ×2 (09:21→18:27)
[2017-04-06] MEDS: Magnesium Oxide 400 mg Tab UD PO SCH ×2 (09:22→18:26)
[2017-04-06] MEDS: Cefepime 1gm in NS 100ml 1 GM/100 ML BAG IVPB SCH ×2 (10:21→21:38)
--- NOTE | 2017-04-06 11:00 | CP.PCM.CON ---
History of Present Illness - History of Present Illness History of Present Illness: 81 year old female with PMH of breast cancer, CAD S/P PCI, chronic CHF, HTN, history of TIA, S/P carotid endarterectomy, history of glaucoma, GERD was brought in to [facility] because of progressively worsening shortness of breath associated with intermittent non-productive cough. The patient was recently seen in the hospital for the same symptoms. She denies fever or chills, no nausea or vomiting, no headache or dizziness, no chest pain , no abdominal pain, no diarrhea, no dysuria. In the ED, CT chest was done which showed nodular infiltrates in the right lower lobe and some in the right upper lobe. The patient denies recent travel outside of [place] in the past 3 months and has not been generally outdoors. She also denies animal contacts or exposures. Infectious diseases consult is requested to further evaluate and manage. Review of Systems - Review of Systems All systems: reviewed and no additional remarkable complaints except (as per HPI ) Past Patient History - Infectious Disease Hx of Infectious Diseases: None - Tetanus Immunizations Tetanus Immunization: Unknown - Past Social History Smoking Status: Former Smoker - CARDIAC Hx Angina: Yes Hx Congestive Heart Failure: Yes Hx Hypercholesterolemia: Yes Hx Hypertension: Yes Hx Peripheral Vascular Disease: Yes - PULMONARY Hx Pneumonia: Yes - NEUROLOGICAL Hx Dementia: Yes Hx Transient Ischemic Attacks (TIA): Yes - HEENT Hx Glaucoma: Yes - RENAL Hx Renal Failure: Yes - ENDOCRINE/METABOLIC Hx Endocrine Disorders: No - HEMATOLOGICAL/ONCOLOGICAL Hx Anemia: Yes - INTEGUMENTARY Hx Dermatological Problems: No - MUSCULOSKELETAL/RHEUMATOLOGICAL Hx Falls: Yes - GASTROINTESTINAL Hx Gastroesophageal Reflux: Yes - GENITOURINARY/GYNECOLOGICAL Hx Genitourinary Disorders: No Hx Sexually Transmitted Disorders: No - PSYCHIATRIC Hx Anxiety: Yes - SURGICAL HISTORY Hx Cardiac Catheterization: Yes Hx Coronary Stent: Yes - ANESTHESIA Hx Anesthesia: Yes Hx Anesthesia Reactions: No Hx Malignant Hyperthermia: No Meds Allergies/Adverse Reactions: Allergies Allergy/AdvReac Type Severity Reaction Status Date / Time No Known Allergies Allergy Verified 04/01/17 16:18 - Medications Medications: Current Medications Acetaminophen (Tylenol 325mg Tab) 650 mg PO Q4 PRN PRN Reason: Fever >100.4 F Last Admin: 04/05/17 08:00 Dose: 650 mg Acetylcysteine (Acetylcysteine 20%) 4 ml IH [id number] LOAN Last Admin: 04/05/17 19:31 Dose: 4 ml Anastrozole (Arimidex 1 Mg Tab) 1 mg PO DAILY [facility] Last Admin: 04/05/17 11:01 Dose: 1 mg Aspirin (Ecotrin) 81 mg PO DAILY [facility] Last Admin: 04/05/17 11:03 Dose: 81 mg Atorvastatin Calcium (Lipitor) 40 mg PO DIN [facility] Last Admin: 04/05/17 17:37 Dose: 40 mg Carvedilol (Coreg) 3.125 mg PO BRKDIN [facility] Last Admin: 04/05/17 17:37 Dose: 3.125 mg Cholecalciferol (Vitamin D) 2,000 iu PO DAILY [facility] Last Admin: 04/05/17 14:19 Dose: 2,000 iu Clopidogrel Bisulfate (Plavix) 75 mg PO DAILY [facility] Last Admin: 04/05/17 11:03 Dose: 75 mg Donepezil HCl (Aricept) 5 mg PO HS [facility] Last Admin: 04/05/17 22:12 Dose: 5 mg Escitalopram Oxalate (Lexapro) 10 mg PO QAM [facility] Last Admin: 04/05/17 11:02 Dose: 10 mg Furosemide (Lasix) 40 mg IVP Q12H [facility] Last Admin: 04/05/17 22:26 Dose: 40 mg Doxycycline Hyclate 100 mg/ (Sodium Chloride) 100 mls @ 100 mls/hr IVPB Q12 [facility] PRN Reason: Protocol Stop: 04/14/17 22:59 Last Admin: 04/05/17 11:00 Dose: 100 mls/hr Cefepime HCl (Maxipime 1gm) 1 gm in 100 mls @ 100 mls/hr IVPB Q12 [facility] PRN Reason: Protocol Stop: 04/13/17 22:01 Last Admin: 04/05/17 22:32 Dose: 100 mls/hr Isosorbide Mononitrate (Imdur) 60 mg PO DAILY [facility] Last Admin: 04/05/17 10:23 Dose: 60 mg Levalbuterol HCl (Xopenex) 0.63 mg IH [id number] [facility] Last Admin: 04/05/17 19:31 Dose: 0.63 mg Lisinopril (Zestril) 5 mg PO DAILY [facility] Last Admin: 04/05/17 10:24 Dose: 5 mg Lorazepam (Ativan) 0.5 mg PO 1000 [facility] PRN Reason: Protocol Last Admin: 04/05/17 10:22 Dose: 0.5 mg Lorazepam (Ativan) 1.5 mg PO HS [facility] PRN Reason: Protocol Last Admin: 04/05/17 22:12 Dose: 1.5 mg Magnesium Oxide (Mag-Ox) 400 mg PO BID [facility] Last Admin: 04/05/17 17:38 Dose: 400 mg Methylphenidate HCl (Ritalin) 5 mg PO 0800,1400 [facility] Last Admin: 04/05/17 14:19 Dose: 5 mg Non-Formulary Medication (Colesevelam Hcl [Welchol]) 3 tab PO BID [facility] Last Admin: 04/05/17 18:43 Dose: Not Given Non-Formulary Medication (Febuxostat [Uloric]) 40 mg PO HS [facility] Last Admin: 04/05/17 22:12 Dose: Not Given Olanzapine (Zyprexa) 10 mg PO HS [facility] PRN Reason: Protocol Last Admin: 04/05/17 22:25 Dose: 10 mg Pantoprazole Sodium (Protonix Ec Tab) 40 mg PO 0630 LOAN Zaleplon (Sonata) 10 mg PO HS [facility] Last Admin: 04/05/17 22:33 Dose: 10 mg Physical Exam - Constitutional Appears: Non-toxic, No Acute Distress - Head Exam Head Exam: NORMAL INSPECTION - ENT Exam ENT Exam: Mucous Membranes Moist - Neck Exam Neck exam: Negative for: Lymphadenopathy, Meningismus - Respiratory Exam Respiratory Exam: Decreased Breath Sounds - Cardiovascular Exam Cardiovascular Exam: +S1, +S2 - GI/Abdominal Exam GI & Abdominal Exam: Soft. absent: Tenderness Results - Vital Signs Recent Vital Signs: Last Vital Signs Temp 99 F 04/05/17 20:02 Pulse 95 H 04/05/17 20:02 Resp 18 04/05/17 20:02 BP 115/54 L 04/05/17 22:26 Pulse Ox 98 04/05/17 20:02 - Labs Result Diagrams: 04/06/17 05:30 04/06/17 05:30 Labs: Laboratory Results - last 24 hr 04/05/17 04/05/17 04/05/17 09:18 09:30 21:29 Lactic Acid 0.9 Procalcitonin 0.10 L Urine Color Yellow Urine Appearance Slight-cloudy Urine pH 6.0 Ur Specific [place] 1.020 Urine Protein Trace H Urine Glucose (UA) Negative Urine Ketones Negative Urine Blood Negative Urine Nitrate Negative Urine Bilirubin Negative Urine Urobilinogen 0.2 Ur Leukocyte Esterase Small H Urine RBC 0 - 2 Urine WBC 20 - 25 Ur Epithelial Cells 1 - 3 Urine Bacteria Few Assessment & Plan - Assessment and Plan (Free Text) Plan: Assessment Consider right sided healthcare-associated pneumonia breast cancer CAD S/P PCI chronic CHF HTN history of TIA S/P carotid endarterectomy history of glaucoma GERD Plan Patient given one dose of IV Vancomycin, and started on Cefepime and Doxycycline pending blood, sputum cx, PCT; reviewed CT chest which showed the right sided infiltrates Will follow clinical response
--- NOTE | 2017-04-06 11:07 | US ---
HISTORY: inc alk phos COMPARISON: None. TECHNIQUE: Sonographic evaluation of the abdomen. FINDINGS: LIVER: Measures cm. Normal echogenicity of the liver parenchyma. There is intrahepatic biliary air. GALLBLADDER: Status post cholecystectomy. COMMON BILE DUCT: Measures mm. No stones. No dilatation. PANCREAS: Unremarkable as visualized. No mass. No ductal dilatation. RIGHT KIDNEY: Measures cm. Normal echogenicity. No calculus, mass, or hydronephrosis. LEFT KIDNEY: Measures cm. Normal echogenicity. No calculus, mass, or hydronephrosis. 1.4 centimeter cyst in the interpolar region of the left kidney. SPLEEN: Normal in size and contour. No mass. AORTA: No aneurysmal dilatation. IVC: Unremarkable. OTHER FINDINGS: Small right pleural effusion. IMPRESSION: Air in the biliary tree suggesting previous sphincterotomy; correlate clinically. Status post cholecystectomy. Small left renal cyst. Small right pleural effusion
--- NOTE | 2017-04-06 11:40 | PN ---
DATE: 04/06/2017 HISTORY OF PRESENT ILLNESS: The patient is seen in ultrasound lying in the bed. The patient states that she has much less shortness of breath, denies chest pain, denies nausea, vomiting, diarrhea, constipation. Overnight events were noted. The patient was noted to have a 15-beat run of V-tach, asymptomatic. The patient was seen by the house physician, which shows new T- wave inversion in V3-V4. According to the nurses' notes, the patient had an EKG done, which was reviewed by Dr. Hutchison. PHYSICAL EXAMINATION: VITAL SIGNS: T-max 99. Telemetry shows sinus rhythm with nonsustained 15-beat V-tach noted by the telemetry monitoring, heart rate averaging 70s-90s, blood pressure 143/63, respiration 18, O2 sat 96%. Intake output not documented correctly. HEENT: Normocephalic, atraumatic. Shows pinkish, pale conjunctivae, anicteric sclerae, no oropharyngeal lesions. Soft carotid bruit bilaterally. Positive right carotid endarterectomy surgical scar, positive kyphosis. LUNGS: Decreasing rhonchi. Decreasing crackles, decreasing rales. CARDIOVASCULAR: Shows S1 and S2 regular rhythm. Questionable soft systolic murmur right second intercostal space, left sternal border, left second intercostal space. ABDOMEN: Abdomen is soft, positive bowel sounds. GENITALIA: Female. RECTAL: Deferred. EXTREMITIES: Show decreasing pitting edema, decreasing swelling of the lower extremity. MUSCULOSKELETAL: Shows a body mass index of 27.4. NEUROLOGIC: The patient is alert, awake, oriented x 3. Cranial nerves II-XII intact. Gait examination not tested. VASCULAR: Palpable pulses. DIAGNOSTIC: 04/06/2017: WBC 7.5, hemoglobin and hematocrit 10.2 and 32.1, platelets 170, granulocytes 68%. Hemoglobin dropped from 12.5-10.2. Hematocrit dropped from 38.7, hematocrit 32.1. Sodium 134, potassium is down to 3.7 from 4.5, chloride 100, CO2 32, anion gap 6, BUN 35 from 40, creatinine 0.8, GFR greater than 60, glucose 98. Lactic acid 0.9. LFTs are normal. Magnesium 1.8. Troponin is 0.11. BNP is 1690 from 1250, total protein 5.3, albumin 2.8. Blood cultures no growth. The patient had an abdominal ultrasound done, ordered by the infectious disease specialist, which shows air in the biliary tree. Gallbladder was removed. Small right pleural effusion. Left renal cyst. Repeat EKG from today is pending. It is not available in the Op[facility]ative system. IMPRESSION AND PLAN: 1. Asymptomatic nonsustained ventricular tachycardia. 2. Sinus tachycardia. 3. Intraventricular conduction delay. 4. Hypertensive cardiovascular disease. 5. Entero/infero lateral coronary ischemic changes. 6. Age indeterminate inferior myocardial infarction. 7. Right-sided multilobar community-acquired versus healthcare-associated pneumonia. 8. Bilateral pleural effusion. 9. Hypertension. 10. Fever, high grade fever of 101.9. 11. Tachycardia. 12. Granulocytosis. 13. Normocytic anemia. 14. Prerenal kidney injury. 15. Indeterminate troponin. 16. Acute recurrent systolic congestive heart failure with elevated proBNP. 17. Trace proteinuria, pyuria, bacteriuria. 18. Pneumobilia. 19. Status post cholecystectomy. 20. Left renal cyst. 21. Bilateral pleural effusion. 22. Recent non-ST elevation myocardial infarction. 23. Left ventricular ejection fraction of 40%. 24. High grade fever. 25. Transient hypoxemia. 26. Hyperglycemia. 1. Asymptomatic nonsustained ventricular tachycardia. 2. Hypertensive cardiovascular disease. 3. Age indeterminate inferior infarct. 4. Anterolateral coronary ischemic changes. 5. Premature ventricular contraction. 6. High grade fever of 101.9. 7. Tachycardia. 8. Tachypnea. 9. Systemic inflammatory response syndrome. 10. Multilobar community-acquired versus healthcare-associated pneumonia. 11. Dilated ischemic cardiomyopathy. 12. History of poor compliance and noncompliance. 13. History of recurrent depression and psychosis. 14. Acute recurrent systolic congestive heart failure. 15. Ischemic dilated cardiomyopathy. 16. . 17. Hypertensive cardiovascular disease. 18. Anteroinferior lateral coronary ischemia. 19. Bilateral pleural effusion. 20. Pneumobilia. 21. Pneumobilia, probably secondary to cholecystectomy. 22. Small left renal cyst. 23. Pleural effusion. 24. Inferolateral coronary ischemic changes on EKG. 1. Acute recurrent systolic congestive heart failure and pulmonary edema with elevated BNP. 2. Right-sided multilobar nodular infiltrate and multilobar community-acquired versus healthcare-associated pneumonia. 3. Pleural effusion. 4. High grade fever of 102. 5. Tachycardia. 6. Transient hypotension. 7. Transient hypoxemia. 8. Granulocytosis. 9. Mild prerenal kidney injury. 10. Hyperglycemia. 11. Transaminitis. 12. Right-sided multilobar community-acquired versus healthcare-associated pneumonia. 13. History of coronary artery disease, history of recent non-ST elevation myocardial infarction. 14. Enteral inferolateral coronary ischemic changes. 15. Old inferior wall myocardial infarction. 16. Sinus tachycardia. 17. Coronary ischemia. 18. Age indeterminate inferior wall myocardial infarction. 19. History of ischemic dilated cardiomyopathy. 20. History of poor compliance. 21. Recurrent major depression. 22. Psychosis. 23. Poor compliance. 24. Major depression with psychosis. 25. Recurrent acute on chronic recurrent systolic congestive heart failure. 26. History of breast carcinoma. 27. History of dementia. 28. History of anxiety. 29. History of dyslipidemia. 30. History of hyperuricemia. 31. History of depression. 32. History of hypomagnesemia. 33. History of hypovitaminosis D. 34. History of depression. 35. History of anxiety disorder. PLAN: At this time, patient's lab data was reviewed. The patient has been ordered serial labs. The patient's blood and urine cultures final report pending. Current consults: cardiology, infectious disease, psychiatry. CURRENT MEDICATIONS: 1. Mucomyst 20% nebulizer every 6 hours with Xopenex nebulizer 0.63 mg every 6 hours. 2. Aricept 5 mg at bedtime. 3. Arimidex 1 mg daily. 4. Ativan 0.5 mg at 10:00 a.m. and Ativan 1.5 mg at bedtime. 5. Welchol 3 tablets twice a day. 6. Coreg 3.125 twice a day. 7. Doxycycline 100 mg IV q. 12. 8. Ecotrin 81 mg daily. 9. Uloric 40 mg daily. 10. Imdur 60 mg daily. 11. The patient is started on K-Dur 20 mEq twice a day as patient's potassium is now 3.7. 12. The patient is on Lasix 40 IV q. 12. 13. Lexapro 10 mg p.o. every morning. 14. Lipitor 40 mg daily. 15. Magnesium oxide 400 twice a day. 16. Cefepime 1 gram IV q. 12. 17. Plavix 75 mg daily. 18. Protonix 40 mg daily. 19. 5 mg at 8:00 a.m., 2:00 p.m. 20. Sonata 10 mg at bedtime. 21. Tylenol 650 q. 4 p.r.n. 22. Vancomycin. 23. Vitamin D3 2000 units daily. 24. Zestril 5 mg daily. 25. Zyprexa 10 mg at bedtime. PLAN: The patient was seen by infectious disease. The patient was ordered an ultrasound of the abdomen, which was done report. The patient is on chest PT. Repeat EKG ordered for today. The patient is on heart healthy diet. Out of bed to chair, ABAD tian, SCDs. The patient will be ordered physical therapy, occupational therapy. At present, patient has been updated about her condition. Need for further inpatient hospitalization and treatment was discussed and explained to the patient at length in layman's language. All questions and concerns answered. The patient has been ordered physical therapy, ambulation therapy and gait treatment. The patient has been ordered complete physical therapy, occupational therapy. TCU evaluation has been ordered. At present, the patient's further management will depend upon the patient's clinical condition, hemodynamic status, and as per patient response to therapeutic intervention, as per patient's diagnostic test results and as per recommendation by all the physicians involved in the care of the patient. In addition, the patient has been ordered repeat EKG and repeat diagnostic lab data for the morning. The patient's repeat diagnostic data and EKG will be reviewed. Dictated and electronically signed, not read. Mohan Hidalgo MD cc: [id number] TT: 04/06/2017 11:39:00 Confirmation # [id number] Dictation # [id number] shellie ISBELL
[2017-04-06] MEDS ORDERED: Magnesium Sulfate 2 GM in Sodium Chloride 0.9% 100 ML IVPB ONE (12:33)
--- NOTE | 2017-04-06 13:36 | CON ---
DATE: 04/06/2017 HISTORY OF PRESENT ILLNESS: The patient was recently discharged after an inferior wall myocardial in [facility]. She was home for a day and presented back with shortness of breath. PAST MEDICAL HISTORY: Notable for COPD due to heavy smoking in the past. In addition, she suffers f rom hypercholesterolemia and hypertension. She denies chest pain. SOCIAL HISTORY: The patient does not smoke anymore. REVIEW OF SYSTEMS: A 14-point review of systems, all her cardiac symptomatology is now relieved. PHYSICAL EXAMINATION: VITAL SIGNS: Blood pressure is 135/61, the heart rate is in the 70s, normal sinus rhythm. NECK: Negative JVD. LUNGS: Without rales. HEART: Reveals S1, S2. EXTREMITIES: Without edema. LABORATORY DATA: The potassium is 3.7, magnesium is 1.8. Her troponins are 0.08 and 0.11. The hemo globin is 10.2. IMPRESSION: 1. Acute systolic congestive heart failure. 2. Ischemic dilated cardiomyopathy. 3. Occluded right coronary artery. 4. Chronic obstructive pulmonary disease. 5. Anemia. 6. Hypercholesterolemia. 7. Hypertension. PLAN: Given these findings, we will increase her magnesium and potassium levels in the blood, we mayank l continue Lasix 40 b.i.d. In addition, we will change her beta blockers from Coreg to Lopressor 25 b.i.d. Dmitriy Zambrano MD cc: [id number] TT: 04/06/2017 13:35:34 Confirmation # [id number] Dictation # [id number] sn
--- NOTE | 2017-04-06 13:48 | CARD ---
APPROVED REPORT EKG Measurement Heart [id number] <Conclusion> RSR PVC IMI, age unknown Ant. VA, age unknown LVH IVCD STTW changes c/w ischemia
--- NOTE | 2017-04-06 13:56 | CARD ---
APPROVED REPORT EKG Measurement Heart [id number] <Conclusion> Normal sinus rhythm Moderate voltage criteria for LVH, may be normal variant IVCD Inferior infarct, age undetermined ST & T wave abnormality c/w ischemia
--- NOTE | 2017-04-06 19:53 | PN ---
DATE: 04/06/2017 HISTORY OF PRESENT ILLNESS: The patient is a 81-year-old female readmitted yesterday for shortness o f breath following anterior wall LA. I reviewed physicians' notes, nurses' notes. The patient has ac [place] systolic congestive heart failure. She has cardiac problems including ischemic dilated cardiomyo lynne. The patient also has chronic obstructive pulmonary disease. Last night, at 10 after midnight , had 15 beats of V-tach, which was asymptomatic. The patient slept through the night. By 3:23, she had normal sinus rhythm. The patient currently today is awake, alert, coherent, oriented x 3, aware of her surroundings. Her thought processes are well integrated. No psychotic symptomatology, aware of the nature of her medical problems. No adverse effects from psychotropic medications. The patien t asked me questions about her cardiac condition. I answered them as best as I could. CURRENT LABORATORY DATA: Her white count is 7500, hemoglobin of 10.2. Metabolic profile: Her elect rolytes were all within normal range. BUN is 35, creatinine 0.8, estimated GFR greater than 60, and the proB natriuretic peptide is 1690, total protein 5.3, albumin is 2.8. The rest of profile is norm al. CURRENT MEDICATIONS: Include acetylcysteine, Aricept 5 mg at bedtime, Arimidex. Lorazepam 0.5 mg da nimco, 1.5 mg at bedtime. Welchol, doxycycline, Ecotrin 81 mg, Uloric, Imdur, potassium, Lasix, Lexapr o 10 mg daily, Lipitor 40 mg daily, Lopressor, Mag-Ox, cefepime IV, Plavix, Protonix, methylphenidate 5 mg b.i.d., Sonata 10 mg at bedtime, vitamin D. VITAL SIGNS: Blood pressure of 119/67, pulse 78, afebrile, respirations 18 per minute. IMPRESSION: This patient is being treated for she is treated for a right-sided multilobar comm unity oriented versus healthcare-associated pneumonia, recent inferior wall myocardial infarction, hy pertension. She had an episode of ventricular tachycardia, sinus tachycardia also. She has a histor y of cerebrovascular disease, has a history of recurrent depression with psychosis in remission at th is time. PLAN: We will review psychotropic medicines and continue to monitor mental status. Luis Mcdaniels MD cc: [id number] TT: 04/06/2017 19:53:07 Confirmation # [id number] Dictation # [id number] ln
[2017-04-07] MEDS: Acetylcysteine 20% Inhal Soln (4ml) IH SCH ×4 (02:45→20:57)
[2017-04-07] MEDS: Levalbuterol 0.63 MG/3 ML Inhal Soln UD IH SCH ×4 (02:45→20:58)
[2017-04-07] MEDS: Pantoprazole 40 mg EC Tab PO SCH (05:54)
[2017-04-07] MEDS: Potassium Chloride 20 mEq ER Tab PO SCH ×2 (08:18→18:01)
--- NOTE | 2017-04-07 08:27 | CP.PCM.PN ---
Subjective - Date & Time of Evaluation Date of Evaluation: 04/07/17 Time of Evaluation: 08:00 - Subjective Subjective: (covering for Dr. Hidalgo) Patient is seen this morning in room 276 bed 2. She says that she is doing better. She denies SOB. Objective - Vital Signs/Intake and Output Vital Signs (last 24 hours): Temp Pulse Resp BP Pulse Ox 98.6 F 79 20 148/80 99 04/07/17 05:00 04/07/17 05:18 04/07/17 05:00 04/07/17 00:01 04/07/17 05:00 Intake and Output: 04/07/17 04/07/17 06:59 18:59 Intake Total 818 Output Total 0 Balance 818 - Medications Medications: Current Medications Acetaminophen (Tylenol 325mg Tab) 650 mg PO Q4 PRN PRN Reason: Fever >100.4 F Last Admin: 04/05/17 08:00 Dose: 650 mg Acetylcysteine (Acetylcysteine 20%) 4 ml IH [id number] [facility] Last Admin: 04/07/17 02:45 Dose: Not Given Anastrozole (Arimidex 1 Mg Tab) 1 mg PO DAILY [facility] Last Admin: 04/06/17 09:24 Dose: 1 mg Aspirin (Ecotrin) 81 mg PO DAILY [facility] Last Admin: 04/06/17 09:22 Dose: 81 mg Atorvastatin Calcium (Lipitor) 40 mg PO DIN [facility] Last Admin: 04/06/17 18:26 Dose: 40 mg Cholecalciferol (Vitamin D) 2,000 iu PO DAILY [facility] Last Admin: 04/06/17 09:23 Dose: 2,000 iu Clopidogrel Bisulfate (Plavix) 75 mg PO DAILY [facility] Last Admin: 04/06/17 09:22 Dose: 75 mg Donepezil HCl (Aricept) 5 mg PO HS [facility] Last Admin: 04/06/17 23:02 Dose: 5 mg Escitalopram Oxalate (Lexapro) 10 mg PO QAM [facility] Last Admin: 04/06/17 09:22 Dose: 10 mg Furosemide (Lasix) 40 mg IVP Q12H [facility] Last Admin: 04/06/17 21:38 Dose: 40 mg Doxycycline Hyclate 100 mg/ (Sodium Chloride) 100 mls @ 100 mls/hr IVPB Q12 LOAN PRN Reason: Protocol Stop: 04/12/17 10:01 Last Admin: 04/06/17 23:02 Dose: 100 mls/hr Cefepime HCl (Maxipime 1gm) 1 gm in 100 mls @ 100 mls/hr IVPB Q12 LOAN PRN Reason: Protocol Stop: 04/13/17 22:01 Last Admin: 04/06/17 21:38 Dose: 100 mls/hr Isosorbide Mononitrate (Imdur) 60 mg PO DAILY [facility] Last Admin: 04/06/17 09:22 Dose: 60 mg Levalbuterol HCl (Xopenex) 0.63 mg IH [id number] [facility] Last Admin: 04/07/17 02:45 Dose: Not Given Lisinopril (Zestril) 5 mg PO DAILY [facility] Last Admin: 04/06/17 09:23 Dose: 5 mg Lorazepam (Ativan) 0.5 mg PO 1000 LOAN PRN Reason: Protocol Last Admin: 04/06/17 09:21 Dose: 0.5 mg Lorazepam (Ativan) 1.5 mg PO HS LOAN PRN Reason: Protocol Last Admin: 04/06/17 23:02 Dose: 1.5 mg Magnesium Oxide (Mag-Ox) 400 mg PO BID [facility] Last Admin: 04/06/17 18:26 Dose: 400 mg Methylphenidate HCl (Ritalin) 5 mg PO 0800,1400 [facility] Last Admin: 04/07/17 08:18 Dose: 5 mg Metoprolol Tartrate (Lopressor) 25 mg PO BID [facility] Last Admin: 04/06/17 18:26 Dose: 25 mg Non-Formulary Medication (Colesevelam Hcl [Welchol]) 3 tab PO BID [facility] Last Admin: 04/06/17 18:27 Dose: Not Given Non-Formulary Medication (Febuxostat [Uloric]) 40 mg PO HS [facility] Last Admin: 04/06/17 23:00 Dose: Not Given Olanzapine (Zyprexa) 10 mg PO HS LOAN PRN Reason: Protocol Last Admin: 04/06/17 23:01 Dose: 10 mg Pantoprazole Sodium (Protonix Ec Tab) 40 mg PO 0630 [facility] Last Admin: 04/07/17 05:54 Dose: 40 mg Potassium Chloride (K-Dur 20 Meq Er Tab) 20 meq PO ACBD [facility] Last Admin: 06/10/17 08:18 Dose: 20 meq Zaleplon (Sonata) 10 mg PO HS [facility] Last Admin: 04/06/17 23:21 Dose: 10 mg - Labs Labs: PT 10.7 Seconds (9.9-11.8) 04/05/17 05:50 INR 0.99 (0.93-1.08) 04/05/17 05:50 APTT 24.4 Seconds (23.7-30.8) 04/05/17 05:50 - Constitutional Appears: No Acute Distress - Head Exam Head Exam: ATRAUMATIC, NORMOCEPHALIC - Respiratory Exam Respiratory Exam: Decreased Breath Sounds - Cardiovascular Exam Cardiovascular Exam: +S1, +S2 - GI/Abdominal Exam GI & Abdominal Exam: Soft, Normal Bowel Sounds. absent: Tenderness - Neurological Exam Neurological Exam: Alert, Awake Assessment and Plan - Assessment and Plan (Free Text) Assessment: Pneumonia Acute systolic heart failure CAD HTN GERD COPD Breast Ca Plan: Patient is currently on Maxipime and doxycycline for pneumonia. continue antibiotics as per infectious disease She is also on IV Lasix, ASA, Plavix and BB for CAD/heart failure continue respiratory treatments OOB to chair
[2017-04-07 08:33] LABS: ADD MANUAL DIFF? NO
[2017-04-07 08:35] LABS: BASO # 0.01 K/mm3 (0.0-2.0); BASO % 0.1 % (0.0-3.0); EOS # 0.4 (0.0-0.7); EOS % 4.9 % (1.5-5.0); GRAN # 6.24 (1.4-6.5); GRAN % 71.2 % (50.0-68.0); HEMATOCRIT 35.3 % (36.0-48.0); LYMPH # 1.2 (1.2-3.4); LYMPH % 14.1 % (22.0-35.0); MEAN CELL VOLUME 92.4 fL (80.0-105.0); MEAN CORPUSCULAR HEMOGLOBIN 29.6 pg (25.0-35.0); MEAN PLATELET VOLUME 9.5 fl (7.0-11.0); MONO # 0.9 (0.1-0.6); MONO % 9.7 % (1.0-6.0); PLATELET COUNT 209 10^3/uL (120.0-450.0); WHITE BLOOD COUNT 8.8 10^3/ul (4.5-11.0)
[2017-04-07 08:46] LABS: ALB/GLOB RATIO 1.1 (1.1-1.8); ALKALINE PHOSPHATASE 139 U/L (38-133); ALT/SGPT 45 U/L (7-56); AST/SGOT 29 U/L (15-39); BILIRUBIN,DIRECT 0.2 mg/dL (0.0-0.4); BILIRUBIN,TOTAL 0.6 mg/dL (0.2-1.3); BLOOD UREA NITROGEN 22 mg/dL (7-21); CALCIUM 9.3 mg/dL (8.4-10.5); CARBON DIOXIDE 32 mmol/L (21-33); CHLORIDE 98 mmol/L (98-107); GFR AFRICAN-AMERICAN > 60; GLUCOSE,RANDOM 121 mg/dL (70-110); MAGNESIUM 2.2 mg/dL (1.7-2.2); POTASSIUM 4.4 mmol/L (3.6-5.0); SODIUM 135 mmol/L (132-148); TOTAL PROTEIN 6.3 g/dL (5.8-8.3)
[2017-04-07 08:57] LABS: TROPONIN I 0.05 ng/mL
[2017-04-07] MEDS: Magnesium Oxide 400 mg Tab UD PO SCH ×2 (09:47→18:01)
[2017-04-07] MEDS: Cefepime 1gm in NS 100ml 1 GM/100 ML BAG IVPB SCH ×2 (09:50→21:48)
[2017-04-07] MEDS: Non Formulary Medication (Colesevelam Hcl [Welchol] 3 TAB) PO SCH ×2 (09:50→18:02)
--- NOTE | 2017-04-07 10:23 | PN ---
DATE: 04/07/2017 SUBJECTIVE: The patient is feeling better. No shortness of breath, no chest pain. PHYSICAL EXAMINATION: VITAL SIGNS: Blood pressure is 148/80, the heart rate is in the 80s. NECK: Negative JVD. LUNGS: Without rales. HEART: Revealed S1, S2. EXTREMITIES: Without edema. LABORATORY DATA: The potassium is 4.4, the glucose 121. The hemoglobin is 11.3. IMPRESSION: 1. Stable angina. 2. Status post inferior wall myocardial infarction. 3. Resolution of congestive heart failure. 4. Chronic obstructive pulmonary disease. 5. Hypercholesterolemia. Given these findings, the patient is ambulating without symptoms. She is doing much better. We will change her Lasix to p.o. 40 b.i.d. From a cardiac perspective, the patient, if she ambulates well today can be discharged in the morning . Dmitriy Zambrano MD cc: [phone] TT: 04/07/2017 10:22:49 Confirmation # [id number] Dictation # [id number] jn
--- NOTE | 2017-04-07 10:44 | CARD ---
APPROVED REPORT EKG Measurement Heart [id number] [place] 158P60 [id number] <Conclusion> Normal sinus rhythm Minimal voltage criteria for LVH, may be normal variant Inferior infarct, age undetermined T wave abnormality, consider lateral ischemia IVCD No change
--- NOTE | 2017-04-07 18:01 | PN ---
DATE: 04/07/2017 The patient is in bed in no acute distress, nontoxic, no fevers and chills. She was seen earlier thi s morning in 276, bed 2. PHYSICAL EXAMINATION: VITAL SIGNS: The patient's temperature is 97, blood pressure is 140/60, respiratory rate of 18, hear t rate of 70. HEENT: Unremarkable. NECK: Supple. LUNGS: Have decreased breath sounds. HEART: Normal S1, S2. ABDOMEN: Soft, nontender. LABORATORY DATA: Reveals the patient's white count is 8.8, hemoglobin of 11, platelets of 209. The chemistries are noted. BUN of 22, creatinine of 0.6, procalcitonin 0.10. The patient does have an e levated BNP. Microbiology is no growth in the urine culture and urinalysis was 20-25 WBCs. The bloo d cultures are negative. Review of the medications reveals the patient to be on IV doxycycline and cefepime and Dr. Dmitriy Zambrano 's note is reviewed. Dr. Vang's note is reviewed. ASSESSMENT AND PLAN: A 81-year-old female with past medical history of breast cancer, coronary arter y disease, history of percutaneous coronary intervention, chronic congestive heart failure, hypertens ion, history of transient ischemic attack, history of carotid endarterectomy, history of glaucoma, ga stroesophageal reflux disease, who did have a temperature of 101.9 on admission and did have tachycar twila with a heart rate of 95 and respiratory rate of 24 on admission. With now negative blood culture s, negative urine cultures and normal white count and negative procalcitonin of 0.10, elevated BNP wi th congestive heart failure. The patient had a CAT scan of the chest on the which shows multiple patchy nodular infiltrates consistent with pneumonia, on doxycycline and cefepime. Will change the doxycycline to p.o. and continue the cefepime at this time, day #3. We will most likely discontinue the cefepime within the next 24 hours. Joseph Brunner MD cc: [id number] TT: 04/07/2017 18:00:46 Confirmation # [id number] Dictation # [id number] jn
[2017-04-08] MEDS: Levalbuterol 0.63 MG/3 ML Inhal Soln UD IH SCH ×5 (03:00→22:44)
[2017-04-08] MEDS: Acetylcysteine 20% Inhal Soln (4ml) IH SCH ×5 (03:00→22:44)
[2017-04-08] MEDS: Pantoprazole 40 mg EC Tab PO SCH (05:47)
[2017-04-08 08:06] LABS: ADD MANUAL DIFF? NO
[2017-04-08 08:18] LABS: BASO # 0.02 K/mm3 (0.0-2.0); BASO % 0.2 % (0.0-3.0); EOS # 0.4 (0.0-0.7); GRAN # 7.42 (1.4-6.5); GRAN % 75.1 % (50.0-68.0); HEMATOCRIT 36.2 % (36.0-48.0); LYMPH # 1.2 (1.2-3.4); LYMPH % 12.4 % (22.0-35.0); MEAN CELL VOLUME 92.3 fL (80.0-105.0); MEAN CORPUSCULAR HEMOGLOBIN 29.8 pg (25.0-35.0); MEAN CORPUSCULAR HGB CONC 32.3 g/dl (31.0-37.0); MEAN PLATELET VOLUME 9.7 fl (7.0-11.0); MONO # 0.8 (0.1-0.6); MONO % 8.3 % (1.0-6.0); PLATELET COUNT 259 10^3/uL (120.0-450.0); RED CELL DISTRIBUTION WIDTH 13.8 % (11.5-14.5); WHITE BLOOD COUNT 9.9 10^3/ul (4.5-11.0)
[2017-04-08 08:33] LABS: ALB/GLOB RATIO 1.1 (1.1-1.8); ALKALINE PHOSPHATASE 145 U/L (38-133); ALT/SGPT 36 U/L (7-56); AST/SGOT 24 U/L (15-39); BILIRUBIN,DIRECT 0.4 mg/dL (0.0-0.4); BILIRUBIN,TOTAL 0.7 mg/dL (0.2-1.3); BLOOD UREA NITROGEN 25 mg/dL (7-21); CALCIUM 9.6 mg/dL (8.4-10.5); CARBON DIOXIDE 32 mmol/L (21-33); CHLORIDE 100 mmol/L (98-107); GFR AFRICAN-AMERICAN > 60; GLUCOSE,RANDOM 107 mg/dL (70-110); POTASSIUM 4.7 mmol/L (3.6-5.0); SODIUM 140 mmol/L (132-148); TOTAL PROTEIN 6.4 g/dL (5.8-8.3)
[2017-04-08] MEDS: Potassium Chloride 20 mEq ER Tab PO SCH ×2 (08:44→17:56)
[2017-04-08] MEDS: Magnesium Oxide 400 mg Tab UD PO SCH ×2 (09:28→17:56)
[2017-04-08] MEDS: Cefepime 1gm in NS 100ml 1 GM/100 ML BAG IVPB SCH (09:40)
[2017-04-08] MEDS: Non Formulary Medication (Colesevelam Hcl [Welchol] 3 TAB) PO SCH ×2 (09:48→17:49)
--- NOTE | 2017-04-08 10:13 | CARD ---
APPROVED REPORT EKG Measurement Heart [id number] [id number] <Conclusion> Sinus rhythm with one premature ventricular complex Left ventricular hypertrophy with repolarization abnormality Inferior infarct, age undetermined IVCD No change except PVC now.
--- NOTE | 2017-04-08 13:46 | PN ---
DATE: 04/08/2017 The patient is seen in room 276, bed 2. The patient has been persistently asking about getting discharged. During the last 2 days, I have explained to the patient in layman's language that the patient needs to be treated with intravenous antibiotics for pneumonia and other medication and patient needs to continue with the inpatient hospital care. The patient was also advised about possible need for TCU transfer if accepted. The patient has also been constantly, has been exhibiting signs of agitation, verbal abusing, abusive. The patient was found to be inappropriate to the nurses. PHYSICAL EXAMINATION: VITAL SIGNS: T-max 98.9. Telemetry shows sinus rhythm. Blood pressure 139/69 , 165/73, 158/75, respirations 20, O2 sat 99%. HEAD: Normocephalic, atraumatic. HEENT: Shows pinkish, pale conjunctivae, anicteric sclerae, no oropharyngeal lesion. NECK: Soft carotid bruit. Right carotid endarterectomy surgical scar. CHEST: Kyphosis. LUNGS: Shows positive creps, rhonchi, right more than the left. CARDIOVASCULAR: Shows S1, S2, regular rhythm, positive systolic murmur right second intercostal space, left sternal border, left second intercostal space. ABDOMEN: Soft, positive bowel sounds. GENITALIA: Female. RECTAL: Deferred. EXTREMITIES: Shows trace swelling of the lower extremity. Positive varicose veins. VASCULAR: Palpable pulses. NEUROLOGIC: Motor strength is 5/5 in upper and lower extremity. MUSCULOSKELETAL: Shows a body mass index of 26. DIAGNOSTICS: 04/08: WBC 9.9, hemoglobin and hematocrit 11.7 and 36.2, platelet 259, granulocytes 75% segs. Sodium 140, potassium 4.7, chloride 100, CO2 32, anion gap 13, BUN 25, creatinine 0.7, GFR greater than 60, glucose 107, calcium 9.6, magnesium 2.0, alk phos 145. BNP 1670. Urine and blood cultures negative. Abdominal ultrasound results noted. EKG done 04/08 shows sinus rhythm , PVCs, left ventricular hypertrophy, ST changes in I, aVL, Q-wave in III and aVF and ST change, T-wave inversion V4-V6. IMPRESSION AND PLAN: 1. Asymptomatic nonsustained ventricular tachycardia. 2. Hypertensive cardiovascular disease. 3. Age indeterminate inferior infarct. 4. Anterolateral coronary ischemic changes. 5. Premature ventricular contraction. 6. High grade fever of 101.9. 7. Tachycardia. 8. Tachypnea. 9. Systemic inflammatory response syndrome. 10. Multilobar community-acquired versus healthcare-associated pneumonia. 11. Dilated ischemic cardiomyopathy. 12. History of poor compliance and noncompliance. 13. History of recurrent depression and psychosis. 14. Acute recurrent systolic congestive heart failure. 15. Ischemic dilated cardiomyopathy. 16. . 17. Hypertensive cardiovascular disease. 18. Anteroinferior lateral coronary ischemia. 19. Bilateral pleural effusion. 20. Pneumobilia. 21. Pneumobilia, probably secondary to cholecystectomy. 22. Small left renal cyst. 23. Pleural effusion. 24. Inferolateral coronary ischemic changes on EKG. 1. Acute recurrent systolic congestive heart failure and pulmonary edema with elevated BNP. 2. Right-sided multilobar nodular infiltrate and multilobar community-acquired versus healthcare-associated pneumonia. 3. Pleural effusion. 4. High grade fever of 102. 5. Tachycardia. 6. Transient hypotension. 7. Transient hypoxemia. 8. Granulocytosis. 9. Mild prerenal kidney injury. 10. Hyperglycemia. 11. Transaminitis. 12. Right-sided multilobar community-acquired versus healthcare-associated pneumonia. 13. History of coronary artery disease, history of recent non-ST elevation myocardial infarction. 14. Enteral inferolateral coronary ischemic changes. 15. Old inferior wall myocardial infarction. 16. Sinus tachycardia. 17. Coronary ischemia. 18. Age indeterminate inferior wall myocardial infarction. 19. History of ischemic dilated cardiomyopathy. 20. History of poor compliance. 21. Recurrent major depression. 22. Psychosis. 23. Poor compliance. 24. Major depression with psychosis. 25. Recurrent acute on chronic recurrent systolic congestive heart failure. 26. History of breast carcinoma. 27. History of dementia. 28. History of anxiety. 29. History of dyslipidemia. 30. History of hyperuricemia. 31. History of depression. 32. History of hypomagnesemia. 33. History of hypovitaminosis D. 34. History of depression. 35. History of anxiety disorder. PLAN: At this time, patient is to be continued on telemetry monitoring. Serial labs are ordered. CONSULTATIONS: Cardiology, infectious disease, psychiatry. CURRENT MEDICATIONS: 1. Xopenex nebulizer 0.63 mg with Mucomyst nebulizer 20% 4 mL every 6 hours. 2. Aricept 5 mg at bedtime. 3. Arimidex 1 mg daily. 4. Ativan 0.5 mg at 10 a.m., Ativan 1.5 at bedtime. 5. Welchol 3 tablets twice a day. 6. Doxycycline 100 mg p.o. q. 12. 7. Ecotrin 81 mg daily. 8. Uloric 40 mg at bedtime. 9. Imdur 60 mg daily. 10. K-Dur 20 mEq twice a day. 11. Lasix 40 mg twice a day. 12. Lexapro 10 mg daily. 13. Lipitor 40 mg at bedtime. 14. Lopressor 25 mg twice a day. 15. Magnesium oxide 400 twice a day. 16. Maxipime 1 gram IV q. 12. 17. Plavix 75 mg daily. 18. Protonix 40 mg daily. 19. Ritalin 5 mg twice a day. 20. Sonata 10 mg at bedtime. 21. Tylenol 650 q. 4 p.r.n. 22. Vitamin D3 2000 units daily. 23. Zestril 5 mg daily. 24. Zyprexa 10 mg at bedtime. Chest PT ordered. Heart healthy diet, ABAD stockings, SCDs, occupational therapy , physical therapy. The patient's Lopressor will be increased to 25 mg q. 8 hours because of persistent PVCs. The patient's Lopressor has been increased to 25 three times a day. At present, patient is to be continued on the above therapeutic intervention. We will await further recommendation from cardiology and infectious disease and psychiatry regarding disposition options. The patient has been updated about her diagnosis, test results, recommendations by all physicians involved in the care of the patient in layman's language. All questions and concerns answered. Dictated and electronically signed, not read. Mohan Hidalgo MD cc: [phone] TT: 04/08/2017 13:45:48 Confirmation # [id number] Dictation # [id number] MTDD
--- NOTE | 2017-04-08 14:25 | PN ---
DATE: 04/08/2017 The patient is ambulating without symptoms. No shortness of breath, no fevers. PHYSICAL EXAMINATION: VITAL SIGNS: Blood pressure is 139/67. The patient is afebrile, heart rate is in the 80s. NECK: Negative JVD. LUNGS: Without rales. HEART: Revealed S1, S2. EXTREMITIES: Without edema. LABORATORIES: Hemoglobin is 11.7. Chemistries unremarkable. The proBNP is 1670. IMPRESSION: 1. Status post inferior wall myocardial infarction. 2. Congestive heart failure, which is better on oral Lasix. 3. Hypercholesterolemia. 4. Resolution of dyspnea. Given these findings, the patient's cardiac status is stable. We will discontinue telemetry today. Dmitriy Zambrano MD cc: [id number] TT: 04/08/2017 14:24:33 Confirmation # [id number] Dictation # [id number] jeremy
--- NOTE | 2017-04-08 15:25 | PN ---
DATE: 04/08/2017 The patient is in bed in no acute distress, nontoxic. PHYSICAL EXAMINATION: VITAL SIGNS: Temperature is 98, blood pressure is 130/60, respiratory rate of 18, heart rate of 107. HEENT: Unremarkable. NECK: Supple. LUNGS: Have decreased breath sounds. ABDOMEN: Soft, nontender. LABORATORY DATA: Reveals a white count of 9.9, hemoglobin of 11, platelets of 259. Chemistries reve al the BUN of 25, creatinine of 0.7. Procalcitonin is 0.1. Urinalysis is noted. Microbiology revea ls the blood cultures are negative, urine cultures are negative. EKG is noted. ASSESSMENT AND PLAN: This is a 81-year-old female with a history of breast cancer, coronary artery d isease, history of percutaneous coronary intervention, chronic congestive heart failure, hypertension , transient ischemic attack, carotid endarterectomy, history of glaucoma and gastroesophageal reflux disease who had a temperature of 101.9 on admission, did have tachycardia and dyspnea and had systemi c inflammatory response syndrome with negative cultures, negative urine cultures and a normal procalc itonin, multiple patchy nodular infiltrates with sepsis with community-acquired pneumonia on doxycycl ine and cefepime day #4 of antibiotics with a negative procalcitonin. We will follow closely with yo u. Will discontinue the cefepime and complete 4-7 days of p.o. doxycycline and should have a radiolo gical follow up. Dr. Hidalgo's note is reviewed from today. Joseph Brunner MD cc: 350 TT: 04/08/2017 15:25:33 Confirmation # [id number] Dictation # [id number] dn
[2017-04-09] MEDS: Acetylcysteine 20% Inhal Soln (4ml) IH SCH ×3 (04:53→13:10)
[2017-04-09] MEDS: Levalbuterol 0.63 MG/3 ML Inhal Soln UD IH SCH ×3 (04:53→13:11)
[2017-04-09] MEDS: Pantoprazole 40 mg EC Tab PO SCH (06:16)
[2017-04-09 07:17] LABS: ALB/GLOB RATIO 1.2 (1.1-1.8); ALKALINE PHOSPHATASE 142 U/L (38-133); ALT/SGPT 35 U/L (7-56); AST/SGOT 34 U/L (15-39); BILIRUBIN,DIRECT 0.3 mg/dL (0.0-0.4); BILIRUBIN,TOTAL 0.7 mg/dL (0.2-1.3); BLOOD UREA NITROGEN 22 mg/dL (7-21); CALCIUM 9.2 mg/dL (8.4-10.5); CARBON DIOXIDE 34 mmol/L (21-33); CHLORIDE 93 mmol/L (98-107); GFR AFRICAN-AMERICAN > 60; GLUCOSE,RANDOM 143 mg/dL (70-110); MAGNESIUM 1.8 mg/dL (1.7-2.2); POTASSIUM 4.6 mmol/L (3.6-5.0); SODIUM 132 mmol/L (132-148); TOTAL PROTEIN 6.2 g/dL (5.8-8.3)
[2017-04-09 07:23] VITALS: RESP 20; TEMP 98.6; O2SAT 95
[2017-04-09] MEDS: Potassium Chloride 20 mEq ER Tab PO SCH (08:21)
[2017-04-09] MEDS: Non Formulary Medication (Colesevelam Hcl [Welchol] 3 TAB) PO SCH (09:35)
[2017-04-09] MEDS: Magnesium Oxide 400 mg Tab UD PO SCH (09:37)
[2017-04-09 09:48] VITALS: BP 137/61; PULSE 75
--- NOTE | 2017-04-09 14:58 | CARD ---
APPROVED REPORT EKG Measurement Heart [id number] [place] 170P68 [id number] <Conclusion> Normal sinus rhythm Left ventricular hypertrophy with repolarization abnormality Inferior infarct, age undetermined Abnormal ECG
--- NOTE | 2017-04-09 15:47 | CP.PCM.PN ---
Subjective - Date & Time of Evaluation Date of Evaluation: 04/09/17 Time of Evaluation: 09:50 - Subjective Subjective: Comfortable, not in distress, breathing well, no fevers overnight. Objective - Vital Signs/Intake and Output Vital Signs (last 24 hours): Temp Pulse Resp BP Pulse Ox 98.6 F 73 20 134/56 L 95 04/09/17 07:22 04/09/17 07:22 04/09/17 07:22 04/09/17 07:22 04/09/17 07:22 Intake and Output: 04/09/17 04/09/17 06:59 18:59 Intake Total 120 Balance 120 - Medications Medications: Current Medications Acetaminophen (Tylenol 325mg Tab) 650 mg PO Q4 PRN PRN Reason: Fever >100.4 F Last Admin: 04/05/17 08:00 Dose: 650 mg Acetylcysteine (Acetylcysteine 20%) 4 ml IH [id number] [facility] Last Admin: 04/09/17 07:41 Dose: 4 ml Anastrozole (Arimidex 1 Mg Tab) 1 mg PO DAILY [facility] Last Admin: 04/08/17 10:22 Dose: 1 mg Aspirin (Ecotrin) 81 mg PO DAILY [facility] Last Admin: 04/08/17 09:27 Dose: 81 mg Atorvastatin Calcium (Lipitor) 40 mg PO DIN [facility] Last Admin: 04/08/17 17:56 Dose: 40 mg Cholecalciferol (Vitamin D) 2,000 iu PO DAILY [facility] Last Admin: 04/08/17 09:26 Dose: 2,000 iu Clopidogrel Bisulfate (Plavix) 75 mg PO DAILY [facility] Last Admin: 04/08/17 09:27 Dose: 75 mg Donepezil HCl (Aricept) 5 mg PO HS [facility] Last Admin: 04/08/17 23:06 Dose: 5 mg Doxycycline Hyclate (Doryx) 100 mg PO Q12 LOAN PRN Reason: Protocol Stop: 04/12/17 22:01 Last Admin: 04/08/17 21:48 Dose: 100 mg Escitalopram Oxalate (Lexapro) 10 mg PO QAM [facility] Last Admin: 04/08/17 09:28 Dose: 10 mg Furosemide (Lasix) 40 mg PO BID [facility] Last Admin: 04/08/17 17:56 Dose: 40 mg Isosorbide Mononitrate (Imdur) 60 mg PO DAILY [facility] Last Admin: 04/08/17 09:27 Dose: 60 mg Levalbuterol HCl (Xopenex) 0.63 mg IH [id number] [facility] Last Admin: 04/09/17 07:41 Dose: 0.63 mg Lisinopril (Zestril) 5 mg PO DAILY [facility] Last Admin: 04/08/17 09:27 Dose: 5 mg Lorazepam (Ativan) 0.5 mg PO 1000 LOAN PRN Reason: Protocol Last Admin: 04/08/17 09:27 Dose: 0.5 mg Lorazepam (Ativan) 1.5 mg PO HS LOAN PRN Reason: Protocol Last Admin: 04/08/17 23:00 Dose: 1.5 mg Magnesium Oxide (Mag-Ox) 400 mg PO BID [facility] Last Admin: 04/08/17 17:56 Dose: 400 mg Methylphenidate HCl (Ritalin) 5 mg PO 0800,1400 [facility] Last Admin: 04/09/17 08:22 Dose: 5 mg Metoprolol Tartrate (Lopressor) 25 mg PO Q8 [facility] Last Admin: 04/09/17 06:16 Dose: 25 mg Non-Formulary Medication (Colesevelam Hcl [Welchol]) 3 tab PO BID [facility] Last Admin: 04/08/17 17:49 Dose: Not Given Non-Formulary Medication (Febuxostat [Uloric]) 40 mg PO HS [facility] Last Admin: 04/09/17 04:37 Dose: Not Given Olanzapine (Zyprexa) 10 mg PO HS [facility] PRN Reason: Protocol Last Admin: 04/08/17 21:49 Dose: 10 mg Pantoprazole Sodium (Protonix Ec Tab) 40 mg PO 0630 [facility] Last Admin: 04/09/17 06:16 Dose: 40 mg Potassium Chloride (K-Dur 20 Meq Er Tab) 20 meq PO ACBD [facility] Last Admin: 04/09/17 08:21 Dose: 20 meq Zaleplon (Sonata) 10 mg PO HS [facility] Last Admin: 04/08/17 23:00 Dose: 10 mg - Labs Labs: 04/08/17 08:04 04/09/17 06:20 PT 10.7 Seconds (9.9-11.8) 04/05/17 05:50 INR 0.99 (0.93-1.08) 04/05/17 05:50 APTT 24.4 Seconds (23.7-30.8) 04/05/17 05:50 - Constitutional Appears: Non-toxic, No Acute Distress - Head Exam Head Exam: NORMAL INSPECTION - Respiratory Exam Respiratory Exam: Decreased Breath Sounds - Cardiovascular Exam Cardiovascular Exam: +S1, +S2 - GI/Abdominal Exam GI & Abdominal Exam: Soft. absent: Tenderness Assessment and Plan - Assessment and Plan (Free Text) Plan: Assessment Consider right sided healthcare-associated pneumonia, clinically improving breast cancer CAD S/P PCI chronic CHF HTN history of TIA S/P carotid endarterectomy history of glaucoma GERD Plan continue Doxycycline (day 5) to complete up to a 7 day course (4-7 days of therapy)
--- NOTE | 2017-04-10 08:06 | DS ---
The patient is seen in room 565, bed 1. The patient is lying in the bed. The patient is comfortable. The patient seen by case management. The patient was seen by physical therapy. No rehab recommendations by physical therapy. The patient refused referral to [facility]. The patient's overnight nurse's notes were reviewed. PHYSICAL EXAMINATION: VITAL SIGNS: T-max 98.6, pulse 73, blood pressure 134/56 and 137/61, respirations 20, O2 sat 95. HEAD: Normocephalic, atraumatic. HEENT: Shows pinkish conjunctivae, anicteric sclerae. NECK: Soft carotid bruit bilaterally. CHEST: Positive right carotid endarterectomy surgical scar. LUNGS: Show kyphosis. Positive decreased breath sound at the left base. No crackles, rales or wheezing. CARDIOVASCULAR: Shows S1, S2, regular rhythm. Positive systolic murmur right second intercostal space, left sternal border, left second intercostal space. ABDOMEN: Soft, positive bowel sounds. GENITALIA: Female. RECTAL: Deferred. EXTREMITIES: Shows trace swelling of the lower extremity. Positive varicose veins. No pitting edema, no calf tenderness, no Homans signs. NEUROLOGIC: The patient is alert, awake, oriented x 3. LUNGS: Examination shows occasional rhonchi, right more than the left, decreasing creps and crackles. MUSCULOSKELETAL: Shows a body mass index of 26. DIAGNOSTICS: On 04/09, sodium 132, potassium 4.6, chloride 93, CO2 of 34, anion gap 10, BUN 22, creatinine 0.7, GFR greater than 60, glucose 143, calcium 9.2. LFTs are normal except alk phos 142. BNP is 1960. Urine and blood cultures negative. EKG shows sinus rhythm, Q-wave in III and aVF. Age indeterminate inferior infarct, T-wave inversion in II, III, aVF and V4, V3-V6. IMPRESSION AND PLAN: 1. Multilobar large right-sided community-acquired pneumonia. 2. History of poor compliance. 3. Hypertension. 4. Acute recurrent systolic congestive heart failure. 5. Granulocytosis. 6. Normocytic anemia. 7. Prerenal kidney injury. 8. Mild metabolic alkalosis. 9. Elevated alkaline phosphatase, etiology undetermined. 10. Acute recurrent systolic congestive heart failure with elevated BNP. 11. Trace proteinuria, pyuria, bacteriuria. 12. Status post cholecystectomy with pneumobilia. 13. Left renal cyst. 14. Hypertensive cardiovascular disease. 15. Age indeterminate inferior infarct. 16. Inferolateral coronary ischemic changes. 17. History of poor compliance. 18. Pneumonia. 19. History of dementia. 20. History of breast carcinoma. 21. History of anxiety, depression and psychosis. 22. Hyperuricemia. 23. Hypokalemia. 24. Dyslipidemia. 25. Hypomagnesemia. 26. Insomnia. 27. Hypovitaminosis D. 1. Asymptomatic nonsustained ventricular tachycardia. 2. Sinus tachycardia. 3. Intraventricular conduction delay. 4. Hypertensive cardiovascular disease. 5. Entero/infero lateral coronary ischemic changes. 6. Age indeterminate inferior myocardial infarction. 7. Right-sided multilobar community-acquired versus healthcare-associated pneumonia. 8. Bilateral pleural effusion. 9. Hypertension. 10. Fever, high grade fever of 101.9. 11. Tachycardia. 12. Granulocytosis. 13. Normocytic anemia. 14. Prerenal kidney injury. 15. Indeterminate troponin. 16. Acute recurrent systolic congestive heart failure with elevated proBNP. 17. Trace proteinuria, pyuria, bacteriuria. 18. Pneumobilia. 19. Status post cholecystectomy. 20. Left renal cyst. 21. Bilateral pleural effusion. 22. Recent non-ST elevation myocardial infarction. 23. Left ventricular ejection fraction of 40%. 24. High grade fever. 25. Transient hypoxemia. 26. Hyperglycemia. 1. Asymptomatic nonsustained ventricular tachycardia. 2. Hypertensive cardiovascular disease. 3. Age indeterminate inferior infarct. 4. Anterolateral coronary ischemic changes. 5. Premature ventricular contraction. 6. High grade fever of 101.9. 7. Tachycardia. 8. Tachypnea. 9. Systemic inflammatory response syndrome. 10. Multilobar community-acquired versus healthcare-associated pneumonia. 11. Dilated ischemic cardiomyopathy. 12. History of poor compliance and noncompliance. 13. History of recurrent depression and psychosis. 14. Acute recurrent systolic congestive heart failure. 15. Ischemic dilated cardiomyopathy. 16. . 17. Hypertensive cardiovascular disease. 18. Anteroinferior lateral coronary ischemia. 19. Bilateral pleural effusion. 20. Pneumobilia. 21. Pneumobilia, probably secondary to cholecystectomy. 22. Small left renal cyst. 23. Pleural effusion. 24. Inferolateral coronary ischemic changes on EKG. 1. Acute recurrent systolic congestive heart failure and pulmonary edema with elevated BNP. 2. Right-sided multilobar nodular infiltrate and multilobar community-acquired versus healthcare-associated pneumonia. 3. Pleural effusion. 4. High grade fever of 102. 5. Tachycardia. 6. Transient hypotension. 7. Transient hypoxemia. 8. Granulocytosis. 9. Mild prerenal kidney injury. 10. Hyperglycemia. 11. Transaminitis. 12. Right-sided multilobar community-acquired versus healthcare-associated pneumonia. 13. History of coronary artery disease, history of recent non-ST elevation myocardial infarction. 14. Enteral inferolateral coronary ischemic changes. 15. Old inferior wall myocardial infarction. 16. Sinus tachycardia. 17. Coronary ischemia. 18. Age indeterminate inferior wall myocardial infarction. 19. History of ischemic dilated cardiomyopathy. 20. History of poor compliance. 21. Recurrent major depression. 22. Psychosis. 23. Poor compliance. 24. Major depression with psychosis. 25. Recurrent acute on chronic recurrent systolic congestive heart failure. 26. History of breast carcinoma. 27. History of dementia. 28. History of anxiety. 29. History of dyslipidemia. 30. History of hyperuricemia. 31. History of depression. 32. History of hypomagnesemia. 33. History of hypovitaminosis D. 34. History of depression. 35. History of anxiety disorder. PLAN: At this time, patient has been switched over from all IV antibiotics to p.o. antibiotics. The patient has been discharged home after cleared by all subspecialties. DISCHARGE MEDICATIONS: As follows: 1. The patient is to resume Arimidex 1 mg daily. The patient's new medications from this discharge are as follows: 1. Magnesium oxide 400 mg twice a day. 2. Sonata 10 mg at bedtime. 3. Lopressor 25 mg 3 times a day. 4. Lasix 40 mg twice a day. 5. K-Dur 10 mEq twice a day. 6. Doxycycline 100 mg q.12 hours. 7. Zestril 5 mg daily, which is to be resumed. 8. Vitamin D3 2000 units daily. 9. Protonix 40 mg daily. 10. Ativan 1.5 mg at bedtime and 0.5 mg at 10:00 a.m. 11. Plavix 75 mg daily. 12. Arimidex 1 mg daily. 13. Aricept 5 mg at bedtime. 14. Ecotrin 81 mg daily. 15. Zyprexa 10 mg at bedtime. 16. ____ 5 mg at 8:00 a.m., 2:00 p.m. 17. Lipitor 40 mg daily. 18. Lexapro 10 mg daily. 19. Imdur 60 mg daily. 20. Welchol 625 mg 3 tablets twice a day. 21. Uloric 40 mg at bedtime. At present, patient is discharged home. Discharge referral to [facility] health aide, home PT. DISCHARGE FOLLOWUP: With Dr. Hidalgo within 1 week ____ medications. DISCHARGE MEDICATIONS: As per updated ambulatory orders plus new scripts which are sent to the pharmacy, which patient's pharmacy is [facility]. During this hospitalization, the patient was extensively explained about the details of his medical condition, diagnosis, test results, recommendation by all physicians involved in the care of the patient, which was explained to the patient in layman's language. All questions and concerns answered. Dictated and electronically signed, not read. Mohan Hidalgo MD cc: [id number] TT: 04/09/2017 21:43:59 sn MTDD
== END 2017-04-09 13:26 | disposition home or self-care (01) | DRG 280 ==
LOC: ED 05:32 → ERH 07:27 → 2RSO 15:24 → OBSVTOIN 04-06 10:45 → 5RNO 04-08 21:12
PROVIDERS: ADMIT Internal Medicine; ATTEND Internal Medicine
PROC: 3E0F7GC Introduction of Other Therapeutic Substance into Respiratory Tract, Via Natural or Artificial Opening (ICD-10-PCS; principal; 2017-04-06)
DX: I13.0 Hypertensive heart and chronic kidney disease with heart failure and stage 1 through stage 4 chronic kidney disease, or unspecified chronic kidney disease (principal); I50.23 Acute on chronic systolic (congestive) heart failure; J18.9 Pneumonia, unspecified organism; I21.4 Non-ST elevation (NSTEMI) myocardial infarction; I47.2 Ventricular tachycardia; E87.3 Alkalosis; J44.0 Chronic obstructive pulmonary disease with (acute) lower respiratory infection; I42.0 Dilated cardiomyopathy; F33.3 Major depressive disorder, recurrent, severe with psychotic symptoms; E83.42 Hypomagnesemia; F03.90 Unspecified dementia, unspecified severity, without behavioral disturbance, psychotic disturbance, mood disturbance, and anxiety; I65.23 Occlusion and stenosis of bilateral carotid arteries; E87.6 Hypokalemia; I25.5 Ischemic cardiomyopathy; R09.02 Hypoxemia; I25.118 Atherosclerotic heart disease of native coronary artery with other forms of angina pectoris; N18.9 Chronic kidney disease, unspecified; E78.5 Hyperlipidemia, unspecified; K21.9 Gastro-esophageal reflux disease without esophagitis; G31.84 Mild cognitive impairment of uncertain or unknown etiology; H40.9 Unspecified glaucoma; E78.00 Pure hypercholesterolemia, unspecified; E55.9 Vitamin D deficiency, unspecified; D64.9 Anemia, unspecified; G93.89 Other specified disorders of brain; N28.1 Cyst of kidney, acquired; F41.9 Anxiety disorder, unspecified; I34.0 Nonrheumatic mitral (valve) insufficiency; G47.00 Insomnia, unspecified; Z85.3 Personal history of malignant neoplasm of breast; Z91.19 Patient's noncompliance with other medical treatment and regimen; Z86.73 Personal history of transient ischemic attack (TIA), and cerebral infarction without residual deficits; Z95.5 Presence of coronary angioplasty implant and graft; Z87.891 Personal history of nicotine dependence; Z90.49 Acquired absence of other specified parts of digestive tract; Z79.02 Long term (current) use of antithrombotics/antiplatelets

== ENCOUNTER 2018-02-24 17:29 | Inpatient (IN) | payer MEDICARE, OTHER ==
[2018-02-24 17:42] VITALS: BMI 22.1
--- NOTE | 2018-02-24 18:48 | ED PDOC ---
Arrival/HPI - General Chief Complaint: Dizziness/Lightheaded Time Seen by Provider: 02/24/18 17:41 Historian: Patient - History of Present Illness Narrative History of Present Illness (Text): 02/24/18 18:14 82 year old female, whose history includes NH, heart failure, stents x3, hypertension, and high cholesterol, presents to the Emergency department complaining of dizziness described as waxing and waning lightheadedness. Symptoms began in the middle of the night when patient was sleeping; patient stayed up for 2-3 hours, went to sleep, and woke up with no relief of symptoms. Patient denies any fever, chills, chest pain, shortness of breath, nausea, vomiting, diarrhea, urinary symptoms, back pain, neck pain, headache, or any other complaints. Time/Duration: Other (less than 1 day) Symptom Onset: Gradual Symptom Course: Unchanged Activities at Onset: Sleeping Context: Home Past Medical History - Provider Review Nursing Documentation Reviewed: Yes - Infectious Disease Hx of Infectious Diseases: None - Tetanus Immunization Tetanus Immunization: Unknown - Cardiac Hx Cardiac Disorders: Yes Hx Congestive Heart Failure: Yes Hx Hypertension: Yes - Pulmonary Hx Respiratory Disorders: No Hx Tuberculosis: No - Neurological Hx Neurological Disorder: Yes Hx Transient Ischemic Attacks (TIA): Yes - HEENT Hx HEENT Disorder: Yes Hx Glaucoma: Yes - Renal Hx Renal Disorder: Yes Other/Comment: Kidney Disease - Endocrine/Metabolic Hx Endocrine Disorders: No - Hematological/Oncological Hx Blood Disorders: Yes Hx Anemia: Yes Hx Cancer: Yes (Breast) - Integumentary Hx Dermatological Disorder: No - Musculoskeletal/Rheumatological Hx Musculoskeletal Disorders: Yes Hx Falls: Yes (past) Hx Unsteady Gait: Yes - Gastrointestinal Hx Gastrointestinal Disorders: Yes Hx Gastroesophageal Reflux: Yes - Genitourinary/Gynecological Hx Genitourinary Disorders: No Hx Sexually Transmitted Diseases: No - Psychiatric Hx Psychophysiologic Disorder: Yes Hx Anxiety: Yes Hx Depression: Yes Hx Substance Use: No - Surgical History Hx Cardiac Catheterization: Yes Hx Cholecystectomy: Yes Hx Coronary Stent: Yes (x3) Other/Comment: carotid endarectomy - Anesthesia Hx Anesthesia: Yes Hx Anesthesia Reactions: No Hx Malignant Hyperthermia: No Family/Social History - Physician Review Nursing Documentation Reviewed: Yes Family/Social History: Unknown Family HX Smoking Status: Never Smoked Hx Alcohol Use: No Hx Substance Use: No Allergies/Home Meds Allergies/Adverse Reactions: Allergies No Known Allergies Allergy (Verified 04/01/17 16:18) Home Medications: Home Meds Medication Instructions Recorded Confirmed Colesevelam HCl [Welchol] 3 tab PO BID 04/01/17 04/05/17 Febuxostat [Uloric] 40 mg PO HS 04/01/17 04/05/17 Review of Systems - Physician Review All systems were reviewed & negative as marked: Yes - Review of Systems Constitutional: absent: Fevers, Night Sweats Respiratory: absent: SOB Cardiovascular: absent: Chest Pain Gastrointestinal: absent: Diarrhea, Nausea, Vomiting Genitourinary Female: absent: Dysuria Musculoskeletal: absent: Back Pain, Neck Pain Neurological: Dizziness. absent: Headache Physical Exam Vital Signs Reviewed: Yes Vital Signs Temp Pulse Resp BP Pulse Ox 02/24/18 17:40 98.2 F 72 18 224/77 H 95 Temperature: Afebrile Blood Pressure: Normal Pulse: Regular Respiratory Rate: Normal Appearance: Positive for: Well-Appearing, Non-Toxic, Comfortable Pain Distress: None Mental Status: Positive for: Alert and Oriented X 3 Finger Stick Blood Glucose: 92 - Systems Exam Head: Present: Atraumatic, Normocephalic Pupils: Present: PERRL Extroacular Muscles: Present: EOMI Conjunctiva: Present: Normal Mouth: Present: Moist Mucous Membranes Neck: Present: Normal Range of Motion Respiratory/Chest: Present: Clear to Auscultation, Good Air Exchange. No: Respiratory Distress, Accessory Muscle Use Cardiovascular: Present: Regular Rate and Rhythm, Normal S1, S2. No: Murmurs Abdomen: No: Tenderness, Distention, Peritoneal Signs Back: Present: Normal Inspection Upper Extremity: Present: Normal Inspection. No: Cyanosis, Edema Lower Extremity: Present: Normal Inspection. No: Edema Neurological: Present: GCS=15, CN II-XII Intact, Speech Normal Skin: Present: Warm, Dry, Normal Color. No: Rashes Psychiatric: Present: Alert, Oriented x 3, Normal Insight, Normal Concentration Medical Decision Making ED Course and Treatment: 02/24/18 18:30 Impression: 82 year old female presents to the Emergency department complaining of dizziness. Plan: -- Chest xray -- EKG -- Blood culture, urine culture -- Urinalysis -- VBG -- Labs -- Reassess and disposition Progress Notes: 02/24/18 20:38 Discussed case in detail with Dr. Perry, covering for Dr. Hidalgo. Will admit the patient to telemetry and call Dr. Dmitriy Zambrano to see the patient for CHF and hypotension. Spoke to the medical technician so they could do the orders. - Lab Interpretations Lab Results: 02/24/18 19:07 02/24/18 19:07 Lab Results 02/24/18 19:07: Sodium 141, Chloride 103, Potassium 4.0, Carbon Dioxide 30, Anion Gap 12, BUN 19, Creatinine 0.5 L, Est GFR ( Amer) > 60, Est GFR ( Non-Af Amer) > 60, Random Glucose 94, Calcium 9.5, Total Bilirubin 0.8, AST 33, ALT 28, Alkaline Phosphatase 126, Lactate Dehydrogenase 482, Total Creatine Kinase 32 L, Troponin I 0.03 D, NT-Pro-B Natriuret Pep 3670 H, Total Protein 6.5, Albumin 3.8, Globulin 2.8, Albumin/Globulin Ratio 1.4 02/24/18 19:07: pO2 144 H, VBG pH 7.40, VBG pCO2 48.0, VBG HCO3 29.7 H, VBG Total CO2 31.2 H, VBG O2 Sat (Calc) 99.5 H, VBG Base Excess 4.0 H, VBG Potassium 4.0, Sodium 138.0, Chloride 105.0, Glucose 96, Lactate 0.8, FiO2 21.0 , Venous Blood Potassium 4.0 02/24/18 19:07: PT 11.1, INR 0.97 02/24/18 19:07: WBC 8.1, RBC 4.67, Hgb 14.2, Hct 41.7, MCV 89.3, MCH 30.4, MCHC 34.1, RDW 12.8, Plt Count 217, MPV 9.9, Gran % 74.3 H, Lymph % (Auto) 15.3 L, [place] % (Auto) 9.7 H, Eos % (Auto) 0.6 L, Baso % (Auto) 0.1, Gran # 6.00, Lymph # (Auto) 1.2, [place] # (Auto) 0.8 H, Eos # (Auto) 0.1, Baso # (Auto) 0.01 02/24/18 18:28: POC Glucose (mg/dL) 92 - RAD Interpretation Radiology Orders: 02/24/18 18:05 CHEST PORTABLE [RAD] Stat - EKG Interpretation EKG Interpretation (Text): 02/24/18 18:18 EKG: Ordered, reviewed, and independently interpreted the EKG. Rate : 68 BPM Rhythm : NSR Interpretation : Left atrial enlargement. Left ventricular hypertrophy with repolarization, abnormality. Inferior infarct, age undetermined. Interpreted by ED Physician: Yes Type: 12 lead EKG - Medication Orders Current Medication Orders: Discontinued Medications Sodium Chloride (Sodium Chloride 0.9%) 1,000 mls @ 999 mls/hr IV .Q1H1M STA Stop: 02/24/18 20:28 Last Admin: 02/24/18 19:43 Dose: 999 mls/hr eMAR Start Stop Document 02/24/18 19:43 LA (Rec: 02/24/18 19:44 LA [id number]) Intravenous Solution Start Date 02/24/18 Start Time 19:43 End Date 02/24/18 End time 20:44 Total Infusion Time 61 - Scribe Statement The provider has reviewed the documentation as recorded by the Leena Savage Provider Scribe Attestation: All medical record entries made by the Scribe were at my direction and personally dictated by me. I have reviewed the chart and agree that the record accurately reflects my personal performance of the history, physical exam, medical decision making, and the department course for this patient. I have also personally directed, reviewed, and agree with the discharge instructions and disposition. Disposition/Present on Arrival - Present on Arrival History of DVT/PE: Yes History of Uncontrolled Diabetes: No Urinary Catheter: No History of Decub. Ulcer: No History Surgical Site Infection Following: None - Disposition Referrals: Mohan Hidalgo MD [Primary Care Provider] - Follow up with primary Forms: [employer] ([place])
[2018-02-24 19:25] LABS: VENOUS BLOOD GAS PO2 144 mm/Hg (30-55)
[2018-02-24] MEDS ORDERED: Sodium Chloride 0.9% 1,000 ML IV STA (19:28)
[2018-02-24 19:30] LABS: BASO # 0.01 K/mm3 (0.0-2.0); BASO % 0.1 % (0.0-3.0); EOS # 0.1 (0.0-0.7); EOS % 0.6 % (1.5-5.0); GRAN % 74.3 % (50.0-68.0); HEMOGLOBIN 14.2 g/dL (12.0-16.0); LYMPH # 1.2 (1.2-3.4); LYMPH % 15.3 % (22.0-35.0); MEAN CELL VOLUME 89.3 fl (80.0-105.0); MEAN CORPUSCULAR HEMOGLOBIN 30.4 pg (25.0-35.0); MEAN CORPUSCULAR HGB CONC 34.1 g/dl (31.0-37.0); MEAN PLATELET VOLUME 9.9 fl (7.0-11.0); MONO # 0.8 (0.1-0.6); MONO % 9.7 % (1.0-6.0); RBC 4.67 10^6/uL (3.5-6.1); RED CELL DISTRIBUTION WIDTH 12.8 % (11.5-14.5); WHITE BLOOD COUNT 8.1 10^3/ul (4.5-11.0)
[2018-02-24 19:34] LABS: ALB/GLOB RATIO 1.4 (1.1-1.8); ALBUMIN 3.8 g/dL (3.0-4.8); ALT/SGPT 28 U/L (7-56); AST/SGOT 33 U/L (14-36); BLOOD UREA NITROGEN 19 mg/dL (7-21); CALCIUM 9.5 mg/dL (8.4-10.5); GFR AFRICAN-AMERICAN > 60; GFR NON-AFRICAN AMERICAN > 60
[2018-02-24 19:45] LABS: INR 0.97 (0.93-1.08); PROTHROMBIN TIME 11.1 SECONDS (9.4-12.5)
[2018-02-24 19:46] LABS: B-TYPE NATRIURETIC PEPTIDE 3670 pg/mL (0-450); TROPONIN I 0.03 ng/mL
--- NOTE | 2018-02-24 22:45 | CP.PCM.HP ---
Past Patient History - Infectious Disease Hx of Infectious Diseases: None - Tetanus Immunizations Tetanus Immunization: Unknown - Past Social History Smoking Status: Never Smoked - CARDIAC Hx Cardiac Disorders: Yes Hx Congestive Heart Failure: Yes Hx Hypertension: Yes - PULMONARY Hx Respiratory Disorders: No Hx Tuberculosis: No - NEUROLOGICAL Hx Neurological Disorder: Yes Hx Transient Ischemic Attacks (TIA): Yes - HEENT Hx HEENT Problems: Yes Hx Glaucoma: Yes - RENAL Hx Chronic Kidney Disease: Yes Other/Comment: Kidney Disease - ENDOCRINE/METABOLIC Hx Endocrine Disorders: No - HEMATOLOGICAL/ONCOLOGICAL Hx Blood Disorders: Yes Hx Anemia: Yes Hx Cancer: Yes (Breast) - INTEGUMENTARY Hx Dermatological Problems: No - MUSCULOSKELETAL/RHEUMATOLOGICAL Hx Musculoskeletal Disorders: Yes Hx Falls: Yes (past) Hx Unsteady Gait: Yes - GASTROINTESTINAL Hx Gastrointestinal Disorders: Yes Hx Gastroesophageal Reflux: Yes - GENITOURINARY/GYNECOLOGICAL Hx Genitourinary Disorders: No Hx Sexually Transmitted Disorders: No - PSYCHIATRIC Hx Psychophysiologic Disorder: Yes Hx Anxiety: Yes Hx Depression: Yes Hx Substance Use: No - SURGICAL HISTORY Hx Cardiac Catheterization: Yes Hx Cholecystectomy: Yes Hx Coronary Stent: Yes (x3) Other/Comment: carotid endarectomy - ANESTHESIA Hx Anesthesia: Yes Hx Anesthesia Reactions: No Hx Malignant Hyperthermia: No Meds Allergies/Adverse Reactions: Allergies Allergy/AdvReac Type Severity Reaction Status Date / Time No Known Allergies Allergy Verified 04/01/17 16:18 Results - Vital Signs Recent Vital Signs: Last Vital Signs Temp 98.2 F 02/24/18 17:40 Pulse 72 02/24/18 17:40 Resp 18 02/24/18 17:40 BP 224/77 H 02/24/18 17:40 Pulse Ox 95 02/24/18 17:40 - Labs Result Diagrams: 02/24/18 19:07 02/24/18 19:07
[2018-02-25 06:47] LABS: BASO # 0.01 K/mm3 (0.0-2.0); BASO % 0.1 % (0.0-3.0); EOS # 0.1 (0.0-0.7); EOS % 0.7 % (1.5-5.0); GRAN # 5.28 (1.4-6.5); GRAN % 72.5 % (50.0-68.0); LYMPH # 1.3 (1.2-3.4); LYMPH % 17.9 % (22.0-35.0); MEAN CELL VOLUME 89.9 fl (80.0-105.0); MEAN CORPUSCULAR HGB CONC 33.3 g/dl (31.0-37.0); MONO # 0.6 (0.1-0.6); MONO % 8.8 % (1.0-6.0); RBC 4.34 10^6/uL (3.5-6.1); RED CELL DISTRIBUTION WIDTH 12.9 % (11.5-14.5); WHITE BLOOD COUNT 7.3 10^3/ul (4.5-11.0)
[2018-02-25 07:13] LABS: ALB/GLOB RATIO 1.3 (1.1-1.8); ALBUMIN 3.3 g/dL (3.0-4.8); ALT/SGPT 28 U/L (7-56); AST/SGOT 29 U/L (14-36); BLOOD UREA NITROGEN 17 mg/dL (7-21); CALCIUM 9.1 mg/dL (8.4-10.5); GFR AFRICAN-AMERICAN > 60; GFR NON-AFRICAN AMERICAN > 60
[2018-02-25 07:15] LABS: TROPONIN I 0.04 ng/mL
--- NOTE | 2018-02-25 08:31 | RAD ---
HISTORY: Lightheaded COMPARISON: 04/05/2017 next FINDINGS: LUNGS: No active pulmonary disease. PLEURA: No significant pleural effusion identified, no pneumothorax apparent. CARDIOVASCULAR: Cardiomegaly. No evidence of acute, significant cardiovascular disease. OSSEOUS STRUCTURES: No significant abnormalities. VISUALIZED UPPER ABDOMEN: Normal. OTHER FINDINGS: None. IMPRESSION: No active disease.
--- NOTE | 2018-02-25 14:11 | CT ---
PROCEDURE: CT HEAD WITHOUT CONTRAST. HISTORY: ams COMPARISON: 08/29/2016 TECHNIQUE: Axial computed tomography images were obtained through the head/brain without intravenous contrast. Radiation dose: Total exam DLP = 925 mGy-cm. This CT exam was performed using one or more of the following dose reduction techniques: Automated exposure control, adjustment of the mA and/or kV according to patient size, and/or use of iterative reconstruction technique. FINDINGS: HEMORRHAGE: No intracranial hemorrhage. BRAIN: No mass effect or edema. Chronic atrophy and encephalomalacia is seen in the right parietal lobe VENTRICLES: Unremarkable. No hydrocephalus. CALVARIUM: Unremarkable. PARANASAL SINUSES: Unremarkable as visualized. No significant inflammatory changes. MASTOID AIR CELLS: Unremarkable as visualized. No inflammatory changes. OTHER FINDINGS: None. IMPRESSION: No acute findings
--- NOTE | 2018-02-25 19:38 | HP ---
LOCATION: The patient is in [facility], room 264, bed 1. HISTORY OF PRESENT ILLNESS: This is an 82-year-old female. She was seen in the emergency room last night. She presented with severe dizziness and tendency to fall within "the patient has symptoms." The patient has past history of cerebrovascular disease, coronary artery disease, hypertension. Patient is significant in that the patient has had previous episodes of dizziness and symptoms of cerebrovascular insufficiency. PAST MEDICAL HISTORY: Significant that she has history of gallbladder disease, cholecystectomy. Patient also has history of carotid artery disease. ALLERGIES: SHE IS NOT ALLERGIC TO ANY MEDICATIONS AT THIS TIME. MEDICATIONS: Patient has medications for hypertension, cholesterol elevation and also for sodium restriction. PHYSICAL EXAMINATION: GENERAL: The patient is conscious, answers questions. VITAL SIGNS: Pulse is 63, blood pressure 130/66, respirations are 18, O2 satting 95% on room air. HEENT: Head is normocephalic. NECK: The thyroid is not enlarged. LUNGS: Trachea is central. Breath sounds are vesicular. No adventitious sounds. HEART: S1, S2 present. No murmurs. ABDOMEN: Soft. Liver and spleen not palpable. CENTRAL NERVOUS SYSTEM: Cranial nerves are intact from II through XII. The patient has no evidence of nystagmus. LABORATORY DATA: The patient's x-rays were unremarkable. The blood work done in the emergency room showed white count of 7000, hemoglobin of 13, and differential which is not that disturbing. Patient's chemistries, the patient's blood sugar is 85, patient's creatinine is 0.5, BUN is 17, sodium is 139. Those chemical parameters are pretty reasonable for a patient with cardiovascular problems. The patient's x-rays does not reveal any significant pathology. EKG did not reveal any significant pathology. Troponin was borderline, not significant. BNP 3670. IMPRESSION AND PLAN: She might have some incipient congestive cardiac failure, but otherwise the patient is going to be evaluated by the diamond sizer and by neurologist. Patient might need ENT examination. We will consider that and we will follow up with medications and diet and possible a quick resolution to her problems. Kem Vang MD
--- NOTE | 2018-02-25 20:30 | CARD ---
APPROVED REPORT EKG Measurement Heart [id number] <Conclusion> Normal sinus rhythm Left ventricular hypertrophy with repolarization abnormality Inferior infarct, age undetermined Abnormal ECG
[2018-02-25] MEDS ORDERED: Gadodiamide 287 MG/ML VIAL (15ML) IV ONE (20:38)
--- NOTE | 2018-02-25 21:00 | CON ---
DATE: 02/25/2018 CARDIOLOGY FOLLOWUP HISTORY OF PRESENT ILLNESS: The patient an 82-year-old woman, who presents with transient dizziness. Her symptoms are now resolved. PAST MEDICAL HISTORY: The patient's past medical history includes a history of a myocardial infarction. She is status post multivessel PTCA in the past. Her last catheterization in March 2017 showed patent stents. She denies chest pain, denies shortness of breath. Her left ventricular function showed an old inferior wall NM with an ejection fraction of 40%. SOCIAL HISTORY: The patient does not smoke. REVIEW OF SYSTEMS: Reviewed in detail. No cardiac symptomatology is noted. No further dizziness is noted. The patient feels well. PHYSICAL EXAMINATION: VITAL: SIGNS: Blood pressure 130/66, the heart rate is in the 60s. NECK: Negative JVD. LUNGS: Without rales. HEART: S1 and S2. EXTREMITIES: Without edema. EKG shows normal sinus rhythm, an old inferior wall NM, with diffuse ST-T changes. LABORATORY DATA: Hemoglobin is 13. Chemistries, BUN and creatinine are unremarkable. Troponins of 0.03 and 0.04, which is unchanged from her previous troponins from March 2016 which was associated with patent stents. IMPRESSION: 1. Transient dizziness. 2. No evidence for acute coronary syndrome. 3. History of coronary artery disease and stents. 4. Old inferior wall myocardial infarction. 5. An ejection fraction of 40% with an old inferior wall akinesis. PLAN: Given these findings, the patient's presenting symptoms are now resolved. No evidence for acute coronary syndrome. We will discontinue telemetry today. We will arrange for an outpatient followup. Dmitriy Zambrano MD
[2018-02-25 21:48] LABS: HDL CHOLESTEROL 40 mg/dL (29-60)
[2018-02-25 21:59] LABS: LDL CHOLESTEROL 59 mg/dL (0-129)
[2018-02-25 22:07] LABS: FREE T4 1.16 ng/dL (0.78-2.19); T4 9.2 ug/dL (5.5-11.0)
--- NOTE | 2018-02-25 23:16 | CON ---
DATE: 02/25/2018 HISTORY OF PRESENT ILLNESS: This is an 82-year-old female with a past medical history of heart failure, had stents, hypertension, high cholesterol, came with the complaint of dizziness and waxing and waning type of lightheadedness. The patient also off and on confused. Called to evaluate the patient. PAST MEDICAL HISTORY: Heart failure and high cholesterol. ALLERGIES: NO KNOWN DRUG ALLERGY. REVIEW OF SYSTEMS: A 10-point review of systems was negative. PHYSICAL EXAMINATION: VITAL SIGNS: Blood pressure was high at 224/77. HEENT: Normocephalic, atraumatic. NECK: Supple. NEUROLOGIC: Awake, alert, oriented to self and place. Cranial nerves II through XII were tested. Pupils reactive. EOM intact. Visual mcknight full. No facial asymmetry. Tongue midline. Motor: Moves all the extremities spontaneously. Deep tendon reflexes 1+. Both plantars are downgoing. Sensory appears intact. Cerebellar, gait deferred. LABORATORY DATA: WBC 8.1, hemoglobin 14.2, hematocrit 41.7, platelet 217. Sodium 141, potassium 4, chloride is 103, CO2 of 30, glucose 94, BUN 19, creatinine 0.5. IMPRESSION: Intermittent confusional state, dizziness, and lightheadedness. Workup in progress. Continue present management. We will do CAT scan of the head without contrast and we will follow up. Brad Melara MD
[2018-02-26] MEDS: Pantoprazole 40 mg EC Tab PO SCH (06:22)
[2018-02-26 06:57] LABS: BASO # 0.01 K/mm3 (0.0-2.0); BASO % 0.2 % (0.0-3.0); EOS # 0.1 (0.0-0.7); EOS % 1.8 % (1.5-5.0); GRAN # 3.74 (1.4-6.5); GRAN % 60.4 % (50.0-68.0); HEMOGLOBIN 13.2 g/dL (12.0-16.0); LYMPH # 1.6 (1.2-3.4); LYMPH % 26.5 % (22.0-35.0); MEAN CELL VOLUME 90.2 fl (80.0-105.0); MEAN CORPUSCULAR HEMOGLOBIN 30.1 pg (25.0-35.0); MEAN CORPUSCULAR HGB CONC 33.3 g/dl (31.0-37.0); MEAN PLATELET VOLUME 9.9 fl (7.0-11.0); MONO # 0.7 (0.1-0.6); MONO % 11.1 % (1.0-6.0); RBC 4.39 10^6/uL (3.5-6.1); RED CELL DISTRIBUTION WIDTH 13.1 % (11.5-14.5); WHITE BLOOD COUNT 6.2 10^3/ul (4.5-11.0)
[2018-02-26 07:29] LABS: ALB/GLOB RATIO 1.3 (1.1-1.8); ALBUMIN 3.3 g/dL (3.0-4.8); ALT/SGPT 33 U/L (7-56); AST/SGOT 29 U/L (14-36); BLOOD UREA NITROGEN 19 mg/dL (7-21); CALCIUM 9.2 mg/dL (8.4-10.5); GFR AFRICAN-AMERICAN > 60; GFR NON-AFRICAN AMERICAN > 60
--- NOTE | 2018-02-26 08:04 | MRI ---
EXAM: MR Head Without and With Intravenous Contrast CLINICAL HISTORY: 82 years old, female; Signs and symptoms; Syncope and collapse; Additional info: HX cva/dizziness TECHNIQUE: Magnetic resonance images of the head/brain without and with intravenous contrast in multiple planes. CONTRAST: 12 mL of optimark administered intravenously. COMPARISON: MR - BRAIN WITHOUT CONTRAST 2017-01-05 18:37 FINDINGS: Brain: Examination reveals a focal area of restricted diffusion in the right parieto-occipital lobe consistent with acute infarction. No acute hemorrhage, mass, midline shift or abnormal contrast enhancement is seen. There is mild patchy increased T2 signal intensity within the periventricular white matter, consistent with chronic microvascular ischemic changes. There are multiple tiny focal areas of chronic ischemia in bilateral frontal, parietal and periatrial white matter. Intracranial flow voids are well maintained. On gradient echo imaging, no susceptibility changes are seen to represent parenchymal calcification or degraded blood products. There is mild diffuse cerebral atrophy present, consistent with this patient's age. Examination of the posterior fossa demonstrates no significant abnormality. Chronic lacunar infarction is seen in the right thalamus. Ventricles: The ventricular system demonstrates mild diffuse compensatory enlargement. Bones/joints: Unremarkable. Sinuses: Mild mucosal thickening is seen in the paranasal sinuses. No acute sinusitis. Mastoid air cells: Unremarkable as visualized. No mastoid effusion. Orbits: Unremarkable as visualized. Other findings: No abnormal contrast enhancement is seen. IMPRESSION: Examination reveals a focal area of restricted diffusion in the right parieto-occipital lobe consistent with acute infarction. No acute hemorrhage, mass, midline shift or abnormal contrast enhancement is seen.
--- NOTE | 2018-02-26 08:28 | MRI ---
EXAM: MR Angiography Head Without Intravenous Contrast CLINICAL HISTORY: 82 years old, female; Signs and symptoms; Syncope and collapse; Additional info: HX cva/dizziness TECHNIQUE: Magnetic resonance angiography images of the head without intravenous contrast. 3D reconstructed images were created and reviewed. COMPARISON: MRA HEAD WITHOUT CONTRAST 2016-06-12 10:14 FINDINGS: Right internal carotid artery: No acute findings. Intracranial segment is patent with no significant stenosis. No aneurysm. Right anterior cerebral artery: Unremarkable. No occlusion or significant stenosis. No aneurysm. Right middle cerebral artery: Unremarkable. No occlusion or significant stenosis. No aneurysm. Right posterior cerebral artery: Unremarkable. No occlusion or significant stenosis. No aneurysm. Right vertebral artery: Unremarkable as visualized. Left internal carotid artery: No acute findings. Intracranial segment is patent with no significant stenosis. No aneurysm. Left anterior cerebral artery: Unremarkable. No occlusion or significant stenosis. No aneurysm. Left middle cerebral artery: Unremarkable. No occlusion or significant stenosis. No aneurysm. Left posterior cerebral artery: Unremarkable. No occlusion or significant stenosis. No aneurysm. Left vertebral artery: Unremarkable as visualized. Basilar artery: Unremarkable. No occlusion or significant stenosis. No aneurysm. IMPRESSION: No stenosis. No occlusion. No aneurysm.There has been no adverse interval change since the previous study.
--- NOTE | 2018-02-26 10:58 | US ---
PROCEDURE: Bilateral carotid artery duplex ultrasound HISTORY: Carotid stenosis CVA PHYSICIAN(S): Dmitriy Joshua MD. TECHNIQUE: Duplex sonography and color-flow Doppler were used to evaluate the carotid bifurcations and limited segments of the vertebral arteries bilaterally. FINDINGS: There is mild to moderate focal heterogeneous plaque noted at the carotid bifurcations bilaterally. The peak systolic velocity in the proximal right internal carotid artery is 84 cm/sec. This corresponds to a 20 to 39% proximal right ICA stenosis. Normal systolic velocities are noted in the proximal right external carotid artery. There is antegrade flow in the right vertebral artery. The peak systolic velocity in the proximal left internal carotid artery is 139 cm/sec. This corresponds to a 40-59 percent proximal left ICA stenosis. Normal systolic velocities are noted in the proximal left external carotid artery. There is antegrade flow in the dominant left vertebral artery. IMPRESSION: 1. 40-59 percent proximal left ICA stenosis. 2. 20-39 percent proximal right ICA stenosis. 3. Antegrade flow in both vertebral arteries.
[2018-02-26 13:02] LABS: HDL CHOLESTEROL 33 mg/dL (29-60)
[2018-02-26 13:13] LABS: LDL CHOLESTEROL 62 mg/dL (0-129)
[2018-02-26 13:42] LABS: FOLATE > 20.0 ng/mL
--- NOTE | 2018-02-26 14:58 | CON ---
DATE: 02/26/2018 PSYCHIATRIC CONSULTATION HISTORY OF PRESENT ILLNESS: The patient is an 82-year-old female. I reviewed the chart. I reviewed my office notes. The patient came to the Emergency Room two days ago complaining of persistent dizziness. This has been going on for several weeks. She was evaluated in the Emergency Room, admitted to the Telemetry. She is now on the medical floor. She was found to have an acute parietal-occipital stroke by MRI of the brain. The patient had a neurological and a cardiac consultation. The patient is currently resting comfortably. She is able to give a coherent history. The patient has been under my care for several years. PAST HISTORY: I have seen her on multiple occasions at [facility] for consultations. Her last admission was on the Psychiatric Unit at [facility] in 12/2016, she was admitted at that time for depression. 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 She also had a mild cognitive impairment. At that time, she had a history of a parietal brain infarct. She also had lacunar infarct. She had chronic microvascular disease. The patient also had multiple other medical problems including history of coronary artery disease, stents, history of non-ST wave myocardial infarctions, history of hyperlipidemia, hypertension, history of carcinoma of the breast. She also has a history in the past of multiple psychotic episodes many years ago; one 50 years ago after her left her. She had been hospitalized twice at [facility] in [facility]. Two years ago, she was found to be a non-communicative, following a stroke. The patient has had episodic agitation. Last admission, she had to be given iron in the Emergency Room. CURRENT MEDICATIONS: I have been treating her with including Zyprexa 10 mg at bedtime. She also had been taking lorazepam 1 mg at bedtime. She had been taking Lexapro 10 mg p.o. every morning. She was also taking Aricept 5 mg at bedtime and Ritalin 10 mg in the morning and afternoon. She was not having any adverse effects from those medications. Currently here in the hospital, she had been on metoprolol and aspirin. She previously had been on Plavix, Welchol, Protonix, Lasix, and folate. CURRENT LABORATORY DATA: CBC and complete metabolic profile within normal range. Her MRI shows a posterior parietal and occipital infarct. She has lacunar infarct. She has also small infarcts in the frontal areas bilaterally of the brain, which are old. The patient had an MRA, which was normal. She also had a carotid ultrasound, which showed 40% to 60% occlusion on the left and less so on the right. PERSONAL HISTORY: She lives alone. 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 She has a son and a daughter. She is . 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 She has no history of alcohol or substance abuse. REVIEW OF SYSTEMS: She complains of slight dizziness. She claims of sleeping poorly. She feels somewhat ill at ease. No headache, chest pain or shortness of breath. Other 12-point review noncontributory. PHYSICAL EXAMINATION: VITAL SIGNS: Blood pressure is 140/90, pulse is 84, respirations are 18 per minute. PSYCHIATRIC: Her mental status, she is awake. She denies being depressed. She is oriented x3. She recognizes me. Her recent and remote memory are mildly intact. The patient denies hallucinations, paranoia or suicidal ideation, but she states she is extremely anxious and she is extremely nervous and is preoccupied by inability to sleep and about her general health and future. IMPRESSION: The patient has a history of recurrent major depression, relatively stable now with history of psychotic episodes, not now; probable history of bipolar disorder; she has a history of mild cognitive impairment secondary to multiple [id number] infarcts; she has chronic microvascular disease; hyperlipidemia; she has coronary artery disease with stents; she has a history of non-ST wave myocardial infarction; history of hypertension; history of carcinoma of the breast; history of hyperlipidemia. PLAN: I will review her psychotropic medications which she was receiving. She was last seen by me in 11/2017 in my office, I reviewed her medications and we will order appropriate psychotropic medications. Luis Mcdaniels MD
--- NOTE | 2018-02-26 15:14 | CARD ---
APPROVED REPORT EXAM: Two-dimensional and M-mode echocardiogram with Doppler and color Doppler. INDICATION DIZZINESS 2D DIMENSIONS Left Atrium (2D)3.5 (1.6-4.0cm)IVSd1.8 (0.7-1.1cm) LVDd4.2 (3.9-5.9cm)PWd0.9 (0.7-1.1cm) LVDs3.6 (2.5-4.0cm)FS (%) 13.6 % LVEF (%)29.3 (>50%) M-Mode DIMENSIONS Aortic Root1.90 (2.2-3.7cm)Aortic Cusp Exc.1.30 (1.5-2.0cm) Aortic Valve AoV Peak Dsheiqnr094.0cm/Isaias Peak GR.12mmHg Mitral Valve MV E Foyyeply44.5cm/sMV A Jopxwhei96.9cm/sE/A ratio0.6 TDI E/Lateral E'0.0E/Medial E'0.0 Tricuspid Valve TR Peak Kwonuhwr109nm/sRAP [id number] Peak Gr.8mmHg [id number] LEFT VENTRICLE The left ventricle is normal size. There is moderate concentric left ventricular hypertrophy. The systolic function is severely impaired. Severly hypokinetic septum Transmitral Doppler flow pattern is Grade I-abnormal relaxation pattern. No left ventricle thrombus noted on this study. RIGHT VENTRICLE The right ventricle is normal size. There is normal right ventricular wall thickness. The right ventricular systolic function is normal. ATRIA The left atrium size is normal. The right atrium size is normal. AORTIC VALVE The aortic valve is moderately thickened. No aortic regurgitation is present. There is no aortic valvular stenosis. MITRAL VALVE The mitral valve is moderately thickened. Mitral regurgitation is mild. TRICUSPID VALVE The tricuspid valve is normal in structure. GREAT VESSELS The aortic root is normal in size. PERICARDIAL EFFUSION There is no pericardial effusion. <Conclusion> The left ventricle is normal size. There is moderate concentric left ventricular hypertrophy. The systolic function is severely impaired. Severly hypokinetic septum Transmitral Doppler flow pattern is Grade I-abnormal relaxation pattern. No left ventricle thrombus noted on this study. Mitral regurgitation is mild.
[2018-02-26 17:03] LABS: LYME IGM NEGATIVE (NEGATIVE)
[2018-02-26 17:38] LABS: LYME IGG NEGATIVE (NEGATIVE)
--- NOTE | 2018-02-26 20:05 | PN ---
DATE: 02/26/2018 NEUROLOGY FOLLOWUP CHIEF COMPLAINT: Followup for dizziness. SUBJECTIVE: Patient is seen and examined at bedside. She said that the dizziness is much better, but she had elevated systolic and diastolic blood pressure when she was admitted. Initially when she was admitted, she had a systolic blood pressure of 222/77, was brought down by the blood pressure medications. She had a carotid Doppler, which showed 40% to 59% proximal left ICA stenosis and 20% to 39% proximal right ICA stenosis with antegrade flow on the vertebral arteries. She also had an underlying MRI of the brain, which showed an acute infarction in the right parietooccipital lobe superimposed underlying a preexisting infarction in the right parietooccipital lobe. In addition, old chronic infarction of the right thalamus and head of the left caudate nucleus and chronic ischemic changes. The MRA of the head was unremarkable. She had an echocardiogram done, which showed moderate left ventricular hypertrophy. The systolic function is severely impaired with severely hypokinetic septum. She was seen by Psychiatry for underlying recurrent major depression, which is relatively stable with a history of psychotic episodes and has mild cognitive impairment also secondary to multiple chronic infarcts and chronic ischemic changes. She is on she had a new infarct, we will recommend to hold it for at least 1 week given its symptom of manic effects. She currently was only on aspirin and Lipitor. We will recommend to place her on aspirin 81 and Plavix 75 in addition to Lipitor 80 mg p.o. at bedtime for 21 days followed by 40 mg p.o. daily. PAST MEDICAL HISTORY: History of CVAs in the past, history of depression with psychotic episodes; hyperlipidemia; coronary artery disease, status post stent; history of carcinoma of the breast. PERSONAL HISTORY: She lives alone. She is husky. She has a son and daughter. She is . ALLERGIES: NO KNOWN DRUG ALLERGIES. MEDICATION: Reviewed by the nurse via reconciliation sheet. REVIEW OF SYSTEMS: A 14-point review of systems is negative except per the HPI. PHYSICAL EXAMINATION: VITAL SIGNS: Temperature 98, pulse rate of 67, blood pressure 159/76, respirations 18, oxygen saturation 98% via room air. GENERAL: Patient is sitting up in bed, in no acute distress. HEENT: Atraumatic and normocephalic. PERRLA. Extraocular muscles intact. NECK: Supple. No JVD. No adenopathy noted. LUNGS: Clear to auscultation. No adventitious sounds. HEART: S1 and S2. Normal rate and rhythm. No murmurs, rubs, or gallops. ABDOMEN: Soft, nontender and nondistended. Bowel sounds present. EXTREMITIES: No clubbing. No cyanosis. Peripheral pulses are 2+ bilaterally. NEUROLOGIC: Patient is alert and oriented to person, place and year. Recall after 5 minutes is 0/3. Poor attention. Slow thought process. Denies any hallucinations, paranoia or suicidal ideation. She is extremely anxious and preoccupied sleep. Speech is fluent without any errors. Cranial nerves II through XII are intact. Motor exam: Moves all extremities equally except for some mild left 5/5 weakness when compared to the right. Sensory: Light touch, pinprick, proprioception, vibration intact. DTRs are 2+ throughout. DTRs are 2+ throughout and 1 at both knees and ankles. Coordination: [id number] is intact. Gait is wide based. LABORATORY DATA: Sodium is 139, potassium is 3.9, chloride 105, carbon dioxide 27, BUN is 19, random glucose of 90. ASSESSMENT AND PLAN: 1. This is an 82-year-old woman with history of coronary artery disease status post stent, history of non-ST segment myocardial infarction, history of hyperlipidemia, history of mild cognitive impairment from underlying chronic bilateral infarcts in the brain with chronic microvascular ischemic changes, depression with history of psychotic episodes, history of bipolar disorder, who came in for persistent dizziness, found to have elevated systolic and diastolic blood pressures of more than 200/70, after which she was found to have an acute on chronic infarct in the right parietooccipital region with chronic infarcts seen in the right thalamus and head of the caudate nucleus with the carotid Doppler showing 40% to 59% left proximal internal carotid artery stenosis and right 20% to 39% proximal right internal carotid artery stenosis with antegrade flow in the vertebral arteries. Currently, she has a wide-based gait with minimum weakness. She does have mild cognitive impairment, which is like secondary to bilateral chronic infarctions, acute on chronic. In addition, her dizziness is secondary to persistent hypertensive urgency causing an acute right parietooccipital infarct, which is dizziness. At this time, we will recommend to add Plavix 75 in addition to aspirin 81 and Lipitor, make it from 40 to 80 mg for 21 days, then bring down to 40. 2. Avoid symptomatic stimulant for at least 1 week and adjust her psychiatric medication by her psychiatrist. 3. Monitor electrolytes and correct accordingly. 4. PT/OT assessment and some mild subacute rehab. Thank you for this followup. Jovanni Melara MD
--- NOTE | 2018-02-26 22:00 | CP.PCM.CON ---
History of Present Illness - History of Present Illness History of Present Illness: Vascular surgery consult note for Dr. Cortez Consulted for: carotid artery disease, CVA Patient is a pleasant 82F with PMH of CVA, severe CHF, HTN, DM, and carotid artery disease and PSH of R carotid endarterectomy in 2016 who lives alone at home and manages activities of daily living on her own (per patient) who presented to the hospital for dizziness and falls for the past few months. Patient was found to have an acute infarction of the right parieto-occipital lobe. Carotid ultrasound was performed which showed 20-39% stenosis of the DEONNA and 40-59% stenosis of the LICA and vascular surgery was consulted. Patient denies any current pain, headache, dizziness, visions changes, focal weakness, dysarthria, chest pain, numbness, or tingling, or any other symptoms. PMH: CVA, CHF, CAD, UT, ADRIÁN, Depression, bipolar, mild cognitive disorder, HTN, breast cancer, HLD PSH: cholecystectomy, right carotid endarterectomy, right breast mass excision ALL: NKDA Social: 50 years 1-2PPD cigarettes, quit 15 years ago. Denies ETOH or illicit substances Review of Systems - Review of Systems All systems: reviewed and no additional remarkable complaints except (as per HPI ) Past Patient History - Infectious Disease Hx of Infectious Diseases: None - Tetanus Immunizations Tetanus Immunization: Unknown - Past Social History Smoking Status: Former Smoker Alcohol: None Drugs: Denies Home Situation {Lives}: Alone - CARDIAC Hx Cardiac Disorders: Yes Hx Congestive Heart Failure: Yes Hx Hypertension: Yes - PULMONARY Hx Respiratory Disorders: No Hx Tuberculosis: No - NEUROLOGICAL HX Cerebrovascular Accident: Yes (TIA's) - HEENT Hx HEENT Problems: Yes Hx Glaucoma: Yes - RENAL Hx Chronic Kidney Disease: Yes Other/Comment: Kidney Disease - ENDOCRINE/METABOLIC Hx Endocrine Disorders: No - HEMATOLOGICAL/ONCOLOGICAL Hx Blood Disorders: Yes Hx Anemia: Yes Hx Cancer: Yes (Breast) - INTEGUMENTARY Hx Dermatological Problems: No - MUSCULOSKELETAL/RHEUMATOLOGICAL Hx Musculoskeletal Disorders: Yes Hx Falls: Yes (past) Hx Unsteady Gait: Yes - GASTROINTESTINAL Hx Gastroesophageal Reflux: Yes - GENITOURINARY/GYNECOLOGICAL Hx Genitourinary Disorders: No Hx Sexually Transmitted Disorders: No - PSYCHIATRIC Hx Psychophysiologic Disorder: Yes Hx Anxiety: Yes Hx Depression: Yes Hx Substance Use: No - SURGICAL HISTORY Hx Cardiac Catheterization: Yes Hx Cholecystectomy: Yes Hx Coronary Stent: Yes (x3) Other/Comment: carotid endarectomy - ANESTHESIA Hx Anesthesia: Yes Hx Anesthesia Reactions: No Hx Malignant Hyperthermia: No Meds Allergies/Adverse Reactions: Allergies Allergy/AdvReac Type Severity Reaction Status Date / Time No Known Allergies Allergy Verified 04/01/17 16:18 - Medications Medications: Current Medications Aspirin (Aspirin Chewable) 81 mg PO DAILY [facility] Last Admin: 02/26/18 11:22 Dose: 81 mg Atorvastatin Calcium (Lipitor) 40 mg PO DIN [facility] Last Admin: 02/26/18 17:42 Dose: 40 mg Donepezil HCl (Aricept) 5 mg PO HS [facility] Last Admin: 02/26/18 21:53 Dose: 5 mg Escitalopram Oxalate (Lexapro) 10 mg PO QAM [facility] Furosemide (Lasix) 20 mg PO DAILY [facility] Last Admin: 02/26/18 20:13 Dose: 20 mg Lorazepam (Ativan) 1.5 mg PO HS [facility] Last Admin: 02/26/18 21:53 Dose: 1.5 mg Methylphenidate HCl (Ritalin) 10 mg PO 0800,1400 [facility] Metoprolol Tartrate (Lopressor) 25 mg PO BID [facility] Last Admin: 02/26/18 17:42 Dose: 25 mg Olanzapine (Zyprexa) 5 mg PO HS [facility] PRN Reason: Protocol Last Admin: 02/26/18 21:53 Dose: 5 mg Pantoprazole Sodium (Protonix Ec Tab) 40 mg PO 0600 [facility] Last Admin: 02/26/18 06:22 Dose: 40 mg Physical Exam - Constitutional Appears: Well, Non-toxic, No Acute Distress - Head Exam Head Exam: ATRAUMATIC, NORMOCEPHALIC - Eye Exam Eye Exam: EOMI, Normal appearance. absent: Conjunctival injection, Scleral icterus Pupil Exam: PERRL - ENT Exam ENT Exam: Mucous Membranes Moist, Normal Oropharynx - Neck Exam Neck exam: Positive for: Normal Inspection. Negative for: Lymphadenopathy Additional comments: no carotid bruit - Respiratory Exam Respiratory Exam: NORMAL BREATHING PATTERN. absent: Accessory Muscle Use, Rhonchi, Wheezes, Respiratory Distress - Cardiovascular Exam Cardiovascular Exam: RRR, +S1, +S2. absent: Systolic Murmur - GI/Abdominal Exam GI & Abdominal Exam: Soft. absent: Distended, Tenderness - Extremities Exam Extremities exam: Positive for: pedal pulses present. Negative for: calf tenderness, pedal edema - Neurological Exam Neurological exam: Alert, CN II-XII Intact, Oriented x3 Additional comments: 5/5 upper and lower extremity muscle strength - Psychiatric Exam Psychiatric exam: Normal Affect, Normal Mood - Skin Skin Exam: Dry, Intact, Normal Color, Warm Results - Vital Signs Recent Vital Signs: Last Vital Signs Temp 98.6 F 02/26/18 18:00 Pulse 58 L 02/26/18 18:00 Resp 19 02/26/18 18:00 BP 181/70 H 02/26/18 20:13 Pulse Ox 95 02/26/18 18:00 - Labs Result Diagrams: 02/26/18 06:20 02/26/18 06:20 Labs: Laboratory Results - last 24 hr 02/25/18 02/25/18 02/25/18 21:31 21:31 21:31 WBC RBC Hgb Hct MCV MCH MCHC RDW Plt Count MPV Gran % Lymph % (Auto) [place] % (Auto) Eos % (Auto) Baso % (Auto) Gran # Lymph # (Auto) [place] # (Auto) Eos # (Auto) Baso # (Auto) Sodium Potassium Chloride Carbon Dioxide Anion Gap BUN Creatinine Est GFR ( Amer) Est GFR (Non-Af Amer) Random Glucose Calcium Total Bilirubin AST ALT Alkaline Phosphatase Total Protein Albumin Globulin Albumin/Globulin Ratio Triglycerides Cholesterol LDL Cholesterol Direct 59 HDL Cholesterol Vitamin B12 916 25-OH Vitamin D Total Folate > 20.0 Free T4 1.16 Thyroxine (T4) 9.2 TSH 3rd Generation 1.51 RPR Lyme Disease IgG Ab (IFA) Negative Lyme Disease IgM Ab Negative 02/25/18 02/25/18 02/26/18 21:31 21:31 06:20 WBC 6.2 RBC 4.39 Hgb 13.2 Hct 39.6 MCV 90.2 MCH 30.1 MCHC 33.3 RDW 13.1 Plt Count 195 MPV 9.9 Gran % 60.4 Lymph % (Auto) 26.5 [place] % (Auto) 11.1 H Eos % (Auto) 1.8 Baso % (Auto) 0.2 Gran # 3.74 Lymph # (Auto) 1.6 [place] # (Auto) 0.7 H Eos # (Auto) 0.1 Baso # (Auto) 0.01 Sodium Potassium Chloride Carbon Dioxide Anion Gap BUN Creatinine Est GFR ( Amer) Est GFR (Non-Af Amer) Random Glucose Calcium Total Bilirubin AST ALT Alkaline Phosphatase Total Protein Albumin Globulin Albumin/Globulin Ratio Triglycerides Cholesterol LDL Cholesterol Direct HDL Cholesterol Vitamin B12 25-OH Vitamin D Total 36.8 Folate Free T4 Thyroxine (T4) TSH 3rd Generation RPR Nonreactive Lyme Disease IgG Ab (IFA) Lyme Disease IgM Ab 02/26/18 02/26/18 06:20 06:20 WBC RBC Hgb Hct MCV MCH MCHC RDW Plt Count MPV Gran % Lymph % (Auto) [place] % (Auto) Eos % (Auto) Baso % (Auto) Gran # Lymph # (Auto) [place] # (Auto) Eos # (Auto) Baso # (Auto) Sodium 139 Potassium 3.9 Chloride 105 Carbon Dioxide 27 Anion Gap 11 BUN 19 Creatinine 0.7 Est GFR ( Amer) > 60 Est GFR (Non-Af Amer) > 60 Random Glucose 90 Calcium 9.2 Total Bilirubin 0.5 AST 29 ALT 33 Alkaline Phosphatase 99 Total Protein 5.8 Albumin 3.3 Globulin 2.5 Albumin/Globulin Ratio 1.3 Triglycerides 115 Cholesterol 124 L LDL Cholesterol Direct 62 HDL Cholesterol 33 Vitamin B12 25-OH Vitamin D Total Folate Free T4 Thyroxine (T4) TSH 3rd Generation RPR Lyme Disease IgG Ab (IFA) Lyme Disease IgM Ab Assessment & Plan - Assessment and Plan (Free Text) Assessment: 82F with acute ischemic stroke and chronic mild right carotid artery stenosis and moderate left carotid artery stenosis Plan: No vascular surgical intervention indicted at this time--right carotid artery with only 20-39% stenosis which is likely not clinically significant to patient' s current pathology. Control blood pressure Further management of dizziness/acute cerebral infarct per neurology Discussed with Dr. Cortez, further recommendations per her Staci Titus, PGY2
--- NOTE | 2018-02-27 00:25 | PN ---
DATE: 02/26/2018 SUBJECTIVE: Patient was seen in the MRI and ultrasound area. In the morning, I received an urgent call from the on-call radiologist about the patient's MRI of the brain results which shows acute right parietooccipital lobe acute infarct and then patient was transferred to telemetry for further evaluation and management. The patient was seen lying in the stretcher. The patient is alert, awake, responsive. The patient is upset about her diagnosis. OBJECTIVE: VITAL SIGNS: T-max is 98.4. Telemetry shows patient was then transferred to telemetry on 362, bed 2 in front of the nursing station. The patient's telemetry monitoring shows sinus rhythm. Heart rate 89, 61, 67. Blood pressure 166/75 and 159/76. Respirations 18, O2 sat 99-98%. HEENT: Head examination normocephalic, atraumatic. HEENT examination shows pink conjunctivae. Anicteric sclerae. No oropharyngeal lesion. Questionable soft carotid bruit. Positive healed surgical scar of carotid endarterectomy. Positive kyphosis. Questionable decreased breath sound at the left base. CARDIOVASCULAR: Shows S1, S2, regular rhythm. Questionable soft systolic murmur left sternal border, right second intercostal space, left second intercostal space. ABDOMEN: Soft. Positive bowel sounds. No hepatosplenomegaly noted. GENITALIA: Female. RECTAL: Deferred. EXTREMITIES: Shows trace swelling of the lower extremity. No calf numbness, no Homans' sign. MUSCULOSKELETAL: Shows a body mass index of 24. NEUROLOGICAL: The patient is alert, awake, and oriented x3. Cranial nerves II-XII grossly intact. Motor strength is 5/5 in upper and lower extremity. Gait examination is not tested. VASCULAR: Palpable pulses. DIAGNOSTICS: CBC from 02/26/2018 is within normal limit. WBC 6.2, hemoglobin/hematocrit 13.2/39.6, platelets 195. Sodium 139, potassium 3.9, chloride 105, CO2 of 27, anion gap 11, BUN 19, creatinine 0.7, GFR greater than 60, glucose 90, calcium 9.2. LFTs are normal. Cholesterol 124, LDL 62, HDL 33. Vitamin D 25-hydroxy 37. Vitamin B12 is 916, TSH 1.51, T4 of 9.2. RPR and Lyme titers are negative. Blood cultures, no growth. IMPRESSION AND PLAN: 1. Acute right parietooccipital lobe acute infarction. 2. History of right parietooccipital lobe chronic infarction. 3. Chronic lacunar infarct of the right thalamus head and left caudate nucleus. 4. Chronic microvascular ischemic disease of the brain. 5. Bilateral frontal parietal and periatrial white matter chronic ischemia. 6. Diffuse cerebral cortical atrophy of the brain. 7. Paranasal sinus mild mucosal thickening. 8. Left internal carotid artery 40-59% proximal stenosis. 9. Proximal right internal carotid artery 20-39% stenosis. 10. Recurrent dizziness. 11. Ischemic dilated cardiomyopathy with left ventricular ejection fraction of 29%. 12. Severely impaired left ventricular systolic function and severely hypokinetic septum and grade 1 abnormal relaxation pattern. 13. Moderately thickened aortic valve. 14. Moderately thickened mitral valve. 15. Mild mitral regurgitation. 16. Concentric left ventricular hypertrophy and hypertensive cardiovascular disease. 17. Age indeterminate inferior infarct. 18. History of poor compliance. 19. Cognitive impairment. 20. History of depression. 21. 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 22. Probable history of bipolar disorder. 23. History of myocardial infarction and multivessel angioplasty. 24. Age indeterminate inferior wall myocardial infarction. 25. Gait dysfunction. 26. Deconditioning. 27. Transient granulocytosis. 28. Dementia versus cognitive impairment. 29. Uncontrolled hypertension. 30. Anxiety disorder. Plan at this time, the patient was transferred to telemetry. We are awaiting further evaluation by Neurology. The patient was seen by Psychiatry. Their recommendations were noted. The patient has been ordered repeat CMP and a CBC for the morning. CURRENT CONSULTATIONS: Cardiology, Psychiatry, Neurology, TCU referral ordered. CURRENT MEDICATIONS: Aricept 5 mg h.s., aspirin 81 mg p.o. daily, Ativan 1.5 mg h.s., Lasix 20 mg p.o. daily, Lexapro 10 mg daily, Lipitor 40 mg daily, Lopressor 25 mg twice a day, Protonix 40 mg daily, Ritalin 10 mg twice a day. The patient was on Zyprexa 5 mg h.s. In addition, we will order an MRA of the carotid and vascular surgery consultation for evaluation of carotid stenosis and history of carotid endarterectomy. At present, the patient's further management will be dependent upon the patient's clinical condition, hemodynamic status and as per the patient response to therapeutic intervention, as per the patient's diagnostic test results and as per recommendation by all the physician involved in the care of the patient. Patient has been updated about her condition, diagnosis, test results and recommendation by all the physician involved the care which she acknowledged understand. Dictated and electronically signed, not read. Mohan Hidalgo MD
[2018-02-27] MEDS: Pantoprazole 40 mg EC Tab PO SCH (05:40)
[2018-02-27 06:41] LABS: BASO # 0.02 K/mm3 (0.0-2.0); BASO % 0.2 % (0.0-3.0); EOS # 0.2 (0.0-0.7); EOS % 2.1 % (1.5-5.0); GRAN # 5.28 (1.4-6.5); GRAN % 64.4 % (50.0-68.0); HEMOGLOBIN 13.2 g/dL (12.0-16.0); LYMPH # 1.5 (1.2-3.4); LYMPH % 18.7 % (22.0-35.0); MEAN CELL VOLUME 90.9 fl (80.0-105.0); MEAN CORPUSCULAR HEMOGLOBIN 29.9 pg (25.0-35.0); MEAN CORPUSCULAR HGB CONC 32.9 g/dl (31.0-37.0); MEAN PLATELET VOLUME 9.8 fl (7.0-11.0); MONO # 1.2 (0.1-0.6); MONO % 14.6 % (1.0-6.0); RBC 4.41 10^6/uL (3.5-6.1); RED CELL DISTRIBUTION WIDTH 13.3 % (11.5-14.5); WHITE BLOOD COUNT 8.2 10^3/ul (4.5-11.0)
[2018-02-27 06:52] LABS: ALB/GLOB RATIO 1.3 (1.1-1.8); ALBUMIN 3.3 g/dL (3.0-4.8); ALT/SGPT 30 U/L (7-56); AST/SGOT 30 U/L (14-36); BLOOD UREA NITROGEN 18 mg/dL (7-21); CALCIUM 9.2 mg/dL (8.4-10.5); GFR AFRICAN-AMERICAN > 60; GFR NON-AFRICAN AMERICAN > 60
[2018-02-27] MEDS ORDERED: Gadodiamide 287 MG/ML VIAL (15ML) IV ONE (09:50)
[2018-02-27 10:41] LABS: 23 KD (IGG) BAND Nonreactive
--- NOTE | 2018-02-27 10:49 | MRI ---
PROCEDURE: MR Angiography of the neck with and without contrast HISTORY: CAROTID STENOSIS/ACUTE CVA COMPARISON: None available. TECHNIQUE: Contrast enhanced and [id number] angiography of the neck was performed. Rotating 3D maximum intensity projection images of the cervical carotid and vertebral arteries were generated. 15 cc of Omniscan FINDINGS: RIGHT CAROTID ARTERIES: No significant stenosis LEFT CAROTID ARTERIES: There is a moderate to severe stenosis of the proximal internal carotid with poststenotic dilatation. The findings are best seen on postcontrast image 4 series 601. The stenosis appears more severe than is indicated on the Doppler ultrasound study. The degree of stenosis is probably 70 or 80 percent VERTEBRAL ARTERIES: Right Vertebral Artery: Normal. Left Vertebral Artery: Normal. OTHER FINDINGS: None. IMPRESSION: Moderate to severe stenosis of the proximal left internal carotid with poststenotic dilatation.
--- NOTE | 2018-02-27 13:27 | PN ---
DATE: 02/27/2018 CARDIOLOGY FOLLOWUP SUBJECTIVE: The patient's symptoms are unchanged. Her dizziness is improved. PHYSICAL EXAMINATION: VITAL SIGNS: Blood pressure is 160/78, heart rate is in the 70s. NECK: Negative JVD. LUNGS: Without rales. HEART: Reveal S1, S2. EXTREMITIES: Without edema. LABORATORY DATA: Hemoglobin is 13.2. Chemistries: BUN and creatinine unremarkable. Echocardiogram reveals LVH with a compromised ventricle with an ejection fraction of approximately 30%. IMPRESSION: 1. Questionable transient ischemic attack. 2. Dizziness. 3. History of congestive heart failure. 4. Coronary artery disease. 5. Resolution of dizziness. 6. History of multivessel percutaneous transluminal coronary angioplasty in the past. 7. History of myocardial infarction in the past. Given these findings, the patient will need evaluation of her coronary disease with a stress test. We will do this as an outpatient once the patient recovers from her neurologic issues. Dmitriy Zambrano MD
--- NOTE | 2018-02-27 16:52 | PN ---
DATE: 02/27/2018 SUBJECTIVE: History and physical is as in the resident's consultation note. The patient is an 82-year-old woman, well known to me. She was admitted with a right hemispheric stroke in 01/2016. At that point, bilateral carotid stenosis was documented with the right side being 70% and left side 80% by MRA and cerebral angiogram. A right carotid endarterectomy was performed. The patient has a long history of psychiatric problem. A part of it could be attributable to her right frontal lobe syndrome. She has been living alone and has been getting along well for the past 2 years. She was being followed in my office. At this time, she came back with ataxia, was found to be very hypertensive. She is periodically confused. Brain MRI showed fresh superimposed on old parietofrontal lobe ischemia. The carotid workup was repeated. On the right side, the carotid is wide open by MRA and on duplex. On the left side, again there is a high-grade stenosis with distal poststenotic dilatation. The MRA of the left carotid was reviewed with Dr. Colon, who felt that there is no price changer the past 2 years. Currently, she is still asymptomatic on the left side. In view of her severe cardiac dysfunction, which is probably the cause her new right hemispheric stroke, she should be started on Plavix or continue on her Plavix. On the left side, is still asymptomatic and the lesion has remained unchanged. In view of her cardiac history, we will leave that alone. This was discussed with Dr. Hidalgo and the patient. The patient will be followed in my office. Zaira Cortez MD
--- NOTE | 2018-02-28 02:04 | PN ---
DATE: 02/27/2018 LOCATION: The patient is seen in room 362, bed 2. SUBJECTIVE: The patient is lying in the bed. Patient is alert, awake, responsive, oriented. Overnight nurse's notes were reviewed. The patient denies any dizziness or headache. The patient was found to be alert, awake, oriented x3 by the nurses. No adverse event documented by the overnight nurse's... The patient was seen by speech therapist. PHYSICAL EXAMINATION: VITAL SIGNS: T-max 98.6. Telemetry shows heart rate 72, 74, 76, 78, 84. Telemetry monitoring shows heart rate sinus rhythm. Blood pressure one in the last 24 hours averaging 159/76, 181/70, 160/78, 157/75, O2 sat 95-97%, respiration 18-19. INTAKE AND OUTPUT: Not documented correctly. HEENT: Head: Normocephalic, atraumatic. HEENT examination shows pink conjunctivae. Anicteric sclerae. No oropharyngeal lesion. No neck rigidity. Positive carotid surgical scar noted. CHEST: Kyphosis. Also shows breast surgical scar of mastectomy. LUNGS: Shows decreased breath sound at the bases. CARDIOVASCULAR: S1 and S2. Positive systolic murmur, left sternal border, right second intercostal space, left second intercostal space. ABDOMEN: Soft. Positive bowel sound. GENITALIA: Female. RECTAL: Deferred. ABDOMEN: Soft. Positive bowel sound. No hepatosplenomegaly noted. No guarding. No rigidity noted. EXTREMITIES: Shows trace swelling of the lower extremity. No calf numbness. No Homans' sign. NEUROLOGICAL: The patient is alert, awake and oriented x3. Motor strength is 5/5. Gait examination is independent. MUSCULOSKELETAL: Shows a body mass index of 44. DIAGNOSTICS: On February 27, CBC is within normal limits. Chemistry: CMP, LFTs are within normal limit. Cholesterol is 124, triglyceride 115, LDL 62, HDL 33. RPR is nonreactive. RPR and Lyme titers are negative. Blood cultures are negative. IMPRESSION: 1. Acute right parietooccipital lobe infarct superimposed on the preexisting right parietooccipital lobe chronic infarction. 2. Right thalamus and head of the left caudate nucleus chronic lacunar infarct. 3. Chronic microvascular ischemic disease of the brain. 4. Bilateral frontoparietal and periatrial white matter, multiple areas of chronic ischemia. 5. Diffuse cerebral cortical atrophy of the brain. 6. Chronic lacunar infarct of the right thalamus. 7. Paranasal sinus mucosal thickening. 8. 40% to 59% proximal left internal carotid artery stenosis on the carotid duplex. 9. Cardiomegaly. 10. Cognitive impairment. 11. Granulocytosis. 12. Hypercholesterolemia. 13. Dizziness. 14. Cardiomyopathy with left ventricular ejection fraction of 29%. 15. Concentric left ventricular hypertrophy with severely impaired left ventricle systolic function and severely hypokinetic septum. 16. Grade I abnormal relaxation pattern. 17. Moderately thickened aortic valve. 18. Moderately thickened mitral valve. 19. Age indeterminate inferior infarct. 20. Status post right carotid artery endarterectomy. 21. Recurrent dizziness. 22. Multivessel coronary artery disease with history of multiple angioplasty and stent placement. 23. Severe cognitive impairment and possible dementia. 24. Right parietooccipital acute ischemic infarct. 25. History of depression and psychosis. 26. History of bipolar disorder. 27. Uncontrolled hypertension. 28. Possible hypertensive urgency. 29. Uncontrolled hypertension. 30. Moderate to severe proximal left internal carotid artery stenosis with post stenotic dilatation. 31. Recurrent major depression with psychosis. 32. Dilated ischemic cardiomyopathy. 33. Depression. 34. Hyperlipidemia. PLAN AT THIS TIME: I have discussed the patient's condition, diagnostic test results, recommendation by all the physicians involved in the care of the patient with the patient and the patient's daughter, Kisha Perdomo at phone number [phone] today. I have extensively explained to the patient and the patient's daughter about the patient's diagnosis, diagnostic test results and recommendation by all the physicians involved in the care of the patient, which the patient and the patient's daughter understands and acknowledges. In addition, I have explained to the patient and the patient's daughter, need for modification of the treatment of the patient and need for modification of the therapeutic intervention for the patient due to acute cerebral infarct with addition of Plavix and high-dose statin therapy. In addition, I have extensively discussed the patient's condition and treatment plan with the patient and the patient's daughter and I have advised the daughter that the patient requires 24 hours care and supervision because of her neurological, psychiatric and medical condition, which is progressive and the likelihood of the patient's condition getting worse is more than likelihood of the patient's condition getting better, which the patient's daughter understands and acknowledges. At this time, the patient was seen by waste water operator. The patient was seen by neurologist and Vascular Surgery. Their recommendation was noted. The patient current consultation is Cardiology, Psychiatry, Neurology and Vascular Surgery. CURRENT MEDICATIONS: Aricept 5 mg at bedtime, Ecotrin 81 mg daily, Ativan 1.5 mg at bedtime, Lasix increased to 40 mg daily, Lexapro 10 mg daily, Lipitor 80 mg daily, Lopressor 25 mg twice a day, Plavix 75 mg daily, Protonix 40 mg daily, Ritalin 10 mg 8 a.m., 2 p.m., Zyprexa 5 mg at bedtime. The patient is on heart-healthy diet, out of bed, ABAD stockings, SCDs, occupational therapy, physical therapy noted. At present, the patient was seen by the Supervisor Inspection Room. The patient was also seen by physical therapist. Their recommendation was TCU.. The patient's case was also referred for TCU evaluation. The patient will be considered for transfer to Transitional Care Unit, if accepted. The patient was last seen by the social staff worker on February 25 and at that time, the patient indicated that she wants to go home once medically clear, but the patient's physical therapist has recommended today that the patient would benefit from TCU if not, the patient can be discharged home if the patient balance and gait improves. Dictated and electronically signed, not read. Mohan Hidalgo MD
[2018-02-28] MEDS: Pantoprazole 40 mg EC Tab PO SCH (05:48)
[2018-02-28 08:21] VITALS: BP 184/76; PULSE 77; RESP 20; TEMP 98.2; O2SAT 97
--- NOTE | 2018-02-28 11:57 | DS ---
FINAL PROGRESS NOTE AND DISCHARGE SUMMARY LOCATION: The patient is in room 362, bed 2. HISTORY OF PRESENT ILLNESS: Overnight nurse's notes were reviewed. No adverse events were documented. The patient was found to be alert, awake, responsive. PHYSICAL EXAMINATION: VITAL SIGNS: T-max 98.4, 98.7; heart rate 60s, 64, 67, 78; respirations 18-20; O2 sat 96%, 98%, 97%. Blood pressure has improved now down to 157/84, 137/88. HEENT: The patient's head examination normocephalic, atraumatic. HEENT examination shows pink conjunctivae. Anicteric sclerae. No oropharyngeal lesion. No neck rigidity. Positive carotid endarterectomy surgical scar. Positive carotid bruit bilaterally. CHEST: Kyphosis. Positive stigmata of the breast surgery. LUNGS: Shows decreased breath sound at the bases, left more than the right. CARDIOVASCULAR: S1, S2. Regular rhythm. Positive systolic murmur, left sternal border, right second intercostal space, left second intercostal space. ABDOMEN: Soft. Positive bowel sound. No hepatosplenomegaly noted. No guarding. No rigidity. No rebound tenderness. GENITALIA: Female. RECTAL: Deferred. EXTREMITY: Shows no pitting edema, no calf tenderness, no Homans' sign. MUSCULOSKELETAL: As per the body mass index. NEUROLOGIC: The patient is alert, awake, responsive. Oriented to person, place and time. Cranial nerves II through XII intact and limited. Gait examination is not tested. VASCULAR: Palpable pulses. DIAGNOSTICS: None from today. The patient's entire diagnostic data from the hospitalization from the day of admission was reviewed and explained to the patient and the patient's daughter at length yesterday and all questions concerned answered. FINAL IMPRESSION, PLAN AND DISCHARGE DIAGNOSES: 1. Acute right parietooccipital infarct over chronic right parietooccipital infarct. 2. Left internal carotid artery 60-70% stenosis. 3. Status post right carotid endarterectomy. 4. Recurrent dizziness. 5. Status post uncontrolled hypertension versus hypertensive urgency. 6. History of noncompliance. 7. Dilated ischemic cardiomyopathy. 8. History of multivessel coronary artery disease and coronary angioplasty. 9. History of breast carcinoma. 10. Hypertension. 11. Hyperlipidemia. 12. Vitamin B12 deficiency. 13. Recurrent dizziness. 14. Gait dysfunction. 15. Deconditioning. 16. History of poor compliance. 17. History of anxiety, depression and psychosis. 18. History of questionable bipolar disorder. Plan at this time, the patient was seen by the physical therapist. Their recommendation is the patient can be considered for Transitional Care Unit, but because of the patient's diagnosis of acute stroke, the patient is not eligible for TCU. The patient will be considered for discharge to subacute rehab if accepted or TCU if accepted. Otherwise, the patient will be considered for discharge home with family and with referral to [facility] home physical therapy. The patient's daughter was advised yesterday to contact [facility] for discharge planning options. I have advised the patient's daughter that the patient will most likely and definitely benefit from 24-hour care and supervision with activities of daily living. The patient's daughter was advised about strict compliance with updated medications and new medications and compliance with all the medications, diet, activity restrictions and close outpatient followup. At present, the patient will be continued on all the medications as per the updated ambulatory orders plus addition of Plavix 75 mg daily and Lipitor 80 mg daily for 2-4 weeks, then decreasing the Lipitor to 40 mg daily. If the patient is discharged home, the patient is advised to follow up with Dr. Hidalgo within [address] Mcdaniels within 1 week. During this hospitalization, the patient's condition, diagnosis, test results, recommendation by all the physicians were explained extensively to the patient and the patient's daughter at length on multiple occasions and all the questions were answered to their satisfaction. Time spent in the entire discharge process more than 45 minutes. Dictated and electronically signed, not read. Mohan Hidalgo MD
== END 2018-02-28 12:28 | disposition home or self-care (01) | DRG 65 ==
LOC: ED 17:29 → ERH 20:23 → 2RNO 02-25 00:16 → 5RNO 02-25 12:21 → 3RNO 02-26 13:03
PROVIDERS: ADMIT Internal Medicine; ATTEND Internal Medicine
DX: I63.9 Cerebral infarction, unspecified (principal); I13.0 Hypertensive heart and chronic kidney disease with heart failure and stage 1 through stage 4 chronic kidney disease, or unspecified chronic kidney disease; I42.0 Dilated cardiomyopathy; I16.0 Hypertensive urgency; E11.22 Type 2 diabetes mellitus with diabetic chronic kidney disease; E53.8 Deficiency of other specified B group vitamins; E78.00 Pure hypercholesterolemia, unspecified; E78.5 Hyperlipidemia, unspecified; F07.0 Personality change due to known physiological condition; F31.9 Bipolar disorder, unspecified; F41.9 Anxiety disorder, unspecified; G31.84 Mild cognitive impairment of uncertain or unknown etiology; H40.9 Unspecified glaucoma; I25.2 Old myocardial infarction; I25.10 Atherosclerotic heart disease of native coronary artery without angina pectoris; I25.5 Ischemic cardiomyopathy; I34.0 Nonrheumatic mitral (valve) insufficiency; I50.9 Heart failure, unspecified; I65.23 Occlusion and stenosis of bilateral carotid arteries; K21.9 Gastro-esophageal reflux disease without esophagitis; N18.9 Chronic kidney disease, unspecified; R29.6 Repeated falls; Z79.02 Long term (current) use of antithrombotics/antiplatelets; Z79.899 Other long term (current) drug therapy; Z86.73 Personal history of transient ischemic attack (TIA), and cerebral infarction without residual deficits; Z87.891 Personal history of nicotine dependence; Z90.49 Acquired absence of other specified parts of digestive tract; Z91.19 Patient's noncompliance with other medical treatment and regimen; Z85.3 Personal history of malignant neoplasm of breast; Z95.5 Presence of coronary angioplasty implant and graft

== ENCOUNTER 2018-03-19 06:55 | Day surgery (SDC) | payer MEDICARE, OTHER ==
[2018-03-14 07:56] VITALS: BMI 22.3
[2018-03-19 07:23] LABS: BASO # 0.01 K/mm3 (0.0-2.0); BASO % 0.2 % (0.0-3.0); EOS # 0.2 (0.0-0.7); EOS % 3.9 % (1.5-5.0); GRAN # 2.8 (1.4-6.5); GRAN % 60.2 % (50.0-68.0); HEMOGLOBIN 13.3 g/dL (12.0-16.0); LYMPH # 1.1 (1.2-3.4); MEAN CELL VOLUME 89.9 fl (80.0-105.0); MEAN CORPUSCULAR HEMOGLOBIN 29.9 pg (25.0-35.0); MEAN CORPUSCULAR HGB CONC 33.3 g/dl (31.0-37.0); MEAN PLATELET VOLUME 9.7 fl (7.0-11.0); MONO # 0.6 (0.1-0.6); MONO % 12.7 % (1.0-6.0); RBC 4.45 10^6/uL (3.5-6.1); RED CELL DISTRIBUTION WIDTH 12.9 % (11.5-14.5); WHITE BLOOD COUNT 4.7 10^3/ul (4.5-11.0)
[2018-03-19 07:34] LABS: PARTIAL THROMBOPLASTIN TIME 27.8 Seconds (25.1-36.5)
[2018-03-19 07:38] LABS: BLOOD UREA NITROGEN 29 mg/dL (7-21); CALCIUM 9.2 mg/dL (8.4-10.5); GFR AFRICAN-AMERICAN > 60; GFR NON-AFRICAN AMERICAN > 60
[2018-03-19 07:43] LABS: INR 0.97 (0.93-1.08); PROTHROMBIN TIME 11.2 SECONDS (9.4-12.5)
[2018-03-19 08:03] VITALS: RESP 18
[2018-03-19] MEDS ORDERED: Lidocaine 2% Inj (20ml) ONE (08:38)
[2018-03-19] MEDS ORDERED: Midazolam 2 MG/2 ML VIAL ONE ×3 (08:39→09:24)
[2018-03-19] MEDS ORDERED: Iodixanol 320 MG/ML 200 ML BOTTLE IV ONE (08:39)
[2018-03-19] MEDS ORDERED: Sodium Chloride 0.9% 1,000 ML IV SCH (10:00)
[2018-03-19 10:16] VITALS: TEMP 97.6
--- NOTE | 2018-03-19 10:20 | CARDCATH ---
PROCEDURE DATE: 03/19/2018 HISTORY: The patient is an 82-year-old woman, who presents with exertional shortness of breath. The patient suffers from breast CA as well as a history of an old inferior wall IA. There are episodes of CHF in the past. In addition, she suffers from peripheral vascular disease. Because of this and her abnormal stress test, a cardiac catheterization was recommended. PROCEDURE: Left heart catheterization with coronary arteriography and left ventriculogram. The right femoral artery was cannulated with a 6-Khmer sheath. There were no complications. I performed moderate sedation, which included the presence of an independent trained observer that assisted in monitoring the patient's level of consciousness and physiologic status. After administration of Versed and fentanyl, my intra service time was 15 minutes. The findings on catheterization revealed a right dominant circulation. The RCA was occluded at its ostium, which is unchanged from the past. The left main artery revealed diffuse atherosclerosis without critical lesions. The LAD and diagonal vessels revealed diffuse atherosclerosis without critical lesions. The circumflex artery and obtuse marginal branches revealed diffuse atherosclerosis without critical lesions. LV function was dilated and diffusely hypokinetic with an estimated ejection fraction of 25-30%. Manual compression was used to close the femoral artery site because of the severe peripheral vascular disease. The patient tolerated the procedure well. In summary, the procedure revealed single-vessel CAD with an occluded RCA, which is chronic. There was diffuse atherosclerosis throughout the coronary tree. LV function is abnormal with an EF of 25-30%. Given these findings, I have discussed with the patient as well as with her daughter about the benefits and risks of defibrillator given her poor LV which is ischemic in origin. They will think about it and discuss it. All questions were answered. Dmitriy Zambrano MD
--- NOTE | 2018-03-19 10:31 | CARD ---
APPROVED REPORT EKG Measurement Heart [id number] <Conclusion> Sinus bradycardia Left ventricular hypertrophy with repolarization abnormality Inferior infarct, possibly recent corelate clinacally Abnormal ECG
[2018-03-19 15:33] VITALS: BP 164/65; PULSE 60; O2SAT 97
--- NOTE | 2018-03-19 16:01 | CARDCATH ---
PROCEDURE DATE: 03/19/2018 HISTORY: The patient is an 82-year-old woman, who is functional with a history of breast CA and an old inferior wall myocardial infarction in the past, who presents with exertional shortness of breath with an abnormal stress test. She suffers from hypercholesterolemia, CAD with history of CHF in the past. PROCEDURE: Left heart catheterization with coronary arteriography and left ventriculogram. The right femoral artery was cannulated with a 6-B[place]wanan sheath. There were no complications. I performed moderate sedation, which included the presence of an independent trained observer that assisted in monitoring the patient's level of consciousness and physiologic status. After administration of Versed and fentanyl, my intra service time was 15 minutes. Dmitriy Zambrano MD
== END 2018-03-19 17:00 | disposition home or self-care (01) ==
LOC: CATH 06:55
PROVIDERS: ATTEND Internal Medicine Cardiovascular Disease
DX: I25.10 Atherosclerotic heart disease of native coronary artery without angina pectoris (principal); E78.00 Pure hypercholesterolemia, unspecified; I50.9 Heart failure, unspecified; I25.2 Old myocardial infarction; I73.9 Peripheral vascular disease, unspecified; Z85.3 Personal history of malignant neoplasm of breast; R94.39 Abnormal result of other cardiovascular function study
CPT/HCPCS: 36415; 80048; 85025; 85610; 85730; 86850; 86900; 93005; 93458; 99152; 99153; C1769; C2629; J1644; J2250; J3010; J7030; J7040; Q9966

== ENCOUNTER 2018-10-18 11:27 | Inpatient (IN) | payer MEDICARE, OTHER ==
--- NOTE | 2018-10-18 12:07 | ED PDOC ---
Arrival/HPI - General Chief Complaint: Dizziness/Lightheaded Time Seen by Provider: 10/18/18 11:34 Historian: Patient, Family (Son) - History of Present Illness Narrative History of Present Illness (Text): 10/18/18 12:04 An 83 year old female, whose past medical history includes CT (01/13 with stent), CHF with EF:25%, presents to the emergency department for a complaint of dizziness. Patient notes that her symptoms began last night. She states that she did not take her medications last night and went to bed, but at around 5 am, felt lightheaded. She notes that if she stands she feels like she is going to faint. The patient's son states that this has been happening more frequently. He notes that the patient is supposed to be going to cardiac rehab, but is not compliant. Patient is off balance. The patient denies syncopal episode, fevers, chills, headache, chest pain, shortness of breath, dyspnea on exertion, cough, abdominal pain, nausea, vomiting, diarrhea, back pain, neck pain, urinary/bowel changes, or any other complaint. 10/18/18 14:11 Time/Duration: Other (Last night) Symptom Onset: Sudden Symptom Course: Unchanged Activities at Onset: Rest, Light Context: Home Past Medical History - Provider Review Nursing Documentation Reviewed: Yes - Infectious Disease Hx of Infectious Diseases: None - Tetanus Immunization Tetanus Immunization: Unknown - Reproductive Menopause: Yes - Cardiac Hx Pacemaker: No - Pulmonary Hx Respiratory Disorders: No - Neurological Hx Paralysis: No - HEENT Hx HEENT Disorder: Yes Hx Glaucoma: Yes - Renal Hx Renal Disorder: Yes Other/Comment: Kidney Disease - Endocrine/Metabolic Hx Endocrine Disorders: No - Hematological/Oncological Hx Blood Transfusions: No Hx Blood Transfusion Reaction: No - Integumentary Hx Dermatological Disorder: No - Musculoskeletal/Rheumatological Hx Musculoskeletal Disorders: No - Gastrointestinal Hx Gastrointestinal Disorders: Yes Hx Gastroesophageal Reflux: Yes - Genitourinary/Gynecological Hx Genitourinary Disorders: No - Psychiatric Hx Substance Use: No - Surgical History Hx Cardiac Catheterization: Yes Hx Cholecystectomy: Yes Hx Coronary Stent: Yes (x3) Other/Comment: carotid endarectomy - Anesthesia Hx Anesthesia Reactions: No Hx Malignant Hyperthermia: No - Suicidal Assessment Feels Threatened In Home Enviroment: No Family/Social History - Physician Review Nursing Documentation Reviewed: Yes Family/Social History: No Known Family HX Smoking Status: Former Smoker Hx Alcohol Use: No Hx Substance Use: No Allergies/Home Meds Allergies/Adverse Reactions: Allergies No Known Allergies Allergy (Verified 04/01/17 16:18) Home Medications: Home Meds Medication Instructions Recorded Confirmed Anastrozole [Arimidex 1 mg Tab] 1 mg PO DAILY 02/27/18 03/19/18 Brimonidine Tartrate/Timolol 1 drop BOTHEYES BID 02/27/18 03/19/18 [Combigan 0.2%-0.5% Eye Drops] Colesevelam HCl [Welchol] 3 tab PO DAILY 02/27/18 03/19/18 Folic Acid 1 mg PO DAILY 02/27/18 03/19/18 Levocetirizine Dihydrochloride 5 mg PO DAILY 02/27/18 03/19/18 [Xyzal] Magnesium Oxide [Mag-Ox] 400 mg PO BID 02/27/18 03/19/18 Olanzapine [Zyprexa] 5 mg PO HS 02/27/18 03/19/18 Atorvastatin [Lipitor] 80 mg PO DIN 03/08/18 03/19/18 Methylphenidate [Ritalin] 10 mg PO DAILY 03/08/18 03/19/18 Metoprolol Tartrate [Lopressor] 25 mg PO BID 03/08/18 03/19/18 Potassium Chloride [K-Dur 20] 20 meq PO DAILY 03/08/18 03/19/18 Cholecalciferol (Vitamin D3) 50,000 unit PO Q7D 03/14/18 03/19/18 [Vitamin D3] Cyanocobalamin [Vitamin B12 1000 1,000 mcg IM Q14D 03/14/18 03/19/18 mcg/ml Inj] Febuxostat [Uloric] 40 mg PO DAILY 03/14/18 03/19/18 Pantoprazole [Protonix EC Tab] 40 mg PO DAILY 03/14/18 03/19/18 Travoprost [Travatan Z 2.5 ml] 1 drop BOTHEYES HS 03/14/18 03/19/18 Review of Systems - Review of Systems Constitutional: absent: Fevers ENT: absent: Sore Throat Respiratory: absent: SOB, Cough Cardiovascular: absent: Chest Pain, DUNCAN Gastrointestinal: absent: Abdominal Pain, Stool Changes, Diarrhea, Nausea, Vomiting Genitourinary Female: absent: Urine Output Changes Musculoskeletal: absent: Back Pain, Neck Pain Neurological: Dizziness. absent: Headache Physical Exam Vital Signs Reviewed: Yes Vital Signs Temp Pulse Resp BP Pulse Ox 10/18/18 11:27 98.2 F 68 18 205/80 H 94 L Temperature: Afebrile Blood Pressure: Hypertensive Pulse: Regular Respiratory Rate: Normal Appearance: Positive for: Well-Appearing, Non-Toxic, Comfortable Pain Distress: None Mental Status: Positive for: Alert and Oriented X 3 - Systems Exam Head: Present: Atraumatic, Normocephalic Pupils: Present: PERRL Extroacular Muscles: Present: EOMI Conjunctiva: Present: Normal Mouth: Present: Moist Mucous Membranes Neck: Present: Normal Range of Motion Respiratory/Chest: Present: Clear to Auscultation, Good Air Exchange. No: Respiratory Distress, Accessory Muscle Use Cardiovascular: Present: Regular Rate and Rhythm, Normal S1, S2. No: Murmurs Abdomen: No: Tenderness, Distention, Peritoneal Signs Back: Present: Normal Inspection Upper Extremity: Present: Normal Inspection. No: Cyanosis, Edema Lower Extremity: Present: Normal Inspection. No: Edema Neurological: Present: GCS=15, CN II-XII Intact, Speech Normal. No: Gait Normal (Unsteady gait.) Skin: Present: Warm, Dry, Normal Color. No: Rashes Psychiatric: Present: Alert, Oriented x 3, Normal Insight, Normal Concentration Medical Decision Making ED Course and Treatment: 10/18/18 12:05 Impression: An 83 year old female presents to the emergency department with a complaint of dizziness. Unsteady gait Plan: -- Head CT -- Chest X-ray -- Labs -- Reassess and disposition Prior Visits: Notes and results from previous visits were reviewed. Progress Notes: Chest X-ray Signed By: Reji Colon MD Date Signed: 10/18/18 124 IMPRESSION:No active disease. PROCEDURE: CT HEAD WITHOUT CONTRAST Signed By: Reji Colon MD Date Signed: 10/18/18 [id number] IMPRESSION: No acute intracranial findings. 10/18/18 13:56: Case discussed with Dr. Hidalgo, who request's Dr. Dias be called. 10/18/18 13:58: Case discussed with Dr. Vang who accepts patient to his service. Requests Dr. Melara for consult. - Lab Interpretations I have reviewed the lab results: Yes - RAD Interpretation Radiology Orders: 10/18/18 12:00 HEAD W/O CONTRAST [CT] Stat CHEST PORTABLE [RAD] Stat - Scribe Statement The provider has reviewed the documentation as recorded by the Scribe Marleni Wyman Provider Scribe Attestation: All medical record entries made by the Scribe were at my direction and personally dictated by me. I have reviewed the chart and agree that the record accurately reflects my personal performance of the history, physical exam, medical decision making, and the department course for this patient. I have also personally directed, reviewed, and agree with the discharge instructions and disposition. Disposition/Present on Arrival - Present on Arrival Any Indicators Present on Arrival: No History of DVT/PE: No History of Uncontrolled Diabetes: No Urinary Catheter: No History of Decub. Ulcer: No History Surgical Site Infection Following: None - Disposition Have Diagnosis and Disposition been Completed?: Yes Diagnosis: Lightheaded Disposition: HOSPITALIZED Disposition Time: 14:22 Patient Plan: Observation Condition: FAIR
[2018-10-18 12:21] LABS: BASO # 0.01 K/mm3 (0.0-2.0); BASO % 0.1 % (0.0-3.0); EOS # 0.1 (0.0-0.7); EOS % 1.1 % (1.5-5.0); GRAN # 5.27 (1.4-6.5); HEMOGLOBIN 13.7 g/dL (12.0-16.0); LYMPH # 1.1 (1.2-3.4); LYMPH % 16.1 % (22.0-35.0); MEAN CELL VOLUME 90.4 fl (80.0-105.0); MEAN CORPUSCULAR HEMOGLOBIN 29.9 pg (25.0-35.0); MEAN CORPUSCULAR HGB CONC 33.1 g/dl (31.0-37.0); MEAN PLATELET VOLUME 9.2 fl (7.0-11.0); MONO # 0.5 (0.1-0.6); MONO % 7.7 % (1.0-6.0); RBC 4.58 10^6/uL (3.5-6.1); RED CELL DISTRIBUTION WIDTH 12.6 % (11.5-14.5)
[2018-10-18 12:33] LABS: ALB/GLOB RATIO 1.4 (1.1-1.8); ALBUMIN 3.7 g/dL (3.0-4.8); ALT/SGPT 27 U/L (7-56); AST/SGOT 30 U/L (14-36); BLOOD UREA NITROGEN 24 mg/dL (7-21); CALCIUM 9.4 mg/dL (8.4-10.5); GFR NON-AFRICAN AMERICAN > 60
--- NOTE | 2018-10-18 12:45 | RAD ---
Date of service: 10/18/2018 HISTORY: dizzy COMPARISON: 02/24/2018 FINDINGS: LUNGS: No active pulmonary disease. PLEURA: No significant pleural effusion identified, no pneumothorax apparent. CARDIOVASCULAR: No aortic atherosclerotic calcification present. Normal cardiac size. No pulmonary vascular congestion. OSSEOUS STRUCTURES: No significant abnormalities. VISUALIZED UPPER ABDOMEN: Normal. OTHER FINDINGS: None. IMPRESSION: No active disease.
[2018-10-18 12:46] LABS: B-TYPE NATRIURETIC PEPTIDE 2580 pg/mL (0-450); TROPONIN I 0.02 ng/mL
--- NOTE | 2018-10-18 13:21 | CT ---
Date of service: 10/18/2018 PROCEDURE: CT HEAD WITHOUT CONTRAST. HISTORY: head injury COMPARISON: 02/25/2018 TECHNIQUE: Axial computed tomography images were obtained through the head/brain without intravenous contrast. Radiation dose: Total exam DLP = 1014.81 mGy-cm. This CT exam was performed using one or more of the following dose reduction techniques: Automated exposure control, adjustment of the mA and/or kV according to patient size, and/or use of iterative reconstruction technique. FINDINGS: HEMORRHAGE: No intracranial hemorrhage. BRAIN: No mass effect or edema. Chronic encephalomalacia is seen in the right parietal lobe. Chronic lacunar infarcts are seen in the right thalamus and left basal ganglia VENTRICLES: Unremarkable. No hydrocephalus. CALVARIUM: Unremarkable. PARANASAL SINUSES: Unremarkable as visualized. No significant inflammatory changes. MASTOID AIR CELLS: Unremarkable as visualized. No inflammatory changes. OTHER FINDINGS: None. IMPRESSION: No acute intracranial findings
[2018-10-18 14:58] LABS: URINE BILIRUBIN NEGATIVE (NEGATIVE); URINE BLOOD NEGATIVE (NEGATIVE); URINE GLUCOSE (UA) NEGATIVE (NEGATIVE); URINE LEUKOCYTE ESTERASE NEGATIVE Leu/uL (NEGATIVE); URINE PROTEIN TRACE mg/dL (<30 mg/dL); URINE UROBILINOGEN 0.2 E.U./dL (<1 E.U./dL)
[2018-10-18 14:59] LABS: URINE APPEARANCE CLEAR (CLEAR); URINE COLOR YELLOW (YELLOW)
[2018-10-18 15:01] LABS: URINE RBC NEGATIVE /hpf (0-2); URINE WBC NEGATIVE /hpf (0-6)
--- NOTE | 2018-10-18 15:46 | CARD ---
APPROVED REPORT Date of service: 10/18/2018 EKG Measurement Heart [id number] <Conclusion> Sinus rhythm with occasional premature ventricular complexes Left ventricular hypertrophy with repolarization abnormality Inferior infarct, old Anterior infarct, old STTW changes c/w ischemia
[2018-10-18] MEDS: Magnesium Oxide 400 mg Tab UD PO SCH (17:31)
--- NOTE | 2018-10-18 17:37 | CON ---
DATE: 10/18/2018 NEUROLOGY CONSULT CHIEF COMPLAINT: Dizziness and unstable gait. 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, status post carotid endarterectomy in January 2016; history of hallucinations; history of manic depressive disorder; history of posterior wall FL in March 2017, on aspirin and Plavix and atorvastatin for stroke prevention; with a history of congestive heart failure with ejection fraction of 30-35% with global hypokinesis, who is also with history of underlying vascular dementia, on Aricept and cognitive impairment with a history of her last EEG on 02/01/2018 showing mild bilateral cerebral dysfunction, but no evidence for any seizure-like activity, who comes in to the hospital with complaints of dizziness in terms of lightheadedness, especially when she is getting up from a sitting to a standing position, she felt lightheaded and felt like she was going to faint, but did not. She said she is getting a lot of dizziness and has lightheadedness more frequently and affecting and feeling of balance. She is definitely very deconditioned from a neuropathic as well as a cardiac standpoint, and we will recommend and need cardiac rehab. Her dizziness is more of a peripheral point on the lower extremities with a vasovagal type component leading to near syncopes. Her blood pressures today were slightly more hypertensive, giving numbers in the range of 179 over in the upper 80s. PAST MEDICAL HISTORY: As above. FAMILY HISTORY: Noncontributory. SOCIAL HISTORY: No illicit drug use, smoking, or EtOH abuse. REVIEW OF SYSTEMS: Fourteen-point review of systems is negative except as per HPI. ALLERGIES: NO KNOWN DRUG ALLERGIES. MEDICATIONS: Reviewed by nurse's reconciliation sheet. CURRENT LABORATORY DATA: Sodium is 140, potassium 4.3, chloride 105, carbon dioxide of 24, BUN of 8, creatinine 0.6, random glucose of 100. PHYSICAL EXAMINATION: GENERAL: The patient is seen up in bed, in no acute distress. VITAL SIGNS: Temperature of 98.3, pulse rate is 69, blood pressure 179/76, respiratory rate of 16, oxygen saturation 94% on room air. HEENT: Atraumatic, normocephalic. PERRLA. Extraocular muscles are intact. NECK: Supple. No JVD. No adenopathy noted. LUNGS: Clear to auscultation. No adventitious sounds. HEART: S1 and S2. Normal rate and rhythm. No murmurs, rubs, or gallops. ABDOMEN: Soft, nontender, nondistended. Bowel sounds are present. EXTREMITIES: No clubbing. No cyanosis. Peripheral pulses are 2+ felt bilaterally. NEUROLOGIC: The patient is alert and orientated to person, place, and year. Recall after five minutes is 0/3. Poor attention span, slow thought process. Cranial nerves II through XII are intact. Motor exam: Has mildly reduced left finger tap compared to the right from prior CVA, otherwise, strength is 5/5 in both upper and lower extremities. Sensory exam: Light touch, pinprick, proprioception, and vibration are intact. DTRs are 2+ throughout and 1 at both knees and ankles. Coordination: [id number] is intact. No dysmetria noted. Gait is deferred for now. IMPRESSION: Dizziness is likely secondary to underlying congestive heart failure superimposed on underlying coronary artery disease, status post carotid endarterectomy. Dizziness is more likely peripheral pulling at the lower extremities causing a vasovagal type of component leading to near syncope spells. The patient also has evidence of vascular dementia without any behavioral disturbance or underlying cerebrovascular accident. RECOMMENDATIONS: At this time, we would recommend: 1. Keep blood pressure between 120 to 140 systolic, diastolic 70s to 80s. 2. Continue with aspirin and Plavix at this time for stroke prevention. 3. We would recommend outpatient physical therapy and cardiac rehabilitation, which would help with dizziness. 4. Orthostatic vital signs. 5. MRI of the brain to assess and see if any structural abnormalities. She is clinically stable. Jovanni Melara MD
[2018-10-18] MEDS ORDERED: EYE OU SCH (18:00)
[2018-10-18] MEDS ORDERED: COMBIGAN OU SCH (18:00)
--- NOTE | 2018-10-18 21:36 | HP ---
DATE OF EXAM: 10/18/2018 I am seeing the patient in the emergency room. Patient is under the care of Dr. Mohan Hidalgo and I am covering for him today. HISTORY OF PRESENT ILLNESS: The patient is seen in the ER. The patient presented this morning with sudden onset of dizziness. The patient has had episodes like this in the past. The patient also says she has poor balance and ataxia. PAST MEDICAL HISTORY: Significant and that she has history of cerebrovascular disease, carotid artery disease. The patient has been treated surgically for that. Patient has history of depression and anxiety treated with medication for depression. Patient also has history of coronary artery disease, cardiac catheterization. 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 The patient has history of vitamin B12 deficiency. Patient has vitamin D deficiency. Patient has hyperlipidemia. Patient also has medications, hormonal medicines, Arimidex 1 mg daily; she was treated for breast cancer in the past. Patient also takes antipsychotic medications Zyprexa 5 mg at bedtime. The patient is on Lasix 40 mg daily, metoprolol 25 mg b.i.d. Patient takes eye drops for glaucoma. When talking to the patient this afternoon, the patient says she feels unstable and unsecured when she gets dizzy spells. Patient is evaluated and placed in observation for further evaluation and treatment. Neurological evaluation has been ordered and CAT scan that was done in the emergency room did not reveal any new pathology. PHYSICAL EXAMINATION: VITAL SIGNS: On examination, the pulse is 69, blood pressure 179/76, respirations are 16, patient's O2 sat on room air is 94% . GENERAL: She is pleasant, answers questions. HEENT: Head appears to be normocephalic. NECK: The thyroid is not enlarged. There is evidence of carotid artery disease. LUNGS: Trachea is central. Breath sounds vesicular. No adventitious sounds. HEART: Normal sinus rhythm. S1 and S2 present. No murmurs. No rubs. ABDOMEN: Soft. Liver and spleen not palpable. CENTRAL NERVOUS SYSTEM: The patient is conscious and rational. Oriented to place, time and person. Patient's cranial nerves are intact from II through XII. Patient's motor and sensory functions clinically appears to be okay, but the patient has cerebellar disorder specially characterized by unstable gait. Patient has no evidence of otic symptoms such as tinnitus. Patient does not have any discomfort in the ears. MEDICATIONS: As listed. Patient was given meclizine 50 mg times in the emergency room and aspirin 81 mg at the time of admission. Patient's medications has been placed as noted in the admission sheet. LABORATORY DATA: Lab work done in the emergency room, the hemoglobin is 13.7, white count is normal, granulocytes count is 75%. Chemistry: Patient's blood sugar is 100. BNP 2580. Patient has history of chronic congestive heart failure with abnormal ejection fraction. Low ejection fraction noted in the previous echocardiogram. Patient's EKG done in the emergency room has not been read, but shows normal sinus rhythm and ischemic changes. Chest x-ray is clear. ASSESSMENT AND PLAN: Patient will be admitted to the telemetry unit and the patient will be kept under observation for cardiac arrhythmias. Patient will have a neurological evaluation and we will follow through. She may need physical therapy. Patient had been advised to have cardiac rehabilitation, but patient does not followup very closely. Her condition is clinically stable. Overall prognosis is guarded. We will see the patient in followup. Kem Vang MD MTDDarryl
[2018-10-18] MEDS: Latanoprost 2.5 ml Opht Soln OU SCH (22:00)
[2018-10-19] MEDS: Pantoprazole 40 mg EC Tab PO SCH (06:56)
[2018-10-19 09:07] LABS: BASO # 0.01 K/mm3 (0.0-2.0); BASO % 0.2 % (0.0-3.0); EOS # 0.2 (0.0-0.7); EOS % 2.5 % (1.5-5.0); GRAN # 3.68 (1.4-6.5); GRAN % 61.7 % (50.0-68.0); LYMPH # 1.3 (1.2-3.4); LYMPH % 21.9 % (22.0-35.0); MEAN CELL VOLUME 90.1 fl (80.0-105.0); MEAN CORPUSCULAR HEMOGLOBIN 29.4 pg (25.0-35.0); MEAN CORPUSCULAR HGB CONC 32.6 g/dl (31.0-37.0); MEAN PLATELET VOLUME 9.8 fl (7.0-11.0); MONO # 0.8 (0.1-0.6); MONO % 13.7 % (1.0-6.0); RBC 4.76 10^6/uL (3.5-6.1); RED CELL DISTRIBUTION WIDTH 12.7 % (11.5-14.5)
[2018-10-19 09:10] LABS: BLOOD UREA NITROGEN 21 mg/dL (7-21); CALCIUM 9.2 mg/dL (8.4-10.5); GFR NON-AFRICAN AMERICAN > 60
--- NOTE | 2018-10-19 09:41 | PN ---
DATE: 10/19/2018 SUBJECTIVE: The patient is in [facility] in room 277, bed 2. She is on child monitor. The patient admitted with dizziness, ataxia, altered mental state and gait abnormality. The patient has past history of dizziness for many years. The patient also has history of hypertension. The patient also has history of cerebrovascular disease, coronary artery disease. The patient's cardiac ejection fraction is about 30. The patient has history of being treated with Ritalin. The patient also gets Arimidex for past history of cancer of the breast. The patient gets Aricept for dementia, Zyprexa for altered mental state and agitation. The patient is on Plavix for coronary artery disease. The patient has had angioplasty in the past. PHYSICAL EXAMINATION: VITAL SIGNS: This morning, pulse is 70, blood pressure 149/69, the patient's respirations are 20, O2 sat is 95% on room air. HEENT: The patient's head appears to be clinically normal. NECK: Thyroid is not enlarged clinically. Carotid pulses are present. The patient has had carotid artery surgery in the past. LUNGS: Clear. Breath sounds diminished bilaterally. HEART: Normal sinus rhythm. S1 and S2, present. ABDOMEN: Soft. Liver and spleen not palpable. CENTRAL NERVOUS SYSTEM: No focal deficit. Cranial nerves are intact. The patient's gait is abnormal. Otherwise, neurologic examination is pretty much normal. The patient is being advised to have physical therapy at this time. Neurological evaluation was done and the neurology advises are same. He has ordered an MRI of the brain. We will follow up on that. LABORATORY DATA: Blood work, the white cell count is normal. The patient's chemistry, the patient's sugar is normal. The BNP is slightly elevated. It is probably chronic congestive heart failure. MEDICATIONS: The patient's medications are numerous. We will continue the medicines as ordered. The patient is on Aricept, Arimidex, Ativan, aspirin and folic acid. The patient is on potassium chloride, Lasix, Lexapro, Lipitor, metoprolol, magnesium oxide, Plavix, pantoprazole, Ritalin 10 mg the patient gets. The patient is on Xalatan for glaucoma and also the patient is on Zyprexa 5 mg daily at bedtime at night. The patient's condition seems to be somewhat improved. We will get the nurses to ambulate the patient and have physical therapy evaluate the patient for physical therapy to stabilize the gait. Kem Vang MD MTDDarryl
[2018-10-19] MEDS ORDERED: FEBUXOSTAT PO SCH (10:00)
[2018-10-19] MEDS: Potassium Chloride 20 mEq ER Tab PO SCH (10:00)
[2018-10-19] MEDS: Magnesium Oxide 400 mg Tab UD PO SCH ×2 (10:45→18:24)
[2018-10-19] MEDS: Home Med 1 UNIT OU SCH ×2 (10:56→21:09)
[2018-10-19] MEDS: Enoxaparin 40 mg Syringe SC SCH (18:24)
--- NOTE | 2018-10-19 18:54 | PN ---
DATE: 10/19/2018 SUBJECTIVE: The patient was noted to have 5-beat runs of nonsustained ventricular tachycardia this evening. The patient does not recall any palpitation or dizziness. The patient denies any chest pain at this time. PHYSICAL EXAMINATION: VITAL SIGNS: Blood pressure 184/82, heart rate 56, 49, temperature 97.9, respirations 20. HEENT: Normocephalic. CHEST: Clear. HEART: S1 and S2 regular. EXTREMITIES: No edema. LABORATORY DATA: Today's hemoglobin and hematocrit 14 and 42.9, white count and platelet count are within normal limits. The SMA-7 is within normal limits except for anion gap of 9 and creatinine 0.6. ProBNP is 2580. EKG revealed sinus rhythm with occasional PVCs changes, old inferior old anterior infarct, ST-T wave changes consistent with ischemia and pacemaker lead testing Head CT scan without contrast, no acute intracranial findings. Cardiac catheterization performed in February of this year revealed single-vessel coronary disease with occluded right coronary artery which is chronic occlusion, ejection fraction with 25-30%. Echo cardiac study performed in February of this year revealed moderate concentric LVH with severely impaired left ventricular systolic function with severe hypokinetic septum. ASSESSMENT: 1. Ischemic cardiomyopathy. 2. Chronic total occlusion of the right coronary artery. 3. Hypertension. 4. Dizziness. 5. Nonsustained ventricular tachycardia. RECOMMENDATIONS: Continue aspirin 81 mg once a day, K-Dur 20 mEq once a day, Lasix 40 mg once a day, Lipitor 80 mg once a day, Lopressor 25 mg twice a day, Plavix 75 mg once a day. The patient is scheduled for brain MRI today. I will start subcutaneous Lovenox 40 mg daily. Full anticoagulation regimen will be discussed with Dr. Dmitriy Zambrano upon his return on Sunday. Iain Weston MD cc: Dmitriy Zambrano MD
[2018-10-19] MEDS: Latanoprost 2.5 ml Opht Soln OU SCH ×2 (21:09→22:34)
[2018-10-20] MEDS: Pantoprazole 40 mg EC Tab PO SCH (05:28)
[2018-10-20] MEDS: Potassium Chloride 20 mEq ER Tab PO SCH (07:57)
--- NOTE | 2018-10-20 09:32 | PN ---
DATE: 10/20/2018 The patient is in [facility], room 277, bed 2. SUBJECTIVE: She was admitted with unstable gait, tendency to fall, dizziness. The patient has history of coronary artery disease, cerebrovascular disease. The patient has had previous angioplasty, ejection fraction is 30. She has history of congestive heart failure. The patient has history of dementia, glaucoma. The patient is also treated for manic depression with Zyprexa. The patient gets metoprolol for hypertension and also the patient is on medications for allergy. She is on Xyzal at home, but the patient is placed on Singulair 10 mg daily here in the hospital. The patient had a neurological evaluation by Dr. Melara, he requested an MRI. The patient is seen this morning, she is improving, but the patient needs physical therapy evaluation. PHYSICAL EXAMINATION: VITAL SIGNS: Her pulse is 69, blood pressure 169/82, respirations are 20, and O2 sat is 96% on room air. HEENT: The patient's head is normocephalic. NECK: Thyroid is not enlarged. JVP is flat. Carotid pulse are present. LUNGS: Trachea is central. Breath sounds are vesicular. No adventitious sounds. HEART: Normal sinus rhythm. S1 and S2, present. No murmurs. ABDOMEN: Soft. Liver and spleen not palpable. CENTRAL NERVOUS SYSTEM: Cranial nerves are intact. Motor and sensory functions reasonable. The patient has no muscle weakness, but has general weakness. The patient also has very staggering gait. The patient's cerebellar functions are abnormal. The hearing does not seem to be altered at this time. LABORATORY DATA: The patient's blood work done in the hospital, the hemoglobin is 14.0, differential is within normal range. The patient's chemistry; the BUN and creatinine are within normal range. The patient's blood sugar ranges from 90 to 100. DIAGNOSTIC DATA: The chest x-ray is clear. The patient's electrocardiogram report, the patient has sinus rhythm according to the EKG report, left ventricular hypertrophy. The patient has old inferior anterior infarct, ischemic heart changes. The patient's prognosis is guarded, condition is clinically improved. Kem Vang MD MTDD
[2018-10-20] MEDS: Magnesium Oxide 400 mg Tab UD PO SCH ×2 (10:06→17:41)
[2018-10-20] MEDS: Enoxaparin 40 mg Syringe SC SCH (10:07)
[2018-10-20] MEDS: Home Med 1 UNIT OU SCH ×2 (10:11→22:16)
--- NOTE | 2018-10-20 17:57 | MRI ---
Date of service: 10/19/2018 PROCEDURE: MRI BRAIN WITHOUT CONTRAST HISTORY: Dizziness. COMPARISON: Comparison made with CT scan brain 10/18/2018 and MRI of the brain dated 02/25/2018. TECHNIQUE: Multiplanar, multisequence MR images of the brain were obtained without intravenous contrast enhancement. FINDINGS: HEMORRHAGE: No acute parenchymal, subarachnoid nor extra-axial hemorrhage. No hemosiderin deposition is identified on gradient echo weighted sequence. DWI: No evidence of an acute or early subacute infarction seen on diffusion imaging.. 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 Minimal chronic periventricular white matter ischemic changes with a few scattered bilateral deep and subcortical white matter and bilateral basal nuclei lacunar type infarcts are also again seen. There may also be a few tiny chronic right cerebellar lacunar type infarcts. Probable arachnoid granulation in the posterior inferior aspect left posterior fossa.. VENTRICLES: No obstructive hydrocephalus. CRANIUM: Unremarkable. ORBITS: Changes of bilateral cataract surgery again noted. PARANASAL SINUSES/MASTOIDS: Clear VASCULAR SYSTEM: Visualized major vascular flow voids at skull base patent. There may also. OTHER FINDINGS: None. IMPRESSION: No evidence of acute intracranial hemorrhage or infarction. 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
--- NOTE | 2018-10-20 19:00 | PN ---
DATE: 10/20/2018 SUBJECTIVE: The patient denies any palpitation or dizziness. PHYSICAL EXAMINATION VITAL SIGNS: Blood pressure 161/66, heart rate 54, temperature 97.7, and respirations 19. HEENT: Normocephalic. CHEST: Clear. HEART: S1 and S2 regular. EXTREMITIES: No edema. LABORATORY DATA: Brain MRI was performed, the report is still pending. ASSESSMENT: 1. Ischemic cardiomyopathy. 2. 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 3. Hypertension. 4. Dizziness. 5. Nonsustained ventricular tachycardia. RECOMMENDATIONS: Continue current aspirin 81 mg once a day, K-Dur 20 mEq once a day, Lasix 40 mg p.o. once a day, Lopressor 25 mg a day, Lipitor 80 mg once a day, magnesium oxide 400 mg twice a day, Plavix 75 mg once a day. I will follow brain MRI results. Iain Weston MD
[2018-10-20] MEDS: Latanoprost 2.5 ml Opht Soln OU SCH (22:16)
[2018-10-21 00:32] VITALS: O2SAT 97
[2018-10-21] MEDS: Pantoprazole 40 mg EC Tab PO SCH (05:36)
--- NOTE | 2018-10-21 08:24 | CP.PCM.PN ---
Subjective - Date & Time of Evaluation Date of Evaluation: 10/21/18 Time of Evaluation: 08:00 - Subjective Subjective: (covering for Dr. Hidalgo) Patient is seen this morning. She wants to go home. She denies dizziness at this time. Objective - Vital Signs/Intake and Output Vital Signs (last 24 hours): Temp Pulse Resp BP Pulse Ox 98.6 F 61 20 137/62 97 10/21/18 06:00 10/21/18 06:00 10/21/18 06:00 10/21/18 06:00 10/21/18 06:00 Intake and Output: 10/21/18 10/21/18 06:59 18:59 Intake Total 360 Balance 360 - Medications Medications: Current Medications Anastrozole (Arimidex 1 Mg Tab) 1 mg PO DAILY [facility] Last Admin: 10/20/18 11:40 Dose: 1 mg Aspirin (Ecotrin) 81 mg PO DAILY [facility] Last Admin: 10/20/18 10:06 Dose: 81 mg Atorvastatin Calcium (Lipitor) 80 mg PO DIN [facility] Last Admin: 10/20/18 17:40 Dose: 80 mg Clopidogrel Bisulfate (Plavix) 75 mg PO DAILY [facility] Last Admin: 10/20/18 10:06 Dose: 75 mg Donepezil HCl (Aricept) 5 mg PO HS [facility] Last Admin: 10/20/18 22:15 Dose: 5 mg Enoxaparin Sodium (Lovenox) 40 mg SC DAILY [facility]; Protocol Last Admin: 10/20/18 10:07 Dose: 40 mg Escitalopram Oxalate (Lexapro) 10 mg PO DAILY [facility] Last Admin: 10/20/18 10:06 Dose: 10 mg Folic Acid (Folic Acid) 1 mg PO DAILY [facility] Last Admin: 10/20/18 10:06 Dose: 1 mg Furosemide (Lasix) 40 mg PO DAILY [facility] Last Admin: 10/20/18 10:06 Dose: 40 mg Home Med (Home Med) 1 unit PO DAILY [facility] Home Med (Home Med) 1 unit OU 1000,2200 [facility] Last Admin: 10/20/18 22:16 Dose: 1 unit Latanoprost (Xalatan Opht) 0 ml OU HS [facility] Last Admin: 10/20/18 22:16 Dose: 2.5 ml Loratadine (Claritin) 10 mg PO DAILY [facility] Last Admin: 12/23/18 10:06 Dose: 10 mg Lorazepam (Ativan) 1.5 mg PO HS [facility]; Protocol Last Admin: 10/20/18 22:16 Dose: 1.5 mg Magnesium Oxide (Mag-Ox) 400 mg PO BID [facility] Last Admin: 10/20/18 17:41 Dose: 400 mg Methylphenidate HCl (Ritalin) 10 mg PO DAILY [facility] Last Admin: 10/20/18 10:07 Dose: 10 mg Metoprolol Tartrate (Lopressor) 25 mg PO BID [facility] Last Admin: 10/20/18 17:41 Dose: 25 mg Olanzapine (Zyprexa) 5 mg PO HS [facility]; Protocol Last Admin: 10/20/18 22:16 Dose: 5 mg Pantoprazole Sodium (Protonix Ec Tab) 40 mg PO 0600 [facility] Last Admin: 10/21/18 05:36 Dose: 40 mg Potassium Chloride (K-Dur 20 Meq Er Tab) 20 meq PO BRK [facility] Last Admin: 10/20/18 07:57 Dose: 20 meq - Labs Labs: 10/19/18 07:00 10/19/18 07:00 - Constitutional Appears: No Acute Distress - Head Exam Head Exam: ATRAUMATIC, NORMOCEPHALIC - Respiratory Exam Respiratory Exam: Clear to Ausculation Bilateral, NORMAL BREATHING PATTERN - Cardiovascular Exam Cardiovascular Exam: REGULAR RHYTHM, +S1, +S2 - GI/Abdominal Exam GI & Abdominal Exam: Soft, Normal Bowel Sounds. absent: Tenderness - Extremities Exam Extremities Exam: Normal Inspection - Neurological Exam Neurological Exam: Alert, Awake, Oriented x3 Assessment and Plan - Assessment and Plan (Free Text) Assessment: HTN ASHD H/O CVA Manic depression Plan: Patient had physical therapy evaluation yesterday and outpatient physical therapy is recommended. Patient should also use a cane to help with balance. Patient will be discharged home today. She was advised to use a cane, but she outright refuses. Patient has also been advised to get outpatient PT. Patient says she was supposed to go for cardiac rehab, ordered by Dr. Zambrano, but she never went. She says that she will go for outpatient PT. Patient will followup with Dr. Hidalgo.
[2018-10-21] MEDS: Magnesium Oxide 400 mg Tab UD PO SCH (10:39)
[2018-10-21] MEDS: Enoxaparin 40 mg Syringe SC SCH (10:40)
[2018-10-21] MEDS: Potassium Chloride 20 mEq ER Tab PO SCH (10:43)
[2018-10-21] MEDS: Home Med 1 UNIT OU SCH ×2 (10:44→10:45)
--- NOTE | 2018-10-21 11:02 | PN ---
DATE: 10/21/2018 SUBJECTIVE: The patient is comfortable. No shortness of breath. No chest pain. OBJECTIVE: VITAL SIGNS: Blood pressure 137/62, heart rates in the 60s. NECK: Negative JVD. LUNGS: Without rales. HEART: Reveals S1, S2. EXTREMITIES: Without edema. campus safety officer shows no ventricular arrhythmias, potassium is 4.0, magnesium is 2.1. The hemoglobin is 14. IMPRESSION: 1. Transient dizziness, which is now better. 2. History of occluded right coronary artery. 3. Ischemic dilated cardiomyopathy. 4. Hypertension. 5. Nonsustained VT, which is better after replacement of potassium and magnesium. 6. History of chronic ischemic changes on MRI. Given these findings, the patient's cardiac status is stable. She wants to go home for [place]. The patient has been discharged. We will follow up as an outpatient. Dmitriy Zambrano MD
[2018-10-21 13:47] VITALS: BP 166/59; PULSE 60; RESP 18; TEMP 98.1
--- NOTE | 2018-10-23 22:09 | DS ---
HISTORY OF PRESENT ILLNESS: This is an 83-year-old female with history of coronary artery disease, cerebrovascular disease, bipolar, vitamin B12 deficiency, vitamin D deficiency, hyperlipidemia, and breast cancer presented to the emergency room with sudden onset of dizziness. The patient also complained of poor balance and ataxia. In the emergency room, she was unable to walk due to the dizziness. She was placed in observation on the telemetry floor. HOSPITAL COURSE: The patient was seen by Neurology, Dr. Melara and she was seen by [facility] lead, Dr. Weston. Neurology ordered an MRI of her brain, which showed no evidence of acute intracranial hemorrhage and infarction chronic, right posterior temporal parietal watershed zone infarct with scattered deep and subcortical white matter based on nuclear and probably right cerebellar lacunar type infarcts. The patient was recommended by Neurology for physical therapy. She had been given a prescription in the past for cardiac rehab by Dr. Zambrano. The patient agrees to go for outpatient physical therapy. She was discharged home in stable condition. DISCHARGE DIAGNOSES: 1. Dizziness. 2. Cerebrovascular disease. 3. Coronary artery disease. 4. Hyperlipidemia. 5. Bipolar. 6. Depression. 7. Vitamin D deficiency. 8. Vitamin B12 deficiency. 9. Glaucoma. DISCHARGE MEDICATIONS: Arimidex 1 mg daily, timolol eye drops, Abilify twice a day, folic acid 1 mg daily, potassium 20 mEq daily, Lipitor 80 mg at dinnertime, Lopressor 25 mg twice a day, magnesium oxide 400 mg twice a day, Protonix 40 mg daily, Ritalin 10 mg daily, Uloric 40 mg daily, vitamin D 50,000 units once a week, WelChol 625 mg 3 tablets daily, Xyzal 5 mg daily, Zyprexa 5 mg at night, Aricept 5 mg at night, aspirin 81 mg daily, Ativan 1.5 mg at night, Lasix 40 mg daily, Lexapro 10 mg daily, and Plavix 75 mg daily. FOLLOWUP: The patient will follow up with her primary care doctor, Dr. Hidalgo as well as her [facility] lead, Dr. Zambrano. Santiago Vang MD [facility] # [id number]
== END 2018-10-21 13:49 | disposition home or self-care (01) | DRG 149 ==
LOC: ED 11:27 → ERH 14:09 → 2RSO 16:15 → OBSVTOIN 10-20 07:25
PROVIDERS: ADMIT Internal Medicine; ATTEND Internal Medicine
DX: R42 Dizziness and giddiness (principal); I42.0 Dilated cardiomyopathy; I47.2 Ventricular tachycardia; F31.30 Bipolar disorder, current episode depressed, mild or moderate severity, unspecified; R27.0 Ataxia, unspecified; E53.8 Deficiency of other specified B group vitamins; E55.9 Vitamin D deficiency, unspecified; F41.9 Anxiety disorder, unspecified; E78.5 Hyperlipidemia, unspecified; F01.50 Vascular dementia, unspecified severity, without behavioral disturbance, psychotic disturbance, mood disturbance, and anxiety; H40.9 Unspecified glaucoma; I11.0 Hypertensive heart disease with heart failure; I50.9 Heart failure, unspecified; I25.10 Atherosclerotic heart disease of native coronary artery without angina pectoris; I25.82 Chronic total occlusion of coronary artery; I25.5 Ischemic cardiomyopathy; K21.9 Gastro-esophageal reflux disease without esophagitis; I67.9 Cerebrovascular disease, unspecified; I25.2 Old myocardial infarction; Z85.3 Personal history of malignant neoplasm of breast; Z79.811 Long term (current) use of aromatase inhibitors; Z79.02 Long term (current) use of antithrombotics/antiplatelets; Z95.5 Presence of coronary angioplasty implant and graft

== ENCOUNTER 2018-12-08 11:25 | Emergency (ER) | payer MEDICARE, OTHER ==
[2018-12-08 11:37] VITALS: RESP 18
--- NOTE | 2018-12-08 11:48 | ED PDOC ---
Arrival/HPI - General Chief Complaint: Dizziness/Lightheaded Time Seen by Provider: 12/08/18 11:30 Historian: Patient - History of Present Illness Narrative History of Present Illness (Text): 12/08/18 11:48 83 year old female, with past medical history of [place] (01/13 with stent) and CHF with EF:25%, presents to emergency department complaining of dizziness with a lightheaded sensation since yesterday. Patient reports slight improvement yesterday with worsening symptoms today. Patient denies any syncope. Patient denies any fevers, chills, headache, chest pain, shortness of breath, cough, abdominal pain, nausea, vomiting, diarrhea, back pain, neck pain, or any other complaints. Time/Duration: Other (yesterday) Symptom Onset: Gradual Symptom Course: Unchanged Activities at Onset: Light Context: Home Past Medical History - Provider Review Nursing Documentation Reviewed: Yes - Infectious Disease Hx of Infectious Diseases: None - Tetanus Immunization Tetanus Immunization: Unknown - Reproductive Menopause: Yes - Cardiac Hx Cardiac Disorders: Yes ([place]) Hx Congestive Heart Failure: Yes Hx Hypertension: Yes - Pulmonary Hx Respiratory Disorders: Yes (USED TO SMOKE CIGARETTES PPD QUIT) Hx Pneumonia: Yes - Neurological Hx Neurological Disorder: Yes Hx Alzheimer's Disease: Yes Hx Dizziness: Yes Hx Transient Ischemic Attacks (TIA): Yes - HEENT Hx HEENT Disorder: Yes Hx Glaucoma: Yes - Renal Hx Renal Disorder: Yes Other/Comment: Kidney Disease - Endocrine/Metabolic Hx Endocrine Disorders: No - Hematological/Oncological Hx Blood Disorders: Yes Hx Anemia: Yes Hx Cancer: Yes (Breast) - Integumentary Hx Dermatological Disorder: No - Musculoskeletal/Rheumatological Hx Musculoskeletal Disorders: No Hx Falls: Yes - Gastrointestinal Hx Gastrointestinal Disorders: Yes Hx Gastroesophageal Reflux: Yes - Genitourinary/Gynecological Hx Genitourinary Disorders: No - Psychiatric Hx Psychophysiologic Disorder: Yes Hx Depression: Yes Hx Substance Use: No - Surgical History Hx Cardiac Catheterization: Yes Hx Cholecystectomy: Yes Hx Coronary Stent: Yes (x3) Other/Comment: carotid endarectomy - Anesthesia Hx Anesthesia Reactions: No Hx Malignant Hyperthermia: No - Suicidal Assessment Feels Threatened In Home Enviroment: No Family/Social History - Physician Review Nursing Documentation Reviewed: Yes Family/Social History: Unknown Family HX Smoking Status: Former Smoker Hx Alcohol Use: No Hx Substance Use: No Allergies/Home Meds Allergies/Adverse Reactions: Allergies No Known Allergies Allergy (Verified 12/08/18 11:35) Home Medications: Home Meds Medication Instructions Recorded Confirmed RX: Anastrozole [Arimidex 1 mg Tab] 1 mg PO DAILY 02/27/18 10/21/18 RX: Brimonidine Tartrate/Timolol 1 drop BOTHEYES BID 02/27/18 10/21/18 [Combigan 0.2%-0.5% Eye Drops] RX: Colesevelam HCl [Welchol] 3 tab PO DAILY 02/27/18 10/18/18 RX: Folic Acid 1 mg PO DAILY 02/27/18 10/21/18 RX: Levocetirizine Dihydrochloride 5 mg PO DAILY 02/27/18 10/18/18 [Xyzal] RX: Magnesium Oxide [Mag-Ox] 400 mg PO BID 02/27/18 10/21/18 RX: Olanzapine [Zyprexa] 5 mg PO HS 02/27/18 10/18/18 RX: Atorvastatin [Lipitor] 80 mg PO DIN 03/08/18 10/21/18 RX: Methylphenidate [Ritalin] 10 mg PO DAILY 03/08/18 10/21/18 RX: Metoprolol Tartrate [Lopressor] 25 mg PO BID 03/08/18 10/21/18 RX: Potassium Chloride [K-Dur 20 20 meq PO DAILY 03/08/18 10/21/18 mEq ER Tab] RX: Cholecalciferol (Vitamin D3) 50,000 unit PO Q7D 03/14/18 10/18/18 [Vitamin D3] RX: Cyanocobalamin [Vitamin B12 1,000 mcg IM Q14D 03/14/18 10/18/18 1000 mcg/ml Inj] RX: Febuxostat [Uloric] 40 mg PO DAILY 03/14/18 10/18/18 RX: Pantoprazole [Protonix EC Tab] 40 mg PO DAILY 03/14/18 10/18/18 RX: Travoprost [Travatan Z] 1 drop BOTHEYES HS 03/14/18 10/18/18 Review of Systems - Physician Review All systems were reviewed & negative as marked: Yes - Review of Systems Constitutional: absent: Fevers Respiratory: absent: SOB, Cough, Wheezing Cardiovascular: absent: Chest Pain Gastrointestinal: absent: Diarrhea, Nausea, Vomiting Genitourinary Female: absent: Urine Output Changes Musculoskeletal: absent: Back Pain, Neck Pain Skin: absent: Rash Neurological: Dizziness (lightheaded). absent: Headache Physical Exam Vital Signs Reviewed: Yes Vital Signs Pulse Resp BP Pulse Ox 12/08/18 11:36 58 L 18 177/82 H 97 Temperature: Afebrile Blood Pressure: Normal Pulse: Regular Respiratory Rate: Normal Appearance: Positive for: Well-Appearing, Non-Toxic, Comfortable Pain Distress: None Mental Status: Positive for: Alert and Oriented X 3 - Systems Exam Head: Present: Atraumatic, Normocephalic Pupils: Present: PERRL Extroacular Muscles: Present: EOMI Conjunctiva: Present: Normal Mouth: Present: Moist Mucous Membranes Neck: Present: Normal Range of Motion Respiratory/Chest: Present: Clear to Auscultation, Good Air Exchange. No: Respiratory Distress, Accessory Muscle Use Cardiovascular: Present: Regular Rate and Rhythm, Normal S1, S2. No: Murmurs Abdomen: No: Tenderness, Distention, Peritoneal Signs Back: Present: Normal Inspection Upper Extremity: Present: Normal Inspection. No: Cyanosis, Edema Lower Extremity: Present: Normal Inspection. No: Edema Neurological: Present: GCS=15, CN II-XII Intact, Speech Normal Skin: Present: Warm, Dry, Normal Color. No: Rashes Psychiatric: Present: Alert, Oriented x 3, Normal Insight, Normal Concentration Medical Decision Making ED Course and Treatment: 12/08/18 11:58 Impression: 83 year old female presents to emergency department complaining of dizziness since yesterday night. ro metabolic cardiac intracanial etilogy neuro intact. noted previous admission in [facility]. Plan: -- CT Head -- EKG -- Labs -- Chest X-ray -- Urinalysis -- Reassess and disposition Prior Visits: Notes and results from previous visits were reviewed. Progress Notes: 12/08/18 18:21 case discussed with say. [facility] pt well known to his service states pt with long standing h/o of similar. previous mri neg. pt on asa plavix. states pt had extensive outpt w/u. states pt can f/u with him outpt. - RAD Interpretation Narrative RAD Interpretations (Text): 12/08/18 12:49 CT Head, reviewed by radiologist: IMPRESSION: Chronic encephalomalacia is seen in the right parietal lobe. There is a chronic infarct in the right thalamus No acute intracranial findings Chest X-ray, reviewed by radiologist: IMPRESSION: No active disease. Radiology Orders: 12/08/18 11:43 HEAD W/O CONTRAST [CT] Stat CHEST PORTABLE [RAD] Stat Design Draftsman: Radiologist - EKG Interpretation EKG Interpretation (Text): 12/08/18 12:00 EKG: Ordered, reviewed, and independently interpreted the EKG. Rate : 58 BPM Rhythm : NSR Interpretation : sinus brachycardia, non specific ST or T wave changes, LVH with repolarization abnormality Comparison : No changes from 10/18/18 Interpreted by ED Physician: Yes Type: 12 lead EKG Disposition/Present on Arrival - Present on Arrival Any Indicators Present on Arrival: No History of DVT/PE: No History of Uncontrolled Diabetes: No Urinary Catheter: No History of Decub. Ulcer: No History Surgical Site Infection Following: None - Disposition Have Diagnosis and Disposition been Completed?: Yes Diagnosis: Dizziness Disposition: HOME/ ROUTINE Condition: STABLE Discharge Instructions (ExitCare): Dizziness, Nonvertigo, (DC) Additional Instructions: return to any er with worsening. dr velasco would like to see you tommorow. return to any er with worsneing. Referrals: Mohan Velasco MD [Primary Care Provider] - Follow up with primary Jovanni Melara MD [Staff Provider] - Follow up with primary Brad Melara MD [Staff Provider] - Follow up with primary Forms: [employer] (Albanian)
[2018-12-08 12:02] LABS: BASO # 0.01 K/mm3 (0.0-2.0); BASO % 0.1 % (0.0-3.0); EOS # 0.1 (0.0-0.7); HEMOGLOBIN 13.5 g/dL (12.0-16.0); LYMPH # 1.3 (1.2-3.4); LYMPH % 16.9 % (22.0-35.0); MEAN CELL VOLUME 90.8 fl (80.0-105.0); MEAN CORPUSCULAR HEMOGLOBIN 29.7 pg (25.0-35.0); MEAN CORPUSCULAR HGB CONC 32.7 g/dl (31.0-37.0); MEAN PLATELET VOLUME 9.8 fl (7.0-11.0); MONO # 0.7 (0.1-0.6); MONO % 8.2 % (1.0-6.0); RBC 4.55 10^6/uL (3.5-6.1); RED CELL DISTRIBUTION WIDTH 12.4 % (11.5-14.5); WHITE BLOOD COUNT 7.9 10^3/uL (4.5-11.0)
[2018-12-08 12:12] LABS: INR 1.03; PARTIAL THROMBOPLASTIN TIME 28.4 Seconds (26.9-38.3); PROTHROMBIN TIME 11.6 SECONDS (9.4-12.5)
[2018-12-08 12:14] LABS: ALB/GLOB RATIO 1.2 (1.1-1.8); ALBUMIN 3.6 g/dL (3.0-4.8); BLOOD UREA NITROGEN 25 mg/dL (7-21); CALCIUM 9.4 mg/dL (8.4-10.5); GFR NON-AFRICAN AMERICAN > 60
--- NOTE | 2018-12-08 12:24 | CT ---
Date of service: 12/08/2018 PROCEDURE: CT HEAD WITHOUT CONTRAST. HISTORY: dizzy/lightheaded COMPARISON: 10/18/2018 TECHNIQUE: Axial computed tomography images were obtained through the head/brain without intravenous contrast. Radiation dose: Total exam DLP = 778.23 mGy-cm. This CT exam was performed using one or more of the following dose reduction techniques: Automated exposure control, adjustment of the mA and/or kV according to patient size, and/or use of iterative reconstruction technique. FINDINGS: HEMORRHAGE: No intracranial hemorrhage. BRAIN: No mass effect or edema. Chronic encephalomalacia is seen in the right parietal lobe. There is a chronic infarct in the right thalamus VENTRICLES: Unremarkable. No hydrocephalus. CALVARIUM: Unremarkable. PARANASAL SINUSES: Unremarkable as visualized. No significant inflammatory changes. MASTOID AIR CELLS: Unremarkable as visualized. No inflammatory changes. OTHER FINDINGS: None. IMPRESSION: Chronic encephalomalacia is seen in the right parietal lobe. There is a chronic infarct in the right thalamus No acute intracranial findings
[2018-12-08 12:26] LABS: TROPONIN I < 0.01 ng/mL
[2018-12-08 12:33] LABS: ALT/SGPT 14 U/L (7-56); AST/SGOT 27 U/L (14-36)
--- NOTE | 2018-12-08 12:33 | RAD ---
Date of service: 12/08/2018 HISTORY: lightheaded/weak COMPARISON: 10/18/2018 FINDINGS: LUNGS: No active pulmonary disease. PLEURA: No significant pleural effusion identified, no pneumothorax apparent. CARDIOVASCULAR: Aortic calcification Normal cardiac size. No pulmonary vascular congestion. OSSEOUS STRUCTURES: No significant abnormalities. VISUALIZED UPPER ABDOMEN: Normal. OTHER FINDINGS: None. IMPRESSION: No active disease.
[2018-12-08 13:14] VITALS: TEMP 98
[2018-12-08 14:15] VITALS: BP 174/76; PULSE 87; O2SAT 98
--- NOTE | 2018-12-08 20:42 | CARD ---
APPROVED REPORT Date of service: 12/08/2018 EKG Measurement Heart [id number] <Conclusion> Sinus bradycardia Left ventricular hypertrophy with repolarization abnormality Inferior infarct, age undetermined Abnormal R wave progression- questionable lead placement Abnormal ECG
== END 2018-12-08 14:19 | disposition home or self-care (01) ==
LOC: ED 11:25
DX: R42 Dizziness and giddiness (principal); I50.9 Heart failure, unspecified; I10 Essential (primary) hypertension; G30.9 Alzheimer's disease, unspecified; I25.2 Old myocardial infarction; Z87.891 Personal history of nicotine dependence

== ENCOUNTER 2018-12-29 10:37 | Inpatient (IN) | payer MEDICARE, OTHER ==
[2018-12-29 10:40] VITALS: BMI 22.3
--- NOTE | 2018-12-29 11:01 | ED PDOC ---
Arrival/HPI - General Chief Complaint: Shortness Of Breath Time Seen by Provider: 12/29/18 10:41 Historian: Patient - History of Present Illness Narrative History of Present Illness (Text): 12/29/18 11:01 A 83 year old female, whose past medical history includes [place] (01/13 with stent) and CHF with EF:25%, brought in by [facility], presents to the emergency department complaining of shortness of breath and dizziness. Patient reports she got up this morning feeling short of breath. Also, she mentions experiencing dizziness (no different from daily dizzy spells). She is concerned due to being told before she needs a defribillator, and has not gone to do so yet. Patient denies any chest pain, nausea, vomiting, or any other complaints at this time. Denies history of smoking. PMD: Dr. Hidalgo Associated Symptoms (Text): 12/29/18 12:01 Patient feels dizziness on a daily basis and her dizziness today is no different from usual. Shortness of breath is new. No chest pain. Past Medical History - Provider Review Nursing Documentation Reviewed: Yes - Infectious Disease Hx of Infectious Diseases: None - Tetanus Immunization Tetanus Immunization: Unknown - Reproductive Menopause: Yes - Cardiac Hx Cardiac Disorders: Yes ([place]) Hx Congestive Heart Failure: Yes Hx Hypertension: Yes - Pulmonary Hx Respiratory Disorders: Yes (USED TO SMOKE CIGARETTES PPD QUIT) Hx Pneumonia: Yes - Neurological Hx Neurological Disorder: Yes Hx Alzheimer's Disease: Yes Hx Dizziness: Yes Hx Transient Ischemic Attacks (TIA): Yes - HEENT Hx HEENT Disorder: Yes Hx Glaucoma: Yes - Renal Hx Renal Disorder: Yes Other/Comment: Kidney Disease - Endocrine/Metabolic Hx Endocrine Disorders: No - Hematological/Oncological Hx Blood Disorders: Yes Hx Anemia: Yes Hx Cancer: Yes (Breast) - Integumentary Hx Dermatological Disorder: No - Musculoskeletal/Rheumatological Hx Musculoskeletal Disorders: No Hx Falls: Yes - Gastrointestinal Hx Gastrointestinal Disorders: Yes Hx Gastroesophageal Reflux: Yes - Genitourinary/Gynecological Hx Genitourinary Disorders: No - Psychiatric Hx Psychophysiologic Disorder: Yes Hx Depression: Yes Hx Substance Use: No - Surgical History Hx Cardiac Catheterization: Yes Hx Cholecystectomy: Yes Hx Coronary Stent: Yes (x3) Other/Comment: carotid endarectomy - Anesthesia Hx Anesthesia Reactions: No Hx Malignant Hyperthermia: No - Suicidal Assessment Feels Threatened In Home Enviroment: No Family/Social History - Physician Review Nursing Documentation Reviewed: Yes Family/Social History: No Known Family HX Smoking Status: Former Smoker Hx Alcohol Use: No Hx Substance Use: No Allergies/Home Meds Allergies/Adverse Reactions: Allergies No Known Allergies Allergy (Verified 12/08/18 11:35) Home Medications: Home Meds Medication Instructions Recorded Confirmed Anastrozole [Arimidex 1 mg Tab] 1 mg PO DAILY 02/27/18 10/21/18 Brimonidine Tartrate/Timolol 1 drop BOTHEYES BID 02/27/18 10/21/18 [Combigan 0.2%-0.5% Eye Drops] Colesevelam HCl [Welchol] 3 tab PO DAILY 02/27/18 10/18/18 Folic Acid 1 mg PO DAILY 02/27/18 10/21/18 Levocetirizine Dihydrochloride 5 mg PO DAILY 02/27/18 10/18/18 [Xyzal] Magnesium Oxide [Mag-Ox] 400 mg PO BID 02/27/18 10/21/18 Olanzapine [Zyprexa] 5 mg PO HS 02/27/18 10/18/18 Atorvastatin [Lipitor] 80 mg PO DIN 03/08/18 10/21/18 Methylphenidate [Ritalin] 10 mg PO DAILY 03/08/18 10/21/18 Metoprolol Tartrate [Lopressor] 25 mg PO BID 03/08/18 10/21/18 Potassium Chloride [K-Dur 20 mEq 20 meq PO DAILY 03/08/18 10/21/18 ER Tab] Cholecalciferol (Vitamin D3) 50,000 unit PO Q7D 03/14/18 10/18/18 [Vitamin D3] Cyanocobalamin [Vitamin B12 1000 1,000 mcg IM Q14D 03/14/18 10/18/18 mcg/ml Inj] Febuxostat [Uloric] 40 mg PO DAILY 03/14/18 10/18/18 Pantoprazole [Protonix EC Tab] 40 mg PO DAILY 03/14/18 10/18/18 Travoprost [Travatan Z] 1 drop BOTHEYES HS 03/14/18 10/18/18 Review of Systems - Physician Review All systems were reviewed & negative as marked: Yes - Review of Systems Constitutional: Fatigue. absent: Fevers Respiratory: SOB. absent: Cough, Wheezing Cardiovascular: absent: Chest Pain, Palpitations, Syncope Gastrointestinal: absent: Abdominal Pain, Nausea, Vomiting Neurological: Dizziness (no different from daily dizziness). absent: Headache, Focal Weakness Physical Exam Temperature: Afebrile Blood Pressure: Hypertensive Pulse: Regular Respiratory Rate: Normal Appearance: Positive for: Well-Appearing, Non-Toxic, Uncomfortable Pain Distress: None Mental Status: Positive for: Alert and Oriented X 3 - Systems Exam Head: Present: Atraumatic, Normocephalic Pupils: Present: PERRL Extroacular Muscles: Present: EOMI Conjunctiva: Present: Normal Mouth: Present: Moist Mucous Membranes Pharnyx: No: ERYTHEMA, EXUDATE, TONSILS ENLARGED Neck: Present: Normal Range of Motion Respiratory/Chest: Present: Rales (bibasilar). No: Respiratory Distress, Accessory Muscle Use, Wheezes, Retracting, Rhonchi, Tachypneic, Tender to Palpation Cardiovascular: Present: Regular Rate and Rhythm, Normal S1, S2. No: Murmurs Abdomen: No: Tenderness, Distention, Peritoneal Signs Back: Present: Normal Inspection Upper Extremity: Present: Normal Inspection. No: Cyanosis, Edema Lower Extremity: Present: Normal Inspection. No: Edema, CALF TENDERNESS Neurological: Present: GCS=15, CN II-XII Intact, Speech Normal, Motor Func Grossly Intact Skin: Present: Warm, Dry, Normal Color. No: Rashes Psychiatric: Present: Alert, Oriented x 3, Normal Insight, Normal Concentration Medical Decision Making ED Course and Treatment: 12/29/18 11:03 Impression: 83 year old female with shortness of breath and dizziness. Plan: -- EKG -- Chest X-ray -- Labs -- Reassess and disposition Progress Notes: 12/29/18 12:02 EKG shows normal sinus rhythm rate approximately 60 with inverted T waves laterally and poor R waves with Q waves inferiorly. 12/29/18 12:04 Discussed with , who accepts to his service on telemetry observation. Discussed with the medical representative who will see the patient in the emergency department and admit for Dr. Hidalgo 12/29/18 13:[address] Zambrano. - RAD Interpretation Radiology Orders: 12/29/18 10:56 CHEST PORTABLE [RAD] Stat X-ray chest one view shows cardiomegaly and CHF with increased markings. Assisted Living Administrator: Radiologist - Scribe Statement The provider has reviewed the documentation as recorded by the Scribe Corine Reese Provider Scribe Attestation: All medical record entries made by the Scribe were at my direction and personally dictated by me. I have reviewed the chart and agree that the record accurately reflects my personal performance of the history, physical exam, medical decision making, and the department course for this patient. I have also personally directed, reviewed, and agree with the discharge instructions and disposition. Disposition/Present on Arrival - Present on Arrival Any Indicators Present on Arrival: No History of DVT/PE: No History of Uncontrolled Diabetes: No Urinary Catheter: No History of Decub. Ulcer: No History Surgical Site Infection Following: None - Disposition Have Diagnosis and Disposition been Completed?: Yes Diagnosis: CHF exacerbation Disposition: HOSPITALIZED Disposition Time: 12:03 Patient Plan: Observation, Telemetry Patient Problems: Current Active Problems Problem Status Onset CHF exacerbation Acute Condition: FAIR
[2018-12-29 11:32] LABS: ALB/GLOB RATIO 1.3 (1.1-1.8); ALBUMIN 3.9 g/dL (3.0-4.8); BASO # 0.01 K/mm3 (0.0-2.0); BASO % 0.2 % (0.0-3.0); BLOOD UREA NITROGEN 27 mg/dL (7-21); CALCIUM 9.4 mg/dL (8.4-10.5); EOS # 0.1 (0.0-0.7); EOS % 2.4 % (1.5-5.0); GFR NON-AFRICAN AMERICAN > 60; HEMOGLOBIN 13.8 g/dL (12.0-16.0); LYMPH % 16.3 % (22.0-35.0); MEAN CELL VOLUME 92.2 fl (80.0-105.0); MEAN CORPUSCULAR HEMOGLOBIN 29.8 pg (25.0-35.0); MEAN CORPUSCULAR HGB CONC 32.3 g/dl (31.0-37.0); MEAN PLATELET VOLUME 9.9 fl (7.0-11.0); MONO # 0.7 (0.1-0.6); MONO % 12.3 % (1.0-6.0); RBC 4.63 10^6/uL (3.5-6.1); RED CELL DISTRIBUTION WIDTH 13.1 % (11.5-14.5); WHITE BLOOD COUNT 5.8 10^3/uL (4.5-11.0)
[2018-12-29 11:37] LABS: PARTIAL THROMBOPLASTIN TIME 31.1 Seconds (26.9-38.3)
[2018-12-29 11:39] LABS: ALT/SGPT 14 U/L (7-56); AST/SGOT 31 U/L (14-36)
[2018-12-29 11:43] LABS: B-TYPE NATRIURETIC PEPTIDE 3460 pg/mL (0-450); TROPONIN I < 0.01 ng/mL
[2018-12-29 11:50] LABS: INR 1.02; PROTHROMBIN TIME 11.5 SECONDS (9.4-12.5)
--- NOTE | 2018-12-29 12:42 | CP.PCM.HP ---
History of Present Illness - History of Present Illness History of Present Illness: H&P for Marie Green PGY3 This is a 83yo female with past medical history of CHF (EF 29% 02/26/18), HTN, CAD, TIA, bipolar disorder, dyslipidemia, GERD, glaucoma, breast ca, R carotid stenosis s/p CEA who came to the ED for shortness of breath since this morning. Patient reports she has to follow up with Dr. Arechiga this month for an AICD placement and got nervous. She said after that she started to feel short of breath. Patient reports it is worse with exertion and improved with rest. She sleeps with 2 pillows at night. She denies chest pain, palpitations, dizziness, leg swelling, increased salt intake and reports medication compliance. Patient also denies fever, chills, numbness/tingling, dysuria or hematuria. In the ED, she was found to be hypertensive with congestion on chest xray. Past medical history: CHF (EF 29% 02/26/18), HTN, CAD, TIA, bipolar disorder, dyslipidemia, GERD, glaucoma, breast ca, R carotid stenosis s/p CEA Past surgical history: R CEA, cholecystectomy, R breast lumpectomy, PCI Home meds: confirmed with [facility] and updated Allergies: NKDA Social History: Denies EtOH, or drug use. Former heavy smoker (quit 15yrs ago). Lives alone Family history: Dad- late 70s colon ca. Mom- late 70s bladder ca Present on Admission - Present on Admission Any Indicators Present on Admission: No Review of Systems - Review of Systems Review of Systems: 12 point ROS reviewed as per HPI and is otherwise negative Past Patient History - Infectious Disease Hx of Infectious Diseases: None - Tetanus Immunizations Tetanus Immunization: Unknown - Past Social History Smoking Status: Former Smoker - CARDIAC Hx Cardiac Disorders: Yes ([place]) Hx Congestive Heart Failure: Yes Hx Hypertension: Yes - PULMONARY Hx Respiratory Disorders: Yes (USED TO SMOKE CIGARETTES PPD QUIT) Hx Pneumonia: Yes - NEUROLOGICAL Hx Neurological Disorder: Yes Hx Alzheimer's Disease: Yes Hx Dizziness: Yes Hx Transient Ischemic Attacks (TIA): Yes - HEENT Hx HEENT Problems: Yes Hx Glaucoma: Yes - RENAL Hx Chronic Kidney Disease: Yes Other/Comment: Kidney Disease - ENDOCRINE/METABOLIC Hx Endocrine Disorders: No - HEMATOLOGICAL/ONCOLOGICAL Hx Blood Disorders: Yes Hx Anemia: Yes Hx Cancer: Yes (Breast) - INTEGUMENTARY Hx Dermatological Problems: No - MUSCULOSKELETAL/RHEUMATOLOGICAL Hx Musculoskeletal Disorders: No Hx Falls: Yes - GASTROINTESTINAL Hx Gastrointestinal Disorders: Yes Hx Gastroesophageal Reflux: Yes - GENITOURINARY/GYNECOLOGICAL Hx Genitourinary Disorders: No - PSYCHIATRIC Hx Psychophysiologic Disorder: Yes Hx Depression: Yes Hx Substance Use: No - SURGICAL HISTORY Hx Cardiac Catheterization: Yes Hx Cholecystectomy: Yes Hx Coronary Stent: Yes (x3) Other/Comment: carotid endarectomy - ANESTHESIA Hx Anesthesia Reactions: No Hx Malignant Hyperthermia: No Meds Allergies/Adverse Reactions: Allergies Allergy/AdvReac Type Severity Reaction Status Date / Time No Known Allergies Allergy Verified 12/08/18 11:35 Physical Exam - Constitutional Appears: No Acute Distress - Head Exam Head Exam: ATRAUMATIC, NORMAL INSPECTION, NORMOCEPHALIC - Eye Exam Eye Exam: EOMI, PERRL Pupil Exam: NORMAL ACCOMODATION, PERRL - ENT Exam ENT Exam: Mucous Membranes Moist - Respiratory Exam Respiratory Exam: Rales (bilateral at bases), NORMAL BREATHING PATTERN. absent: Rhonchi, Wheezes, Respiratory Distress - Cardiovascular Exam Cardiovascular Exam: Bradycardia, REGULAR RHYTHM, +S1, +S2. absent: Gallop, Rubs, Systolic Murmur - GI/Abdominal Exam GI & Abdominal Exam: Normal Bowel Sounds, Soft. absent: Distended, Guarding, Mass, Rebound, Rigid, Tenderness - Extremities Exam Extremities exam: Positive for: normal capillary refill, normal inspection, pedal pulses present. Negative for: calf tenderness, pedal edema - Neurological Exam Neurological exam: Alert, CN II-XII Intact, Oriented x3 - Psychiatric Exam Psychiatric exam: Normal Affect, Normal Mood - Skin Skin Exam: Dry, Intact, Normal Color, Warm Results - Vital Signs Recent Vital Signs: Last Vital Signs Temp 98.8 F 12/29/18 10:50 Pulse 60 12/29/18 10:50 Resp 20 12/29/18 11:29 BP 190/78 H 12/29/18 12:05 Pulse Ox 95 12/29/18 11:29 - Labs Result Diagrams: 12/29/18 10:56 12/29/18 10:56 Labs: Laboratory Results - last 24 hr 12/29/18 12/29/18 12/29/18 10:56 10:56 10:56 WBC 5.8 D RBC 4.63 Hgb 13.8 Hct 42.7 MCV 92.2 MCH 29.8 MCHC 32.3 RDW 13.1 Plt Count 202 MPV 9.9 Neut % (Auto) 68.8 H Lymph % (Auto) 16.3 L [place] % (Auto) 12.3 H Eos % (Auto) 2.4 Baso % (Auto) 0.2 Lymph # (Auto) 1.0 L [place] # (Auto) 0.7 H Eos # (Auto) 0.1 Baso # (Auto) 0.01 Absolute Neuts (auto) 4.02 PT 11.5 INR 1.02 APTT 31.1 Sodium 140 Potassium 4.3 Chloride 107 Carbon Dioxide 31 Anion Gap 7 L BUN 27 H Creatinine 0.6 L Est GFR ( Amer) > 60 Est GFR (Non-Af Amer) > 60 Random Glucose 117 H Calcium 9.4 Magnesium 2.2 Total Bilirubin 0.7 AST 31 ALT 14 Alkaline Phosphatase 96 Lactate Dehydrogenase 613 Total Creatine Kinase 28 L Troponin I < 0.01 NT-Pro-B Natriuret Pep 3460 H Total Protein 6.8 Albumin 3.9 Globulin 2.9 Albumin/Globulin Ratio 1.3 Assessment & Plan - Assessment and Plan (Free Text) Assessment: 1. CHF exacerbation - Last echo on 02/26/18 showed EF 29% w/ severely impaired LV function 2. HTN 3. CAD s/p PCI 4. TIA 5. GERD 6. Bipolar disorder 7. Breast ca s/p lumpectomy 8. R carotid stenosis s/p CEA 9. Glaucoma 10. Vertigo Plan: Labs and imaging reviewed. Will diurese patient with lasix 40IVP q12 with potassium supplementation. Will trend troponin, check daily weights, I&O and repeat EKG. Cardiology consulted and repeat echo ordered. Will continue home medications for CAD: ASA, lipitor, plavix, Welchol. Will continue Metoprolol with holding parameters (hold if HR <55 or SBP <100). Continue psych medication Ativan, Olanzipine, Lexapro, Aricept. Continue magox as well as folic acid. Patient will be placed on home dose of meclizine for history of vertigo as well as home eye drops for glaucoma. Continue Anastrazole for hx of breast ca. Patient will have Heparin SC for DVT prophlyaxis and Protonix for GI prophylaxis. Holding parameters were placed on all sedating medication for HR <55 and SBP<100. Case seen, discussed and reviewed with Dr. Rocky Calle PGY3 - Date & Time Date: 12/29/18 Time: 13:24
--- NOTE | 2018-12-29 12:48 | RAD ---
HISTORY: sob COMPARISON: Chest x-ray performed 12/08/18 TECHNIQUE: Chest, one view. FINDINGS: LUNGS: Mild to moderate pulmonary venous congestion. Please note that chest x-ray has limited sensitivity for the detection of pulmonary masses. PLEURA: Small probable pleural effusions. No definite pneumothorax . CARDIOVASCULAR: Cardiomegaly. Atherosclerotic calcifications of the aorta. OSSEOUS STRUCTURES: Degenerative changes. VISUALIZED UPPER ABDOMEN: Unremarkable. OTHER FINDINGS: None. IMPRESSION: Cardiomegaly. Small to moderate pulmonary venous congestion. Small probable pleural effusions.
--- NOTE | 2018-12-29 14:36 | CARD ---
APPROVED REPORT Date of service: 12/29/2018 EKG Measurement Heart [id number] [id number] <Conclusion> Normal sinus rhythm Left ventricular hypertrophy with repolarization abnormality Inferior infarct, age undetermined Abnormal ECG
[2018-12-29] MEDS: Magnesium Oxide 400 mg Tab UD PO SCH (17:30)
[2018-12-29] MEDS ORDERED: Non Formulary Medication (Brimonidine Tartrate/Timolol [Combigan 0.2%-0.5% Eye Drops] 1 DR BOTHEYES SCH ×2 (18:00)
[2018-12-29] MEDS ORDERED: Ergocalciferol 50,000 Intl Units Cap PO SCH (18:30)
[2018-12-29 18:35] LABS: TROPONIN I 0.02 ng/mL
[2018-12-29 19:17] LABS: URIC ACID 4.9 mg/dL (2.5-6.2)
[2018-12-29] MEDS: Non Formulary Medication (Brimonidine Tartrate/Timolol [Combigan 0.2%-0.5% Eye Drops] 1 DR BOTHEYES SCH (21:33)
[2018-12-29] MEDS: Latanoprost 2.5 ml Opht Soln OU SCH (21:33)
[2018-12-29] MEDS ORDERED: Non Formulary Medication (Travoprost [Travatan Z] 1 DROP) BOTHEYES SCH (22:00)
[2018-12-29] MEDS ORDERED: Latanoprost 2.5 ml Opht Soln OU SCH (22:00)
[2018-12-30] MEDS: Levalbuterol 0.63 MG/3 ML Inhal Soln UD IH SCH ×4 (02:41→19:40)
[2018-12-30] MEDS: Pantoprazole 40 mg EC Tab PO SCH (05:22)
[2018-12-30 06:52] LABS: BASO # 0.01 K/mm3 (0.0-2.0); BASO % 0.1 % (0.0-3.0); EOS # 0.1 (0.0-0.7); HEMOGLOBIN 13.1 g/dL (12.0-16.0); LYMPH # 1.5 (1.2-3.4); LYMPH % 21.9 % (22.0-35.0); MEAN CELL VOLUME 91.1 fl (80.0-105.0); MEAN CORPUSCULAR HGB CONC 31.9 g/dl (31.0-37.0); MEAN PLATELET VOLUME 9.7 fl (7.0-11.0); MONO # 0.9 (0.1-0.6); MONO % 13.1 % (1.0-6.0); RBC 4.51 10^6/uL (3.5-6.1); RED CELL DISTRIBUTION WIDTH 12.9 % (11.5-14.5); WHITE BLOOD COUNT 6.9 10^3/uL (4.5-11.0)
[2018-12-30 07:05] LABS: ALB/GLOB RATIO 1.2 (1.1-1.8); ALBUMIN 3.4 g/dL (3.0-4.8); ALT/SGPT 13 U/L (7-56); AST/SGOT 27 U/L (14-36); BILIRUBIN,DIRECT 0.1 mg/dL (0.0-0.4); BLOOD UREA NITROGEN 23 mg/dL (7-21); CALCIUM 9.1 mg/dL (8.4-10.5); GFR NON-AFRICAN AMERICAN > 60
[2018-12-30 07:07] LABS: B-TYPE NATRIURETIC PEPTIDE 3600 pg/mL (0-450)
[2018-12-30] MEDS ORDERED: Potassium Chloride 20 mEq ER Tab PO SCH (08:00)
[2018-12-30] MEDS: Potassium Chloride 20 mEq ER Tab PO SCH ×2 (08:00→23:03)
[2018-12-30] MEDS: Magnesium Oxide 400 mg Tab UD PO SCH ×2 (09:18→17:19)
[2018-12-30] MEDS: Enoxaparin 40 mg Syringe SC SCH (09:18)
[2018-12-30] MEDS: Non Formulary Medication (Colesevelam Hcl [Welchol] 3 TAB) PO SCH (09:23)
[2018-12-30] MEDS: Non Formulary Medication (Brimonidine Tartrate/Timolol [Combigan 0.2%-0.5% Eye Drops] 1 DR BOTHEYES SCH ×2 (09:23→17:21)
[2018-12-30] MEDS ORDERED: Pantoprazole 40 mg EC Tab PO SCH (10:00)
[2018-12-30] MEDS ORDERED: Non Formulary Medication (Colesevelam Hcl [Welchol] 3 TAB) PO SCH (10:00)
--- NOTE | 2018-12-30 10:14 | RAD ---
Date of service: 12/30/2018 HISTORY: CHF COMPARISON: 12/29/2018 TECHNIQUE: Chest PA and lateral FINDINGS: LUNGS: No active pulmonary disease. PLEURA: No significant pleural effusion identified. No pneumothorax apparent. CARDIOVASCULAR: Aortic calcification Normal cardiac size. No pulmonary vascular congestion. OSSEOUS STRUCTURES: No significant abnormalities. VISUALIZED UPPER ABDOMEN: Normal. OTHER FINDINGS: None. IMPRESSION: No active disease.
--- NOTE | 2018-12-30 12:02 | PN ---
DATE: 12/30/2018 SUBJECTIVE: The patient is in 265, bed 1. The patient's overnight nurse's notes were reviewed. No adverse events were documented, notified or called for. The patient is alert, awake, and responsive.. The patient denied any chest pain or shortness of breath since the patient got hospitalized yesterday. REVIEW OF SYSTEMS: A 14-system review was done, pertinent positive and negative dictated above. PHYSICAL EXAMINATION: VITAL SIGNS: The patient is afebrile. Telemetry shows sinus rhythm. Heart rate 84, 79, 76, 56, 58, 70, 69. Respirations 18-20. Blood pressure has improved to 130s to 140 systolic, diastolic in 70s and 80s, yesterday blood pressure was elevated at 170s and 180 systolic now the patient's blood pressure is improved. O2 sat is in mid to high 90%. HEENT: Head is normocephalic and atraumatic. [place] conjunctivae. Anicteric sclerae. No oropharyngeal lesion. NECK: No neck rigidity. CHEST: Kyphosis. LUNGS: Shows decreased breath sounds at the bases. Crackles have diminished and rales have diminished since yesterday. CARDIOVASCULAR: S1 and S2, regular rhythm. Positive systolic murmur left sternal border, right second intercostal space, left second intercostal space. ABDOMEN: Soft. Positive bowel sounds. No palpable hepatosplenomegaly. GENITALIA: Female. RECTAL: Examination is deferred. EXTREMITIES: Shows significant decrease in the pitting edema of the lower extremity. Positive swelling of the ankle is present. MUSCULOSKELETAL: As per the BMI. NEUROLOGIC: The patient is alert, awake, and responsive. She is able to move upper and lower extremity without assistance. Gait examination is not tested. VASCULAR: Palpable pulses. DIAGNOSTIC DATA: CBC is within normal limit. Chemistry shows potassium of 3.6 which is lower than yesterday. The patient's BNP is greater than 3000. The patient's proBNP is greater than 3500. Repeat chest x-ray ordered, results pending. Image is pending. Echo with Doppler is pending. IMPRESSION AND PLAN: 1. Acute exacerbation of systolic congestive heart failure. 2. Dilated ischemic cardiomyopathy. 3. Hypertension with transient uncontrolled hypertension. 4. History of noncompliance. 5. Dementia. 6. History of psychosis. 7. Insomnia. 8. History of cerebral infarct, history of carotid stenosis status post carotid endarterectomy. 9. History of benign positional vertigo. 10. History of vitamin B12 deficiency. 12. Hyperlipidemia. 13. History of breast carcinoma. 14. Asymptomatic bradycardia. Plan at this time, the patient will be continued on the medications as per the MAR, which were modified, revised, and updated. The patient's Lopressor was decreased to 12.5 mg once a day because of episodic bradycardia. The patient is on Lasix 40 mg IV every 12 hours, potassium supplementation is increased to 20 mg twice a day starting today. The patient will continue on the medications as per the MAR of today which was reviewed, updated, and modified. The patient has been ordered out of bed to chair, physical therapy, and occupational therapy. The patient has been ordered both pharmacological, non-pharmacological GI and DVT prophylaxis. TCU evaluation ordered. Awaiting echocardiogram and further Cardiology recommendation. Dictated and electronically signed, not read. Mohan Hidalgo MD
--- NOTE | 2018-12-30 14:08 | CON ---
DATE: 12/30/2018 CARDIOLOGY CONSULTATION HISTORY: The patient is an 83-year-old woman, who presented with 1 day of shortness of breath. This resolved with IV Lasix. 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 In addition, the patient's ejection fraction is approximately 25%. Currently, the patient denies chest pain. She does admit to occasional pedal edema. MEDICATIONS: Her home medications do not include diuretics at home. In addition, she also suffers from hypercholesterolemia. Her past medical history is notable for history of breast CA. SOCIAL HISTORY: She is a former smoker. REVIEW OF SYSTEMS: Currently, she is free of all cardiac symptoms. She is able to walk on the nursing floor with physical therapy. PHYSICAL EXAMINATION: VITAL SIGNS: Currently on physical exam, blood pressure 144/76, heart rates in the 50s, sinus rhythm. NECK: Negative JVD. LUNGS: Decreased breath sounds without rales. HEART: Reveal S1, S2. EXTREMITIES: Trace edema. EKG shows normal sinus rhythm with diffuse ST-T changes. LABORATORY DATA: Hemoglobin is 13.1, BUN and creatinine are 23 and 0.6 with a potassium of 3.6. Troponins are negative x4. IMPRESSION: 1. Acute systolic congestive heart failure. 2. Old inferior wall myocardial infarction. 3. Coronary artery disease with an occluded RCA. 4. Ischemic dilated cardiomyopathy. 5. Chronic obstructive pulmonary disease. 6. Occasional pedal edema. Given these findings, we will continue the patient on Lasix. We will decrease the Lasix to once a day. Her breathing has improved after Lasix yesterday. Dmitriy Zambrano MD
--- NOTE | 2018-12-30 15:34 | CARD ---
APPROVED REPORT Date of service: 12/30/2018 EXAM: Two-dimensional and M-mode echocardiogram with Doppler and color Doppler. INDICATION Congestive Heart Failure 2D DIMENSIONS Left Atrium (2D)3.4 (1.6-4.0cm)IVSd1.1 (0.7-1.1cm) LVDd5.7 (3.9-5.9cm)PWd1.1 (0.7-1.1cm) LVDs4.9 (2.5-4.0cm)FS (%) 14.3 % LVEF (%)29.7 (>50%) M-Mode DIMENSIONS Aortic Root3.30 (2.2-3.7cm)Aortic Cusp Exc.1.30 (1.5-2.0cm) Aortic Valve AoV Peak Alpjuhjq909.0cm/Isaias Peak GR.8mmHg Mitral Valve MV E Ozoghbjo57.1cm/sMV A Rodbsgav05.5cm/sE/A ratio0.4 TDI Lateral E' Peak V3.12cm/sMedial E' Peak V2.44cm/sE/Lateral E'10.0 E/Medial E'12.7 Pulmonary Valve PV Peak Mlqmkkor19.6cm/sPV Peak Grad.2mmHg Tricuspid Valve TR Peak Ylpniqpw226tx/sRAP OLKXAGYZ95qlZaSU Peak Gr.9mmHg ASOZ79koAl LEFT VENTRICLE The Left Ventricle is borderline dilated. There is mild concentric left ventricular hypertrophy. The systolic function is severely impaired. Significant regional wall motion abnormalities noted. Transmitral Doppler flow pattern is Grade I-abnormal relaxation pattern. No left ventricle thrombus noted on this study. RIGHT VENTRICLE The right ventricle is normal size. There is normal right ventricular wall thickness. The right ventricular systolic function is normal. ATRIA The left atrium size is normal. The right atrium size is normal. AORTIC VALVE The aortic valve is moderately thickened. No aortic regurgitation is present. There is no aortic valvular stenosis. MITRAL VALVE The mitral valve is moderately thickened. Mitral regurgitation is mild. There is no mitral valve stenosis. TRICUSPID VALVE There is trace tricuspid regurgitation. PULMONIC VALVE There is mild pulmonic valvular regurgitation. GREAT VESSELS The aortic root is normal in size. <Conclusion> The Left Ventricle is borderline dilated. There is mild concentric left ventricular hypertrophy. The systolic function is severely impaired. Significant regional wall motion abnormalities noted. Transmitral Doppler flow pattern is Grade I-abnormal relaxation pattern. No left ventricle thrombus noted on this study. Mitral regurgitation is mild. There is mild pulmonic valvular regurgitation.
--- NOTE | 2018-12-30 15:42 | CARD ---
APPROVED REPORT Date of service: 12/30/2018 EKG Measurement Heart [id number] 160P19 [id number] <Conclusion> Sinus bradycardia Left ventricular hypertrophy with repolarization abnormality Inferior infarct, age undetermined Abnormal ECG
[2018-12-30] MEDS: Latanoprost 2.5 ml Opht Soln OU SCH (23:04)
[2018-12-31] MEDS: Levalbuterol 0.63 MG/3 ML Inhal Soln UD IH SCH ×4 (01:32→20:00)
[2018-12-31] MEDS: Pantoprazole 40 mg EC Tab PO SCH (05:36)
[2018-12-31 07:10] LABS: BASO # 0.01 K/mm3 (0.0-2.0); BASO % 0.1 % (0.0-3.0); EOS # 0.2 (0.0-0.7); EOS % 2.2 % (1.5-5.0); HEMOGLOBIN 13.9 g/dL (12.0-16.0); LYMPH # 1.8 (1.2-3.4); LYMPH % 20.4 % (22.0-35.0); MEAN CELL VOLUME 91.8 fl (80.0-105.0); MEAN CORPUSCULAR HEMOGLOBIN 29.1 pg (25.0-35.0); MEAN CORPUSCULAR HGB CONC 31.7 g/dl (31.0-37.0); MEAN PLATELET VOLUME 9.8 fl (7.0-11.0); MONO # 1.3 (0.1-0.6); MONO % 14.8 % (1.0-6.0); RBC 4.78 10^6/uL (3.5-6.1); WHITE BLOOD COUNT 8.7 10^3/uL (4.5-11.0)
[2018-12-31 07:25] LABS: ALB/GLOB RATIO 1.2 (1.1-1.8); ALBUMIN 3.5 g/dL (3.0-4.8); ALT/SGPT 16 U/L (7-56); AST/SGOT 33 U/L (14-36); BILIRUBIN,DIRECT 0.1 mg/dL (0.0-0.4); BLOOD UREA NITROGEN 35 mg/dL (7-21); CALCIUM 9.3 mg/dL (8.4-10.5); GFR NON-AFRICAN AMERICAN > 60
[2018-12-31 07:30] LABS: B-TYPE NATRIURETIC PEPTIDE 1450 pg/mL (0-450)
[2018-12-31] MEDS: Potassium Chloride 20 mEq ER Tab PO SCH ×2 (08:12→21:15)
--- NOTE | 2018-12-31 09:14 | PN ---
DATE: 12/31/2018 SUBJECTIVE: The patient is in room 265, bed 1. Overnight nurse's notes were reviewed. No adverse events were documented, reported or notified. The patient's shortness of breath has significantly resolved. The patient denies chest pain. Denies syncope or falls. Denies nausea, vomiting, diarrhea or constipation. The 14-system review was done, pertinent positive and negative dictated above. PHYSICAL EXAMINATION: VITAL SIGNS: The patient is afebrile. Telemetry shows normal sinus rhythm, heart rate 60 to 70 beats per minute, blood pressure 135/65, 156/95, respirations 18 to 20, O2 sat 93% to 95%. HEAD: Normocephalic, atraumatic. HEENT: [place] conjunctivae. Anicteric sclerae. No oropharyngeal lesion. No neck rigidity. Positive carotid endarterectomy surgical scar. Positive kyphosis. LUNGS: Examination shows questionable decreased breath sound at the bases, left more than the right. CARDIOVASCULAR: S1, S2, regular rhythm. Positive systolic murmur, left sternal border, right second intercostal space, left second intercostal space. ABDOMEN: Soft. Positive bowel sounds. No palpable hepatosplenomegaly. GENITALIA: Female. RECTAL: Deferred. EXTREMITIES: Almost complete resolution of the pitting edema. Trace swelling of the lower extremity and ankles noted. MUSCULOSKELETAL: As per the body mass index. Gait examination not tested. NEUROLOGIC: The patient is alert, awake, responsive, follows command. Moves upper and lower extremity without assistance. Motor strength is 5/5 DIAGNOSTICS: 12/31/2018, still pending. The labs are not drawn this morning yet. Echocardiogram done 12/30/2018 was reviewed. The results were reviewed which shows ejection fraction around 25%. IMPRESSION: 1. Acute exacerbation of systolic congestive heart failure with elevated ProBNP and symptoms of shortness of breath. 2. Dilated ischemic cardiomyopathy. 3. Left ventricle ejection fraction of 25% to 26%. 4. Impaired left ventricular systolic function. 5. Hypertension. 6. Asymptomatic bradycardia. 7. History of dementia. 8. History of cerebral infarct and history of carotid artery stenosis, status post carotid endarterectomy. 9. Hyperlipidemia. 10. Vitamin B12 deficiency. 11. History of benign positional vertigo. 12. History of psychiatric illness. 13. History of depression and anxiety. 14. Hypovitaminosis D. 15. Vitamin B12 deficiency. 16. Deconditioning. 17. Gait dysfunction. 18. Poor compliance. PLAN: At this time, the patient's lab work which is pending from today will be reviewed and further modification and therapeutic intervention modification will be done depending on the patient's diagnostic data. The patient's Cardiology followup will be reviewed once available. The patient's current medications will be as per the MAR of today which was reviewed. The patient's IV diuretics is decreased to 40 mg IV daily by Cardiology. The patient will be continued on all the medications as per the MAR of today. The patient has been ordered out of bed to chair, physical therapy, occupational therapy, ambulation therapy, gait training. The patient will be referred for TCU evaluation and admission if accepted. Otherwise, the patient will be considered for discharge home because the patient has declined to go to subacute rehab, which she indicated to me yesterday. Dictated and electronically signed, not read. Mohan Hidalgo MD
[2018-12-31] MEDS: EYE BOTHEYES SCH ×2 (11:04→22:07)
[2018-12-31] MEDS: COMBIGAN BOTHEYES SCH ×2 (11:04→22:07)
[2018-12-31] MEDS: Enoxaparin 40 mg Syringe SC SCH (11:05)
[2018-12-31] MEDS: Magnesium Oxide 400 mg Tab UD PO SCH ×2 (11:06→18:40)
[2018-12-31] MEDS: Non Formulary Medication (Colesevelam Hcl [Welchol] 3 TAB) PO SCH (11:30)
--- NOTE | 2018-12-31 12:06 | CP.PCM.APN ---
Subjective - Date & Time of Evaluation Date of Evaluation: 12/31/18 Time of Evaluation: 09:15 - Subjective Subjective: pt seen and evaluated at bedside, pt in NAD, pt reports feeling tired but says her sob is improved since admission as well as her dizziness. Review of Systems - Constitutional Constitutional: Weakness Objective - Vital Signs/Intake and Output Vital Signs (last 24 hours): Temp Pulse Resp BP Pulse Ox 98.4 F 73 19 153/67 H 94 L 12/31/18 06:00 12/31/18 08:13 12/31/18 06:00 12/31/18 11:04 12/31/18 06:00 Intake and Output: 12/31/18 12/31/18 06:59 18:59 Intake Total 1280 Output Total 5 Balance 1275 - Medications Medications: Current Medications Acetaminophen (Tylenol 325mg Tab) 650 mg PO Q6 PRN PRN Reason: TEMP>=99.5F Acetaminophen (Tylenol 650 Mg Supp) 650 mg RC Q6H PRN PRN Reason: TEMP>=99.5F Anastrozole (Arimidex 1 Mg Tab) 1 mg PO DAILY [facility] Last Admin: 12/30/18 17:18 Dose: 1 mg Aspirin (Aspirin Chewable) 81 mg PO DAILY [facility] Last Admin: 12/31/18 11:05 Dose: 81 mg Atorvastatin Calcium (Lipitor) 20 mg PO DAILY [facility] Last Admin: 12/31/18 11:05 Dose: 20 mg Clopidogrel Bisulfate (Plavix) 75 mg PO DAILY [facility] Last Admin: 12/31/18 11:04 Dose: 75 mg Donepezil HCl (Aricept) 10 mg PO HS [facility] Last Admin: 12/30/18 23:03 Dose: 10 mg Enoxaparin Sodium (Lovenox) 40 mg SC DAILY [facility]; Protocol Last Admin: 12/31/18 11:05 Dose: 40 mg Ergocalciferol (Drisdol 50,000 Intl Units Cap) 1 cap PO Q7D [facility] Last Admin: 12/29/18 18:25 Dose: 1 cap Escitalopram Oxalate (Lexapro) 10 mg PO QAM [facility] Last Admin: 12/31/18 11:05 Dose: 10 mg Folic Acid (Folic Acid) 1 mg PO DAILY [facility] Last Admin: 12/31/18 11:05 Dose: 1 mg Furosemide (Lasix) 40 mg IVP DAILY [facility] Last Admin: 12/31/18 11:04 Dose: 40 mg Latanoprost (Xalatan Opht) 0 ml OU HS [facility] Last Admin: 12/30/18 23:04 Dose: 2.5 ml Levalbuterol HCl (Xopenex) 0.63 mg IH [id number] [facility] Last Admin: 12/31/18 07:44 Dose: 0.63 mg Loratadine (Claritin) 10 mg PO DAILY [facility] Last Admin: 12/31/18 11:05 Dose: 10 mg Lorazepam (Ativan) 1.5 mg PO HS [facility]; Protocol Last Admin: 12/30/18 23:03 Dose: 1.5 mg Magnesium Oxide (Mag-Ox) 400 mg PO BID [facility] Last Admin: 12/31/18 11:06 Dose: 400 mg Meclizine HCl (Antivert) 12.5 mg PO TID [facility] Last Admin: 12/31/18 11:06 Dose: 12.5 mg Metoprolol Tartrate (Lopressor) 12.5 mg PO Q24H [facility] Last Admin: 12/31/18 08:13 Dose: 12.5 mg Non-Formulary Medication (Colesevelam Hcl [Welchol]) 3 tab PO DAILY [facility] Last Admin: 12/31/18 11:30 Dose: Not Given Combigan 0.2%-0.5% Eye Drops (Home Med) 1 drop BOTHEYES Q12 [facility] Last Admin: 12/31/18 11:04 Dose: 1 drop Olanzapine (Zyprexa) 5 mg PO HS [facility]; Protocol Last Admin: 12/30/18 23:03 Dose: 5 mg Ondansetron HCl (Zofran Inj) 4 mg IVP Q4H PRN PRN Reason: Nausea/Vomiting Pantoprazole Sodium (Protonix Ec Tab) 40 mg PO 0600 [facility] Last Admin: 12/31/18 05:36 Dose: 40 mg Potassium Chloride (K-Dur 20 Meq Er Tab) 20 meq PO Q12H [facility] Last Admin: 12/31/18 08:12 Dose: 20 meq - Labs Labs: 12/31/18 06:30 12/31/18 06:30 PT 11.5 SECONDS (9.4-12.5) 12/29/18 10:56 INR 1.02 12/29/18 10:56 APTT 31.1 Seconds (26.9-38.3) 12/29/18 10:56 - Constitutional Appears: No Acute Distress - Head Exam Head Exam: NORMOCEPHALIC - Eye Exam Eye Exam: Normal appearance Pupil Exam: NORMAL ACCOMODATION - ENT Exam ENT Exam: Mucous Membranes Moist, Normal Exam - Neck Exam Neck Exam: Normal Inspection - Respiratory Exam Respiratory Exam: Decreased Breath Sounds, NORMAL BREATHING PATTERN - Cardiovascular Exam Cardiovascular Exam: REGULAR RHYTHM, +S1, +S2 - GI/Abdominal Exam GI & Abdominal Exam: Soft, Normal Bowel Sounds - Extremities Exam Extremities Exam: Normal Capillary Refill, Normal Inspection - Neurological Exam Neurological Exam: Alert, Awake Assessment and Plan - Assessment and Plan (Free Text) Plan: ITS Impressions Chest X-Ray 12/29/18 10:56 IMPRESSION: Cardiomegaly. Small to moderate pulmonary venous congestion. Small probable pleural effusions. Chest X-Ray 12/30/18 07:00 IMPRESSION: No active disease. All Active Problems CHF exacerbation (Acute) Abnormal ECG (Acute) Depression (Acute) Hallucination (Acute) Hypotension (Acute) Lightheaded (Acute) NSTEMI (non-ST elevation myocardial infarction) (Acute) Pneumonia (Acute) pt is a 83 yr old female with pmh sig for [place] with stents, chf, dilated Cm with ef 25%, bipolar, tia, hld, breast ca carotid stenosis s/p CEa now admitied with soband dizziness being evaluated by cardiology for acute systolic chf with ekg showing SB with LVH pt echo reveals: ef 29%, severely impaired systolic function, LV dilated, pt remains on IV lasix for dieresis In terms of dc plan p.t recommending FAROOQ plan of care discussed in IDT rounds Will continue to monitor clinical status Inez Mclaughlin BPCI/TIC - BPCIA/TIC Educated pt/family on BPCIA/CIR/Med to Bed Programs: Yes Flyers given, including CMS Beneficiary letter: Yes Pt/family verbalized understanding & agreed to program: Yes
--- NOTE | 2018-12-31 12:20 | CP.PCM.PN ---
Subjective - Date & Time of Evaluation Date of Evaluation: 12/31/18 Time of Evaluation: 12:30 - Subjective Subjective: Primitivo Mccollum- Internal Medicine Resident- Progress Note on Behalf of Dr. Hidalgo Patient seen and examined at bedside. Resting comfortably in bed. Patient states SOB has improved relative to baseline. Offers no new complaints at this time. Denies fever, chills, chest pain, abdominal pain, nausea, vomiting, diarrhea, constipation, and urinary symptoms. 12-point review of systems negative except as indicated in the HPI Physical Examination: - Constitutional Appears: No Acute Distress - Head Exam Head Exam: ATRAUMATIC, NORMAL INSPECTION, NORMOCEPHALIC - Eye Exam Eye Exam: EOMI, PERRL Pupil Exam: NORMAL ACCOMODATION, PERRL - ENT Exam ENT Exam: Mucous Membranes Moist - Respiratory Exam Respiratory Exam: NORMAL BREATHING PATTERN. absent: Rhonchi, Wheezes, Respiratory Distress - Cardiovascular Exam Cardiovascular Exam: Bradycardia, REGULAR RHYTHM, +S1, +S2. absent: Gallop, Rubs, Systolic Murmur - GI/Abdominal Exam GI & Abdominal Exam: Normal Bowel Sounds, Soft. absent: Distended, Guarding, Mass, Rebound, Rigid, Tenderness - Extremities Exam Extremities exam: Positive for: normal capillary refill, normal inspection, pedal pulses present. Negative for: calf tenderness, pedal edema - Neurological Exam Neurological exam: Alert, CN II-XII Intact, Oriented x3 - Psychiatric Exam Psychiatric exam: Normal Affect, Normal Mood - Skin Skin Exam: Dry, Intact, Normal Color, Warm Assessment and Plan: Patient is a 83 year old female with past medical history of CHF (EF 29% 02/26/18), HTN, CAD, TIA, bipolar disorder, dyslipidemia, GERD, glaucoma, breast ca, R carotid stenosis s/p CEA who was admitted for evaluation and treatment of shortness of breath. CHF exacerbation, CAD - Last echo on 02/26/18 showed EF 29% w/ severely impaired LV function - continue lasix 40mg IV daily - continue aspirin, plavix, and statin Breast ca s/p lumpectomy - continue on amidex GERD - continue PPI Bipolar disorder - continue Ativan, Olanzipine, Lexapro, Aricept. Glaucoma - continue xalatan Vertigo -continue antivert Gait Abnormality - PT consulted- recommend FAROOQ Prophylaxis - DVT ppx- subq lovenox - GI ppx- pantoprazole Dipso: FAROOQ vs TCU if approved Patient case discussed with and plan approved by attending physician, Dr. Hidalgo. Objective - Vital Signs/Intake and Output Vital Signs (last 24 hours): Temp Pulse Resp BP Pulse Ox 98.4 F 73 19 153/67 H 94 L 12/31/18 06:00 12/31/18 08:13 12/31/18 06:00 12/31/18 11:04 12/31/18 06:00 Intake and Output: 12/31/18 12/31/18 06:59 18:59 Intake Total 1280 Output Total 5 Balance 1275 - Medications Medications: Current Medications Acetaminophen (Tylenol 325mg Tab) 650 mg PO Q6 PRN PRN Reason: TEMP>=99.5F Acetaminophen (Tylenol 650 Mg Supp) 650 mg RC Q6H PRN PRN Reason: TEMP>=99.5F Anastrozole (Arimidex 1 Mg Tab) 1 mg PO DAILY [facility] Last Admin: 12/30/18 17:18 Dose: 1 mg Aspirin (Aspirin Chewable) 81 mg PO DAILY [facility] Last Admin: 12/31/18 11:05 Dose: 81 mg Atorvastatin Calcium (Lipitor) 20 mg PO DAILY [facility] Last Admin: 12/31/18 11:05 Dose: 20 mg Clopidogrel Bisulfate (Plavix) 75 mg PO DAILY [facility] Last Admin: 12/31/18 11:04 Dose: 75 mg Donepezil HCl (Aricept) 10 mg PO HS [facility] Last Admin: 12/30/18 23:03 Dose: 10 mg Enoxaparin Sodium (Lovenox) 40 mg SC DAILY [facility]; Protocol Last Admin: 12/31/18 11:05 Dose: 40 mg Ergocalciferol (Drisdol 50,000 Intl Units Cap) 1 cap PO Q7D [facility] Last Admin: 12/29/18 18:25 Dose: 1 cap Escitalopram Oxalate (Lexapro) 10 mg PO QAM [facility] Last Admin: 12/31/18 11:05 Dose: 10 mg Folic Acid (Folic Acid) 1 mg PO DAILY [facility] Last Admin: 12/31/18 11:05 Dose: 1 mg Furosemide (Lasix) 40 mg IVP DAILY [facility] Last Admin: 12/31/18 11:04 Dose: 40 mg Latanoprost (Xalatan Opht) 0 ml OU HS [facility] Last Admin: 12/30/18 23:04 Dose: 2.5 ml Levalbuterol HCl (Xopenex) 0.63 mg IH [id number] [facility] Last Admin: 12/31/18 07:44 Dose: 0.63 mg Loratadine (Claritin) 10 mg PO DAILY [facility] Last Admin: 12/31/18 11:05 Dose: 10 mg Lorazepam (Ativan) 1.5 mg PO HS [facility]; Protocol Last Admin: 12/30/18 23:03 Dose: 1.5 mg Magnesium Oxide (Mag-Ox) 400 mg PO BID [facility] Last Admin: 12/31/18 11:06 Dose: 400 mg Meclizine HCl (Antivert) 12.5 mg PO TID [facility] Last Admin: 12/31/18 11:06 Dose: 12.5 mg Metoprolol Tartrate (Lopressor) 12.5 mg PO Q24H [facility] Last Admin: 12/31/18 08:13 Dose: 12.5 mg Non-Formulary Medication (Colesevelam Hcl [Welchol]) 3 tab PO DAILY [facility] Last Admin: 12/31/18 11:30 Dose: Not Given Combigan 0.2%-0.5% Eye Drops (Home Med) 1 drop BOTHEYES Q12 [facility] Last Admin: 12/31/18 11:04 Dose: 1 drop Olanzapine (Zyprexa) 5 mg PO HS [facility]; Protocol Last Admin: 12/30/18 23:03 Dose: 5 mg Ondansetron HCl (Zofran Inj) 4 mg IVP Q4H PRN PRN Reason: Nausea/Vomiting Pantoprazole Sodium (Protonix Ec Tab) 40 mg PO 0600 [facility] Last Admin: 12/31/18 05:36 Dose: 40 mg Potassium Chloride (K-Dur 20 Meq Er Tab) 20 meq PO Q12H [facility] Last Admin: 12/31/18 08:12 Dose: 20 meq - Labs Labs: 12/31/18 06:30 12/31/18 06:30 PT 11.5 SECONDS (9.4-12.5) 12/29/18 10:56 INR 1.02 12/29/18 10:56 APTT 31.1 Seconds (26.9-38.3) 12/29/18 10:56
--- NOTE | 2018-12-31 18:49 | PN ---
DATE: 12/31/2018 SUBJECTIVE: The patient's denies shortness of breath. PHYSICAL EXAMINATION: VITAL SIGNS: Blood pressure 153/67, heart rate is in the 70s. NECK: Negative JVD. LUNGS: Decreased breath sounds without rales. HEART: S1 and S2. EXTREMITIES: Without edema. LABORATORY DATA: Hemoglobin is 13.9, BUN and creatinine unremarkable. Potassium is 4. ProBNP is down to 1450. IMPRESSION: 1. Status post acute systolic congestive heart failure. 2. Dilated cardiomyopathy. 3. Old inferior wall myocardial infarction. 4. Coronary artery disease. 5. Chronic obstructive pulmonary disease. 6. Resolution of pedal edema. PLAN: Given these findings, we will change her Lasix to p.o. Lasix. The patient's weakness can be helped with a stay in the TCU. Dmitriy Zambrano MD
[2018-12-31] MEDS: Latanoprost 2.5 ml Opht Soln OU SCH (22:07)
[2019-01-01] MEDS: Levalbuterol 0.63 MG/3 ML Inhal Soln UD IH SCH ×2 (01:05→07:31)
[2019-01-01] MEDS: Pantoprazole 40 mg EC Tab PO SCH (05:23)
[2019-01-01 07:08] LABS: BASO # 0.01 K/mm3 (0.0-2.0); BASO % 0.2 % (0.0-3.0); EOS # 0.2 (0.0-0.7); EOS % 2.6 % (1.5-5.0); LYMPH # 1.6 (1.2-3.4); LYMPH % 24.1 % (22.0-35.0); MEAN CELL VOLUME 92.2 fl (80.0-105.0); MEAN CORPUSCULAR HGB CONC 31.5 g/dl (31.0-37.0); MEAN PLATELET VOLUME 9.7 fl (7.0-11.0); MONO % 15.6 % (1.0-6.0); RBC 4.48 10^6/uL (3.5-6.1); WHITE BLOOD COUNT 6.6 10^3/uL (4.5-11.0)
[2019-01-01 07:18] LABS: B-TYPE NATRIURETIC PEPTIDE 805 pg/mL (0-450)
[2019-01-01 07:31] LABS: ALB/GLOB RATIO 1.3 (1.1-1.8); ALBUMIN 3.5 g/dL (3.0-4.8); ALT/SGPT 15 U/L (7-56); AST/SGOT 22 U/L (14-36); BILIRUBIN,DIRECT 0.1 mg/dL (0.0-0.4); BLOOD UREA NITROGEN 33 mg/dL (7-21); CALCIUM 9.3 mg/dL (8.4-10.5); GFR NON-AFRICAN AMERICAN > 60
[2019-01-01] MEDS: Potassium Chloride 20 mEq ER Tab PO SCH ×2 (08:28→20:20)
--- NOTE | 2019-01-01 09:24 | PN ---
DATE: 01/01/2019 CARDIOLOGY FOLLOWUP SUBJECTIVE: The patient is without shortness of breath. PHYSICAL EXAMINATION VITAL SIGNS: Blood pressure 134/70 and heart rate in the 60s. NECK: Negative JVD. LUNGS: No rales noted. HEART: Reveals S1 and S2. EXTREMITIES: Without edema. LABORATORY DATA: Hemoglobin is 13. Chemistries; BUN and creatinine unremarkable. Potassium is 4.7. IMPRESSION: 1. Status post acute systolic congestive heart failure. 2. Resolution of dyspnea. 3. Dilated cardiomyopathy. 4. Old inferior wall myocardial infarction. 5. Coronary artery disease. 6. Chronic obstructive pulmonary disease. Given these findings, the patient is down to Lasix 40 p.o. daily. Awaiting transfer to [facility] [place]. Dmitriy Zambrano MD
[2019-01-01] MEDS: Magnesium Oxide 400 mg Tab UD PO SCH ×2 (09:45→17:39)
[2019-01-01] MEDS: Enoxaparin 40 mg Syringe SC SCH (09:46)
[2019-01-01] MEDS: COMBIGAN BOTHEYES SCH ×3 (09:51→23:04)
[2019-01-01] MEDS: Non Formulary Medication (Colesevelam Hcl [Welchol] 3 TAB) PO SCH (09:51)
[2019-01-01] MEDS: EYE BOTHEYES SCH ×3 (09:51→23:04)
--- NOTE | 2019-01-01 11:32 | CP.PCM.PN ---
Subjective - Date & Time of Evaluation Date of Evaluation: 01/01/19 Time of Evaluation: 11:00 - Subjective Subjective: Primitivo Mccollum- Internal Medicine Resident- Progress Note on Behalf of Dr. Hidalgo Patient seen and examined at bedside. Resting comfortably in bed. Patient states SOB has improved relative to baseline and is feeling stronger. Offers no new complaints at this time. Denies fever, chills, chest pain, abdominal pain, nausea, vomiting, diarrhea, constipation, and urinary symptoms. 12-point review of systems negative except as indicated in the HPI Physical Examination: - Constitutional Appears: No Acute Distress - Head Exam Head Exam: ATRAUMATIC, NORMAL INSPECTION, NORMOCEPHALIC - Eye Exam Eye Exam: EOMI, PERRL Pupil Exam: NORMAL ACCOMODATION, PERRL - ENT Exam ENT Exam: Mucous Membranes Moist - Respiratory Exam Respiratory Exam: NORMAL BREATHING PATTERN. absent: Rhonchi, Wheezes, Respiratory Distress - Cardiovascular Exam Cardiovascular Exam: Bradycardia, REGULAR RHYTHM, +S1, +S2. absent: Gallop, Rubs, Systolic Murmur - GI/Abdominal Exam GI & Abdominal Exam: Normal Bowel Sounds, Soft. absent: Distended, Guarding, Mass, Rebound, Rigid, Tenderness - Extremities Exam Extremities exam: Positive for: normal capillary refill, normal inspection, p edal pulses present. Negative for: calf tenderness, pedal edema - Neurological Exam Neurological exam: Alert, CN II-XII Intact, Oriented x3 - Psychiatric Exam Psychiatric exam: Normal Affect, Normal Mood - Skin Skin Exam: Dry, Intact, Normal Color, Warm Assessment and Plan: Patient is a 83 year old female with past medical history of CHF (EF 29% 02/26/18) , HTN, CAD, TIA, bipolar disorder, dyslipidemia, GERD, glaucoma, breast ca, R carotid stenosis s/p CEA who was admitted for evaluation and treatment of shortness of breath. CHF exacerbation, CAD - Last echo on 02/26/18 showed EF 29% w/ severely impaired LV function - discontinue lasix 40mg IV daily, start lasix 40mg PO daily - continue aspirin, plavix, and statin Breast ca s/p lumpectomy - continue on amidex GERD - continue PPI Bipolar disorder - continue Ativan, Olanzipine, Lexapro, Aricept. Glaucoma - continue xalatan Vertigo -continue antivert Gait Abnormality - PT consulted- recommend FAROOQ Prophylaxis - DVT ppx- subq lovenox - GI ppx- pantoprazole Dipso: TCU once approved Patient case discussed with and plan approved by attending physician, Dr. Hidalgo. Objective - Vital Signs/Intake and Output Vital Signs (last 24 hours): Temp Pulse Resp BP Pulse Ox 97.9 F 64 19 150/68 94 L 01/01/19 06:00 01/01/19 08:33 01/01/19 06:00 01/01/19 09:45 01/01/19 06:00 Intake and Output: 01/01/19 01/01/19 06:59 18:59 Intake Total 100 Output Total 0 Balance 100 - Medications Medications: Current Medications Acetaminophen (Tylenol 325mg Tab) 650 mg PO Q6 PRN PRN Reason: TEMP>=99.5F Acetaminophen (Tylenol 650 Mg Supp) 650 mg RC Q6H PRN PRN Reason: TEMP>=99.5F Anastrozole (Arimidex 1 Mg Tab) 1 mg PO DAILY [facility] Last Admin: 12/31/18 10:37 Dose: 1 mg Aspirin (Aspirin Chewable) 81 mg PO DAILY [facility] Last Admin: 01/01/19 09:46 Dose: 81 mg Atorvastatin Calcium (Lipitor) 20 mg PO DAILY [facility] Last Admin: 01/01/19 09:45 Dose: 20 mg Clopidogrel Bisulfate (Plavix) 75 mg PO DAILY [facility] Last Admin: 01/01/19 09:46 Dose: 75 mg Donepezil HCl (Aricept) 10 mg PO HS [facility] Last Admin: 12/31/18 22:07 Dose: 10 mg Enoxaparin Sodium (Lovenox) 40 mg SC DAILY [facility]; Protocol Last Admin: 01/01/19 09:46 Dose: 40 mg Ergocalciferol (Drisdol 50,000 Intl Units Cap) 1 cap PO Q7D [facility] Last Admin: 12/29/18 18:25 Dose: 1 cap Escitalopram Oxalate (Lexapro) 10 mg PO QAM [facility] Last Admin: 01/01/19 09:50 Dose: 10 mg Folic Acid (Folic Acid) 1 mg PO DAILY [facility] Last Admin: 01/01/19 09:45 Dose: 1 mg Furosemide (Lasix) 40 mg PO DAILY [facility] Last Admin: 01/01/19 09:45 Dose: 40 mg Latanoprost (Xalatan Opht) 0 ml OU HS [facility] Last Admin: 12/31/18 22:07 Dose: 2.5 ml Levalbuterol HCl (Xopenex) 0.63 mg IH [id number] [facility] Last Admin: 01/01/19 07:31 Dose: 0.63 mg Loratadine (Claritin) 10 mg PO DAILY [facility] Last Admin: 01/01/19 09:45 Dose: 10 mg Lorazepam (Ativan) 1.5 mg PO HS [facility]; Protocol Last Admin: 12/31/18 22:46 Dose: 1.5 mg Magnesium Oxide (Mag-Ox) 400 mg PO BID [facility] Last Admin: 01/01/19 09:45 Dose: 400 mg Meclizine HCl (Antivert) 12.5 mg PO TID [facility] Last Admin: 01/01/19 09:44 Dose: 12.5 mg Metoprolol Tartrate (Lopressor) 12.5 mg PO Q24H [facility] Last Admin: 01/01/19 08:33 Dose: 12.5 mg Non-Formulary Medication (Colesevelam Hcl [Welchol]) 3 tab PO DAILY [facility] Last Admin: 01/01/19 09:51 Dose: Not Given Combigan 0.2%-0.5% Eye Drops (Home Med) 1 drop B[place] Q12 [facility] Last Admin: 01/01/19 09:51 Dose: 1 drop Olanzapine (Zyprexa) 5 mg PO HS [facility]; Protocol Last Admin: 12/31/18 22:08 Dose: 5 mg Ondansetron HCl (Zofran Inj) 4 mg IVP Q4H PRN PRN Reason: Nausea/Vomiting Pantoprazole Sodium (Protonix Ec Tab) 40 mg PO 0600 [facility] Last Admin: 01/01/19 05:23 Dose: 40 mg Potassium Chloride (K-Dur 20 Meq Er Tab) 20 meq PO Q12H [facility] Last Admin: 01/01/19 08:28 Dose: 20 meq - Labs Labs: 01/01/19 06:40 01/01/19 06:40 PT 11.5 SECONDS (9.4-12.5) 12/29/18 10:56 INR 1.02 12/29/18 10:56 APTT 31.1 Seconds (26.9-38.3) 12/29/18 10:56
[2019-01-01 19:07] VITALS: O2SAT 93
[2019-01-01] MEDS: Latanoprost 2.5 ml Opht Soln OU SCH (22:50)
--- NOTE | 2019-01-02 00:53 | DS ---
FINAL PROGRESS NOTE AND DISCHARGE SUMMARY The patient was placed in observation on and then changed over to inpatient. The patient is now in room 265, bed 1. Overnight nurse's notes were reviewed. No adverse events were documented, notified or called for. The patient was found by the nurses to be alert, awake, oriented x3. REVIEW OF SYSTEMS: A 14-system review was done. There was no documentation of shortness of breath, nausea, chest pain or hemoptysis or syncope or falls. PHYSICAL EXAMINATION: VITAL SIGNS: T-max 97.7. In telemetry, heart rate 64-70, blood pressure 143/67, O2 sat 94%, and respiration 18-20. HEENT: Head is normocephalic and atraumatic. [place] conjunctivae. Anicteric sclerae. No oropharyngeal lesion. NECK: No neck rigidity. Soft carotid bruit. Positive carotid endarterectomy surgical scar. CHEST: Kyphosis. LUNGS: Shows no audible crackle, rales or wheezing. Questionable decreased breath sound at the bases, left more than the right. CARDIOVASCULAR: S1 and S2, regular rhythm. Positive systolic murmur left sternal border, right second intercostal space, left second intercostal space. ABDOMEN: Soft. Positive bowel sound. No palpable hepatosplenomegaly. GENITALIA: Female. RECTAL: Examination is deferred. EXTREMITIES: Shows no pitting edema, no calf tenderness, no Ricardo's signs. NEUROLOGIC: The patient is alert, awake, responsive. She is able to move upper and lower extremity without assistance. Gait examination is not tested. Neuro examination without any gross deficit. VASCULAR: Palpable pulses. PSYCHIATRIC: Examination is not applicable at present. DIAGNOSTIC DATA: On 01/01/2019, CBC is within normal limit. BNP is 805 which has been decreased since admission, CO2 is 35, BUN 33, and creatinine 0.7. Echocardiogram results were reviewed. FINAL IMPRESSION PLAN AND DISCHARGE DIAGNOSES: 1. Acute exacerbation of systolic congestive heart failure with elevated ProBNP and symptoms of shortness of breath. 2. Hypertension. 3. Transient uncontrolled hypertension. 4. History of poor compliance and noncompliance. 5. Mild metabolic alkalosis secondary to diuretics. 6. Mild prerenal kidney injury. 7. Cardiomyopathy with left ventricle ejection fraction of 29%. 8. Hypertensive cardiovascular disease. 9. Severely impaired left ventricular systolic function with left ventricle ejection fraction of 29%. 10. Grade 1 abnormal relaxation pattern. 11. Thickened aortic and mitral valve. 12. Gait dysfunction. 13. Deconditioning. 14. Dementia. 15. Hyperlipidemia. 16. History of cerebral infarct and history of carotid stenosis and history of carotid endarterectomy. 17. History of breast carcinoma. 18. History of vitamin B12 deficiency and benign positional vertigo. Plan at this time, the patient is refusing to go to subacute rehab, which she has indicated to me and the patient would prefer to go to home if not accepted to Transitional Care Unit. If the patient is accepted to TCU, the patient will be considered for discharge to TCU, otherwise the patient will be discharged home. If discharged home, the patient will be resumed on all home medications including the furosemide which the patient has been prescribed during the many office visit, but it appears that the patient is not compliant with the furosemide. If the patient is discharged home, the patient is advised to resume all home medications including furosemide 40 mg once or twice a day. If the patient is accepted to TCU, the patient will be continued on the medications as per the MAR of today. DISCHARGE PLAN: Transitional Care Unit if the patient accepted and if the patient agrees, otherwise the patient will be discharged home. Next discharge follow up with Dr. Hidalgo on TCU if the patient is transferred to TCU, otherwise discharge follow up with Dr. Hidalgo within 1 week in the office. Time spent in the discharge process 45 minutes. Dictated and electronically signed, not read. Mohan Hidalgo MD
[2019-01-02] MEDS: Levalbuterol 0.63 MG/3 ML Inhal Soln UD IH SCH ×3 (01:55→13:24)
[2019-01-02] MEDS: Pantoprazole 40 mg EC Tab PO SCH (05:34)
[2019-01-02 06:47] LABS: ALB/GLOB RATIO 1.3 (1.1-1.8); ALBUMIN 3.7 g/dL (3.0-4.8); ALT/SGPT 12 U/L (7-56); AST/SGOT 32 U/L (14-36); BLOOD UREA NITROGEN 29 mg/dL (7-21); CALCIUM 9.7 mg/dL (8.4-10.5); GFR NON-AFRICAN AMERICAN > 60
[2019-01-02 08:40] VITALS: PULSE 66; RESP 20; TEMP 97.9
[2019-01-02] MEDS: Enoxaparin 40 mg Syringe SC SCH (09:07)
[2019-01-02] MEDS: Magnesium Oxide 400 mg Tab UD PO SCH (09:10)
[2019-01-02] MEDS: Non Formulary Medication (Colesevelam Hcl [Welchol] 3 TAB) PO SCH (09:11)
[2019-01-02 09:15] VITALS: BP 168/78
[2019-01-02] MEDS: EYE BOTHEYES SCH (09:26)
[2019-01-02] MEDS: COMBIGAN BOTHEYES SCH (09:26)
--- NOTE | 2019-01-02 16:23 | PN ---
DATE: 01/02/2019 CARDIOLOGY FOLLOWUP SUBJECTIVE: The patient is resting comfortably. PHYSICAL EXAMINATION: VITAL SIGNS: Blood pressure varies from 143-168 systolic. NECK: Negative JVD. LUNGS: Without rales. HEART: S1 and S2. EXTREMITIES: Without edema. LABORATORY DATA: Reviewed. IMPRESSION: 1. Status post congestive heart failure. 2. Resolution of dyspnea. 3. Dilated cardiomyopathy. 4. Old inferior wall myocardial infarction. 5. Chronic obstructive pulmonary disease. ASSESSMENT AND PLAN: The patient's cardiac status is stable. If she is to be discharged, she should go home on Lasix which could be 40 daily. Dmitriy Zambrano MD
--- NOTE | 2019-01-02 22:18 | DS ---
FINAL PROGRESS NOTE AND DISCHARGE SUMMARY HISTORY OF PRESENT ILLNESS: The patient was unable to be discharged to TCU because the patient's TCU evaluation was pending. The patient is now moved to room 374, bed 1. Telemetry was discontinued by Cardiology yesterday. Overnight nurse's notes were reviewed with no adverse events were notified, called for or documented. The patient stayed without shortness of breath. Denies chest pain. Denies nausea, vomiting, diarrhea, or constipation. Denies syncope. PHYSICAL EXAMINATION: VITAL SIGNS: T-max 98.3, heart rate 58, blood pressure 143/73, and O2 sat 93. HEENT: Head; normocephalic and atraumatic. HEENT examination shows pink conjunctivae. Anicteric sclerae. No oropharyngeal lesion. NECK: No neck rigidity. Positive carotid endarterectomy surgical scar. Soft carotid bruit. CHEST: Kyphosis. LUNGS: Shows decreased breath sound at the bases, left more than the right. No audible crackle, rales or wheezing. CARDIOVASCULAR: S1 and S2, regular rhythm. Positive systolic murmur left sternal border, right second intercostal space, left second intercostal space. ABDOMEN: Soft. Positive bowel sounds. No palpable hepatosplenomegaly. GENITALIA: Female. RECTAL: Deferred. EXTREMITIES: Shows complete resolution of the pitting edema of the lower extremity and ankles and feet. MUSCULOSKELETAL: As per the body mass index. NEUROLOGIC: The patient is alert, awake, responsive, and is able to move upper and lower extremity without assistance. Motor strength is 5/5. Gait examination not tested. VASCULAR: Palpable pulses. DIAGNOSTIC DATA: Since admission was reviewed. Today's labs are pending. All sets of CBCs are within normal limits. Chemistry, CMP, and LFTs until yesterday was within normal limit. Today's CMP, LFTs, and BNP is pending. The patient's BNP has gone down to 800 yesterday. FINAL IMPRESSION, PLAN AND DISCHARGE DIAGNOSES: 1. Acute exacerbation of systolic congestive heart failure with elevated ProBNP. 2. Uncontrolled hypertension. 3. Severe dilated cardiomyopathy with left ventricular ejection fraction of 29%. 4. Hypertension. 5. Mild hypoxemia. 6. Mild diuretic induced metabolic alkalosis. 7. Mild diuretic induced prerenal kidney injury. 8. Left ventricular hypertrophy with hypertensive cardiovascular disease. 9. Severely impaired left ventricular systolic function with left ventricular ejection fraction of 29%. 10. Grade 1 abnormal relaxation pattern. 11. Thickened aortic valve and thickened mitral valve. 12. Bilateral lower extremity venous stasis secondary to acute exacerbation of systolic congestive heart failure with ProBNP. 13. History of breast carcinoma. 14. History of cerebral infarct and carotid stenosis, status post carotid endarterectomy. 15. History of coronary artery disease. 16. History of hyperlipidemia. 17. History of benign positional vertigo. 18. History of vitamin B12 deficiency. 19. History of poor compliance and noncompliance. 20. History of multiple psychiatric illnesses. 21. History of dementia. Plan at this time, the patient is awaiting transfer and discharged to TCU. The patient's medications will be continued as per the MAR of today which was reviewed. If the patient is discharged to TCU today, the patient will continue on all the medications as per the MAR today. DISCHARGE PLAN: Discharged to TCU under Dr. Hidalgo's service with continuation of all the medications as per the MAR of today. Time spent in the discharge process 45 minutes. Dictated and electronically signed, not read. Mohan Hidalgo MD
== END 2019-01-02 15:49 | DRG 291 ==
LOC: ED 10:37 → ERH 12:00 → 2RNO 13:41 → OBSVTOIN 12-30 13:43 → 3RSO 01-01 13:38
PROVIDERS: ADMIT Internal Medicine; ATTEND Internal Medicine
DX: I13.0 Hypertensive heart and chronic kidney disease with heart failure and stage 1 through stage 4 chronic kidney disease, or unspecified chronic kidney disease (principal); I50.23 Acute on chronic systolic (congestive) heart failure; E87.3 Alkalosis; Z79.899 Other long term (current) drug therapy; I42.0 Dilated cardiomyopathy; Z95.5 Presence of coronary angioplasty implant and graft; I25.10 Atherosclerotic heart disease of native coronary artery without angina pectoris; H40.9 Unspecified glaucoma; F31.9 Bipolar disorder, unspecified; I25.2 Old myocardial infarction; J44.9 Chronic obstructive pulmonary disease, unspecified; Z91.19 Patient's noncompliance with other medical treatment and regimen; Z86.73 Personal history of transient ischemic attack (TIA), and cerebral infarction without residual deficits; Z85.3 Personal history of malignant neoplasm of breast; E53.8 Deficiency of other specified B group vitamins; E55.9 Vitamin D deficiency, unspecified; E78.5 Hyperlipidemia, unspecified; G30.9 Alzheimer's disease, unspecified; F02.80 Dementia in other diseases classified elsewhere, unspecified severity, without behavioral disturbance, psychotic disturbance, mood disturbance, and anxiety; G47.00 Insomnia, unspecified; I25.5 Ischemic cardiomyopathy; I65.21 Occlusion and stenosis of right carotid artery; I87.8 Other specified disorders of veins; K21.9 Gastro-esophageal reflux disease without esophagitis; N18.9 Chronic kidney disease, unspecified; R09.02 Hypoxemia; T50.2X5A Adverse effect of carbonic-anhydrase inhibitors, benzothiadiazides and other diuretics, initial encounter; Z79.02 Long term (current) use of antithrombotics/antiplatelets; Z79.82 Long term (current) use of aspirin; Z80.0 Family history of malignant neoplasm of digestive organs; Z80.52 Family history of malignant neoplasm of bladder; Z87.01 Personal history of pneumonia (recurrent); Z87.891 Personal history of nicotine dependence; Z90.49 Acquired absence of other specified parts of digestive tract; E78.00 Pure hypercholesterolemia, unspecified; R00.1 Bradycardia, unspecified

== ENCOUNTER 2019-01-02 15:49 | Inpatient (IN) | payer OTHER, MEDICARE ==
[2019-01-02] MEDS: Magnesium Oxide 400 mg Tab UD PO SCH (18:27)
[2019-01-02] MEDS ORDERED: Influenza Vaccine 60 mcg/0.5 mL SYR (4YR UP) IM ONE (19:41)
[2019-01-02] MEDS ORDERED: Pneumococcal 23-Valent Vaccine IM ONE (19:41)
[2019-01-02] MEDS: Levalbuterol 0.63 MG/3 ML Inhal Soln UD IH SCH (19:50)
[2019-01-02] MEDS: Latanoprost 2.5 ml Opht Soln OU SCH (21:24)
[2019-01-02] MEDS: BRIMONIDINE TARTRATE BOTHEYES SCH (21:24)
[2019-01-02] MEDS: TIMOLOL BOTHEYES SCH (21:24)
[2019-01-03] MEDS: Levalbuterol 0.63 MG/3 ML Inhal Soln UD IH SCH ×4 (01:37→20:30)
[2019-01-03] MEDS: Pantoprazole 40 mg EC Tab PO SCH (05:33)
[2019-01-03] MEDS: Enoxaparin 40 mg Syringe SC SCH (05:33)
[2019-01-03] MEDS: BRIMONIDINE TARTRATE BOTHEYES SCH ×2 (09:47→21:54)
[2019-01-03] MEDS: TIMOLOL BOTHEYES SCH ×2 (09:47→21:54)
[2019-01-03] MEDS: COLESEVELAM HCL PO SCH (09:49)
[2019-01-03] MEDS: Magnesium Oxide 400 mg Tab UD PO SCH ×2 (09:53→17:38)
--- NOTE | 2019-01-03 11:22 | CP.PCM.HP ---
History of Present Illness - History of Present Illness History of Present Illness: Primitivo Mccollum- Internal Medicine Resident- H&P on Behalf of Dr. Hidalgo Patient is a 83 year old female with past medical history of CHF (EF 29% 02/26/18), HTN, CAD, TIA, bipolar disorder, dyslipidemia, GERD, glaucoma, breast ca, R carotid stenosis s/p CEA who was admitted for evaluation and treatment of shortness of breath. Patient was diagnosed and treated for a CHF exacerbation. Patient was transferred to TCU for further care. Patient seen and examined at bedside. Resting comfortably in bed. Patient states SOB has resolved. Offers no new complaints at this time. Denies fever, chills, chest pain, abdominal pain, nausea, vomiting, diarrhea, constipation, and urinary symptoms. Past medical history: CHF (EF 29% 02/26/18), HTN, CAD, TIA, bipolar disorder, dyslipidemia, GERD, glaucoma, breast ca, R carotid stenosis s/p CEA Past surgical history: R CEA, cholecystectomy, R breast lumpectomy, PCI Home meds: confirmed with [facility] and updated Allergies: NKDA Social History: Denies EtOH, or drug use. Former heavy smoker (quit 15yrs ago). Lives alone Family history: Dad- late 70s colon ca. Mom- late 70s bladder ca 12-point review of systems negative except as indicated in the HPI Physical Examination: - Constitutional Appears: No Acute Distress - Head Exam Head Exam: ATRAUMATIC, NORMAL INSPECTION, NORMOCEPHALIC - Eye Exam Eye Exam: EOMI, PERRL Pupil Exam: NORMAL ACCOMODATION, PERRL - ENT Exam ENT Exam: Mucous Membranes Moist - Respiratory Exam Respiratory Exam: NORMAL BREATHING PATTERN. absent: Rhonchi, Wheezes, Respiratory Distress - Cardiovascular Exam Cardiovascular Exam: REGULAR RHYTHM, +S1, +S2. absent: Gallop, Rubs, Systolic Murmur - GI/Abdominal Exam GI & Abdominal Exam: Normal Bowel Sounds, Soft. absent: Distended, Guarding, Mass, Rebound, Rigid, Tenderness - Extremities Exam Extremities exam: Positive for: normal capillary refill, normal inspection, pedal pulses present. Negative for: calf tenderness, pedal edema - Neurological Exam Neurological exam: Alert, CN II-XII Intact, Oriented x3 - Psychiatric Exam Psychiatric exam: Normal Affect, Normal Mood - Skin Skin Exam: Dry, Intact, Normal Color, Warm Assessment and Plan: Patient is a 83 year old female with past medical history of CHF (EF 29% 02/26/18), HTN, CAD, TIA, bipolar disorder, dyslipidemia, GERD, glaucoma, breast cancer, R carotid stenosis s/p CEA who was admitted for evaluation and treatment of shortness of breath. CHF exacerbation, CAD - Last echo on 02/26/18 showed EF 29% w/ severely impaired LV function - continue lasix 40mg PO daily - continue aspirin, plavix, and statin Breast ca s/p lumpectomy - continue on amidex GERD - continue PPI Bipolar disorder - continue Ativan, Olanzipine, Lexapro, Aricept. Glaucoma - continue xalatan Vertigo -continue antivert Gait Abnormality - continue rehabilitation in the TCU Prophylaxis - DVT ppx- subq lovenox - GI ppx- pantoprazole Patient case discussed with and plan approved by attending physician, Dr. Hidalgo. Past Patient History - Infectious Disease Hx of Infectious Diseases: None - Tetanus Immunizations Tetanus Immunization: Unknown - Past Social History Smoking Status: Former Smoker - CARDIAC Hx Cardiac Disorders: Yes Hx Congestive Heart Failure: Yes (EF 29% 02/26/18) Hx Hypertension: Yes - PULMONARY Hx Respiratory Disorders: Yes (USED TO SMOKE CIGARETTES PPD QUIT) Hx Pneumonia: Yes - NEUROLOGICAL Hx Neurological Disorder: Yes Hx Alzheimer's Disease: Yes Hx Dizziness: Yes Hx Transient Ischemic Attacks (TIA): Yes - HEENT Hx HEENT Problems: Yes Hx Glaucoma: Yes - RENAL Hx Chronic Kidney Disease: Yes Other/Comment: Kidney Disease - ENDOCRINE/METABOLIC Hx Endocrine Disorders: No - HEMATOLOGICAL/ONCOLOGICAL Hx Blood Disorders: Yes Hx Anemia: Yes Hx Cancer: Yes (Breast) - INTEGUMENTARY Hx Dermatological Problems: No - MUSCULOSKELETAL/RHEUMATOLOGICAL Hx Falls: Yes - GASTROINTESTINAL Hx Gastrointestinal Disorders: Yes (GERD,CHOLECYSTECTOMY,) - GENITOURINARY/GYNECOLOGICAL Hx Genitourinary Disorders: No Hx Reproductive Disorders: No - PSYCHIATRIC Hx Psychophysiologic Disorder: Yes Hx Depression: Yes Hx Substance Use: No - SURGICAL HISTORY Hx Cardiac Catheterization: Yes Hx Cholecystectomy: Yes Hx Coronary Stent: Yes (x3) Other/Comment: carotid endarectomy - ANESTHESIA Hx Anesthesia Reactions: No Hx Malignant Hyperthermia: No Meds Allergies/Adverse Reactions: Allergies Allergy/AdvReac Type Severity Reaction Status Date / Time No Known Allergies Allergy Verified 01/02/19 16:57 Results - Vital Signs Recent Vital Signs: Last Vital Signs Temp 97 F L 01/02/19 19:22 Pulse 76 01/03/19 08:51 Resp 18 01/02/19 19:22 BP 154/81 H 01/03/19 09:47 Pulse Ox
[2019-01-03] MEDS ORDERED: Lactobacillus Acidophilus 500 MU Cap PO SCH ×2 (18:00)
[2019-01-03] MEDS: Latanoprost 2.5 ml Opht Soln OU SCH (21:54)
--- NOTE | 2019-01-03 22:19 | CON ---
DATE: 01/03/2019 CARDIOLOGY CONSULT REASON FOR CONSULTATION: Coronary artery disease. HISTORY OF PRESENT ILLNESS: The patient is an 83-year-old female, who is known to have coronary artery disease with old inferior infarct and evidence of totally occluded right coronary artery on a cardiac catheterization. The patient also has history of dilated cardiomyopathy. She was initially admitted because of congestive heart failure on 12/29/2018 and today she was admitted to TCU. The patient denies any chest pain at this time, but she is weak. MEDICATIONS: The patient's medications are; Antivert 12.5 mg t.i.d., Aricept 10 mg once a day, aspirin 81 mg once a day, Welchol three tablets daily, folic acid 1 mg once a day, Lasix 40 mg once a day, Lexapro 10 mg once a day, Lipitor 20 mg once a day, Lopressor 12.5 mg daily, Lovenox 20 mg subcutaneous once a day, Plavix 75 mg once a day, magnesium oxide 200 mg twice a day, Protonix 40 mg p.o. once a day, Xopenex inhaler every 6 hours, Zofran 4 mg every 4 hours p.r.n., and Zyprexa 5 mg at bedtime. PAST MEDICAL HISTORY: Dilated cardiomyopathy, hypertension, carotid artery stenosis, and history of depression. PHYSICAL EXAMINATION: GENERAL: The patient is an elderly female who appears slightly dehydrated. VITAL SIGNS: Blood pressure 169/65, heart rate 76, temperature 97, and respiration 18. HEENT: Dry mucous membranes. NECK: No JVD. CHEST: Diminished breath sounds at bases. HEART: S1 and S2 regular. ABDOMEN: Soft. EXTREMITIES: 1+ pitting edema. LABORATORY DATA: EKG on 12/30/2018 revealed sinus bradycardia at the rate of 58, LVH with repolarization changes, old inferior infarct. Echocardiography study 12/30/2018 reveled borderline dilated left ventricle, mild concentric LVH, severely impaired systolic function with significant poor motion abnormality, no left ventricular thrombus noted and mild mitral insufficiency. Two days ago, white count, platelet count, hemoglobin, and hematocrit were within normal limits. Yesterday's chemistry; sodium 138, potassium 5.1, chloride 99, CO2 of 36, glucose 101, BUN 29, and creatinine 0.8. ASSESSMENT: 1. Ischemic cardiomyopathy. 2. Mild dehydration. 3. Dementia. 4. Coronary artery disease with known total occlusion of the right coronary artery. 5. Mild mitral insufficiency. RECOMMENDATIONS: Continue current Antivert 12.5 mg t.i.d., aspirin 81 mg once a day, reduce Lasix to 20 mg orally once a day. Continue Lipitor 20 mg once a day, Lopressor 12.5 mg once a day, subcutaneous Lovenox 20 mg once a day, Plavix 75 mg once a day, and start Cozaar 12.5 mg daily. Iain Weston MD [facility] # [id number]
[2019-01-04] MEDS: Levalbuterol 0.63 MG/3 ML Inhal Soln UD IH SCH ×4 (02:45→19:49)
[2019-01-04] MEDS: Enoxaparin 40 mg Syringe SC SCH (05:28)
[2019-01-04] MEDS: Pantoprazole 40 mg EC Tab PO SCH (05:30)
[2019-01-04] MEDS: TIMOLOL BOTHEYES SCH ×2 (10:33→21:55)
[2019-01-04] MEDS: BRIMONIDINE TARTRATE BOTHEYES SCH ×2 (10:33→21:55)
[2019-01-04] MEDS: Magnesium Oxide 400 mg Tab UD PO SCH ×2 (10:34→17:06)
[2019-01-04] MEDS: COLESEVELAM HCL PO SCH (11:30)
--- NOTE | 2019-01-04 17:20 | PN ---
DATE: 01/04/2019 SUBJECTIVE: The patient slept well. She had a physical therapy session. No shortness of breath and no chest pain. PHYSICAL EXAMINATION: VITAL SIGNS: Blood pressure 155/78, heart rate 75, temperature 97.4, and respirations 18. HEENT: Normocephalic. CHEST: Diminished breath sounds over the bases. HEART: S1 and S2 regular. EXTREMITIES: Trace leg edema. ASSESSMENT: 1. Ischemic cardiomyopathy. 2. Mild dehydration. 3. Coronary artery disease with known total occlusion of the right coronary artery. 4. Mild mitral insufficiency. RECOMMENDATIONS: Continue current aspirin 81 mg once a day, Welchol three tables daily, Lasix 40 mg p.o. once a day, Lopressor 4.5 mg twice a day, Lovenox 40 mg subcutaneously once a day, Plavix 75 mg once a day, magnesium oxide 400 mg twice a day, and Zyprexa 5 mg at bedtime. Iain Weston MD
[2019-01-04] MEDS: Latanoprost 2.5 ml Opht Soln OU SCH (21:55)
[2019-01-05] MEDS: Levalbuterol 0.63 MG/3 ML Inhal Soln UD IH SCH ×4 (01:48→19:38)
[2019-01-05] MEDS: Pantoprazole 40 mg EC Tab PO SCH (05:32)
[2019-01-05] MEDS: Enoxaparin 40 mg Syringe SC SCH (05:33)
[2019-01-05] MEDS: TIMOLOL BOTHEYES SCH ×2 (10:17→21:19)
[2019-01-05] MEDS: BRIMONIDINE TARTRATE BOTHEYES SCH ×2 (10:17→21:19)
[2019-01-05] MEDS: Magnesium Oxide 400 mg Tab UD PO SCH ×2 (10:19→17:23)
[2019-01-05] MEDS: COLESEVELAM HCL PO SCH (10:21)
[2019-01-05] MEDS ORDERED: Ergocalciferol 50,000 Intl Units Cap PO SCH (16:30)
--- NOTE | 2019-01-05 18:38 | PN ---
DATE: 01/05/2019 SUBJECTIVE: The patient's shortness of breath has improved. She did brief session of physical therapy this morning. PHYSICAL EXAMINATION: VITAL SIGNS: Blood pressure 151/84, heart rate 64, temperature 97.5, respirations 19. HEENT: Normocephalic. CHEST: Clear. HEART: S1 and S2 regular. EXTREMITIES: Trace leg edema. ASSESSMENT: 1. Ischemic cardiomyopathy. 2. Coronary artery disease with known total occlusion of the right coronary artery. 3. Dehydration. 4. Mild mitral insufficiency. RECOMMENDATIONS: Continue current Aricept 10 mg once a day, aspirin 81 mg once a day, Claritin 10 mg daily, Welchol three tablets daily, Lasix 40 mg once a day, Lopressor 12.5 mg daily, magnesium oxide 400 mg twice a day, Plavix 75 mg once a day. Will request CBC and BMP in a.m. Iain Weston MD
[2019-01-05] MEDS: Latanoprost 2.5 ml Opht Soln OU SCH (21:19)
[2019-01-06] MEDS: Levalbuterol 0.63 MG/3 ML Inhal Soln UD IH SCH ×4 (01:40→20:27)
[2019-01-06] MEDS: Enoxaparin 40 mg Syringe SC SCH (05:25)
[2019-01-06] MEDS: Pantoprazole 40 mg EC Tab PO SCH (05:25)
[2019-01-06 07:07] LABS: HEMOGLOBIN 12.5 g/dL (12.0-16.0); MEAN CELL VOLUME 91.9 fl (80.0-105.0); MEAN CORPUSCULAR HEMOGLOBIN 28.8 pg (25.0-35.0); MEAN CORPUSCULAR HGB CONC 31.3 g/dl (31.0-37.0); MEAN PLATELET VOLUME 9.9 fl (7.0-11.0); RBC 4.34 10^6/uL (3.5-6.1); RED CELL DISTRIBUTION WIDTH 12.8 % (11.5-14.5); WHITE BLOOD COUNT 6.3 10^3/uL (4.5-11.0)
[2019-01-06 07:23] LABS: ALB/GLOB RATIO 1.3 (1.1-1.8); ALBUMIN 3.6 g/dL (3.0-4.8); ALT/SGPT 25 U/L (7-56); AST/SGOT 39 U/L (14-36); BILIRUBIN,DIRECT 0.3 mg/dL (0.0-0.4); BLOOD UREA NITROGEN 34 mg/dL (7-21); CALCIUM 9.4 mg/dL (8.4-10.5); GFR NON-AFRICAN AMERICAN > 60
--- NOTE | 2019-01-06 09:02 | PN ---
DATE: 01/04/2019 SUBJECTIVE: The patient is in room 302, bed 1. Overnight nurse's notes were reviewed. No adverse events were documented, notified or called for. The patient participated in physical therapy. OBJECTIVE: VITAL SIGNS: T-max 97.4, heart rate 75, respirations 18, blood pressure 138/65 and 155/66, and O2 sat 93%. HEENT: Head; normocephalic and atraumatic. HEENT examination shows pink conjunctivae. Anicteric sclerae. No oropharyngeal lesion. NECK: No neck rigidity. Positive carotid endarterectomy surgical scar. CHEST: Kyphosis. LUNGS: Shows questionable decreased breath sound at the bases, left more than the right. No audible crackle, rales or wheezing. CARDIOVASCULAR: S1 and S2, regular rhythm. ABDOMEN: Soft. Positive bowel sounds. No palpable hepatosplenomegaly. GENITALIA: Female. RECTAL: Deferred. EXTREMITIES: Shows no pitting edema. No calf tenderness. No Ricardo's signs. NEUROLOGIC: The patient is alert, awake, responsive, and is able to move upper and lower extremity without assistance. Gait examination is not tested. VASCULAR: Palpable pulses. PSYCHIATRIC: Has history of multiple psychiatric problems. DIAGNOSTIC DATA: None from today. IMPRESSION AND PLAN: 1. Gait dysfunction. 2. Deconditioning. 3. Acute recurrent systolic congestive heart failure with elevated ProBNP. 4. Hypertension. 5. Transient uncontrolled hypertension. 6. History of cerebral infarct. 7. History of carotid artery stenosis, status post carotid endarterectomy. 8. Diuretic-induced metabolic alkalosis and prerenal kidney injury. 9. Dilated ischemic cardiomyopathy with left ventricular ejection fraction of 29% and severely impaired left ventricular systolic function. 10. Grade 1 abnormal relaxation pattern. 11. Thickened mitral valve and thickened aortic valve. 12. Hypertensive cardiovascular disease. 13. Hyperlipidemia. 14. History of benign positional vertigo. 15. Vitamin B12 deficiency. 16. History of dementia. 17. History of breast carcinoma. 18. History of bilateral lower extremity venous stasis secondary to systolic congestive heart failure. 19. History of noncompliance and poor compliance. 1. Deconditioning. 2. Gait dysfunction. 3. Acute exacerbation of acute recurrent systolic congestive heart failure. 4. Dilated cardiomyopathy with ejection fraction of 30%. 5. Uncontrolled hypertension. 6. History of cerebral infarct. 7. History of carotid stenosis. 8. Status post carotid endarterectomy. 9. History of coronary artery disease. 10. History of breast carcinoma. 11. Acute recurrent systolic congestive heart failure with elevated ProBNP. 12. Mild metabolic alkalosis secondary to diuretics. 13. Mild prerenal kidney injury. 14. Mild non-hemolyzed hyperkalemia. 15. Left ventricular ejection fraction of 29% with left ventricular hypertrophy and severely impaired left ventricular systolic function. 16. Grade I abnormal relaxation pattern. 17. Thickened aortic and mitral valve. 18. History of multiple psychiatric conditions. 19. Hyperlipidemia. 20. History of vitamin B12 deficiency. 21. History of vertigo. 22. History of poor compliance, noncompliance. 23. History of dementia. 24. History of anxiety and depression. 1. Acute exacerbation of systolic congestive heart failure with elevated ProBNP. 2. Uncontrolled hypertension. 3. Severe dilated cardiomyopathy with left ventricular ejection fraction of 29%. 4. Hypertension. 5. Mild hypoxemia. 6. Mild diuretic induced metabolic alkalosis. 7. Mild diuretic induced prerenal kidney injury. 8. Left ventricular hypertrophy with hypertensive cardiovascular disease. 9. Severely impaired left ventricular systolic function with left ventricular ejection fraction of 29%. 10. Grade 1 abnormal relaxation pattern. 11. Thickened aortic valve and thickened mitral valve. 12. Bilateral lower extremity venous stasis secondary to acute exacerbation of systolic congestive heart failure with ProBNP. 13. History of breast carcinoma. 14. History of cerebral infarct and carotid stenosis, status post carotid endarterectomy. 15. History of coronary artery disease. 16. History of hyperlipidemia. 17. History of benign positional vertigo. 18. History of vitamin B12 deficiency. 19. History of poor compliance and noncompliance. 20. History of multiple psychiatric illnesses. 21. History of dementia. 1. Acute exacerbation of systolic congestive heart failure with elevated ProBNP and symptoms of shortness of breath. 2. Hypertension. 3. Transient uncontrolled hypertension. 4. History of poor compliance and noncompliance. 5. Mild metabolic alkalosis secondary to diuretics. 6. Mild prerenal kidney injury. 7. Cardiomyopathy with left ventricle ejection fraction of 29%. 8. Hypertensive cardiovascular disease. 9. Severely impaired left ventricular systolic function with left ventricle ejection fraction of 29%. 10. Grade 1 abnormal relaxation pattern. 11. Thickened aortic and mitral valve. 12. Gait dysfunction. 13. Deconditioning. 14. Dementia. 15. Hyperlipidemia. 16. History of cerebral infarct and history of carotid stenosis and history of carotid endarterectomy. 17. History of breast carcinoma. 18. History of vitamin B12 deficiency and benign positional vertigo. 1. Acute exacerbation of systolic congestive heart failure with elevated ProBNP and symptoms of shortness of breath. 2. Dilated ischemic cardiomyopathy. 3. Left ventricle ejection fraction of 25% to 26%. 4. Impaired left ventricular systolic function. 5. Hypertension. 6. Asymptomatic bradycardia. 7. History of dementia. 8. History of cerebral infarct and history of carotid artery stenosis, status post carotid endarterectomy. 9. Hyperlipidemia. 10. Vitamin B12 deficiency. 11. History of benign positional vertigo. 12. History of psychiatric illness. 13. History of depression and anxiety. 14. Hypovitaminosis D. 15. Vitamin B12 deficiency. 16. Deconditioning. 17. Gait dysfunction. 18. Poor compliance. 1. Acute exacerbation of systolic congestive heart failure. 2. Dilated ischemic cardiomyopathy. 3. Hypertension with transient uncontrolled hypertension. 4. History of noncompliance. 5. Dementia. 6. History of psychosis. 7. Insomnia. 8. History of cerebral infarct, history of carotid stenosis status post carotid endarterectomy. 9. History of benign positional vertigo. 10. History of vitamin B12 deficiency. 12. Hyperlipidemia. 13. History of breast carcinoma. 14. Asymptomatic bradycardia. Plan at this time, the patient will be continued on all the medications as per the MAR of today, which was reviewed and updated. The patient will be continued on diuretics, nebulizer treatment, and bronchodilators. The patient will be continued on pharmacological, non-pharmacological DVT and GI prophylaxis. The patient's repeat lab ordered for the morning, which will be reviewed when available. Dictated and electronically signed, not read. Mohan Hidalgo MD [facility]
--- NOTE | 2019-01-06 09:10 | HP ---
DATE OF EXAM: 01/03/2019 HISTORY OF PRESENT ILLNESS: The patient is now transferred to TCU. The patient is now admitted to TCU for rehab, physical therapy, ambulation therapy, occupational therapy, gait training. The patient was admitted to telemetry and acute medical floor and the patient was discharged to TCU on 01/02/2019. Now, the patient is admitted to TCU in Room 302, Bed 1. The patient is seen sitting up in the bed in Room 302, Bed 1 getting nebulizer treatment. The patient's past medical history and detailed history, physical examination is as per the history, physical examination from the acute medical admission side, which will be transferred over to TCU. The patient's allergies, code status, living will advanced directive, social history, past medical history ,family history, menstrual history, past surgical history all as per the previous history physical examination. PHYSICAL EXAMINATION GENERAL: Patient is seen sitting up in the chair getting nebulizer treatment. The patient is alert, awake, responsive. Overnight nurse's notes were reviewed. No adverse events were documented. VITAL SIGNS: T-max 97, heart rate 58, blood pressure 146, 82, respiration 18, O2 sat is 96% to 97%. HEENT: Head; normocephalic, atraumatic. HEENT examination shows pinkish conjunctiva. Anicteric sclerae. No oropharyngeal lesion. NECK: No neck rigidity. Positive carotid endarterectomy surgical scar. Questionable soft carotid bruit. CHEST: Kyphosis. CARDIOPULMONARY: S1, S2, regular rhythm. LUNGS: Shows decreased breath sounds at the bases. No audible crackle, rales or wheezing. ABDOMEN: Soft. Positive bowel sounds. No palpable hepatosplenomegaly. GENITALIA: Female. RECTAL: Deferred. EXTREMITIES: Shows no pitting edema. No Ricardo's signs. Positive ABAD stockings noted. MUSCULOSKELETAL: Shows a decreased muscle mass. NEUROLOGIC: The patient is alert, awake, responsive, is able to move upper and lower extremity without assistance. Gait examination is not tested. LABORATORY DATA: None from today. IMPRESSION: 1. Deconditioning. 2. Gait dysfunction. 3. Acute exacerbation of acute recurrent systolic congestive heart failure. 4. Dilated cardiomyopathy with ejection fraction of 30%. 5. Uncontrolled hypertension. 6. History of cerebral infarct. 7. History of carotid stenosis. 8. Status post carotid endarterectomy. 9. History of coronary artery disease. 10. History of breast carcinoma. 11. Acute recurrent systolic congestive heart failure with elevated ProBNP. 12. Mild metabolic alkalosis secondary to diuretics. 13. Mild prerenal kidney injury. 14. Mild non-hemolyzed hyperkalemia. 15. Left ventricular ejection fraction of 29% with left ventricular hypertrophy and severely impaired left ventricular systolic function. 16. Grade I abnormal relaxation pattern. 17. Thickened aortic and mitral valve. 18. History of multiple psychiatric conditions. 19. Hyperlipidemia. 20. History of vitamin B12 deficiency. 21. History of vertigo. 22. History of poor compliance, noncompliance. 23. History of dementia. 24. History of anxiety and depression. 1. Acute exacerbation of systolic congestive heart failure with elevated ProBNP. 2. Uncontrolled hypertension. 3. Severe dilated cardiomyopathy with left ventricular ejection fraction of 29%. 4. Hypertension. 5. Mild hypoxemia. 6. Mild diuretic induced metabolic alkalosis. 7. Mild diuretic induced prerenal kidney injury. 8. Left ventricular hypertrophy with hypertensive cardiovascular disease. 9. Severely impaired left ventricular systolic function with left ventricular ejection fraction of 29%. 10. Grade 1 abnormal relaxation pattern. 11. Thickened aortic valve and thickened mitral valve. 12. Bilateral lower extremity venous stasis secondary to acute exacerbation of systolic congestive heart failure with ProBNP. 13. History of breast carcinoma. 14. History of cerebral infarct and carotid stenosis, status post carotid endarterectomy. 15. History of coronary artery disease. 16. History of hyperlipidemia. 17. History of benign positional vertigo. 18. History of vitamin B12 deficiency. 19. History of poor compliance and noncompliance. 20. History of multiple psychiatric illnesses. 21. History of dementia. 1. Acute exacerbation of systolic congestive heart failure with elevated ProBNP and symptoms of shortness of breath. 2. Hypertension. 3. Transient uncontrolled hypertension. 4. History of poor compliance and noncompliance. 5. Mild metabolic alkalosis secondary to diuretics. 6. Mild prerenal kidney injury. 7. Cardiomyopathy with left ventricle ejection fraction of 29%. 8. Hypertensive cardiovascular disease. 9. Severely impaired left ventricular systolic function with left ventricle ejection fraction of 29%. 10. Grade 1 abnormal relaxation pattern. 11. Thickened aortic and mitral valve. 12. Gait dysfunction. 13. Deconditioning. 14. Dementia. 15. Hyperlipidemia. 16. History of cerebral infarct and history of carotid stenosis and history of carotid endarterectomy. 17. History of breast carcinoma. 18. History of vitamin B12 deficiency and benign positional vertigo. 1. Acute exacerbation of systolic congestive heart failure with elevated ProBNP and symptoms of shortness of breath. 2. Dilated ischemic cardiomyopathy. 3. Left ventricle ejection fraction of 25% to 26%. 4. Impaired left ventricular systolic function. 5. Hypertension. 6. Asymptomatic bradycardia. 7. History of dementia. 8. History of cerebral infarct and history of carotid artery stenosis, status post carotid endarterectomy. 9. Hyperlipidemia. 10. Vitamin B12 deficiency. 11. History of benign positional vertigo. 12. History of psychiatric illness. 13. History of depression and anxiety. 14. Hypovitaminosis D. 15. Vitamin B12 deficiency. 16. Deconditioning. 17. Gait dysfunction. 18. Poor compliance. 1. Acute exacerbation of systolic congestive heart failure. 2. Dilated ischemic cardiomyopathy. 3. Hypertension with transient uncontrolled hypertension. 4. History of noncompliance. 5. Dementia. 6. History of psychosis. 7. Insomnia. 8. History of cerebral infarct, history of carotid stenosis status post carotid endarterectomy. 9. History of benign positional vertigo. 10. History of vitamin B12 deficiency. 12. Hyperlipidemia. 13. History of breast carcinoma. 14. Asymptomatic bradycardia. PLAN: At this time, the patient is to be continued on all the therapeutic intervention as per the MAR of today including the diuretics, furosemide 40 mg daily. The patient will be continued on all the medications as per the MAR, which are reviewed. The patient will continue on both pharmacological, non-pharmacological DVT, GI prophylaxis. The patient will continue on daily physical therapy, occupational therapy, ambulation therapy, gait training, and out of bed to chair. Repeat lab work will be ordered for the morning. The patient's further management will be dependent upon the patient's clinical condition, hemodynamic status, and as per the patient's response to therapeutic intervention, as per the patient's diagnostic test results, and recommendations by all the physicians involved in the care of the patient. Dictated and electronically signed, not read. Mohan Hidalgo MD [facility]
[2019-01-06] MEDS: Magnesium Oxide 400 mg Tab UD PO SCH ×2 (10:19→17:41)
[2019-01-06] MEDS: Potassium Chloride 10 mEq ER Tab PO SCH (10:20)
[2019-01-06] MEDS: TIMOLOL BOTHEYES SCH ×2 (10:21→22:02)
[2019-01-06] MEDS: COLESEVELAM HCL PO SCH (10:21)
[2019-01-06] MEDS: BRIMONIDINE TARTRATE BOTHEYES SCH ×2 (10:21→22:02)
--- NOTE | 2019-01-06 11:27 | PN ---
DATE: 01/06/2019 LOCATION: The patient is in room 302, bed 1. SUBJECTIVE: The patient's overnight nurse's notes were reviewed. No adverse events were notified, documented or called for. The patient stayed over the weekend stable. The patient was yesterday seen also on the TCU. OBJECTIVE: VITAL SIGNS: T-max 97.9, heart rate 61, blood pressure 153/79 to 126/63, O2 sat is 93%. HEAD: Normocephalic, atraumatic. HEENT examination shows pinkish pale conjunctivae. Anicteric sclerae. No oropharyngeal lesion. No neck rigidity. CHEST: Kyphosis. LUNGS: Shows questionable decreased breath sound at the bases. No audible crackle, rales or wheezing. Positive left carotid endarterectomy surgical scar. CARDIOVASCULAR: S1 and S2, regular rhythm. Positive systolic murmur left sternal border, right second intercostal space, left second intercostal space. ABDOMEN: Soft. Positive bowel sound. No palpable hepatosplenomegaly. GENITALIA: Female. RECTAL: Deferred. EXTREMITIES: Shows complete resolution of the pitting edema of the lower extremity. Motor strength is 5/5. Gait examination is independent. DIAGNOSTICS: From January 06, WBC , hemoglobin and hematocrit 12.5 and 39.9, platelet 225. Sodium 140, potassium 3.6, which is low normal, chloride 99, CO2 of 36, BUN 34, creatinine 0.6, glucose 79, calcium 9.4, magnesium 2.0, AST 39. Rest of the LFTs are normal. IMPRESSION: 1. Gait dysfunction. 2. Deconditioning. 3. Acute recurrent systolic congestive heart failure with elevated ProBNP. 4. Dilated ischemic cardiomyopathy. 5. Hypertension. 6.. Decompensated systolic congestive heart failure and dilated ischemic cardiomyopathy. 7 History of noncompliance. 8 History of cerebral infarct. 9. History of carotid artery stenosis and carotid endarterectomy. 10. History of benign positional vertigo. 11. History of breast carcinoma. 12. Hyperlipidemia. 13. Dementia. 14. History of multiple psychiatric problems and issues. 15. History of anxiety and depression. 16. History of psychosis. 17. Borderline hypokalemia. 18. Vitamin B12 deficiency. 19. Hypovitaminosis D. PLAN: At this time, the patient will be continued on as per the MAR of today. In addition, the patient will be started on low-dose potassium supplementation, K-Dur 10 mEq p.o. daily, repeat chemistry will be ordered. The patient will be continued on TCU with daily physical therapy, occupational therapy, ambulation therapy, gait training. The patient will continue on TCU until approved number of days. The patient has been re-counseled, educated and re-educated about strict compliance with medication, diet, activity and physician followup. All the above has been explained, counseled and explained to the patient and the patient's son and the daughter during multiple hospitalization and multiple office visits. Dictated and electronically signed, not read. Signing off Mohan Hidalgo MD. Mohan Hidalgo MD
[2019-01-06] MEDS: Latanoprost 2.5 ml Opht Soln OU SCH (22:03)
[2019-01-07] MEDS: Levalbuterol 0.63 MG/3 ML Inhal Soln UD IH SCH ×4 (01:37→21:40)
[2019-01-07] MEDS: Enoxaparin 40 mg Syringe SC SCH (05:16)
[2019-01-07] MEDS: Pantoprazole 40 mg EC Tab PO SCH (05:16)
[2019-01-07] MEDS: Potassium Chloride 10 mEq ER Tab PO SCH (07:37)
[2019-01-07] MEDS: Magnesium Oxide 400 mg Tab UD PO SCH ×2 (09:36→17:53)
[2019-01-07] MEDS: COLESEVELAM HCL PO SCH (09:38)
[2019-01-07] MEDS: BRIMONIDINE TARTRATE BOTHEYES SCH ×2 (09:38→21:41)
[2019-01-07] MEDS: TIMOLOL BOTHEYES SCH ×2 (09:38→21:41)
[2019-01-07 10:07] VITALS: RESP 18
--- NOTE | 2019-01-07 11:23 | PN ---
DATE: 01/07/2019 LOCATION: The patient is in room 302, bed 1. SUBJECTIVE: The patient is alert, awake, responsive. There was no overnight adverse events documented, notified, or called for. Nurses' notes were reviewed. The patient slept well without any adverse events. OBJECTIVE: VITAL SIGNS: T-max 98.4. Heart rate 68, 74, and 62. Blood pressure 148/84, 152/78. Respirations 18 to 20. O2 sat 94%, 96%, 98%. HEENT: Head examination, normocephalic, atraumatic. HEENT examination shows pinkish pale conjunctivae. Anicteric sclerae. No oropharyngeal lesion. No neck rigidity. Positive carotid endarterectomy surgical scar. CHEST: Kyphosis. LUNGS: No audible crackle, rales, or wheezing except for decreased breath sound at the bases. CARDIOVASCULAR: S1, S2. Regular rhythm. Positive systolic murmur at the left sternal border, right second intercostal space, left second intercostal space. ABDOMEN: Soft. Positive bowel sound. No palpable hepatosplenomegaly. GENITALIA: Female. RECTAL: Deferred. EXTREMITIES: No pitting edema. No calf tenderness. No Homans' sign. NEUROLOGIC: The patient is alert, awake, responsive; is able to move upper and lower extremity without assistance. Gait examination not tested today. VASCULAR: Palpable pulses. Plantars are downward. DTRs are 2+. NEUROLOGIC: The patient is alert, awake, responsive; is able to follow commands. Moves upper and lower extremities without assistance. DIAGNOSTICS: From the last 24 hours were reviewed.. IMPRESSION: 1. Acute recurrent systolic congestive heart failure with elevated ProBNP. 2. Gait dysfunction. 3. Deconditioning. 4. Dilated ischemic cardiomyopathy. 5. History of cerebral infarct. 6. History of carotid artery stenosis. 7. Status post carotid endarterectomy. 8. Status post uncontrolled hypertension. 9. History of noncompliance. 10. History of coronary artery disease and history of dilated ischemic cardiomyopathy. 11. History of breast carcinoma. 12. Mild prerenal kidney injury. 13. Borderline hypokalemia. 14. Mild metabolic alkalosis secondary to diuretics. 15. History of dementia. 16. History of benign positional vertigo. PLAN: At this time, the patient is to be continued on therapeutic intervention as per the MAR which is reviewed. The patient will be continued on physical therapy, occupational therapy, ambulation therapy, gait training. The patient will be continued on daily out of bed to chair. The patient will be continued on both therapeutic, pharmacological, non-pharmacological, DVT and GI prophylaxis. The patient is always asking me questions about approved number of TCU days. I have advised the patient to directly discuss those details with the Front Line Leader so the patient gets first hand information from the Front Line Leader about approved duration of the TCU stay which she acknowledged and understand. Dictated and electronically signed, not read. Mohan Hidalgo MD
[2019-01-07 17:13] VITALS: TEMP 97.9
[2019-01-07] MEDS: Latanoprost 2.5 ml Opht Soln OU SCH (21:41)
[2019-01-08] MEDS: Levalbuterol 0.63 MG/3 ML Inhal Soln UD IH SCH ×4 (02:43→13:06)
[2019-01-08] MEDS: Pantoprazole 40 mg EC Tab PO SCH (06:15)
[2019-01-08] MEDS: Enoxaparin 40 mg Syringe SC SCH (06:15)
[2019-01-08] MEDS: Potassium Chloride 10 mEq ER Tab PO SCH (07:54)
[2019-01-08] MEDS: TIMOLOL BOTHEYES SCH (10:23)
[2019-01-08] MEDS: BRIMONIDINE TARTRATE BOTHEYES SCH (10:23)
[2019-01-08] MEDS: COLESEVELAM HCL PO SCH (10:24)
[2019-01-08] MEDS: Magnesium Oxide 400 mg Tab UD PO SCH (10:25)
[2019-01-08 10:28] VITALS: BP 152/77
--- NOTE | 2019-01-08 12:10 | PN ---
DATE: 01/08/2019 SUBJECTIVE: The patient is seen in physical therapy and TCU floor. The patient is in room 302, bed 1. Overnight nurse's notes were reviewed. No adverse events were documented, notified or called for. The patient tolerated physical therapy and TCU therapy during this hospitalization. PHYSICAL EXAMINATIONS: VITAL SIGNS: T-max 97.9, heart rate 64, blood pressure 155/71, 181/69, respirations 18, O2 sat 95%. HEENT: Head examination normocephalic, atraumatic. HEENT examination shows pinkish pale conjunctivae. Anicteric sclerae. No oropharyngeal lesion. No neck rigidity. Positive carotid endarterectomy surgical scar noted. CHEST: Kyphosis. LUNGS: Decreased breath sound at the bases. CARDIOVASCULAR: S1, S2, regular rhythm. Positive systolic murmur at left sternal border, right second intercostal space, left second intercostal space. ABDOMEN: Soft. Positive bowel sound. No palpable hepatosplenomegaly. GENITALIA: Female. RECTAL: Deferred. EXTREMITIES: Complete resolution of the pitting edema and the swelling. MUSCULOSKELETAL: As per the body mass index. NEUROLOGIC: The patient is alert, awake, responsive, is able to move upper and lower extremity without assistance. Gait examination is not tested. Vascular examination palpable pulses. DIAGNOSTICS: 01/08/2019 none. Diagnostics from yesterday was reviewed. IMPRESSION AND PLAN: 1. Deconditioning. 2. Gait dysfunction. 3. Acute recurrent systolic congestive heart failure with elevated ProBNP and bilateral lower extremity venous stasis. 4. Uncontrolled hypertension. 5. History of noncompliance. 6. History of dementia. 7. History of anxiety, depression and psychosis. 8. History of cerebral infarct. 9. History of carotid artery stenosis, status post carotid endarterectomy. 10. History of dilated cardiomyopathy. 11. History of breast carcinoma. 12. Vitamin B12 deficiency. 13. Benign positional vertigo. 14. Hyperlipidemia. 15. Hypovitaminosis D. PLAN: 1. At this time, the patient is to be continued on TCU till approved number of days. 2. The patient is to be continued on all the therapeutic intervention as per the MAR. 3. The patient is to be continued on daily physical therapy, occupational therapy, ambulation therapy, gait training and daily out of bed to chair, ABAD stockings, SCDs. The patient will be discharged upon completion of the approved TCU days. Dictated and electronically signed, not read. Mohan Hidalgo MD
[2019-01-08 13:06] VITALS: PULSE 63; O2SAT 94
== END 2019-01-08 14:23 | disposition home or self-care (01) | DRG 291 ==
LOC: TRCU 15:49
PROVIDERS: ADMIT Internal Medicine; ATTEND Internal Medicine
PROC: F07Z9FZ Gait Training/Functional Ambulation Treatment using Assistive, Adaptive, Supportive or Protective Equipment (ICD-10-PCS; principal; 2019-01-03)
PROC: F07M6ZZ Therapeutic Exercise Treatment of Musculoskeletal System - Whole Body (ICD-10-PCS; 2019-01-03)
PROC: F08Z1ZZ Dressing Techniques Treatment (ICD-10-PCS; 2019-01-03)
PROC: F08Z2ZZ Grooming/Personal Hygiene Treatment (ICD-10-PCS; 2019-01-03)
DX: I13.0 Hypertensive heart and chronic kidney disease with heart failure and stage 1 through stage 4 chronic kidney disease, or unspecified chronic kidney disease (principal); I50.23 Acute on chronic systolic (congestive) heart failure; E87.3 Alkalosis; I42.0 Dilated cardiomyopathy; Z86.73 Personal history of transient ischemic attack (TIA), and cerebral infarction without residual deficits; Z85.3 Personal history of malignant neoplasm of breast; E53.8 Deficiency of other specified B group vitamins; E55.9 Vitamin D deficiency, unspecified; E78.5 Hyperlipidemia, unspecified; E86.0 Dehydration; T50.2X5A Adverse effect of carbonic-anhydrase inhibitors, benzothiadiazides and other diuretics, initial encounter; E87.5 Hyperkalemia; G30.9 Alzheimer's disease, unspecified; F31.9 Bipolar disorder, unspecified; G47.00 Insomnia, unspecified; H40.9 Unspecified glaucoma; H81.10 Benign paroxysmal vertigo, unspecified ear; I25.10 Atherosclerotic heart disease of native coronary artery without angina pectoris; I25.5 Ischemic cardiomyopathy; I25.82 Chronic total occlusion of coronary artery; I87.8 Other specified disorders of veins; K21.9 Gastro-esophageal reflux disease without esophagitis; N18.9 Chronic kidney disease, unspecified; F02.80 Dementia in other diseases classified elsewhere, unspecified severity, without behavioral disturbance, psychotic disturbance, mood disturbance, and anxiety; R09.02 Hypoxemia; Z79.02 Long term (current) use of antithrombotics/antiplatelets; Z79.82 Long term (current) use of aspirin; Z79.899 Other long term (current) drug therapy; Z87.01 Personal history of pneumonia (recurrent); Z87.891 Personal history of nicotine dependence; Z90.49 Acquired absence of other specified parts of digestive tract; Z91.19 Patient's noncompliance with other medical treatment and regimen; Z95.5 Presence of coronary angioplasty implant and graft; R00.1 Bradycardia, unspecified; I34.0 Nonrheumatic mitral (valve) insufficiency

== ENCOUNTER 2019-02-16 12:05 | Inpatient (IN) | payer MEDICARE, OTHER ==
[2019-02-16 12:07] VITALS: BMI 22.6
[2019-02-16 12:46] LABS: BASO # 0.01 K/mm3 (0.0-2.0); BASO % 0.1 % (0.0-3.0); HEMOGLOBIN 13.7 g/dL (12.0-16.0); LYMPH # 0.5 (1.2-3.4); LYMPH % 4.8 % (22.0-35.0); MEAN CELL VOLUME 90.9 fl (80.0-105.0); MEAN CORPUSCULAR HEMOGLOBIN 29.5 pg (25.0-35.0); MEAN CORPUSCULAR HGB CONC 32.5 g/dl (31.0-37.0); MEAN PLATELET VOLUME 9.6 fl (7.0-11.0); MONO % 9.4 % (1.0-6.0); PLATELET COUNT 178 10^3/uL (120.0-450.0); RBC 4.64 10^6/uL (3.5-6.1); RED CELL DISTRIBUTION WIDTH 12.9 % (11.5-14.5); WHITE BLOOD COUNT 10.7 10^3/uL (4.5-11.0)
[2019-02-16 12:51] LABS: INR 1.07; PROTHROMBIN TIME 12.1 SECONDS (9.4-12.5)
--- NOTE | 2019-02-16 12:52 | ED PDOC ---
Arrival/HPI - General Chief Complaint: Trauma Historian: Patient - History of Present Illness Narrative History of Present Illness (Text): 02/16/19 12:47 Colette Perdomo is a 83 year old female with past medical history of CHF (EF 29% 02/26/18), HTN, CAD, TIA, bipolar disorder, dyslipidemia, GERD, glaucoma, breast ca, R carotid stenosis s/p CEA, who presents to the emergency department after being found on the floor by a family member. Patient denies being dizzy, having chest pain, or having shortness of breath prior and after fall. Patient reports being unable to get back up after fall. Time/Duration: 24 hours (Last night. ) Symptom Onset: Gradual Activities at Onset: Light Context: Home Past Medical History - Provider Review Nursing Documentation Reviewed: Yes - Infectious Disease Hx of Infectious Diseases: None - Tetanus Immunization Tetanus Immunization: Unknown - Reproductive Menopause: Yes - Cardiac Hx Cardiac Disorders: Yes Hx Congestive Heart Failure: Yes Hx Hypertension: Yes - Pulmonary Hx Respiratory Disorders: Yes (USED TO SMOKE CIGARETTES PPD QUIT) Hx Pneumonia: Yes - Neurological Hx Neurological Disorder: Yes Hx Alzheimer's Disease: Yes Hx Dizziness: Yes Hx Transient Ischemic Attacks (TIA): Yes - HEENT Hx HEENT Disorder: Yes Hx Glaucoma: Yes - Renal Hx Renal Disorder: Yes Other/Comment: Kidney Disease - Endocrine/Metabolic Hx Endocrine Disorders: No - Hematological/Oncological Hx Blood Disorders: Yes Hx Anemia: Yes Hx Cancer: Yes (Breast) - Integumentary Hx Dermatological Disorder: No - Musculoskeletal/Rheumatological Hx Falls: Yes - Gastrointestinal Hx Gastrointestinal Disorders: Yes - Genitourinary/Gynecological Hx Genitourinary Disorders: No - Psychiatric Hx Psychophysiologic Disorder: Yes Hx Depression: Yes Hx Substance Use: No - Surgical History Hx Cardiac Catheterization: Yes Hx Cholecystectomy: Yes Hx Coronary Stent: Yes (x3) Other/Comment: carotid endarectomy - Anesthesia Hx Anesthesia Reactions: No Hx Malignant Hyperthermia: No - Suicidal Assessment Feels Threatened In Home Enviroment: No Family/Social History - Physician Review Nursing Documentation Reviewed: Yes Family/Social History: Unknown Family HX Smoking Status: Former Smoker Hx Alcohol Use: No Hx Substance Use: No Allergies/Home Meds Allergies/Adverse Reactions: Allergies No Known Allergies Allergy (Verified 01/02/19 16:57) Home Medications: Home Meds Medication Instructions Recorded Confirmed Olanzapine [Zyprexa] 5 mg PO HS 02/27/18 02/16/19 Colesevelam HCl [Welchol] 625 mg PO DAILY 01/02/19 02/16/19 Review of Systems - Physician Review All systems were reviewed & negative as marked: Yes - Review of Systems Constitutional: absent: Fatigue, Fevers Eyes: absent: Vision Changes ENT: absent: Hearing Changes Respiratory: absent: SOB, Cough Cardiovascular: absent: Chest Pain, Palpitations Gastrointestinal: absent: Abdominal Pain Musculoskeletal: absent: Back Pain, Neck Pain Skin: absent: Rash Neurological: absent: Headache, Dizziness Physical Exam Vital Signs Temp Pulse Resp BP Pulse Ox 02/16/19 12:33 98.3 F 64 12 158/63 H 95 02/16/19 12:06 98.7 F 64 18 158/63 H 96 - Systems Exam Head: Present: Contusion (Contusion noted on the face.) Mouth: Present: Moist Mucous Membranes Respiratory/Chest: Present: Other (Ecchymosis to the left clavical. No tendernes. ) Medical Decision Making ED Course and Treatment: 02/16/19 13:43 Impression: 83 y.o female presents to the emergency department after fall from the bed. Differential Diagnosis included but are not limited to: Plan: -- labs -- Cervical spine without contrast CT -- Head without contrast CT -- EKG -- Chest X-ray -- Urinalysis stat -- Reassess and disposition Prior Visits: Notes and results from previous visits were reviewed. Progress Notes: 02/16/19 14:00 Labs reviewed with patient reporting no somatic complaints at this time. Pending CTH and C spine. 02/16/19 12:[address] Aqunio, who states code heart does not need to be called. 02/16/19 15:[address] Hidalgo. - Lab Interpretations Narrative Lab Interpretation (Text): 02/16/19 13:43 02/16/19 12:30 02/16/19 12:50 Lab Results 02/16/19 12:50: Sodium 143, Potassium 4.4, Chloride 106, Carbon Dioxide 29, Anion Gap 11, BUN 23 H, Creatinine 0.6 L, Est GFR ( Amer) > 60, Est GFR (Non-Af Amer) > 60, Random Glucose 120 H, Calcium 9.4, Total Bilirubin 0.8, AST 75 H D, ALT 49, Alkaline Phosphatase 126, Total Creatine Kinase 615 H, CK-MB (CK-2) Pending, CK-MB (CK-2) % Pending, Troponin I Pending, Total Protein 6.7, Albumin 3.8, Globulin 2.9, Albumin/Globulin Ratio 1.3 02/16/19 12:35: Blood Type Pending, Antibody Screen Pending, BBK History Checked Patient has bt 02/16/19 12:30: PT 12.1, INR 1.07 02/16/19 12:30: WBC 10.7 D, RBC 4.64, Hgb 13.7, Hct 42.2, MCV 90.9, MCH 29.5, MCHC 32.5, RDW 12.9, Plt Count 178, MPV 9.6, Neut % (Auto) 85.7 H, Lymph % (Auto) 4.8 L, Holt % (Auto) 9.4 H, Eos % (Auto) 0.0 L, Baso % (Auto) 0.1, Lymph # (Auto) 0.5 L, Holt # (Auto) 1.0 H, Eos # (Auto) 0.0, Baso # (Auto) 0.01, Absolute Neuts (auto) 9.14 H, Neutrophils % (Manual) 84 H, Lymphocytes % (Manual) 9 L, Monocytes % (Manual) 7 H, Platelet Evaluation Normal Lab Results: 02/16/19 12:30 02/16/19 12:50 Lab Results 02/16/19 12:50: Sodium 143, Potassium 4.4, Chloride 106, Carbon Dioxide 29, Anion Gap 11, BUN 23 H, Creatinine 0.6 L, Est GFR ( Amer) > 60, Est GFR (Non-Af Amer) > 60, Random Glucose 120 H, Calcium 9.4, Total Bilirubin 0.8, AST 75 H D, ALT 49, Alkaline Phosphatase 126, Total Creatine Kinase 615 H, CK-MB (CK-2) 4.4 H, CK-MB (CK-2) % Cancelled, Troponin I Pending, Total Protein 6.7, Albumin 3.8, Globulin 2.9, Albumin/Globulin Ratio 1.3 02/16/19 12:35: Blood Type A POSITIVE, Antibody Screen Negative, BBK History Checked Patient has bt 02/16/19 12:30: PT 12.1, INR 1.07 02/16/19 12:30: WBC 10.7 D, RBC 4.64, Hgb 13.7, Hct 42.2, MCV 90.9, MCH 29.5, MCHC 32.5, RDW 12.9, Plt Count 178, MPV 9.6, Neut % (Auto) 85.7 H, Lymph % (Auto) 4.8 L, Holt % (Auto) 9.4 H, Eos % (Auto) 0.0 L, Baso % (Auto) 0.1, Lymph # (Auto) 0.5 L, Holt # (Auto) 1.0 H, Eos # (Auto) 0.0, Baso # (Auto) 0.01, Absolute Neuts (auto) 9.14 H, Neutrophils % (Manual) 84 H, Lymphocytes % (Manual) 9 L, Monocytes % (Manual) 7 H, Platelet Evaluation Normal I have reviewed the lab results: Yes - RAD Interpretation Narrative RAD Interpretations (Text): 02/16/2019 13:[address] IMPRESSION: No acute findings. Dictator: Reji Colon MD 02/16/2019 13:00 Chest X-ray IMPRESSION: No active disease. Dictator: Reji Colon MD 02/16/2019 13:[address] IMPRESSION: Chronic encephalomalacia is seen in the right parietal lobe. Findings are unchanged. There are no acute findings. Dictator: Reji Colon MD 02/16/2019 14:00 Clavicle X-ray IMPRESSION: Normal radiographs of the right clavicle. Dictator: Reji Colon MD Radiology Orders: 02/16/19 12:33 HEAD W/O CONTRAST [CT] Stat 02/16/19 12:34 CHEST PORTABLE [RAD] Stat 02/16/19 12:36 CERVICAL SPINE W/O CONTRAST [CT] Stat - EKG Interpretation EKG Interpretation (Text): 02/16/19 12:15 EKG: Ordered, reviewed, and independently interpreted the EKG. Rate : 66 BPM Rhythm : NSR Interpretation : ST elevations in V4-V6 + lead 3 or depression and T-wave inversions in leads 2, 3, V4-V6. Comparison : No previous EKG for comparison. 02/16/19 12:24 EKG: Ordered, reviewed, and independently interpreted the EKG. Rate : 62 BPM Rhythm : NSR Interpretation : LVH with early repolarization. Inverted T-waves in leads 2, 3, V4-V6. ST depressions in lead 1, ST elevation in lead 2 and 3. Comparison : No previous EKG for comparison. - Medication Orders Current Medication Orders: 02/16/19 13:59 Sodium Chloride (Sodium Chloride 0.9%) 1,000 mls @ 999 mls/hr IV .Q1H1M STA Stop: 02/16/19 14:59 - Scribe Statement The provider has reviewed the documentation as recorded by the Scribe Nadya Walker All medical record entries made by the Scribe were at my direction and personally dictated by me. I have reviewed the chart and agree that the record accurately reflects my personal performance of the history, physical exam, medical decision making, and the department course for this patient. I have also personally directed, reviewed, and agree with the discharge instructions and disposition. Disposition/Present on Arrival - Present on Arrival History of DVT/PE: No History of Uncontrolled Diabetes: No Urinary Catheter: No History of Decub. Ulcer: No History Surgical Site Infection Following: None - Disposition
[2019-02-16 13:08] LABS: LYMPHOCYTE 9 % (22.0-35.0); MONOCYTE 7 % (1.0-6.0); NEUTROPHIL 84 % (50.0-70.0)
[2019-02-16 13:09] LABS: PLATELET ESTIMATE NORMAL (NORMAL)
[2019-02-16 13:32] LABS: ALB/GLOB RATIO 1.3 (1.1-1.8); ALBUMIN 3.8 g/dL (3.0-4.8); BLOOD UREA NITROGEN 23 mg/dL (7-21); CALCIUM 9.4 mg/dL (8.4-10.5); GFR NON-AFRICAN AMERICAN > 60
[2019-02-16 13:35] LABS: ALT/SGPT 49 U/L (7-56); AST/SGOT 75 U/L (14-36)
[2019-02-16 13:52] LABS: CK-MB 4.4 ng/mL (0.0-3.6)
[2019-02-16] MEDS ORDERED: Sodium Chloride 0.9% 1,000 ML IV STA (13:59)
--- NOTE | 2019-02-16 13:59 | RAD ---
Date of service: 02/16/2019 HISTORY: fall COMPARISON: 12/30/2018 TECHNIQUE: 1 view obtained. FINDINGS: LUNGS: No active pulmonary disease. PLEURA: No significant pleural effusion identified, no pneumothorax apparent. CARDIOVASCULAR: No aortic atherosclerotic calcification present. Normal cardiac size. No pulmonary vascular congestion. OSSEOUS STRUCTURES: No significant abnormalities. VISUALIZED UPPER ABDOMEN: Normal. OTHER FINDINGS: None. IMPRESSION: No active disease.
[2019-02-16 14:18] LABS: TROPONIN I 0.19 ng/mL
--- NOTE | 2019-02-16 14:47 | CT ---
Date of service: 02/16/2019 PROCEDURE: CT HEAD WITHOUT CONTRAST. HISTORY: fall COMPARISON: 12/08/2018 TECHNIQUE: Axial computed tomography images were obtained through the head/brain without intravenous contrast. Radiation dose: Total exam DLP = 792.77 mGy-cm. This CT exam was performed using one or more of the following dose reduction techniques: Automated exposure control, adjustment of the mA and/or kV according to patient size, and/or use of iterative reconstruction technique. FINDINGS: HEMORRHAGE: No intracranial hemorrhage. BRAIN: No mass effect or edema. Chronic encephalomalacia is seen in the right parietal lobe. Findings are unchanged. There are no acute findings VENTRICLES: Unremarkable. No hydrocephalus. CALVARIUM: Unremarkable. PARANASAL SINUSES: Unremarkable as visualized. No significant inflammatory changes. MASTOID AIR CELLS: Unremarkable as visualized. No inflammatory changes. OTHER FINDINGS: None. IMPRESSION: Chronic encephalomalacia is seen in the right parietal lobe. Findings are unchanged. There are no acute findings
--- NOTE | 2019-02-16 14:50 | CT ---
Date of service: 02/16/2019 PROCEDURE: CT Cervical Spine without contrast HISTORY: fall COMPARISON: None available. TECHNIQUE: Axial computed tomography images were obtained of the cervical spine without the use of intravenous contrast. Coronal and sagittal reformatted images were created and reviewed. Radiation dose: Total exam DLP = 430.62 mGy-cm. This CT exam was performed using one or more of the following dose reduction techniques: Automated exposure control, adjustment of the mA and/or kV according to patient size, and/or use of iterative reconstruction technique. FINDINGS: VERTEBRAE: No fracture. Normal alignment. No destructive bony lesion. DISCS/SPINAL CANAL/NEURAL FORAMINA: No significant central canal or neural foraminal stenosis. Disc degeneration with anterior osteophytes at C5-6 and C6-7. PARASPINAL SOFT TISSUES: Unremarkable. OTHER FINDINGS: None. IMPRESSION: No acute findings
--- NOTE | 2019-02-16 14:54 | RAD ---
Date of service: 02/16/2019 PROCEDURE: Radiographs of the right clavicle. HISTORY: fall COMPARISON: None. TECHNIQUE: 2 views obtained. FINDINGS: RIGHT CLAVICLE: No fracture or focal lesion. JOINTS: Right acromioclavicular and glenohumeral joints are grossly unremarkable. SOFT TISSUES: Grossly unremarkable. OTHER FINDINGS: None. IMPRESSION: Normal radiographs of the right clavicle.
--- NOTE | 2019-02-16 15:29 | CP.PCM.HP ---
History of Present Illness - History of Present Illness History of Present Illness: HISTORY & PHYSICAL NOTE FOR DR. ROCKY Vora PGY1 83 y/o F wit PMHX of CHF (EF 29% 02/26/18), HTN, CAD, TIA, bipolar disorder, dyslipidemia, GERD, glaucoma, breast ca, R carotid stenosis s/p CEA presented to ED after she woke up this am on the floor next to her bed and wasn't able to get up. She reports she went to bed yesterday night and didnt remember how she got on the floor. She doesn't recall falling or hitting her head. She reports she was very weak when she woke up, however she was able to reach for her phone to call for her son. She reports that when she was on the floor, she was too weak to get up to go to the bathroom and had diarrhea on herself. Her son brought her to ED. She denied any chest pain, palpitations, shortness of breath, dizziness, tongue biting, urinary incontince, paralysis, aura when she was on the floor. Upon interview, pt is seen laying comfortably, she is denying complaints of pain currently. She reports she feels weak, however is denying fevers, chills, heada janina, dizziness, chest pain, palpitations, shortness of breath, nausea, vomiting, constipation, diarrhea, dysuria. She is asking for something to help her sleep at night. Past medical history: CHF (EF 29% 02/26/18), HTN, CAD, TIA, bipolar disorder, dyslipidemia, GERD, glaucoma, breast ca, R carotid stenosis s/p CEA Past surgical history: R CEA, cholecystectomy, R breast lumpectomy, PCI Home meds: confirmed with [facility] and updated Allergies: NKDA Social History: Denies EtOH, or drug use. Former heavy smoker (quit 15yrs ago). Lives alone Family history: Dad- late 70s colon ca. Mom- late 70s bladder ca 12-point review of systems negative except as indicated in the HPI PMD: [facility] Present on Admission - Present on Admission Any Indicators Present on Admission: No Review of Systems - Review of Systems Review of Systems: as per HPI Past Patient History - Infectious Disease Hx of Infectious Diseases: None - Tetanus Immunizations Tetanus Immunization: Unknown - Past Social History Smoking Status: Former Smoker - CARDIAC Hx Cardiac Disorders: Yes Hx Congestive Heart Failure: Yes Hx Hypertension: Yes - PULMONARY Hx Respiratory Disorders: Yes (USED TO SMOKE CIGARETTES PPD QUIT) Hx Pneumonia: Yes - NEUROLOGICAL Hx Neurological Disorder: Yes Hx Alzheimer's Disease: Yes Hx Dizziness: Yes Hx Transient Ischemic Attacks (TIA): Yes - HEENT Hx HEENT Problems: Yes Hx Glaucoma: Yes - RENAL Hx Chronic Kidney Disease: Yes Other/Comment: Kidney Disease - ENDOCRINE/METABOLIC Hx Endocrine Disorders: No - HEMATOLOGICAL/ONCOLOGICAL Hx Blood Disorders: Yes Hx Anemia: Yes Hx Cancer: Yes (Breast) - INTEGUMENTARY Hx Dermatological Problems: No - MUSCULOSKELETAL/RHEUMATOLOGICAL Hx Falls: Yes - GASTROINTESTINAL Hx Gastrointestinal Disorders: Yes - GENITOURINARY/GYNECOLOGICAL Hx Genitourinary Disorders: No - PSYCHIATRIC Hx Psychophysiologic Disorder: Yes Hx Depression: Yes Hx Substance Use: No - SURGICAL HISTORY Hx Cardiac Catheterization: Yes Hx Cholecystectomy: Yes Hx Coronary Stent: Yes (x3) Other/Comment: carotid endarectomy - ANESTHESIA Hx Anesthesia Reactions: No Hx Malignant Hyperthermia: No Meds Allergies/Adverse Reactions: Allergies Allergy/AdvReac Type Severity Reaction Status Date / Time No Known Allergies Allergy Verified 01/02/19 16:57 Physical Exam - Constitutional Appears: Well, Non-toxic, Chronically Ill - Head Exam Head Exam: ATRAUMATIC, NORMAL INSPECTION - Eye Exam Eye Exam: EOMI, Normal appearance - ENT Exam ENT Exam: Mucous Membranes Moist, Normal Exam - Neck Exam Neck exam: Positive for: Normal Inspection - Respiratory Exam Respiratory Exam: Clear to Auscultation Bilateral, NORMAL BREATHING PATTERN - Cardiovascular Exam Cardiovascular Exam: REGULAR RHYTHM, +S1, +S2 - GI/Abdominal Exam GI & Abdominal Exam: Soft. absent: Tenderness - Extremities Exam Additional comments: Ecchymoses noted along L arm & clavicle. No tenderness to palpation. No deformities. Normal ROM - Back Exam Back exam: NORMAL INSPECTION. absent: vertebral tenderness - Neurological Exam Neurological exam: Alert, Oriented x3 - Psychiatric Exam Psychiatric exam: Normal Affect, Normal Mood - Skin Skin Exam: Dry, Warm Results - Vital Signs Recent Vital Signs: Last Vital Signs Temp 97.9 F 02/16/19 13:24 Pulse 63 02/16/19 15:25 Resp 18 02/16/19 15:25 BP 137/79 02/16/19 15:25 Pulse Ox 96 02/16/19 15:25 - Labs Result Diagrams: 02/16/19 12:30 02/16/19 12:50 Labs: Laboratory Results - last 24 hr 02/16/19 02/16/19 02/16/19 12:30 12:30 12:35 WBC 10.7 D RBC 4.64 Hgb 13.7 Hct 42.2 MCV 90.9 MCH 29.5 MCHC 32.5 RDW 12.9 Plt Count 178 MPV 9.6 Neut % (Auto) 85.7 H Lymph % (Auto) 4.8 L Bryan % (Auto) 9.4 H Eos % (Auto) 0.0 L Baso % (Auto) 0.1 Lymph # (Auto) 0.5 L Bryan # (Auto) 1.0 H Eos # (Auto) 0.0 Baso # (Auto) 0.01 Absolute Neuts (auto) 9.14 H Neutrophils % (Manual) 84 H Lymphocytes % (Manual) 9 L Monocytes % (Manual) 7 H Platelet Evaluation Normal PT 12.1 INR 1.07 Sodium Potassium Chloride Carbon Dioxide Anion Gap BUN Creatinine Est GFR ( Amer) Est GFR (Non-Af Amer) Random Glucose Calcium Total Bilirubin AST ALT Alkaline Phosphatase Total Creatine Kinase CK-MB (CK-2) CK-MB (CK-2) % Troponin I Total Protein Albumin Globulin Albumin/Globulin Ratio Blood Type A POSITIVE Antibody Screen Negative BBK History Checked Patient has bt 02/16/19 12:50 WBC RBC Hgb Hct MCV MCH MCHC RDW Plt Count MPV Neut % (Auto) Lymph % (Auto) Bryan % (Auto) Eos % (Auto) Baso % (Auto) Lymph # (Auto) Bryan # (Auto) Eos # (Auto) Baso # (Auto) Absolute Neuts (auto) Neutrophils % (Manual) Lymphocytes % (Manual) Monocytes % (Manual) Platelet Evaluation PT INR Sodium 143 Potassium 4.4 Chloride 106 Carbon Dioxide 29 Anion Gap 11 BUN 23 H Creatinine 0.6 L Est GFR ( Amer) > 60 Est GFR (Non-Af Amer) > 60 Random Glucose 120 H Calcium 9.4 Total Bilirubin 0.8 AST 75 H D ALT 49 Alkaline Phosphatase 126 Total Creatine Kinase 615 H CK-MB (CK-2) 4.4 H CK-MB (CK-2) % Cancelled Troponin I 0.19 H* D Total Protein 6.7 Albumin 3.8 Globulin 2.9 Albumin/Globulin Ratio 1.3 Blood Type Antibody Screen BBK History Checked Assessment & Plan - Assessment and Plan (Free Text) Assessment: 83 y/o F wit PMHX of CHF (EF 29% 02/26/18), HTN, CAD, TIA, bipolar disorder, dyslipidemia, GERD, glaucoma, breast ca, R carotid stenosis s/p CEA Plan: Syncope -Pt doesn't recall how she fell on floor. Has hx of carotid stenosis. No tongue biting, foaming of mouth noted, urinary/bowel incontinence -CT reveals chronic encephalomalacia in R parietal lobe. Unchanged from previous findings. No acute findings -Will order MRI brain in am -will r/o cardiogenic causes with repeat EKG -Continue aspirin/plavix -Neuro consult: Dr. Melara -Fall/seizure precautions/bedrest NSTEMI -EKG revealed ST/T wave changes. EKG reviewed by cardiology(Dr. Aquino) in ED who states code heart does not need to be called. 1st troponin 0.19. No chest pain/SOB/diaphoresis currently -Will repeat stat EKG now and in am -Start therapeutic lovenox at 1mg/kg q12H, [id number] -trend troponins Q4h -continue ASA/plavix/statin -will hold b-luis due to bradycardia -Nitro paste Q6 prn chest pain -Cardiology consulted: Dr. Zambrano. appreciate recs L upper extremity ecchymoses -Ecchymoses noted in L arm, clavicle. CPK elevated. R clavicle XR (-) in ED. Cervical Spine CT (-) - Clavicle XR, Cervical Spine CT, CT Head, CXR revealed no acute findings -Will order L forearm, L humerus, L shoulder & Rib series. Will r/o pneumothorax & acute fractures -Will trend CPK HFrEF -No signs of acute exacerbation -Last known echo with EF 29% -Will hold lasix d/t pre-renal azotemia Bipolar disorder -continue Ativan, Olanzipine, Lexapro, Aricept. Vertigo -continue antivert GERD -continue protonix Glaucoma -Continue home combiven, travatan eye drops DVT/GI: SCD/lovenox/ oral protonix(per Dr. Hidalgo) Case reviewed with attending physician, Dr. Hidalgo. Further recs per attending Kika Vora PGY1
[2019-02-16 15:57] LABS: URINE BILIRUBIN NEGATIVE (NEGATIVE); URINE BLOOD TRACE-INTACT (NEGATIVE); URINE GLUCOSE (UA) NEGATIVE (NEGATIVE); URINE LEUKOCYTE ESTERASE TRACE Leu/uL (NEGATIVE); URINE PROTEIN 30 mg/dL (<30 mg/dL); URINE UROBILINOGEN 0.2 E.U./dL (<1 E.U./dL)
[2019-02-16 16:08] LABS: URINE APPEARANCE CLEAR (CLEAR); URINE COLOR YELLOW (YELLOW)
[2019-02-16] MEDS ORDERED: Ergocalciferol 50,000 Intl Units Cap PO SCH (16:45)
[2019-02-16] MEDS ORDERED: Nitroglycerin 2% Ointment Foilpak UD TOP PRN (16:56)
[2019-02-16] MEDS: Enoxaparin 60 mg Syringe SC SCH (17:06)
[2019-02-16] MEDS: Magnesium Oxide 400 mg Tab UD PO SCH (17:07)
[2019-02-16] MEDS: Colesevelam Hcl [Welchol] 625 MG (HOME MED) PO SCH (17:10)
[2019-02-16 17:34] LABS: URINE BACTERIA MOD /hpf; URINE HYALINE CAST 0 - 2 /hpf
--- NOTE | 2019-02-16 17:43 | CARD ---
APPROVED REPORT Date of service: 02/16/2019 EKG Measurement Heart [id number] <Conclusion> Normal sinus rhythm Left ventricular hypertrophy with repolarization abnormality Inferior infarct, possibly acute ACUTE [place] Consider right ventricular involvement in acute inferior infarct Abnormal ECG
--- NOTE | 2019-02-16 17:45 | CARD ---
APPROVED REPORT Date of service: 02/16/2019 EKG Measurement Heart [id number] <Conclusion> Sinus rhythm with occasional premature ventricular complexes Left ventricular hypertrophy with repolarization abnormality Inferolateral infarct, possibly acute ACUTE [place] Consider right ventricular involvement in acute inferior infarct Abnormal ECG
[2019-02-16] MEDS ORDERED: Nitroglycerin 0.1 mg/hr Top Patch TD SCH (18:00)
[2019-02-16 18:08] LABS: TROPONIN I 0.22 ng/mL
[2019-02-16 19:33] LABS: CK MB% 0.6 % (2.5-3.0); CK-MB 5.8 ng/mL (0.0-3.6)
[2019-02-16 21:52] LABS: TROPONIN I 0.17 ng/mL
[2019-02-16] MEDS ORDERED: COMBIGAN EYE DROPS OU SCH (22:00)
[2019-02-16] MEDS ORDERED: Sodium Chloride 0.45% 1,000 ML IV SCH (22:15)
[2019-02-16 22:27] LABS: CK-MB 5.3 ng/mL (0.0-3.6)
[2019-02-16] MEDS: TRAVATAN Z EYE OU SCH (22:59)
[2019-02-16] MEDS: COMBIGAN EYE OU SCH (23:00)
[2019-02-17 01:35] LABS: CK-MB 4.7 ng/mL (0.0-3.6); TROPONIN I 0.16 ng/mL
--- NOTE | 2019-02-17 05:38 | RAD ---
Date of service: 02/16/2019 PROCEDURE: Radiographs of the Left Forearm HISTORY: syncope, fall COMPARISON: None available. TECHNIQUE: Frontal and lateral views obtained. 2 views obtained. FINDINGS: BONES: No fracture or destructive lesion. JOINT SPACES: Unremarkable. OTHER FINDINGS: None. IMPRESSION: No evidence of acute fracture or dislocation.
--- NOTE | 2019-02-17 05:40 | RAD ---
PROCEDURE: Radiographs of the left humerus. HISTORY: syncope, fall COMPARISON: None. TECHNIQUE: 2 views obtained. FINDINGS: BONES: Normal. No fracture or focal lesion. SOFT TISSUES: Normal. OTHER FINDINGS: None. IMPRESSION: No evidence of acute fracture or dislocation.
[2019-02-17] MEDS: Enoxaparin 60 mg Syringe SC SCH (05:41)
[2019-02-17] MEDS: Pantoprazole 40 mg EC Tab PO SCH (05:41)
--- NOTE | 2019-02-17 05:41 | RAD ---
Date of service: 02/16/2019 PROCEDURE: Radiographs of the Left Shoulder HISTORY: ?syncope, fall COMPARISON: No prior. TECHNIQUE: 3 views obtained. FINDINGS: BONES: Normal. No fracture. JOINTS: Normal. Glenohumeral and acromioclavicular joints preserved. No osteoarthritis. SOFT TISSUES: Normal. OTHER FINDINGS: None. IMPRESSION: No evidence of acute fracture or dislocation.
--- NOTE | 2019-02-17 05:48 | RAD ---
Date of service: 02/16/2019 PROCEDURE: Radiographs of the chest and bilateral ribs HISTORY: syncope, r/o fx, r/o pneumothorax COMPARISON: None available. TECHNIQUE: Frontal radiograph of the chest and multiple oblique radiographs of the bilateral ribs were obtained. 5 views obtained. FINDINGS: RIGHT RIBS: No fracture or focal lesion visualized. LEFT RIBS: No fracture or focal lesion visualized. LUNGS: Clear. PLEURA: No pneumothorax or pleural fluid. CARDIOVASCULAR: Normal cardiac size. No pulmonary vascular congestion. No aortic atherosclerotic calcification present OTHER FINDINGS: None. IMPRESSION: No evidence of acute displaced fracture in the ribs.
[2019-02-17 07:40] LABS: BASO # 0.01 K/mm3 (0.0-2.0); BASO % 0.2 % (0.0-3.0); EOS # 0.1 (0.0-0.7); EOS % 2.2 % (1.5-5.0); HEMOGLOBIN 12.1 g/dL (12.0-16.0); LYMPH # 1.2 (1.2-3.4); LYMPH % 24.5 % (22.0-35.0); MEAN CELL VOLUME 91.7 fl (80.0-105.0); MEAN CORPUSCULAR HEMOGLOBIN 28.7 pg (25.0-35.0); MEAN CORPUSCULAR HGB CONC 31.3 g/dl (31.0-37.0); MEAN PLATELET VOLUME 9.8 fl (7.0-11.0); MONO # 0.7 (0.1-0.6); MONO % 13.6 % (1.0-6.0); RBC 4.22 10^6/uL (3.5-6.1); RED CELL DISTRIBUTION WIDTH 13.2 % (11.5-14.5); WHITE BLOOD COUNT 5.1 10^3/uL (4.5-11.0)
[2019-02-17 08:11] LABS: ALB/GLOB RATIO 1.2 (1.1-1.8); ALT/SGPT 51 U/L (7-56); AST/SGOT 67 U/L (14-36); BLOOD UREA NITROGEN 18 mg/dL (7-21); CALCIUM 8.7 mg/dL (8.4-10.5); GFR NON-AFRICAN AMERICAN > 60; HDL CHOLESTEROL 33 mg/dL (29-60)
[2019-02-17 08:15] LABS: FREE T4 1.14 ng/dL (0.78-2.19)
[2019-02-17 08:18] LABS: LDL CHOLESTEROL 56 mg/dL (0-129)
--- NOTE | 2019-02-17 09:29 | CON ---
DATE OF CONSULTATION: 02/17/2019 CARDIOLOGY CONSULTATION HISTORY: The patient is an 83-year-old woman, who presents with dyspnea and angina. She was found to have elevated troponins consistent with a non-ST elevation myocardial infarction. PAST MEDICAL HISTORY: The patient's past medical history includes history of CHF with a compromised left ventricle with an EF of 25-30%. In addition, she has single-vessel CAD, hypercholesterolemia, as well as history of hypertension. She denies shortness of breath. Fourteen-point review of systems is reviewed in detail. Currently, the patient is free of angina while at rest. The patient's past medical history also includes a history of hypercholesterolemia as well as hypertension. SOCIAL HISTORY: She denies smoking. REVIEW OF SYSTEMS: Otherwise, no additional symptoms from above. PHYSICAL EXAMINATION: GENERAL: The patient is in no acute distress. VITAL SIGNS: Blood pressure 152/62, the heart rate is in the 50s. NECK: Negative JVD. LUNGS: Without rales. CARDIAC: Heart rate S1, S2. EXTREMITIES: Without edema. EKG shows normal sinus rhythm with diffuse ST-T changes. LABORATORY DATA: Hemoglobin is 12.1. Chemistries, BUN and creatinine are unremarkable. Troponins peaked at 0.22. IMPRESSION: 1. Non-ST elevation myocardial infarction. 2. Ischemic dilated cardiomyopathy. 3. Coronary artery disease. 4. History of bipolar disease. 5. Hypertension. 6. Hypercholesterolemia. 7. Dilated cardiomyopathy. PLAN: Given these findings, the patient has been loaded with aspirin and Plavix. We will arrange for cardiac catheterization. Dmitriy Zambrano MD
[2019-02-17] MEDS ORDERED: COMBIGAN EYE DROPS OU SCH (10:00)
[2019-02-17] MEDS: COMBIGAN EYE OU SCH ×2 (10:53→21:20)
[2019-02-17] MEDS ORDERED: Iodixanol 320 MG/ML 200 ML BOTTLE IV ONE (11:04)
[2019-02-17] MEDS ORDERED: Iodixanol 320 MG/ML 100 ML BOTTLE IV ONE (11:04)
[2019-02-17] MEDS ORDERED: Lidocaine PF 2% (5 ml) Inj (For Cardiac Arrhy) ONE (11:04)
[2019-02-17] MEDS ORDERED: Iohexol 350mgl/ml 50 ML ONE (11:04)
[2019-02-17] MEDS ORDERED: Midazolam 2 MG/2 ML VIAL ONE (11:16)
[2019-02-17] MEDS: Magnesium Oxide 400 mg Tab UD PO SCH ×2 (11:17→17:58)
[2019-02-17] MEDS: Colesevelam Hcl [Welchol] 625 MG (HOME MED) PO SCH (11:17)
[2019-02-17] MEDS ORDERED: Sodium Chloride 0.9% 1,000 ML IV SCH (11:30)
--- NOTE | 2019-02-17 12:40 | CARD ---
APPROVED REPORT Date of service: 02/17/2019 EKG Measurement Heart [id number] <Conclusion> Sinus bradycardia Left ventricular hypertrophy with QRS widening and repolarization abnormality Inferior infarct,Age? Correlate Clinically. Anterior infarct, age Correlate Clinically. Abnormal ECG
--- NOTE | 2019-02-17 12:54 | CARD ---
APPROVED REPORT Date of service: 02/17/2019 EKG Measurement Heart [id number] <Conclusion> Sinus bradycardia with occasional premature ventricular complexes Left ventricular hypertrophy with repolarization abnormality Inferior infarct, Age Correlate Clinically. Anterior infarct, age correlate clinically. Consider right ventricular involvement in inferior infarct Age Correlate Clinically. Abnormal ECG
--- NOTE | 2019-02-17 13:44 | CP.PCM.PCO ---
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 . PT ALSO HAS NSTEMI AND IS ON ASA 81 MG AND PLAVIX 75 MG, F/W PER CARDIOLOGY. C/W DUAL ANTI-PLATELET/STATIN. MONITOR HR VIA HOLTER MONITOR PT EVAL. THANKS. DAWNA HERNÁNDEZ/
--- NOTE | 2019-02-17 15:05 | PN ---
DATE: 02/17/2019 SUBJECTIVE: The patient is seen. The patient is in room 276, bed 1. Overnight nurse's notes were reviewed. The patient complained of insomnia and received Ambien, which made the patient a little bit lethargic and drowsy. The Ambien was ordered by the resident on-call. Overnight nurse's notes were reviewed. No adverse events were documented . The patient was found to be mostly alert, awake, and responsive. PHYSICAL EXAMINATION: VITAL SIGNS: Overnight last 12 to 24 hours vital signs reviewed, which are as follows: T-max 98.4. Telemetry shows sinus bradycardia, heart rate 48-54, blood pressure 152/62, respiration 19, and O2 sat 94%. HEAD: Normocephalic, atraumatic. HEENT: Shows pinkish pale conjunctivae. Anicteric sclerae. Positive carotid endarterectomy surgical scar. CHEST: Kyphosis. LUNGS: Shows no audible crackle, rales or wheezing. Questionable decreased breath sound at the bases. CARDIOVASCULAR: Shows S1 and S2, regular rhythm. Positive systolic murmur left sternal border, right second intercostal space, left second intercostal space. ABDOMEN: Soft, positive bowel sounds. No palpable hepatosplenomegaly. GENITALIA: Female. RECTAL: Deferred. EXTREMITIES: Shows no pitting edema, trace swelling of the ankles, no pitting edema of the legs, no calf tenderness, no Homans' sign. NEUROLOGICAL: The patient is alert, awake, responsive, is able to move upper and lower extremity without assistance. Gait examination is not tested. Positive kyphosis of the thoracolumbar spine noted. DIAGNOSTIC DATA: Serial troponin is elevated at 0.19, 0.22, 0.17, and 0.16. CPK is elevated at 615, 942, 951, and 882. Urinalysis showed proteinuria and microscopic hematuria. CT head was reviewed. EKG was reviewed. CBC from 02/17/2019; WBC 5.1, hemoglobin/hematocrit 12.1/38.7, and platelet 158. Sodium 140, potassium 3.6; which is low normal, chloride 107, CO2 of 30, BUN 18, creatinine 0.6, AST 67, glucose 92, calcium 8.7, phosphorus 3.2, and magnesium 2.2. IMPRESSION AND PLAN: 1. Acute myocardial infarction, most likely acute non-ST elevation myocardial infarction with elevated troponin of 0.19, 0.22, 0.17, and 0.16. 2. Elevated CPK, probably secondary to acute myocardial infarction. 3. Abnormal EKG with elevated ST segments in lead III, aVF and V3. 4. T-wave changes in lead I, aVL, V4 to V6. 5. Questionable syncope and status post fall. 6. Granulocytosis. 7. Proteinuria. 8. Microscopic hematuria. 9. Cervical spine degenerative disc disease. 10. Right parietal encephalomalacia. 11. Sinus bradycardia. 12. Left ventricular hypertrophy. 13. Questionable syncope. 14. Questionable rhabdomyolysis versus elevated CPK secondary to acute myocardial infarction. 15. History of breast carcinoma. 16. Mild anemia. 17. Borderline hypokalemia. 18. Transaminitis. 19. Dementia. 20. History of psychiatric disorder and psychosis. 21. History of cerebral infarct with carotid artery stenosis status post carotid endarterectomy. 22. History of poor compliance and noncompliance. 23. History of chronic benign positional vertigo. 24. History of vitamin B12 deficiency. 25. History of hypertension, hyperlipidemia. Plan at this time; the patient has been scheduled for cardiac catheterization. Time is not confirmed from the cardiac slabber and Cardiology. The patient will be continued on ACS protocol including aspirin, Plavix, Lovenox and statins. The patient will be continued on all the medications as per the MAR of today. The patient has been started on pharmacological, non-pharmacological, GI and DVT prophylaxis. The patient has also been ordered out of bed to chair, physical therapy, occupational therapy, ambulation therapy. We are awaiting consultation. The patient has been requested to be seen by Neurology and Cardiology. The patient has been ordered MRI of the brain and EEG. Repeat EKG has been ordered for the morning, which will be reviewed when available. The patient has been ordered serial labs. The patient's further management will be dependent upon the patient's clinical condition, hemodynamic status and as per the patient's response to therapeutic intervention as per Neurology and Cardiology recommendation. In the meantime, the patient will be continued on all the medications as per the MAR of today, which was reviewed. At present, the patient will be continued with above therapeutic intervention and the patient will undergo further diagnostic therapeutic intervention as indicated, as needed and as per Cardiology and Neurology recommendation. Dictated and electronically signed, not read. Mohan Hidalgo MD [facility] # [id number]
--- NOTE | 2019-02-17 16:03 | CON ---
DATE: 02/17/2019 HISTORY OF PRESENT ILLNESS: This is an 83-year-old female with past medical history of CHF and coronary artery disease, hypertension who presented with the complain of shortness of breath and left-sided chest pain. The patient's EKG is consistent with non-ST elevation IN, elevated troponin was seen and the patient lying comfortably, not in distress. No pain and follow simple commands. PAST MEDICAL HISTORY: As above. SOCIAL HISTORY: Does not smoke. Does not drink. PHYSICAL EXAMINATION: HEENT: Normocephalic and atraumatic. NECK: Supple. NEURO: Awake and oriented x3. No aphasia. Cranial nerves II through XII were tested. Pupils reactive. EOM intact. Moves all the extremities spontaneously. Deep tendon reflexes are 1+. Both plantars are downgoing. Sensory appears intact. Cerebellar gait is deferred. RADIOLOGICAL DATA: CAT scan shows right parietal lobe and chronic ischemia. ASSESSMENT AND PLAN: Workup in progress. Multiple medical problems, hypertension, high cholesterol and cardiomyopathy. Continue present management. We will follow. Brad Melara MD
--- NOTE | 2019-02-17 16:58 | CARDCATH ---
PROCEDURE DATE: 02/17/2019 HISTORY: The patient is an 83-year-old woman, who presents with a non-STEMI. Because of this, cardiac catheterization was recommended. PROCEDURES: Left heart catheterization with coronary arteriography, left ventriculogram and supra-aortic valvular injection. The right femoral artery was cannulated with a 6-Martiniquais sheath. There were no complications. I performed moderate sedation, which included the presence of an independent trained observer that assisted in monitoring the patient's level of consciousness and physiologic status. After administration of Versed and fentanyl, my intra service time was 30 minutes. Findings on catheterization revealed a left ventricle that was dilated and diffusely hypokinetic with an estimated ejection fraction of 20%-25%. Supra-aortic valvular injection revealed no aortic insufficiency. The RCA was noted to be occluded, which is chronic. There were collaterals coming from the left circulation to the distal RCA with multiple lesions noted. The left main artery revealed diffuse atherosclerosis without critical lesions. The LAD and diagonal vessels revealed diffuse atherosclerosis with calcium with no critical lesions. The circumflex artery and obtuse marginal branches were free of significant disease. The patient had significant peripheral vascular disease in the right femoral artery site. The patient tolerated the procedure well. SUMMARY: The procedure revealed global left ventricular hypokinesis with an ejection fraction of 20%-25%. No aortic insufficiency. Single-vessel coronary artery disease with a chronically occluded right coronary artery with collaterals filling the distal right coronary artery from the left circulation. The rest of the coronary arteries revealed calcification and diffuse atherosclerosis. Significant peripheral vascular disease and femoral artery disease is noted. Given these findings, the patient's treatment will be continued medical therapy. Her left ventricular function is poor. We will need to be careful in terms of intravenous hydration. Dmitriy Zambrano MD
--- NOTE | 2019-02-17 19:03 | CP.PCM.PCO ---
Additional Comments - Additional Comments Additional Comments: S/P cath CAD with collateral, medical management. MRI, VEEG pending, PT eval pending
[2019-02-17] MEDS: TRAVATAN Z EYE OU SCH (21:12)
[2019-02-18] MEDS: Pantoprazole 40 mg EC Tab PO SCH (05:58)
[2019-02-18 06:58] LABS: EOS # 0.2 (0.0-0.7); EOS % 2.2 % (1.5-5.0); HEMOGLOBIN 12.9 g/dL (12.0-16.0); LYMPH # 1.1 (1.2-3.4); LYMPH % 16.2 % (22.0-35.0); MEAN CELL VOLUME 91.7 fl (80.0-105.0); MEAN CORPUSCULAR HGB CONC 31.6 g/dl (31.0-37.0); MEAN PLATELET VOLUME 9.8 fl (7.0-11.0); MONO # 0.9 (0.1-0.6); MONO % 13.4 % (1.0-6.0); RBC 4.45 10^6/uL (3.5-6.1); RED CELL DISTRIBUTION WIDTH 13.2 % (11.5-14.5); WHITE BLOOD COUNT 6.9 10^3/uL (4.5-11.0)
--- NOTE | 2019-02-18 07:18 | CP.PCM.PN ---
Subjective - Date & Time of Evaluation Date of Evaluation: 02/18/19 Time of Evaluation: 07:18 - Subjective Subjective: S:Patient was seen at bedside. I was asked to co-sign order of Doretha. She states that she was not able to sleep although she received above meds. Has no other complaints. Pertinent medical record was reviewed. O:VSS. Not in acute distress. LUNGS: Normal breathing pattern. A:Insomnial P: Elo and Josh orders signed. Advised patient to discuss with PMD regarding hypnotic medication orders by PMD if patient is going to stay longer. Objective - Vital Signs/Intake and Output Vital Signs (last 24 hours): Temp Pulse Resp BP Pulse Ox 98.2 F 79 20 154/84 H 97 02/18/19 05:28 02/18/19 05:28 02/18/19 05:28 02/18/19 05:28 02/18/19 05:28 Intake and Output: 02/18/19 02/18/19 06:59 18:59 Intake Total 600 Output Total 250 Balance 350 - Medications Medications: Current Medications Acetaminophen (Tylenol 325mg Tab) 650 mg PO Q6 PRN PRN Reason: TEMP>=99.5F Acetaminophen (Tylenol 650 Mg Supp) 650 mg RC Q6H PRN PRN Reason: TEMP>=99.5F Acetaminophen (Tylenol 325mg Tab) 650 mg PO Q6 PRN PRN Reason: Headache Last Admin: 02/16/19 22:58 Dose: 650 mg Acetaminophen (Tylenol 650 Mg Supp) 650 mg RC Q6H PRN PRN Reason: Headache Anastrozole (Arimidex 1 Mg Tab) 1 mg PO DAILY [facility] Last Admin: 02/17/19 10:53 Dose: Not Given Aspirin (Aspirin Chewable) 81 mg PO DAILY [facility] Last Admin: 02/17/19 10:52 Dose: Not Given Atorvastatin Calcium (Lipitor) 20 mg PO DAILY [facility] Last Admin: 02/17/19 10:54 Dose: Not Given Clopidogrel Bisulfate (Plavix) 75 mg PO DAILY [facility] Last Admin: 02/17/19 10:54 Dose: Not Given Donepezil HCl (Aricept) 10 mg PO HS [facility] Last Admin: 02/17/19 21:11 Dose: 10 mg Ergocalciferol (Drisdol 50,000 Intl Units Cap) 1 cap PO Q7D [facility] Last Admin: 02/16/19 17:10 Dose: 1 cap Escitalopram Oxalate (Lexapro) 10 mg PO QAM [facility] Last Admin: 02/17/19 18:37 Dose: Not Given Folic Acid (Folic Acid) 1 mg PO DAILY [facility] Last Admin: 02/17/19 10:53 Dose: Not Given Home Med (Home Med) 2 unit OU HS [facility] Last Admin: 02/17/19 21:12 Dose: 2 unit Home Med (Home Med) 1 unit OU AMHS [facility] Last Admin: 02/17/19 21:20 Dose: 1 unit Hydralazine HCl (Apresoline) 10 mg PO Q12H [facility] Last Admin: 02/17/19 18:38 Dose: Not Given Lorazepam (Ativan) 1.5 mg PO [facility]; Protocol Last Admin: 02/17/19 21:11 Dose: 1.5 mg Magnesium Oxide (Mag-Ox) 400 mg PO BID [facility] Last Admin: 02/17/19 17:58 Dose: 400 mg Meclizine HCl (Antivert) 12.5 mg PO TID [facility] Last Admin: 02/17/19 17:59 Dose: 12.5 mg Nitroglycerin (Nitro-Bid 2% Oint) 1 ea TOP Q6 PRN PRN Reason: -CHEST PAIN Colesevelam Hcl [ Welchol] 625 Mg ( Home Med) 625 mg PO DAILY [facility] Last Admin: 02/17/19 11:17 Dose: Not Given Olanzapine (Zyprexa) 5 mg PO [facility]; Protocol Last Admin: 02/17/19 21:11 Dose: 5 mg Ondansetron HCl (Zofran Inj) 4 mg IVP Q4H PRN PRN Reason: Nausea/Vomiting Pantoprazole Sodium (Protonix Ec Tab) 40 mg PO 0600 [facility] Last Admin: 02/18/19 05:58 Dose: 40 mg - Labs Labs: 02/17/19 07:00 02/17/19 07:00 PT 12.1 SECONDS (9.4-12.5) 02/16/19 12:30 INR 1.07 02/16/19 12:30
[2019-02-18 07:59] LABS: ALB/GLOB RATIO 1.2 (1.1-1.8); ALBUMIN 2.9 g/dL (3.0-4.8); ALT/SGPT 38 U/L (7-56); AST/SGOT 45 U/L (14-36); BLOOD UREA NITROGEN 15 mg/dL (7-21); CALCIUM 8.9 mg/dL (8.4-10.5); GFR NON-AFRICAN AMERICAN > 60
[2019-02-18 08:12] LABS: CK-MB 2.6 ng/mL (0.0-3.6)
[2019-02-18] MEDS ORDERED: Metoprolol Succinate 25 mg XL Tab PO SCH (09:00)
[2019-02-18] MEDS: Magnesium Oxide 400 mg Tab UD PO SCH ×2 (10:03→18:31)
[2019-02-18] MEDS: Colesevelam Hcl [Welchol] 625 MG (HOME MED) PO SCH (10:09)
[2019-02-18] MEDS: COMBIGAN EYE OU SCH ×2 (10:31→22:15)
--- NOTE | 2019-02-18 11:29 | PN ---
DATE: 02/18/2019 CARDIOLOGY FOLLOWUP SUBJECTIVE: The patient is asymptomatic in bed status post catheterization. PHYSICAL EXAMINATION: VITAL SIGNS: Blood pressure varies from 150 to 190 systolic and heart rates in the 70s. On telemetry there was 5 beat ventricular tachycardia noted which is asymptomatic. NECK: Negative JVD. LUNGS: Without rales. HEART: Reveals S1 and S2. EXTREMITIES: Without edema. The right groin site is stable. LABORATORY DATA: Hemoglobin is 12.5. Potassium is 4.0 and magnesium is 2.1. Troponins on a descending trend. IMPRESSION: 1. Non-ST elevation myocardial infarction. 2. Coronary artery disease with a chronically occluded right coronary artery. 3. Hypertension. 4. Severe peripheral vascular disease. 5. Poor left ventricular function with an ejection fraction of 25%. Given these findings, the patient is stable post cardiac catheterization, will increase her beta-blockers as well as adding lisinopril for better blood pressure control. Will keep on hospital monitor her another 24 hours. Dmitriy Zambrano MD
--- NOTE | 2019-02-18 14:40 | PCM.EEG ---
Electroencephalogram Report - Electroencephalogram Report Procedure Date: 02/17/19 Medication: Zyprexa, Aricept, Lorazepam Interpretation: Technical Information: This was a 16 -channel EEG, 1-channel EKG routine EEG performed using an ActBlue machine. Electrodes were applied using the 10/20 international placement system. Start; 16;17 End; 17;06. Total 49 min Clinical Information: seizures. During resting wakefulness there was a symmetric posterior dominant rhythm at 8.5-9.5 Hz, 30-50 uV, which was reactive to eye opening and closing. Drowsiness (16;50) was associated with fragmentation of the posterior dominant rhythm and with slow roving eye movements. Light sleep was not recorded. Hyperventilation was not performed. Photic stimulation was performed and there were no changes on the record. Focal abnormality; none ECG was associated with a normal sinus rhythm. Impression: This is a normal awake and drowsy electroencephalogram.
--- NOTE | 2019-02-18 15:23 | PN ---
DATE: 02/18/2019 SUBJECTIVE: The patient is in room 274, bed 2. Overnight nurse's notes were reviewed. The patient complained of insomnia and the patient received Ambien, which was advised to the certified medical technician not to prescribe the patient Ambien as the patient is already on Ativan 1.5 mg at bedtime, but the patient has been consistently prescribed by the residents Ativan which I have already advised the certified medical technician not to prescribe Ambien. The patient's last 24-hour events were noted. The patient underwent cardiac catheterization, Neurology and Cardiology evaluation. PHYSICAL EXAMINATION VITAL SIGNS: T-max 98.2. Telemetry shows sinus rhythm; heart rate 67-79; blood pressure 154/54, 198/89; respirations 20; O2 sat 97%. HEENT: Head: Normocephalic, atraumatic. HEENT examination shows pink conjunctivae. Anicteric sclerae. No oropharyngeal lesion. NECK: No neck rigidity. Positive right carotid endarterectomy surgical scar. Soft carotid bruit. CHEST: Kyphosis. LUNGS: Show decreased breath sound at the bases. CARDIOVASCULAR: S1 and S2, regular rhythm. Positive systolic murmur, left sternal border, right second intercostal space, left second intercostal space. ABDOMEN: Soft, positive bowel sounds. No palpable hepatosplenomegaly. GENITALIA: Female. RECTAL: Deferred. EXTREMITIES: Show no pitting edema, no calf tenderness, no Homans' sign. MUSCULOSKELETAL: As per the body mass index. NEUROLOGIC: The patient is alert, awake, responsive, is able to move upper and lower extremities without assistance. Gait examination is not tested. VASCULAR: Palpable pulses. PSYCHIATRIC: As per the patient's psychiatric history. DIAGNOSTICS: 02/18; WBC 6.9, hemoglobin and hematocrit 12.9 and 40.8, platelets 170. Sodium 139, potassium 4.0, chloride 107, CO2 27, BUN 15, creatinine 0.5, glucose 86, calcium 8.9, phosphorus 3.4, magnesium 2.1. AST 45, CPK down to 305. Troponin down to 0.14. Total protein 5.4, albumin 2.9. Cardiac catheterization shows left ventricular ejection fraction 25%, chronically occluded right coronary artery and right femoral artery peripheral arterial disease. IMPRESSION 1. Acute non-ST elevation myocardial infarction with elevated troponin and EKG changes. 2. Status post cardiac catheterization. 3. Chronically occluded right coronary artery. 4. Mild normocytic anemia. 5. Dilated ischemic cardiomyopathy. 6. Transaminitis. 7. Mild protein malnutrition and hypoalbuminemia. 8. Peripheral arterial disease of the right femoral artery. 9. Neurocardiogenic syncope. 10. Cognitive impairment and history of dementia. 11. Right parieto-occipital infarct. 12. Right carotid endarterectomy. 13. Insomnia. 14. Non-ST elevation myocardial infarction. 15. Proteinuria. 16. Microscopic hematuria. 17. Cervical spine degenerative disc disease. 18. Right parietal encephalomalacia. 19. Sinus bradycardia. 20. Hypertensive cardiovascular disease. 21. ST elevation in lead III, aVF and V3 with T-wave inversion and T-wave changes in I, aVL, V4-V6. 22. Transaminitis secondary to acute non-ST elevation myocardial function. 23. History of dementia, history of psychiatric disorder. 24. History of benign positional vertigo. 25. History of breast carcinoma. PLAN: Plan at this time, Cardiology recommendation and Neurology recommendations were reviewed. The patient will be continued on dual-antiplatelet therapy including aspirin and Plavix and statins. The patient's blood pressure medications will be adjusted to optimize blood pressure control. The patient has been resumed on the Lasix. The patient will be continued on all the therapeutic intervention as per the MAR. In addition, the patient will be continued on pharmacological, non-pharmacological GI/DVT prophylaxis. The patient has been ordered out of bed to chair, physical therapy, occupational therapy, ambulation therapy, gait training. The patient's case was referred for Transitional Care Unit evaluation. The patient's son has been updated about the patient's condition, diagnosis, overall guarded to poor prognosis, decompensated medical state. I have again re-advised and reinforced to the patient's son that the patient needs 24-hour care and supervision, which the patient's son is going to discuss with the patient and the rest of the family. I have advised the patient's son to discuss with the nephrology social worker, case management regarding the patient's discharge planning options. Dictated and electronically signed, not read. Mohan Hidalgo MD
--- NOTE | 2019-02-18 16:01 | CP.PCM.PCO ---
Physician Communication Note - Physician Communication Note Physician Communication Note: eeg is normal. c/w pt eval and cardiac management for nstemi
[2019-02-18] MEDS: Metoprolol Succinate 25 mg XL Tab PO SCH (17:06)
--- NOTE | 2019-02-18 17:19 | MRI ---
Date of service: 02/18/2019 PROCEDURE: MRI BRAIN WITHOUT CONTRAST HISTORY: syncope COMPARISON: 10/19/2018 TECHNIQUE: Multiplanar, multisequence MR images of the brain were obtained without intravenous contrast enhancement. FINDINGS: HEMORRHAGE: None DWI: No evidence of an acute or early subacute infarction. BRAIN PARENCHYMA: No mass effect or edema. Chronic encephalomalacia is seen in the right parietal white matter. There is a chronic lacunar infarct in the right thalamus. These findings are unchanged. VENTRICLES: Unremarkable. No hydrocephalus. CRANIUM: Unremarkable. ORBITS: Grossly unremarkable. PARANASAL SINUSES/MASTOIDS: Clear VASCULAR SYSTEM: Skull base flow voids intact. OTHER FINDINGS: None. IMPRESSION: No acute intracranial findings
[2019-02-18] MEDS: TRAVATAN Z EYE OU SCH (22:16)
[2019-02-19] MEDS: Pantoprazole 40 mg EC Tab PO SCH (06:09)
[2019-02-19 07:03] VITALS: TEMP 97.9; O2SAT 94
[2019-02-19 07:49] LABS: TROPONIN I 0.08 ng/mL
[2019-02-19 08:01] LABS: ALB/GLOB RATIO 1.1 (1.1-1.8); ALT/SGPT 35 U/L (7-56); AST/SGOT 41 U/L (14-36); BLOOD UREA NITROGEN 14 mg/dL (7-21); CALCIUM 8.7 mg/dL (8.4-10.5); GFR NON-AFRICAN AMERICAN > 60
[2019-02-19 08:13] LABS: CK-MB 2.9 ng/mL (0.0-3.6)
[2019-02-19] MEDS: Metoprolol Succinate 25 mg XL Tab PO SCH ×2 (11:04→17:02)
[2019-02-19] MEDS: Magnesium Oxide 400 mg Tab UD PO SCH ×2 (11:04→17:02)
[2019-02-19] MEDS: COMBIGAN EYE OU SCH (11:06)
[2019-02-19] MEDS: Colesevelam Hcl [Welchol] 625 MG (HOME MED) PO SCH (11:07)
--- NOTE | 2019-02-19 12:03 | DS ---
DATE: 02/19/2019 SUBJECTIVE: The patient is seen in room 276, bed 2. The patient was seen ambulating to the bathroom with the nurse. The patient is alert, awake, responsive, complains of insomnia, despite receiving Benadryl and Ativan. Overnight nurse's notes were reviewed. The patient states that she only slept for 2-3 hours. OBJECTIVE: VITAL SIGNS: T-max 98.1. Telemetry shows heart rate of 51, 63, 64, 55, 56, blood pressure 140-170, respirations 95%-97%. HEENT: Head examination normocephalic, atraumatic. HEENT examination shows pinkish conjunctivae, anicteric sclerae. No oropharyngeal lesion. No neck rigidity. Positive right carotid endarterectomy surgical scar. Positive kyphosis noted. CARDIOVASCULAR: S1 and S2, regular rhythm. Positive systolic murmur left sternal border, right second intercostal space, left second intercostal space. ABDOMEN: Soft, positive bowel sound. No palpable hepatosplenomegaly. GENITALIA: Female. RECTAL: Deferred. EXTREMITIES: Shows no pitting edema, no calve tenderness, no Homans' sign. NEUROLOGIC: The patient is alert, awake, responsive. He is able to move upper and lower extremity without assistance. Gait examination is independent with assisted by the patient's nurse. Motor strength is 5/5 in upper and lower extremity. Romberg sign is negative. DIAGNOSTICS: From February 19, sodium 138, potassium 4.1, chloride 105, CO2 of 31, anion gap 6, BUN 14, creatinine 0.5, GFR greater than 60, glucose 97, calcium 8.7, phosphorus 3.2, magnesium 1.9, AST 41. CPK down to 240. Troponin is down to 0.08. Urine cultures repeat contamination, blood type A positive. MRI of the brain reviewed. IMPRESSION: 1. Acute non-ST elevation myocardial infarction with elevated troponin. 2. Status post cardiac catheterization with right coronary artery chronic occlusion. 3. Hypertension. 4. Bradycardia. 5. Dilated ischemic cardiomyopathy with left ventricle ejection fraction of 25%. 6. Right femoral artery severe peripheral vascular disease. 7. History of dementia and cognitive impairment. 8. Granulocytosis. 9. Mild transaminitis. 10. Prediabetes with hemoglobin A1c of 5.7. 11. Proteinuria, microscopic hematuria, pyuria, bacteriuria. 12. A+ blood type. 13. Right parietal white matter chronic encephalomalacia and right thalamic chronic lacunar infarct, unchanged. 14. Status post cardiac catheterization. 15. Left ventricular ejection fraction of 20%-25%. 16. Chronically occluded right coronary artery. 17. Diffuse atherosclerosis of the left main coronary artery and left anterior descending and diagonal. 18. Severe right femoral artery peripheral vascular disease. 19. Dilated cardiomyopathy. 20. Hypertensive cardiovascular disease with left ventricular hypertrophy and acute non-ST elevation myocardial infarction with possible non-ST elevation myocardial infarction. 21. Acute non-ST elevation of possible myocardial infarction. 22. Status post fall. 23. Questionable syncope versus vasovagal versus neurocardiogenic syncope. 24. Gait dysfunction. 25. Deconditioning. 26. Cervical spine degenerative disc disease of C5-C6 and C6-C7. 27. History of major depressive disorder and severe psychosis with cognitive impairment. 28. History of psychosis. 29. History of bipolar disorder, cognitive impairment. 30. History of recurrent major depression with psychotic feature. 31. 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 PLAN: At this time, the patient is to be continued on telemetry until discontinued by Cardiology. The patient's current consultation is Cardiology, Neurology and Psychiatry, TCU evaluation ordered. The patient is on hydralazine 10 mg every 12 hours, Aricept 10 mg at bedtime, Arimidex 1 mg daily, aspirin 81 mg daily, Ativan 1.5 mg at bedtime, Benadryl 50 mg at bedtime p.r.n., Welchol 625 mg daily, Drisdol 50,000 units weekly, Combigan eye drops, Travatan eye drops, Lexapro 10 mg daily, Lipitor 20 mg daily, magnesium oxide 400 twice a day, nitro paste 1 inch every 6 hours, Plavix 75 mg daily, Protonix 40 mg daily, Toprol XL 25 mg twice a day ordered by Cardiology, Tylenol 650 every 6 hours p.r.n. Zestril 10 mg daily, Zofran 4 mg IV every 4 hours p.r.n., Zyprexa 5 mg at bedtime, the patient is on oxygen nasal cannula. EEG was done on 02/18/2019, which is negative. The patient is awaiting video EEG. He is on heart healthy diet. The patient has been ordered out of bed to chair, Casie Sexton, occupational therapy, physical therapy. The patient seen by the physical therapist. Recommending TCU. At present, the patient is awaiting for acceptance to TCU after further clearance, evaluation and recommendation by Cardiology, Neurology Psychiatry and after completion of the video EEG and the patient's son has been updated about the patient's condition, diagnosis, test results at length and all questions and concerns answered. I have re-emphasized to the patient's son about the patient's need for 24-hour care and supervision upon discharge from the hospital which he understands and acknowledges. The patient's son also understands and acknowledges that the patient is high risk for fall due to her decompensated medical condition and decompensated overall psychiatric condition. Dictated and electronically signed, not read. Signing off Mohan Hidalgo MD. Mohan Hidalgo MD
[2019-02-19] MEDS: Nitroglycerin 2% Ointment Foilpak UD TOP SCH ×2 (12:53→17:02)
[2019-02-19 17:01] VITALS: BP 156/88; RESP 22
[2019-02-19 17:07] VITALS: PULSE 58
--- NOTE | 2019-02-20 19:36 | CON ---
DATE: 02/20/2019 HISTORY OF PRESENT ILLNESS: The patient is an 83-year-old female with a history of numerous medical issues, please refer to medical note for details. Psychiatrically, she has a history of major depression, recurrent type as well as psychosis in the past, history of mild cognitive impairment, as well as multi infarct dementia. She has history of multiple hospitalizations, most recently at [facility] in 12/2016, where she was treated by Dr. Stoner and Dr. Mcdaniels and discharged on Ativan, Lexapro, Ritalin, and Zyprexa, who is currently supposed to follow up at [facility] at the end of the month. Reportedly compliant with her medications. Psychiatry was called to follow up because she has a psychiatric history. I met with the patient at bedside. I reviewed her records and met with her at bedside this morning. The patient is alert and oriented to month, year, and location. She is a little guarded. She was not aware that this psychiatric consultation was requested; however, she denied having any new psychiatric issues at this time, though admitted that she had issues with depression, memory, and paranoia in the past. She indicates that she has been taking her psychiatric medications and has an appointment planned at the end of the month at [place] to ensure that her current medications are appropriate. Her affect is constricted and she admits to a history of depression, but does not really feel depressed at this time. She is hopeful. She denies any suicidal thoughts, homicidal thoughts, or hallucinations at this time. Her presentation appears to be very similar to what this provider read as her baseline presentation. She does not appear to have decompensated recently as she presented much more poorly during her decompensations that required hospitalization in regards to responsiveness, catatonia, and overt disorganization. There have been no much behavioral problems since she was transferred for recuperation. She is superficially cooperative, but not generally engaged with my questioning, but her processes are relevant and consistent with repeated questions. Insight and judgment are considered to be fair at this time. PAST PSYCHIATRIC HISTORY: As noted, the patient has had multiple hospitalizations, most recently in 12/2016 where she was under the care of Dr. Mcdaniels and Dr. Stoner for symptoms of depression, inability to function, catatonia, wandering, paranoia, agitation, and lability. She has also had hospitalizations in [facility] in the past. SOCIAL HISTORY: The patient is and a . She has a son and a daughter. She has no history of alcohol or substance abuse. The patient indicates that she lives by herself and she was born and raised in [place]. RELEVANT PSYCHIATRIC MEDICATIONS: Provided to the patient on the medical floor include; Aricept 10 mg at bedtime, Lexapro 10 mg daily, Ativan 1.5 mg at bedtime, and Zyprexa 5 mg at bedtime. IMPRESSION: Adjustment disorder with mood and anxiety symptoms, major depressive disorder by history, though the patient reports it is noncontributory; history of psychosis in the past, contributory at this time; the patient does have a history of multi infract dementia and mild cognitive impairment which could give the presentation of confusion, memory issues at times. RECOMMENDATIONS: At this time, this provider will continue with current medications. The patient does not appear to be overtly disorganized and there is no concern regarding hallucinations and the patient denies any major depressive symptoms and she indicates that she is tolerating her current psychiatric medications well. As noted, there is no acute indication to change medications at this time. Medical team should ensure that patient really does have a psychiatric followup plan at the end of the month. Otherwise, Psychiatry will signoff at this time. Please re-consult pjennyfer. Ki Wan MD
== END 2019-02-19 21:18 | DRG 281 ==
LOC: ED 12:05 → ERH 15:16 → 2RSO 16:19
PROVIDERS: ADMIT Internal Medicine; ATTEND Internal Medicine
PROC: 4A023N7 Measurement of Cardiac Sampling and Pressure, Left Heart, Percutaneous Approach (ICD-10-PCS; principal; 2019-02-17)
PROC: B211YZZ Fluoroscopy of Multiple Coronary Arteries using Other Contrast (ICD-10-PCS; 2019-02-17)
PROC: B215YZZ Fluoroscopy of Left Heart using Other Contrast (ICD-10-PCS; 2019-02-17)
DX: I21.4 Non-ST elevation (NSTEMI) myocardial infarction (principal); I42.0 Dilated cardiomyopathy; I50.20 Unspecified systolic (congestive) heart failure; G93.89 Other specified disorders of brain; I11.0 Hypertensive heart disease with heart failure; F31.9 Bipolar disorder, unspecified; E78.00 Pure hypercholesterolemia, unspecified; I73.9 Peripheral vascular disease, unspecified; I25.5 Ischemic cardiomyopathy; I25.10 Atherosclerotic heart disease of native coronary artery without angina pectoris; F02.80 Dementia in other diseases classified elsewhere, unspecified severity, without behavioral disturbance, psychotic disturbance, mood disturbance, and anxiety; G30.9 Alzheimer's disease, unspecified; D64.9 Anemia, unspecified; R73.03 Prediabetes; M50.322 Other cervical disc degeneration at C5-C6 level; E53.8 Deficiency of other specified B group vitamins; H81.10 Benign paroxysmal vertigo, unspecified ear; G47.00 Insomnia, unspecified; K21.9 Gastro-esophageal reflux disease without esophagitis; E78.5 Hyperlipidemia, unspecified; H40.9 Unspecified glaucoma; R31.29 Other microscopic hematuria; Z86.73 Personal history of transient ischemic attack (TIA), and cerebral infarction without residual deficits; Z91.19 Patient's noncompliance with other medical treatment and regimen; Z85.3 Personal history of malignant neoplasm of breast; Z79.82 Long term (current) use of aspirin; Z95.5 Presence of coronary angioplasty implant and graft; Z87.891 Personal history of nicotine dependence

== ENCOUNTER 2019-02-19 21:21 | Inpatient (IN) | payer OTHER, MEDICARE ==
[2019-02-19 21:43] VITALS: BMI 23.6
[2019-02-19] MEDS ORDERED: TIMOLOL OU SCH (22:00)
[2019-02-19] MEDS ORDERED: BRIMONIDINE OU SCH (22:00)
[2019-02-19] MEDS ORDERED: TRAVOPROST OU SCH ×2 (22:15→23:39)
[2019-02-19] MEDS ORDERED: Pneumococcal 23-Valent Vaccine IM ONE (22:43)
[2019-02-19] MEDS: Nitroglycerin 2% Ointment Foilpak UD TOP SCH (23:33)
[2019-02-20] MEDS: Pantoprazole 40 mg EC Tab PO SCH (05:18)
[2019-02-20] MEDS: Nitroglycerin 2% Ointment Foilpak UD TOP SCH (05:19)
--- NOTE | 2019-02-20 09:55 | CP.PCM.PN ---
Subjective - Date & Time of Evaluation Date of Evaluation: 02/20/19 Time of Evaluation: 00:30 - Subjective Subjective: Patient was seen at bedside. Her blood pressure was elevated and hydralazine 10 mg PO was ordered by medical education specialist. Denied any symptoms. Medical record was reviewed. This 83 year old woman was admitted with history of being found on the floor. Has PMH of EF 29%,CAD,HTN,TIA,bipolar disorder,GERD,dyslipidemia, breast cancer, glaucoma, right carotid stenosis with CEA. Objective - Vital Signs/Intake and Output Vital Signs (last 24 hours): Temp Pulse Resp BP Pulse Ox 97.8 F 60 18 181/69 H 02/19/19 22:26 02/20/19 07:00 02/19/19 22:26 02/20/19 07:00 - Medications Medications: Current Medications Acetaminophen (Tylenol 325mg Tab) 650 mg PO Q6 PRN; Protocol PRN Reason: temp >=99.5 Acetaminophen (Tylenol 650 Mg Supp) 650 mg RC Q6H PRN PRN Reason: Fever >=99.5 Acetaminophen (Tylenol 325mg Tab) 650 mg PO Q6 PRN PRN Reason: TEMP>=99.5F Acetaminophen (Tylenol 650 Mg Supp) 650 mg RC Q6H PRN PRN Reason: TEMP>=99.5F Anastrozole (Arimidex 1 Mg Tab) 1 mg PO DAILY LOAN Aspirin (Aspirin Chewable) 81 mg PO DAILY LOAN; Protocol Atorvastatin Calcium (Lipitor) 20 mg PO DAILY LOAN; Protocol Clopidogrel Bisulfate (Plavix) 75 mg PO DAILY LOAN; Protocol Diphenhydramine HCl (Benadryl) 50 mg PO HS PRN; Protocol PRN Reason: Insomnia Donepezil HCl (Aricept) 10 mg PO HS LOAN; Protocol Last Admin: 02/19/19 23:30 Dose: 10 mg Enoxaparin Sodium (Lovenox) 40 mg SC DAILY LOAN; Protocol Ergocalciferol (Drisdol 50,000 Intl Units Cap) 1 cap PO Q7D LOAN; Protocol Escitalopram Oxalate (Lexapro) 10 mg PO QAM LOAN; Protocol Furosemide (Lasix) 40 mg IVP DAILY LOAN Home Med (Home Med) 1 unit PO DAILY LOAN Home Med (Home Med) 0 unit OU AMHS LOAN Home Med (Home Med) 2 unit OU HS LOAN Hydralazine HCl (Apresoline) 10 mg PO Q12H LOAN; Protocol Last Admin: 02/19/19 23:29 Dose: 10 mg Levalbuterol HCl (Xopenex) 0.63 mg IH [id number] LOAN Lisinopril (Zestril) 10 mg PO DAILY LOAN; Protocol Lorazepam (Ativan) 1.5 mg PO HS LOAN; Protocol Last Admin: 02/19/19 23:30 Dose: 1.5 mg Magnesium Oxide (Mag-Ox) 400 mg PO BID LOAN; Protocol Metoprolol Tartrate (Lopressor) 25 mg PO DAILY LOAN Olanzapine (Zyprexa) 5 mg PO HS LOAN; Protocol Last Admin: 02/19/19 23:32 Dose: 5 mg Ondansetron HCl (Zofran Tab) 4 mg PO Q4H PRN; Protocol PRN Reason: Nausea/Vomiting Ondansetron HCl (Zofran Inj) 4 mg IVP Q4H PRN PRN Reason: Nausea/Vomiting Pantoprazole Sodium (Protonix Ec Tab) 40 mg PO 0600 LOAN; Protocol Last Admin: 02/20/19 05:18 Dose: 40 mg - Constitutional Appears: Well, No Acute Distress - Head Exam Head Exam: ATRAUMATIC, NORMAL INSPECTION, NORMOCEPHALIC - Eye Exam Eye Exam: Normal appearance - ENT Exam ENT Exam: Normal External Ear Exam - Neck Exam Neck Exam: Normal Inspection - Respiratory Exam Respiratory Exam: NORMAL BREATHING PATTERN - Cardiovascular Exam Cardiovascular Exam: absent: JVD - GI/Abdominal Exam GI & Abdominal Exam: absent: Distended - Rectal Exam Rectal Exam: Deferred - Exam Additional comments: Deferred. - Extremities Exam Extremities Exam: Normal Inspection - Back Exam Back Exam: NORMAL INSPECTION - Neurological Exam Neurological Exam: Alert, Awake - Psychiatric Exam Psychiatric exam: Normal Affect, Normal Mood - Skin Skin Exam: Normal Color Assessment and Plan - Assessment and Plan (Free Text) Assessment: Elevated blood pressure reading. HTN. CAD. EF 29%. TIA hx. Bipolar disorder. GERD. Dyslipidemia. Hx breast cancer. Hx right carotid artery stenosis. Plan: Hydralazine 10 mg PO x 1. Continue present management.
[2019-02-20] MEDS ORDERED: Enoxaparin 40 mg Syringe SC SCH (10:00)
[2019-02-20] MEDS ORDERED: Metoprolol Succinate 25 mg XL Tab PO SCH (10:00)
[2019-02-20] MEDS: TIMOLOL OU SCH ×2 (10:04→22:55)
[2019-02-20] MEDS: COLESEVELAM HCL 625 MG PO SCH (10:04)
[2019-02-20] MEDS: BRIMONIDINE OU SCH ×2 (10:04→22:55)
[2019-02-20] MEDS: Magnesium Oxide 400 mg Tab UD PO SCH ×2 (10:06→17:29)
--- NOTE | 2019-02-20 11:44 | HP ---
DATE OF EXAM: 02/20/2019 HISTORY OF PRESENT ILLNESS: The patient is an 83-year-old female who was admitted to the acute care floor from 02/16/2019 to 02/19/2019 with acute non-ST elevation CA. The patient was stabilized. The patient underwent entire diagnostic therapeutic intervention and after completion of above acute care, the patient is now transferred to TCU. The patient is now admitted to bed 327, bed 1. The patient is seen and examined, sitting up in the bed. The patient is alert, awake, responsive. CODE STATUS: Full code. LIVING WILL ADVANCE DIRECTIVE: None. Height is 5 feet 1 inch. Weight is 125 pounds. Body mass index of 23.6. CURRENT MEDICATIONS: Hydralazine 10 mg p.o. every 12 hours, Aricept 10 mg at bedtime, Avonex 1 mg daily, Ecotrin 81 mg daily, Ativan 1.5 mg at bedtime, Benadryl 50 mg at bedtime, Drisdol 50,000 units weekly. The patient is also on Combigan eye drops, the patient is on Welchol 625 mg daily, the patient is on Travatan eye drops, Lasix 40 mg IV daily, Lexapro 10 mg daily, Lipitor 20 mg daily, Lopressor 25 mg daily, magnesium oxide 400 mg twice a day, nitro paste 1 inch every 6 hours, which will be discontinued, Plavix 75 mg daily, Protonix 40 mg daily, Tylenol 650 mg p.o. suppository every 6 hours p.r.n., Zestril 10 mg daily, Zofran 4 mg p.o. every 4 hours p.r.n., Zyprexa 5 mg p.o. at bedtime, oxygen 2 liters nasal cannula, heart-healthy diet. SOCIAL HISTORY: The patient's social history is negative for smoking, alcohol or drug use at this time, but positive for former smoker. OCCUPATIONAL HISTORY: Disabled elderly female. PAST MEDICAL, SURGICAL, AND PSYCHIATRIC HISTORY: 1. History of cerebral infarct. 2. History of carotid stenosis. 3. History of carotid endarterectomy. 4. History of severe carotid artery stenosis. 5. History of coronary artery disease. 6. History of non-ST elevation myocardial infarction with elevated troponin. 7. History of chronically occluded right coronary artery disease. 8. History of bradycardia. 9. History of hypertension. 10. History of dilated ischemic cardiomyopathy with ejection fraction of 25%. 11. History of right femoral artery severe peripheral vascular disease. 12. History of dementia and cognitive impairment. 13. History of transaminitis. 14. History of prediabetes. 15. History of proteinuria, microscopic hematuria, pyuria, bacteriuria. 16. History of right parietal white matter chronic encephalomalacia and right thalamic chronic lacunar infarct. 17. History of left ventricle ejection fraction 20% to 25% with chronically occluded right coronary artery with diffuse atherosclerosis of the left main coronary artery, left anterior descending and left diagonal vessel and severe right femoral artery peripheral vascular disease. 18. History of hypertensive cardiovascular disease with left ventricular hypertrophy. 19. History of falls. 20. History of syncope. 21. History of vasovagal syncope versus neurocardiogenic syncope. 22. History of cervical spine degenerative disc disease. 23. History of major depressive disorder with history of severe psychosis with cognitive impairment. 24. History of psychosis, bipolar disorder, cognitive impairment recurrent history of major depression with psychotic features. 25. History of dementia secondary to cerebrovascular accident. 26. History of benign positional vertigo. 27. History of vitamin B12 deficiency. 28. History of chronic dizziness. 29. History of bipolar disorder. 30. History of dyslipidemia. 31. History of breast carcinoma. 32. History of cholecystectomy. 33. History of right breast lumpectomy. 34. History of a former smoker. FAMILY HISTORY Positive for colon carcinoma in the father and bladder carcinoma in the mother. PAST MEDICAL AND SURGICAL HISTORY: 1. Positive for syncope. 2. History of dilated cardiomyopathy. 3. Past medical history is significant for history of deconditioning. 4. History of recurrent systolic congestive heart failure with bilateral lower extremity venous stasis. 5. History of dementia. 6. History of anxiety, depression, and psychosis. 7. History of cerebral infarct. 8. History of vitamin B12 deficiency. 9. History of recurrent systolic congestive heart failure. 10. History of dilated ischemic cardiomyopathy. 11. History of right carotid endarterectomy. 12. History of noncompliance. 13. History of gait dysfunction. 14. History of decompensated systolic congestive heart failure. 15. History of carotid stenosis. 16. History of psychosis. 17. Past medical history is also significant for history of grade 1 abnormal relaxation pattern. 18. History of B12 deficiency. 19. History of uncontrolled hypertension. 20. History of bradycardia. 21. History of poor compliance. 22. History of kyphosis. 23. History of chronic right posterior temporoparietal watershed zone infarct with deep white matter subcortical white matter, basal nuclei right cerebellum lacunar infarct. 24. History of chronic occluded right coronary artery disease. 25. History of acute right parieto-occipital infarct over chronic right parieto-occipital infarct. 26. History of left internal carotid artery 60% to 70% stenosis. 27. History of right carotid endarterectomy. 28. History of hypertension. 29. History of benign positional vertigo. 30. History of bipolar disorder. 31. History of hypertensive cardiovascular disease. 32. History of multilobar right-sided pneumonia. 33. History of systolic congestive heart failure. 34. History of cholecystectomy with pneumobilia. 35. History of poor compliance. 36. History of right parietooccipital lobe acute infarct and nonhemorrhagic acute infarct of the right occipital right parietal lobe. 37. History of bilateral carotid stenosis. 38. History of schizophrenia. 39. The patient's history is also significant for non-ST elevation. 40. History of moderate mitral regurgitation. 41. History of right carotid endarterectomy. 42. History of depression and psychosis. 43. History of dilated ischemic cardiomyopathy. 44. History of microvascular ischemic disease of the brain with ventriculomegaly. 45. History of kyphosis. 46. History of withdrawal and seclusive behavior with grandiosity. 47. History of hallucinations. 48. History of old inferior wall myocardial infarction. 49. History of old anterior inferolateral myocardial infarction. 50. History of hypovitaminosis D. 51. History of bipolar disorder. 52. History of atelectasis. 53. History of pneumonia. PHYSICAL EXAMINATION GENERAL: The patient is seen in the TCU, bed 327. The patient is sitting up in the bed. VITAL SIGNS: T-max 97.8, heart rate 59, 61, blood pressure 181/69, 130/68, 184/79, 198/91, 192/92, respirations 18, O2 sat is not documented. Body mass index is 24. HEENT: Head; normocephalic, atraumatic. HEENT examination shows pink conjunctivae. Anicteric sclerae. No oropharyngeal lesion. NECK: No neck rigidity. Neck examination shows positive carotid endarterectomy surgical scar. Kyphosis noted. CHEST: Kyphosis. LUNGS: Shows decreased breath sounds at the bases. CARDIOVASCULAR: S1, S2, regular rhythm. Positive systolic murmur at the left sternal border, right second intercostal space, left second costal space. ABDOMEN: Soft, positive bowel sounds. No palpable hepatosplenomegaly noted. Positive surgical scar of cholecystectomy. GENITALIA: Female. RECTAL: Deferred. EXTREMITIES Show trace swelling of the lower extremity and ankle swelling. BACK: Positive kyphosis of the thoracic spine noted. NEUROLOGIC: Gait examination is not tested. DIAGNOSTIC DATA: None. IMPRESSION AND PLAN 1. Uncontrolled hypertension. 2. Deconditioning. 3. Gait dysfunction. 4. Acute non-ST elevation myocardial infarction with elevated troponin. 5. Single-vessel coronary artery disease with chronically occluded right coronary artery. 6. Status post cardiac catheterization. 7. Bradycardia. 8. Dilated ischemic cardiomyopathy with ejection fraction of 25%. 9. Right femoral artery severe peripheral vascular disease. 10. History of dementia and cognitive impairment. 11. History of cerebral infarct with history of carotid stenosis and right carotid endarterectomy. 12. History of transaminitis. 13. History of prediabetes. 14. History of chronic right parietal white matter chronic encephalomalacia and right thalamic chronic lacunar infarct. 15. History of diffuse atherosclerosis of the left main coronary artery, left anterior descending and diagonal artery. 16. History of dilated cardiomyopathy. 17. History of hypertensive cardiovascular disease. 18. History of falls. 19. History of questionable syncope versus vasovagal versus neurocardiogenic syncope. 20. History of cervical spine degenerative disease. 21. Major depressive disorder with severe psychosis and cognitive impairment. 22. History of bipolar disorder and cognitive impairment. 23. History of recurrent depression with psychotic features. 24. Recurrent exacerbation of systolic congestive heart failure. 25. History of cerebral infarct. 26. History of carotid endarterectomy. 27. History of vitamin B12 deficiency. 28. Bradycardia. 29. Hypertension. 30. Deconditioning. 31. Gait dysfunction. 32. Insomnia. 33. History of breast carcinoma. 34. Hypovitaminosis D. 35. Hyperlipidemia. 36. Depression. 37. Hypomagnesemia. CURRENT MEDICATIONS: Hydralazine 10 mg p.o. every 12 hours, Aricept 10 mg at bedtime, Avonex 1 mg daily, aspirin 81 mg daily, Ativan 1.5 mg at bedtime, Benadryl 50 mg at bedtime p.r.n., Drisdol 50,000 units weekly, Travatan and Combigan eyedrops, Welchol 625 mg p.o. daily, Lasix 40 mg IV daily, Lexapro 10 mg daily, Lipitor 20 mg daily, Lopressor 25 mg once a day, magnesium oxide 400 mg twice a day, Plavix 75 mg daily, Protonix 40 mg daily, Tylenol 650 mg p.o. suppository every 6 hours p.r.n., Zestril 10 mg daily, Zofran 4 mg p.o. every 4 hours, Zyprexa 5 mg at bedtime. Oxygen 2 liters, heart-healthy diet. PLAN: At this time, the patient has been resumed on IV Lasix 40 mg daily. CMP, magnesium, LFTs are ordered. Plan at this time, the patient has been ordered repeat labs. We have ordered consultation with Psychiatry and Cardiology. ABAD tian, CYDNEYs. The patient has been ordered out of bed to chair. The patient will continue on daily physical therapy, occupational therapy, ambulation therapy, gait training. Pharmacological, non-pharmacological GI and DVT prophylaxis has been ordered. The patient has been ordered all the medications and all the therapeutic intervention as per the MAR. We will await further recommendation from Cardiology and Psychiatry. Dictated and electronically signed, not read. Mohan Hidalgo MD
[2019-02-20] MEDS: Levalbuterol 0.63 MG/3 ML Inhal Soln UD IH SCH (20:02)
[2019-02-20] MEDS: TRAVOPROST OU SCH (22:59)
[2019-02-21] MEDS: Levalbuterol 0.63 MG/3 ML Inhal Soln UD IH SCH ×4 (01:40→19:43)
[2019-02-21] MEDS: Pantoprazole 40 mg EC Tab PO SCH (05:41)
[2019-02-21] MEDS: Enoxaparin 40 mg Syringe SC SCH (05:42)
[2019-02-21 07:32] LABS: ALB/GLOB RATIO 1.1 (1.1-1.8); ALBUMIN 2.9 g/dL (3.0-4.8); ALT/SGPT 39 U/L (7-56); AST/SGOT 38 U/L (14-36); BILIRUBIN,DIRECT 0.1 mg/dL (0.0-0.4); BLOOD UREA NITROGEN 20 mg/dL (7-21); CALCIUM 8.7 mg/dL (8.4-10.5); GFR NON-AFRICAN AMERICAN > 60
[2019-02-21] MEDS: BRIMONIDINE OU SCH ×2 (09:35→21:58)
[2019-02-21] MEDS: TIMOLOL OU SCH ×2 (09:35→21:58)
[2019-02-21] MEDS: Magnesium Oxide 400 mg Tab UD PO SCH ×2 (09:36→17:17)
[2019-02-21] MEDS: COLESEVELAM HCL 625 MG PO SCH (13:41)
--- NOTE | 2019-02-21 20:36 | PN ---
DATE: 02/21/2019 SUBJECTIVE: The patient is seen lying in the bed in room 327, bed 1. The patient's son is at bedside. The patient is alert, awake, responsive. The patient states that she slept well overnight. The patient states that she did not get enough therapy according to the patient. At that juncture, I had the nurse mail manager come and speak to the patient and the patient's son about this concern and questions. It appears that the patient is apparently confusing the occupational therapy as not been included in her daily physical therapy and occupational therapy. The patient was advised and the son was advised and explained that the patient's occupational therapy is also a part of the TCU therapy program. PHYSICAL EXAMINATION GENERAL: The patient is seen and examined, sitting up in the bed. VITAL SIGNS: T-max is 98, heart rate 62, blood pressure 131/64, respiration 16, O2 sat 94%. HEENT: Head; normocephalic, atraumatic. HEENT examination shows pink conjunctivae. Anicteric sclerae. No oropharyngeal lesion. NECK: No neck rigidity. Positive carotid endarterectomy surgical scar. CHEST: Positive kyphosis. LUNGS: Shows decreased breath sounds. CARDIOVASCULAR: S1, S2, regular rhythm. Positive systolic murmur left sternal border, right second intercostal space, left second intercostal space. ABDOMEN: Soft, positive bowel sounds. No palpable hepatosplenomegaly. GENITALIA: Female. RECTAL: Deferred. EXTREMITIES: Shows trace swelling of the ankle. No pitting edema noted. MUSCULOSKELETAL: Examination as per the body mass index. NEUROLOGIC: The patient is alert, awake, responsive, is able to move upper and lower extremity without assistance. Positive kyphosis noted. PSYCHIATRIC: As per psychiatry evaluation. DIAGNOSTICS: Sodium 139, potassium 3.8, chloride 102, CO2 of 32, BUN 20, creatinine 0.6, glucose 97, calcium 8.7, magnesium 1.9. AST is 38. IMPRESSION 1. Gait dysfunction. 2. Deconditioning. 3. Severe kyphosis. 4. Non-ST elevation myocardial infarction. 5. Coronary artery disease. 6. Status post cardiac catheterization. 7. Chronically occluded right coronary artery. 8. The left main coronary artery and left anterior descending and diagonal vessel atherosclerosis and intimal irregularities. 9. Status post uncontrolled hypertension. 10. Dilated ischemic cardiomyopathy. 11. Acute recurrent systolic congestive heart failure. 12. Acute non-ST elevation myocardial infarction with elevated troponin. 13. Hyperlipidemia. 14. Dementia. 15. History of cerebral infarct. 16. History of carotid artery stenosis status post right carotid endarterectomy. 17. History of right parietal infarct and right parietal encephalomalacia. 18. History of bipolar disorder. 19. History of anxiety and depression. 20. Insomnia. 21. Benign positional vertigo. 22. Dizziness probably secondary to benign positional vertigo versus secondary to multiple cerebral infarcts. 23. Carotid artery stenosis. 24. Hypertension. 25. Vitamin B12 deficiency. 26. Hyperlipidemia. 27. Hypovitaminosis D. 28. Severe noncompliance and poor compliance. PLAN: The patient will be continued on all the medications as per the MAR of today, which is reviewed. The patient will undergo daily physical therapy, occupational therapy, ambulation therapy, gait training. The patient has been ordered both pharmacological, non-pharmacological GI and DVT prophylaxis. The patient has also been ordered ABAD stockings and SCDs. In addition, I have discussed at length regarding the patient's safety issues and discharge planning options. I have advised the patient's son and the patient that due to patient's multiple complicated medical conditions and decompensated state and recent history of falling and acute myocardial infarction, I have advised the patient again and the patient's son again that the patient needs 24-hour care and supervision upon discharge, which has been discussed extensively with the patient and the son and the daughter previously on multiple occasions. The patient and the son was also advised to contact [facility] for possible [facility] placement all of the above options were declined by the patient and she is not interested in any of the above options and wishes to go home and live on her own independently upon discharge. All the risks, consequences and complications of living alone was explained to the patient and the patient's son at length and all questions concerned answered. The patient and the patient's son understands and acknowledges all the risk and consequences of the patient living alone. The patient will continue on the TCU floor till approved number of days. Dictated and electronically signed, not read. Mohan Hidalgo MD
[2019-02-21] MEDS: TRAVOPROST OU SCH (22:07)
[2019-02-22] MEDS: Levalbuterol 0.63 MG/3 ML Inhal Soln UD IH SCH ×5 (01:29→20:18)
[2019-02-22] MEDS: Pantoprazole 40 mg EC Tab PO SCH (06:06)
[2019-02-22] MEDS: Enoxaparin 40 mg Syringe SC SCH (06:07)
[2019-02-22 09:19] LABS: ALB/GLOB RATIO 1.1 (1.1-1.8); ALT/SGPT 37 U/L (7-56); AST/SGOT 33 U/L (14-36); BILIRUBIN,DIRECT 0.2 mg/dL (0.0-0.4); BLOOD UREA NITROGEN 22 mg/dL (7-21); CALCIUM 8.9 mg/dL (8.4-10.5); GFR NON-AFRICAN AMERICAN > 60
--- NOTE | 2019-02-22 09:47 | PN ---
DATE: 02/22/2019 SUBJECTIVE: The patient is seen lying in the bed in room 327, bed 1. The patient is comfortable, alert, awake, responsive, states she slept well. Overnight nurse's notes were reviewed. The patient refused SCDs and ABAD stockings. Refused to use walker, despite safety instruction by the physical therapy and the nurses. OBJECTIVE: VITAL SIGNS: T-max 98, heart rate 72-58, blood pressure 167/81, respirations 20, O2 sat 92%. HEENT: Head examination normocephalic, atraumatic. HEENT examination shows pinkish pale conjunctivae. Anicteric sclerae. No oropharyngeal lesion. No neck rigidity. Positive carotid endarterectomy surgical scar. CHEST: Positive kyphosis of the thoracic spine. LUNGS: Shows no audible crackle, rales or wheezing. Questionable decreased breath sound at the bases, left more than the right. CARDIOVASCULAR: Shows S1, S2, regular rhythm. Positive systolic murmur left sternal border, right second intercostal space, left second intercostal space. ABDOMEN: Soft, positive bowel sound, no palpable hepatosplenomegaly. GENITALIA: Female. RECTAL: Deferred. EXTREMITIES: Shows trace swelling of the ankle, no pitting edema, no calve tenderness, no Homans' sign. NEUROLOGIC: The patient is alert, awake, responsive, he is able to move upper and lower extremity without assistance. Gait examination is not tested. MUSCULOSKELETAL: Shows a body mass index of 25.1. DIAGNOSTICS: From February 21 reviewed. Sodium 39, potassium 3.8, chloride 102, CO2 of 33, BUN 20, creatinine 0.6, glucose greater than 60, glucose 97, calcium 8.7, magnesium 1.9. LFTs are normal. Total protein 5.4, albumin 2.9. IMPRESSION: 1. Acute non-ST elevation myocardial infarction. 2. Gait dysfunction. 3. Deconditioning. 4. Noncompliance and poor compliance. 5. Uncontrolled hypertension. 6. Acute recurrent systolic congestive heart failure. 7 Dementia with cognitive impairment and memory impairment. 8. History of breast carcinoma. 9. Insomnia. 10. Hypovitaminosis D. 11. Depression. 12. Hyperlipidemia. 13. Hypomagnesemia. 14. History of cerebral infarct and history of carotid stenosis and carotid endarterectomy. 15. History of depression. PLAN: At this time, the patient has been ordered to repeat labs for the morning. Current consultation, Psychiatry and Cardiology, their evaluation pending. CURRENT MEDICATIONS: Hydralazine 10 mg p.o. twice a day, Aricept 10 mg at bedtime, Arimidex 1 mg daily, Ecotrin 81 mg daily, Ativan 1.5 mg at bedtime, Benadryl 50 mg at bedtime, Drisdol 50,000 units weekly, the patient is on eye drops and Welchol. The patient is on Lasix 40 mg p.o. daily, Lexapro. Lipitor 20 mg daily, Lopressor 25 mg daily, Lovenox 40 mg subcu daily for DVT prophylaxis. The patient is on magnesium oxide 400 mg twice a day, Plavix 75 mg daily, Protonix 40 mg daily for GI prophylaxis, Tylenol 650 mg p.o. suppository every 6 hours p.r.n., Xopenex nebulizer 0.63 mg every 6 hours, Zestril 10 mg daily Zofran 4 mg IV every 4 hours p.r.n., Zyprexa 5 mg at bedtime, oxygen 2 liters, ABAD stockings, head of the bed at 30-45 degrees, elevation of both legs and feet on two pillows lying and sitting, out of bed to chair, physical therapy, occupational therapy all ordered. The patient has been advised to comply with the nursing recommendations. The patient was advised to comply with the physical therapy, occupational therapy recommendation and plan. The patient was advised to cooperative with the nurses and the physical therapy to utilize all the facilities of the TCU. Dictated and electronically signed, not read. Signing off Mohan Hidalgo MD. Mohan Hidalgo MD
[2019-02-22] MEDS: COLESEVELAM HCL 625 MG PO SCH (10:12)
[2019-02-22] MEDS: TIMOLOL OU SCH ×2 (10:13→22:15)
[2019-02-22] MEDS: BRIMONIDINE OU SCH ×2 (10:13→22:15)
[2019-02-22] MEDS: Magnesium Oxide 400 mg Tab UD PO SCH ×2 (10:14→17:02)
[2019-02-22] MEDS: TRAVOPROST OU SCH (22:15)
[2019-02-23] MEDS: Levalbuterol 0.63 MG/3 ML Inhal Soln UD IH SCH ×4 (02:00→19:49)
[2019-02-23] MEDS: Pantoprazole 40 mg EC Tab PO SCH (05:28)
[2019-02-23] MEDS: Enoxaparin 40 mg Syringe SC SCH (05:28)
[2019-02-23 08:22] LABS: ALB/GLOB RATIO 1.2 (1.1-1.8); ALBUMIN 3.2 g/dL (3.0-4.8); ALT/SGPT 33 U/L (7-56); AST/SGOT 35 U/L (14-36); BILIRUBIN,DIRECT 0.1 mg/dL (0.0-0.4); BLOOD UREA NITROGEN 21 mg/dL (7-21); GFR NON-AFRICAN AMERICAN > 60
[2019-02-23] MEDS: TIMOLOL OU SCH ×2 (09:24→22:14)
[2019-02-23] MEDS: BRIMONIDINE OU SCH ×2 (09:24→22:14)
[2019-02-23] MEDS: COLESEVELAM HCL 625 MG PO SCH (09:24)
[2019-02-23] MEDS: Magnesium Oxide 400 mg Tab UD PO SCH ×2 (09:25→17:49)
--- NOTE | 2019-02-23 11:49 | PN ---
DATE: 02/23/2019 SUBJECTIVE: The patient is under the care of Dr. Hidalgo, I am covering for him today. The patient is seen this morning, she had intermittent elevation of blood pressure in the night, the patient had to be given extra Apresoline to control her pressure. The patient is here, she has past history of cerebrovascular disease, carotid artery disease, coronary artery disease, hypertension, gastritis, dementia, altered mental state associated with gait disorder. The patient also has chronic lung disease, hypertension, hyperlipidemia and the patient gets medication for depression. PHYSICAL EXAMINATION: VITAL SIGNS: This morning, the patient's vital signs the pulse is 65, blood pressure 177/72, respirations are 18 per minute and O2 sat is 97% on room air. HEENT: Head is normocephalic. NECK: Thyroid is not enlarged. Carotid pulses are present. The patient has a scar in the neck consistent with carotid artery interventional procedure. CHEST: Symmetrical, the patient has past history of breast cancer. She is on prophylactic treatment. LUNGS: Trachea is central. Breath sounds are vesicular and no localizing signs. HEART: Normal sinus rhythm. Systolic murmur in the pericardium consistent with conducted murmur. ABDOMEN: Soft. Liver and spleen not palpable. CENTRAL NERVOUS SYSTEM: She is conscious. Has mild gait problem, she needs to walk with a walker, but she does not adhere to advice. The patient is being monitored by the physical therapist to steady her. MEDICATIONS: Her medication consists of Apresoline 10 mg twice a day; there remains an additional order for her to get blood pressure checked every 4 hours and she can have 10 mg of Apresoline if the systolic pressure is over 160. She is also on Aricept 10 mg daily, Arimidex for breast cancer prevention. The patient is on aspirin 81 mg daily, Ativan 1.5 mg at night and Vitamin D. The patient is on Lasix 40 mg daily, Lexapro 10 mg daily, Lipitor 20 mg daily, metoprolol 25 mg daily, Lovenox 40 mg subcutaneous prophylaxis for DVT, Plavix 75 mg daily for carotid artery disease and cerebrovascular disease, pantoprazole 40 mg daily and Tylenol for pain. The patient is given heart healthy diet and she is also on lisinopril 10 mg daily, Xopenex for respiratory treatment for chronic obstructive lung disease. The patient is clinically stable except for elevated blood pressure that has to be monitored very closely. The nurse is advised to monitor the blood pressure every 4 hours and treat the patient accordingly. Blood work reviewed, seemed to be within normal range. Kem Vang MD MTDDarryl
[2019-02-23] MEDS ORDERED: Ergocalciferol 50,000 Intl Units Cap PO SCH (17:00)
[2019-02-23] MEDS: TRAVOPROST OU SCH (22:15)
[2019-02-24] MEDS: Levalbuterol 0.63 MG/3 ML Inhal Soln UD IH SCH ×4 (02:15→20:30)
[2019-02-24] MEDS: Enoxaparin 40 mg Syringe SC SCH (05:29)
[2019-02-24] MEDS: Pantoprazole 40 mg EC Tab PO SCH (05:29)
[2019-02-24] MEDS: COLESEVELAM HCL 625 MG PO SCH (09:54)
[2019-02-24] MEDS: Magnesium Oxide 400 mg Tab UD PO SCH ×2 (09:55→17:36)
[2019-02-24] MEDS: TIMOLOL OU SCH ×2 (09:56→22:14)
[2019-02-24] MEDS: BRIMONIDINE OU SCH ×2 (09:56→22:14)
--- NOTE | 2019-02-24 13:13 | PN ---
DATE: 02/24/2019 SUBJECTIVE: The patient is seen lying in the bed in room 327, bed 1. The patient is comfortable. The patient denies any insomnia. The patient's overnight nurse's notes were reviewed. The patient refused SCDs and ABAD stockings. The patient was found to be alert, awake, responsive. PHYSICAL EXAMINATION: VITAL SIGNS: T-max 98.2. Telemetry heart rate 66, 59, 60, blood pressure 140/72, 156/72, 156/72, 188/76, O2 sat is 94% to 95%. Respiration is 18 to 20. HEENT: Head examination normocephalic, atraumatic. HEENT examination shows pink conjunctivae. Anicteric sclerae. No oropharyngeal lesion. No neck rigidity. CHEST: Kyphosis. LUNG: Examination shows no audible crackle, rales or wheezing. CARDIOVASCULAR: S1, S2, regular rhythm. Positive systolic murmur at left sternal border, right second intercostal space, left second intercostal space. ABDOMEN: Soft, positive bowel sounds. GENITALIA: Female. RECTAL: Deferred. EXTREMITIES: Shows no pitting edema, no calf tenderness, no Homans' sign. NEUROLOGIC: The patient is alert, awake, responsive, is able to move upper and lower extremity without assistance. Gait examination is not tested. VASCULAR: Palpable pulses. ABDOMEN: Soft, positive bowel sound, no palpable hepatosplenomegaly. GENITALIA: Female. RECTAL: Deferred. EXTREMITIES: Trace swelling of the ankle. No pitting edema, no calf tenderness, no Homans' sign. NEUROLOGIC: The patient is alert, awake, oriented x3, is able to move upper and lower extremity without assistance. Gait examination is not tested. MUSCULOSKELETAL: Examination shows a body mass index of 25. DIAGNOSTICS: 02/23/2019 was reviewed. Sodium 139, potassium 4.2, chloride 91, CO2 of 34, anion gap 7, BUN 21, creatinine 0.6, GFR greater than 60, glucose 92, magnesium . IMPRESSION: 1. Deconditioning. 2. Gait dysfunction. 3. Poor compliance and noncompliance. 4. Transient uncontrolled hypertension. 5. Acute non-ST elevation myocardial infarction with elevated troponin. 6. Status post fall versus questionable syncope. 7. Single-vessel coronary artery disease with chronically occluded right coronary artery. 8. Bradycardia. 9. Dilated ischemic cardiomyopathy with ejection fraction of 25%. 10. Right femoral artery severe peripheral vascular disease. 11. History of breast carcinoma. 12. Acute recurrent systolic congestive heart failure. 13. Dementia with cognitive impairment and memory impairment. 14. Insomnia. 15. Depression. 16. History of cerebral infarct and history of carotid stenosis with carotid endarterectomy. 17. Hyperlipidemia. 18. Breast carcinoma. 19. Hypovitaminosis D. 20. Hypomagnesemia. 21. History of benign positional vertigo. PLAN: At this time, the patient is to be continued on TCU stay until approved number of days. The patient is to be continued on daily physical therapy, occupational therapy, ambulation therapy, gait training. Current Medications: Hydralazine 10 mg p.o. every 4 hours p.r.n. with hydralazine 10 mg twice a day, Aricept 10 mg h.s., Avonex 1 mg daily, aspirin 81 mg daily, Ativan 1.5 mg h.s., Benadryl 50 mg h.s. p.r.n., Drisdol 50,000 units weekly. The patient is on Combigan eyedrop from home. The patient is on Welchol 625 daily. The patient is on Travatan eyedrops from home. Lasix 40 mg p.o. daily, Lexapro 10 mg daily, Lipitor 20 mg daily, Lopressor 25 mg daily, Lovenox 40 mg subcu daily, magnesium oxide 400 mg twice a day, Plavix 75 mg daily, Protonix 40 mg daily, Tylenol 650 mg p.o. suppository every 6 hours p.r.n., Xopenex nebulizer 0.63 mg every 6 hours, Zestril 10 mg daily, Zofran 4 mg IV every 4 hours and p.o. every 4 hours p.r.n., Zyprexa 5 mg h.s. Heart healthy diet. ABAD stockings, SCDs, out of bed physical therapy, occupational therapy, ambulation therapy all ordered. At present, the patient is to continue with daily physical therapy, occupational therapy, ambulation therapy and the patient is to continue on TCU stay until approved number of days. Dictated and electronically signed, not read. Mohan Hidalgo MD [facility] # [id number]
--- NOTE | 2019-02-24 14:38 | PN ---
DATE: 02/24/2019 SUBJECTIVE: The patient is ambulating with physical therapy without issues. PHYSICAL EXAMINATION: VITAL SIGNS: Blood pressure 140/72, the heart rate is in the 60s. NECK: Negative JVD. LUNGS: Without rales. HEART: S1, S2. EXTREMITIES: Without edema. LABORATORY DATA: Chemistries, potassium is 4.2, BUN and creatinine are unremarkable. IMPRESSION: 1. Status post non-ST elevation myocardial infarction. 2. History of a chronically occluded right coronary artery. 3. Hypertension. 4. Peripheral vascular disease. 5. Ischemic dilated cardiomyopathy with an ejection fraction of 25%. PLAN: Given these findings, the patient is doing well hemodynamically. We will continue on extensive physical therapy. The patient is currently advanced to the gym. We will continue her current medication which should include an aspirin and beta blockers as well as afterload reduction. Dmitriy Zambrano MD
[2019-02-24] MEDS: TRAVOPROST OU SCH (22:15)
[2019-02-25] MEDS: Levalbuterol 0.63 MG/3 ML Inhal Soln UD IH SCH ×4 (02:10→19:47)
[2019-02-25] MEDS: Enoxaparin 40 mg Syringe SC SCH (05:32)
[2019-02-25] MEDS: Pantoprazole 40 mg EC Tab PO SCH (05:33)
[2019-02-25] MEDS: COLESEVELAM HCL 625 MG PO SCH (10:01)
[2019-02-25] MEDS: BRIMONIDINE OU SCH ×2 (10:02→21:55)
[2019-02-25] MEDS: TIMOLOL OU SCH ×2 (10:02→21:55)
[2019-02-25] MEDS: Magnesium Oxide 400 mg Tab UD PO SCH ×2 (10:03→17:24)
--- NOTE | 2019-02-25 17:12 | PN ---
DATE: 02/25/2019 SUBJECTIVE: The patient is in room 327, bed 1. Overnight nurse's notes were reviewed. The patient continues to refuse SCDs, ABAD stockings. The patient has been refusing those since the day of admission. Overnight nurse's notes were reviewed. No adverse events were reported, documented, called for. PHYSICAL EXAMINATION VITAL SIGNS: T-max 97.7, heart rate 55, blood pressure 181/72, respirations 20, O2 sat 99%. HEENT AND NECK: Head: Normocephalic, atraumatic. HEENT examination shows pink conjunctivae. Anicteric sclerae. Positive right carotid endarterectomy surgical scar. Positive soft carotid bruit. CHEST: Kyphosis. LUNGS: Show no audible crackles, rales or wheezing. Questionable decreased breath sound at the bases. CARDIOVASCULAR: S1, S2, regular rhythm. Positive systolic murmur left sternal border, right second intercostal space, left second intercostal space. ABDOMEN: Soft, positive bowel sounds. No palpable hepatosplenomegaly. GENITALIA: Female. RECTAL: Deferred. EXTREMITIES: Show trace swelling of the lower extremity and ankle. MUSCULOSKELETAL: As per the body mass index. NEUROLOGIC: The patient is alert, awake, responsive, is able to move upper and lower extremities without assistance. Gait examination is not tested. VASCULAR: Palpable pulses. Cranial nerves II-XII were intact and limited. PSYCHIATRIC: Positive for depression, insomnia and psychosis. DIAGNOSTICS: None from today. IMPRESSION 1. Gait dysfunction. 2. Deconditioning. 3. History of poor compliance and noncompliance. 4. Single-vessel coronary artery disease with acute non-ST elevation myocardial infarction. 5. Status post cardiac catheterization. 6. Uncontrolled hypertension. 7. Systolic congestive heart failure and systolic cardiomyopathy with ejection fraction of 25-29%. 8. Dilated ischemic cardiomyopathy. 9. Recurrent systolic congestive heart failure. 10. Hyperlipidemia. 11. Vitamin B12 deficiency. 12. Benign positional vertigo. 13. History of cerebral infarct. 14. History of carotid stenosis, status post right carotid endarterectomy. 15. Encephalomalacia of the brain. 16. Kyphoscoliosis of the spine. 17. Bilateral lower extremity venous stasis secondary to systolic congestive heart failure. 18. Coronary artery disease. 19. Hypovitaminosis D. 20. Insomnia. 21. Anxiety disorder and depression. 22. History of questionable possible bipolar disorder and psychosis. 23. Gait dysfunction. PLAN: At this time, the patient has been ordered all the medications as per the DEC of today, which was reviewed. The patient is to continue on all the medications as per the DEC of today, which was reviewed. The patient is to continue on daily physical therapy, occupational therapy, ambulation therapy, gait training. The patient has been ordered out of bed to chair. The patient has been reordered ABAD stockings, SCDs. The patient is to continue on pharmacological, non-pharmacological GI DVT prophylaxis. The patient will continue on TCU stay until approved number of days. The patient has again been advised about the patient's need for 24-hour care and supervision upon discharge, but the patient and family has not been able to understand the risk and consequences of the patient living alone. I have also advised the patient and the patient's son and the family to contact psych social worker regarding possibilities of arranging 24-hour care and supervision whether at home or other options like assisted placement and long-term placement. Dictated and electronically signed, not read. Mohan Hidalgo MD
[2019-02-25] MEDS: TRAVOPROST OU SCH (21:55)
[2019-02-26] MEDS: Levalbuterol 0.63 MG/3 ML Inhal Soln UD IH SCH ×4 (01:21→20:25)
[2019-02-26] MEDS: Enoxaparin 40 mg Syringe SC SCH (06:16)
[2019-02-26] MEDS: Pantoprazole 40 mg EC Tab PO SCH (06:16)
[2019-02-26] MEDS: COLESEVELAM HCL 625 MG PO SCH (09:53)
[2019-02-26] MEDS: BRIMONIDINE OU SCH ×2 (09:54→21:35)
[2019-02-26] MEDS: Magnesium Oxide 400 mg Tab UD PO SCH ×2 (09:54→17:40)
[2019-02-26] MEDS: TIMOLOL OU SCH ×2 (09:54→21:35)
--- NOTE | 2019-02-26 14:57 | PN ---
DATE: 02/26/2019 SUBJECTIVE: The patient is in room 327, bed 1 and also the patient is doing physical therapy. Overnight nurse's notes were reviewed. PHYSICAL EXAMINATION VITAL SIGNS: T-max 97.7, heart rate 69, blood pressure 134/70, respirations 16, O2 sat 92-96%. HEENT AND NECK: Head: Normocephalic, atraumatic. HEENT examination shows pinkish conjunctivae. Anicteric sclerae. No oropharyngeal lesion. No neck rigidity. Soft carotid bruit. Positive carotid endarterectomy surgical scar. CHEST: Kyphosis. LUNGS: Show questionable decreased breath sounds at the bases. No audible crackles, rales or wheezing. CARDIOVASCULAR: S1, S2, regular rhythm. Positive systolic murmur left sternal border, right second intercostal space, left second intercostal space. ABDOMEN: Soft, positive bowel sounds. No palpable hepatosplenomegaly. GENITALIA: Female. RECTAL: Deferred. EXTREMITIES: Show trace swelling of the ankles. No pitting edema of the legs noted. MUSCULOSKELETAL: As per body mass index. NEUROLOGIC: The patient is alert, awake, responsive, is able to move upper and lower extremities without assistance. Gait examination is not tested. VASCULAR: Palpable pulses. PSYCHIATRIC: Positive for anxiety, insomnia, depression. DIAGNOSTICS: None. IMPRESSION 1. Deconditioning. 2. Gait dysfunction. 3. Questionable syncope. 4. Acute non-ST elevation myocardial infarction. 5. Status post cardiac catheterization. 6. Single-vessel coronary artery disease with chronically occluded right coronary artery. 7. Dilated ischemic cardiomyopathy. 8. Acute recurrent systolic congestive heart failure. 9. Dilated ischemic cardiomyopathy with ejection fraction of 25-29%. 10. Poor compliance and noncompliance. 11. Uncontrolled hypertension. 12. Transient hypoxemia. 13. History of cerebral infarct. 14. History of right carotid endarterectomy. 15. History of breast carcinoma. 16. Hyperlipidemia. 17. Vitamin B12 deficiency. 18. History of vertigo and benign positional vertigo. 19. Hypovitaminosis D. 20. Sinus bradycardia. 21. Dementia. 22. Insomnia. 23. Anxiety disorder. 24. Depression. 25. History of possible bipolar disorder, psychosis and schizophrenia. 26. Acute recurrent systolic congestive heart failure with elevated proBNP and bilateral lower extremity venous stasis. 27. History of falls. PLAN: At present, plan is to continue with all the therapeutic intervention as per the MAR of today, which is reviewed. The patient is to continue on TCU with daily physical therapy, occupational therapy, ambulation therapy, gait training. The patient was seen by social service assistant yesterday. The patient's family has expressed interest in the patient being evaluated for subacute rehab at [facility] were sent by the social science analyst to [facility] for evaluation subacute rehab at [facility]. Otherwise, the patient will continue on TCU until approved number of days with continuation of the above therapeutic intervention as per the MAR. Dictated and electronically signed, not read. Mohan Hidalgo MD
[2019-02-26 16:16] VITALS: O2SAT 94
[2019-02-26 17:06] VITALS: RESP 18; TEMP 98.7
[2019-02-26] MEDS: TRAVOPROST OU SCH (21:37)
[2019-02-27] MEDS: Levalbuterol 0.63 MG/3 ML Inhal Soln UD IH SCH ×2 (01:04→07:14)
[2019-02-27] MEDS: Pantoprazole 40 mg EC Tab PO SCH (05:44)
[2019-02-27 05:45] VITALS: PULSE 58
[2019-02-27] MEDS: Enoxaparin 40 mg Syringe SC SCH (05:45)
[2019-02-27] MEDS: Magnesium Oxide 400 mg Tab UD PO SCH (09:47)
[2019-02-27 09:48] VITALS: BP 170/59
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
== END 2019-02-27 13:03 | disposition home health service (06) | DRG 280 ==
LOC: TRCU 21:21
PROVIDERS: ADMIT Internal Medicine; ATTEND Internal Medicine
PROC: F07Z9FZ Gait Training/Functional Ambulation Treatment using Assistive, Adaptive, Supportive or Protective Equipment (ICD-10-PCS; principal; 2019-02-20)
PROC: F07M6ZZ Therapeutic Exercise Treatment of Musculoskeletal System - Whole Body (ICD-10-PCS; 2019-02-20)
PROC: F08Z0ZZ Bathing/Showering Techniques Treatment (ICD-10-PCS; 2019-02-20)
PROC: F08Z1ZZ Dressing Techniques Treatment (ICD-10-PCS; 2019-02-20)
PROC: F08Z2ZZ Grooming/Personal Hygiene Treatment (ICD-10-PCS; 2019-02-20)
DX: I21.4 Non-ST elevation (NSTEMI) myocardial infarction (principal); I50.23 Acute on chronic systolic (congestive) heart failure; I42.0 Dilated cardiomyopathy; I25.10 Atherosclerotic heart disease of native coronary artery without angina pectoris; I25.5 Ischemic cardiomyopathy; I11.0 Hypertensive heart disease with heart failure; G93.89 Other specified disorders of brain; Z86.73 Personal history of transient ischemic attack (TIA), and cerebral infarction without residual deficits; Z85.3 Personal history of malignant neoplasm of breast; E55.9 Vitamin D deficiency, unspecified; E53.8 Deficiency of other specified B group vitamins; E78.5 Hyperlipidemia, unspecified; F03.90 Unspecified dementia, unspecified severity, without behavioral disturbance, psychotic disturbance, mood disturbance, and anxiety; F20.9 Schizophrenia, unspecified; F31.9 Bipolar disorder, unspecified; F41.9 Anxiety disorder, unspecified; G47.00 Insomnia, unspecified; H40.9 Unspecified glaucoma; H81.10 Benign paroxysmal vertigo, unspecified ear; I25.2 Old myocardial infarction; I34.0 Nonrheumatic mitral (valve) insufficiency; I73.9 Peripheral vascular disease, unspecified; I87.8 Other specified disorders of veins; K21.9 Gastro-esophageal reflux disease without esophagitis; M41.9 Scoliosis, unspecified; R09.02 Hypoxemia; Z87.01 Personal history of pneumonia (recurrent); Z87.891 Personal history of nicotine dependence; Z90.49 Acquired absence of other specified parts of digestive tract; Z91.19 Patient's noncompliance with other medical treatment and regimen; Z91.81 History of falling; R00.1 Bradycardia, unspecified; Z80.0 Family history of malignant neoplasm of digestive organs; Z80.52 Family history of malignant neoplasm of bladder